=== PATIENT | male | born 1950 | race Caucasian/White ===

== ENCOUNTER 2019-04-04 06:26 | Inpatient (IN) | payer OTHER, MEDICARE | END 2019-04-10 11:45 | disposition home or self-care (01) | LOC: J5S 04-06 14:43 → JER 06:26 → J4W 04-07 11:36 → JERBED 08:53 → J8W 13:51 ==

== ENCOUNTER 2019-07-03 10:55 | Inpatient (IN) | payer OTHER, MEDICARE ==
--- NOTE | 2019-07-03 12:15 | PDOC ---
*Physical Exam - Vital Signs Last Vital Signs Temp Pulse Resp BP Pulse Ox 98.1 F 60 19 135/81 97 07/03/19 11:04 07/03/19 11:04 07/03/19 11:04 07/03/19 11:04 07/03/19 11:04 ED Treatment Course - LABORATORY CBC & Chemistry Diagram: 07/04/19 07:00 07/04/19 07:00 Medical Decision Making - Medical Decision Making 07/03/19 12:13 Mr Hdz is a 69 yo M presenting with a lower extremity cellulitis Pt was seen by PMD, started on Keflex but pt feels the erythema has worsened HE also noted local pruritic rash (which worsened while on Keflex) EKG - SR rate of 53 bpm, axis nml, intervals nml, no st elevation or depression Agree with history, physical exam and plan per [facility] APPRENTICE Daya Agree with plan for antibiotics as pt has failed outpatient abx Will admit *DC/Admit/Observation/Transfer Diagnosis at time of Disposition: Cellulitis - Discharge Dispostion Condition at time of disposition: Stable - Referrals - Patient Instructions - Post Discharge Activity
[2019-07-03] MEDS ORDERED: CLINDAMYCIN 600MG PREMIX IVPB 600 MG/50 ML BAG IVPB ONE ×2 (12:22→12:34)
--- NOTE | 2019-07-03 12:22 | PDOC ---
History of Present Illness - General Chief Complaint: Wound Stated Complaint: leg wounds infection Time Seen by Provider: 07/03/19 12:00 History Source: Patient Exam Limitations: No Limitations Past History - Travel Traveled outside of the country in the last 30 days: No Close contact w/someone who was outside of country & ill: No - Past Medical History Allergies/Adverse Reactions: Allergies Allergy/AdvReac Type Severity Reaction Status Date / Time No Known Allergies Allergy Verified 07/03/19 11:08 Home Medications: Ambulatory Orders Furosemide [Lasix] 20 mg PO DAILY 04/04/19 Gabapentin 100 mg PO DAILY 04/04/19 Glipizide [Glipizide ER] 2.5 mg PO DAILY 04/04/19 Hydrochlorothiazide [Hctz -] 25 mg PO DAILY 04/04/19 Losartan Potassium 100 mg PO DAILY 04/04/19 Metformin HCl [Metformin HCl ER] 1,000 mg PO BID 04/04/19 Metoprolol Tartrate 25 mg PO DAILY 04/04/19 Montelukast Sodium [Singulair] 10 mg PO DAILY 04/04/19 Tamsulosin HCl [Flomax] 0.8 mg PO DAILY 04/04/19 Amoxicillin - [Amoxicillin 500mg Capsule -] 500 mg PO TID #9 capsule 04/09/19 Cyanocobalamin/Cobamamide [Vitamin B-12 5,000 Mcg Tab Sl] 1 each SL DAILY #30 tab.subl 04/09/19 metroNIDAZOLE [Flagyl -] 500 mg PO TID #9 tablet 04/09/19 Warfarin Na [Coumadin -] 5 mg PO DAILY@1800 #30 tablet 04/10/19 Cancer: Yes (prostate) COPD: No Diabetes: Yes HTN: Yes Other medical history: leg wounds - Surgical History Abdominal Surgery: Yes (stent in gallbladder March 2019) Orthopedic Surgery: Yes (bilateral knee replacement) - Immunization History Immunization Up to Date: Yes - Suicide/Smoking/Psychosocial Hx Smoking History: Never smoked Have you smoked in the past 12 months: No Information on smoking cessation initiated: No Hx Alcohol Use: No Drug/Substance Use Hx: No Review of Systems - Review of Systems Able to Perform ROS?: Yes Comments:: 07/03/19 14:31 CONSTITUTIONAL: Absent: fever, chills, diaphoresis, generalized weakness, malaise, loss of appetite HEENT: Absent: rhinorrhea, nasal congestion, throat pain, throat swelling, difficulty swallowing, mouth swelling, ear pain, eye pain, visual Changes CARDIOVASCULAR: Absent: chest pain, loss of consciousness, palpitations, irregular heart rate, peripheral edema RESPIRATORY: Absent: cough, shortness of breath, dyspnea with exertion, orthopnea, wheezing, stridor, hemoptysis GASTROINTESTINAL: Absent: abdominal pain, abdominal distension, nausea, vomiting, diarrhea, constipation, melena, hematochezia GENITOURINARY: Absent: dysuria, frequency, urgency, hesitancy, hematuria, flank pain, genital pain MUSCULOSKELETAL: Absent: myalgia, arthralgia, joint swelling SKIN: Present: itching, rash Absent: pallor HEMATOLOGIC/IMMUNOLOGIC: Absent: easy bleeding, easy bruising, lymphadenopathy, frequent infections ENDOCRINE: Absent: unexplained weight gain, unexplained weight loss, heat intolerance, cold intolerance NEUROLOGIC: Absent: headache, focal weakness or paresthesias, dizziness, unsteady gait, seizure, mental status changes, bladder or bowel incontinence PSYCHIATRIC: Absent: anxiety, depression, suicidal or homicidal ideation, hallucinations. Is the patient limited Arabic proficient: No *Physical Exam - Vital Signs Last Vital Signs Temp Pulse Resp BP Pulse Ox 98.1 F 60 19 135/81 97 07/03/19 11:04 07/03/19 11:04 07/03/19 11:04 07/03/19 11:04 07/03/19 11:04 - Physical Exam Comments: 07/03/19 14:42 GENERAL: Well developed, well nourished. Awake and alert. No acute distress. HEENT: Normocephalic, atraumatic. PERRLA, EOMI. No conjunctival pallor. Sclera are non- icteric. Moist mucous membranes. Oropharynx is clear. NECK: Supple. Full ROM. No JVD. Carotid pulses 2+ and symmetric, without bruits. No thyromegaly. No lymphadenopathy. CARDIOVASCULAR: Regular rate and rhythm. No murmurs, rubs, or gallops. Distal pulses are 2+ and symmetric. PULMONARY: No evidence of respiratory distress. Lungs clear to auscultation bilaterally. No wheezing, rales or rhonchi. ABDOMINAL: Soft. Non-tender. Non-distended. No rebound or guarding. No organomegaly. Normoactive bowel sounds. MUSCULOSKELETAL Normal range of motion at all joints. No bony deformities or tenderness. No CVA tenderness. EXTREMITIES: No cyanosis. No clubbing. (+) 2+ pitting edema. No calf tenderness. SKIN: Erythematous, warm cellulitic area to the posterior L leg, approximately [id number] with a central area of excoriation. No obvious drainage Warm and dry. Normal capillary refill. Small excorated papules to the legs, back, ears ,face, and chest. No jaundice. NEUROLOGICAL: Alert, awake, appropriate. Cranial nerves 2-12 intact. No deficits to light touch and temperature in face, upper extremities and lower extremities. No motor deficits in the in face, upper extremities and lower extremities. Normoreflexic in the upper and lower extremities. Normal speech. Toes are down- going bilaterally. Gait is normal without ataxia. PSYCHIATRIC: Cooperative. Good eye contact. Appropriate mood and affect. ED Treatment Course - LABORATORY CBC & Chemistry Diagram: 07/03/19 12:44 07/03/19 12:44 Medical Decision Making - Medical Decision Making 07/03/19 14:49 The patient is a 69y/o M with PMH of NIDDM, HTN, gallbladder stents, presents to the ER today for lower leg infection. The patient states he saw his primary care doctor for the cellulitis on 06/28/19. He was placed on Keflex at that time and he had been taking it as directed. He notes that the area on his LLE did not get better and the redness appears to be getting worse. Denies drainage from the area. He also notes that after starting the antibiotics he developed an itchy rash all over his body. Denies fevers, chills, lightheadedness, weakness, gait changes, numbness/tingling and weakness to the lower extremities. PCP: Dr. Betts A/P: Cellulitis; failed outpatient therapy On exam pt with an erythematous patch to the LLE posteriorly consistent with cellulitis. No abscess or flutucance noted Also with pruritic papular rash to the body. Possible Keflex allergy? Will admit for failed out patient therapy Labs, blood cultures drawn IV Clinda given X-rays show no acute pathology Dr. Adorno's group paged. *DC/Admit/Observation/Transfer Diagnosis at time of Disposition: Cellulitis Qualifiers: Site of cellulitis: extremity Site of cellulitis of extremity: lower extremity Laterality: left Qualified Code(s): L03.116 - Cellulitis of left lower limb - Discharge Dispostion Condition at time of disposition: Stable Decision to Admit order: Yes - Referrals - Patient Instructions - Post Discharge Activity
[2019-07-03 12:57] LABS: EOS % 9.8 % (0-4.5); HEMATOCRIT 46.3 % (35.4-49); LYMPH % 16.5 % (8-40); MCHC 34.6 g/dl (32.0-35.9); MEAN CELL VOLUME 92.6 fl (80-96); MEAN PLT VOLUME 8.5 fl (7.5-11.1); MONO % 15.4 % (3.8-10.2); NEUT % 57.3 % (42.8-82.8); PLATELET COUNT 153 K/MM3 (134-434); RDW 15.1 % (11.9-15.9); WHITE BLOOD COUNT 3.3 K/mm3 (4.0-10.0)
[2019-07-03 12:58] LABS: URINE APPEARANCE CLEAR; URINE BILIRUBIN NEGATIVE (NEGATIVE); URINE COLOR YELLOW; URINE GLUCOSE (UA) NEGATIVE (NEGATIVE); URINE KETONE NEGATIVE (NEGATIVE); URINE LEUK ESTERASE NEGATIVE (NEGATIVE); URINE NITRITE NEGATIVE (NEGATIVE); URINE PROTEIN NEGATIVE (NEGATIVE); URINE UROBILINOGEN 0.2 mg/dL (0.2-1.0)
[2019-07-03] MEDS ORDERED: diphenhydrAMINE HCL 25 MG CAPSULE (FP) PO ONE ×2 (13:00→13:02)
[2019-07-03 13:16] LABS: INR 2.35 (0.83-1.09)
[2019-07-03 13:30] LABS: ALBUMIN 3.7 g/dl (3.4-5.0); BILIRUBIN,TOTAL 0.7 mg/dL (0.2-1); CALCIUM 8.7 mg/dL (8.5-10.1); CREATININE 0.9 mg/dL (0.55-1.3); POTASSIUM 3.7 mmol/L (3.5-5.1); TOT PROT 6.1 g/dl (6.4-8.2)
--- NOTE | 2019-07-03 15:01 | EKG ---
Test Reason : Blood Pressure : / mmHG Vent. Rate : 053 BPM Atrial Rate : 053 BPM P-R Int : 194 ms QRS Dur : 092 ms QT Int : 418 ms P-R-T Axes : 057 021 013 degrees QTc Int : 392 ms SINUS BRADYCARDIA OTHERWISE NORMAL ECG WHEN COMPARED WITH ECG OF 07-APR-2019 10:00, SINUS RHYTHM HAS REPLACED ATRIAL FIBRILLATION VENT. RATE HAS DECREASED BY [address] NO LONGER DEPRESSED IN LATERAL LEADS Confirmed by TRE DIAZ MD ([id number]) on 07/03/2019 3:00:51 PM Referred By: Confirmed By:TRE DIAZ MD
[2019-07-03] MEDS: INSULIN SLIDING SCALE (NOVOLOG) 1 VIAL SQ SCH (21:54)
[2019-07-03] MEDS: GABAPENTIN 100 MG CAPSULE (FP) PO SCH (22:04)
[2019-07-03] MEDS: HEPARIN NA (PORCINE) 5,000 UNITS/ML 1ML VIAL SQ SCH (22:04)
[2019-07-03 22:16] VITALS: BMI 38.5
[2019-07-04] MEDS: GABAPENTIN 100 MG CAPSULE (FP) PO SCH ×3 (06:34→21:46)
[2019-07-04] MEDS: diphenhydrAMINE HCL 25 MG CAPSULE (FP) PO PRN ×2 (06:34→21:46)
[2019-07-04] MEDS: INSULIN SLIDING SCALE (NOVOLOG) 1 VIAL SQ SCH ×4 (06:34→21:44)
[2019-07-04] MEDS ORDERED: ACARBOSE PO SCH (07:00)
[2019-07-04 07:34] LABS: BASO % 0.5 % (0-2.0); EOS % 9.6 % (0-4.5); HEMATOCRIT 45.4 % (35.4-49); HEMOGLOBIN 15.5 GM/dL (11.7-16.9); LYMPH % 12.3 % (8-40); MCH 32.3 pg (25.7-33.7); MCHC 34.2 g/dl (32.0-35.9); MEAN CELL VOLUME 94.3 fl (80-96); MEAN PLT VOLUME 8.8 fl (7.5-11.1); MONO % 13.8 % (3.8-10.2); NEUT % 63.8 % (42.8-82.8); PLATELET COUNT 143 K/MM3 (134-434); RBC 4.81 M/mm3 (4.00-5.60); RDW 14.9 % (11.9-15.9); WHITE BLOOD COUNT 4.4 K/mm3 (4.0-10.0)
[2019-07-04 08:07] LABS: ALBUMIN 3.5 g/dl (3.4-5.0); BILIRUBIN,TOTAL 0.8 mg/dL (0.2-1); BLOOD UREA NITROGEN 18.4 mg/dL (7-18); CALCIUM 8.6 mg/dL (8.5-10.1); CREATININE 1.1 mg/dL (0.55-1.3); MAGNESIUM 1.9 mg/dL (1.8-2.4); PHOSPHOROUS 3.1 mg/dL (2.5-4.9); POTASSIUM 3.5 mmol/L (3.5-5.1); TOT PROT 5.8 g/dl (6.4-8.2)
[2019-07-04] MEDS: LOSARTAN POTASSIUM 50 MG TABLET (FP) PO SCH (09:31)
[2019-07-04] MEDS: HYDROCHLOROTHIAZIDE 25 MG TABLET (FP) PO SCH (09:31)
[2019-07-04] MEDS: HEPARIN NA (PORCINE) 5,000 UNITS/ML 1ML VIAL SQ SCH (09:31)
[2019-07-04] MEDS ORDERED: PATIENT'S OWN MEDICATION (NON-FORMULARY) (Losartan Potassium [Losartan Potassium] 100 MG) PO SCH (10:00)
--- NOTE | 2019-07-04 10:55 | HP ---
Admitting History and Physical - Primary Care Physician PCP: Kan Adorno - Admission Chief Complaint: LLE INFECTION. CELLULITIS History of Present Illness: The patient is a 69y/o M with PMH of NIDDM, HTN, gallbladder stents, presents to the ER today for lower leg infection. The patient states he saw his primary care doctor for the cellulitis on 06/28/19. He was placed on Keflex at that time and he had been taking it as directed. He notes that the area on his LLE did not get better and the redness appears to be getting worse. Denies drainage from the area. He also notes that after starting the antibiotics he developed an itchy rash all over his body. Denies fevers, chills, lightheadedness, weakness, gait changes, numbness/tingling and weakness to the lower extremities. History Source: Patient, Medical Record, Transfer Record - Past Medical History Cardiovascular: Yes: HTN Pulmonary: Yes: COPD Renal/: Yes: BPH, Cancer (prostate cancer s/p radiation therapy 2016) - Past Surgical History Past Surgical History: Yes: Joint Replacement (B/L TKR) - Smoking History Smoking history: Never smoked Have you smoked in the past 12 months: No - Alcohol/Substance Use Hx Alcohol Use: No History of Substance Use: reports: None - Social History ADL: Independent History of Recent Travel: No Home Medications - Allergies Allergies/Adverse Reactions: Allergies Allergy/AdvReac Type Severity Reaction Status Date / Time cephalexin [From Keflet] Allergy Verified 07/04/19 07:16 - Home Medications Home Medications: Ambulatory Orders Gabapentin 100 mg PO TID 04/04/19 Hydrochlorothiazide [Hctz -] 25 mg PO DAILY 04/04/19 Losartan Potassium 100 mg PO DAILY 04/04/19 Metformin HCl [Metformin HCl ER] 1,000 mg PO BID 04/04/19 Metoprolol Tartrate 25 mg PO DAILY 04/04/19 Montelukast Sodium [Singulair] 10 mg PO DAILY 04/04/19 Tamsulosin HCl [Flomax] 0.8 mg PO DAILY 04/04/19 Warfarin Na [Coumadin -] 5 mg PO DAILY@1800 #30 tablet 04/10/19 Acarbose [Precose -] 1 tab PO TID 07/03/19 Silver Sulfadiazine 1% Top Cr [Silvadene -] 1 applic TP BID 07/03/19 Family Disease History - Family Disease History Family Disease History: Other: Father (: 74: OR), Mother (: 86: "Old Age "), Brother (4, healthy), Sister (1, healthy), Son (1, healthy), Daughter (3, healthy) Review of Systems - Review of Systems Constitutional: reports: Other Neck: reports: No Symptoms Cardiovascular: reports: No Symptoms Respiratory: reports: No Symptoms Gastrointestinal: reports: Other Genitourinary: reports: No Symptoms Integumentary: reports: Erythema, Wound Physical Examination Vital Signs: Vital Signs Temperature 97.6 F 07/04/19 10:00 Pulse Rate 81 07/04/19 10:00 Respiratory Rate 07/04/19 10:00 Blood Pressure 142/80 07/04/19 10:00 O2 Sat by Pulse Oximetry (%) 98 07/04/19 06:06 Constitutional: Yes: Mild Distress Eyes: Yes: WNL HENT: Yes: WNL Neck: Yes: WNL Cardiovascular: Yes: Regular Rate and Rhythm Respiratory: Yes: WNL Gastrointestinal: Yes: Soft Musculoskeletal: Yes: Other Extremities: Yes: Erythema Peripheral Pulses WNL: Yes Integumentary: Yes: Erythema, Pressure Ulcer, Rash, Venous Stasis Changes (LEFT LOWER EXTREMITY) Wound/Incision: Yes: Open to air Neurological: Yes: WNL ...Motor Strength: LLE Psychiatric: Yes: WNL Labs: CBC, BMP 07/04/19 07:00 07/04/19 07:00 Problem List - Problems (1) Cellulitis Code(s): L03.90 - CELLULITIS, UNSPECIFIED Qualifiers: Site of cellulitis: extremity Site of cellulitis of extremity: lower extremity Laterality: left Qualified Code(s): L03.116 - Cellulitis of left lower limb (2) Atrial fibrillation with RVR Code(s): I48.91 - UNSPECIFIED ATRIAL FIBRILLATION (3) Cholangitis due to bile duct calculus with obstruction Code(s): K80.31 - CALCULUS OF BILE DUCT W CHOLANGITIS, UNSP, WITH OBSTRUCTION (4) Diabetes mellitus Code(s): E11.9 - TYPE 2 DIABETES MELLITUS WITHOUT COMPLICATIONS Qualifiers: Diabetes mellitus type: type 2 (5) HTN (hypertension) Code(s): I10 - ESSENTIAL (PRIMARY) HYPERTENSION (6) Morbid obesity due to excess calories Code(s): E66.01 - MORBID (SEVERE) OBESITY DUE TO EXCESS CALORIES Assessment/Plan CHECK DOPPLER ARTERIAL FLOW LEGS IV ABX GI EVAL FOR GB STENT REMOVAL DVT PROPHYLAXIS OOB TO CHAIR BGM CHECK
--- NOTE | 2019-07-04 10:58 | PN ---
Progress Note (short form) - Note Progress Note: ID CONSULT DICTATED RECURRENT L LE CELLULITIS ? CEPHALOSPORIN ALLERGY DM S/P BILATERAL TKR AWAIT C/S EMPIRIC VANCOMYCIN
--- NOTE | 2019-07-04 11:33 | CONS ---
INFECTIOUS DISEASE CONSULTATION DATE OF CONSULTATION: DATE OF DICTATION: 07/04/2019 Patient is a 69-year-old male who was admitted with recurrent lower extremity cellulitis. He reports developing erythema, warmth, and swelling of the left lower extremity associated with pruritus several days prior to admission. His left lower extremity became increasingly red and pruritic. He reports scratching at the calf area of his left lower extremity, resulting in a superficial ulceration. He was seen by his primary care physician. He was prescribed Keflex. Patient subsequently reported feeling flushed and having erythema of the face and neck. He is now admitted for further evaluation and treatment. He denies any associated fever or chills. He did not notice any purulent drainage from the left calf wound. Of note, the patient was hospitalized in March of 2019, for treatment of left lower extremity cellulitis. At that time, he was treated with vancomycin and Zosyn. He denies any traumatic injury to his left lower extremity. No reports of insect or animal bites or scratches. He does report scratching his leg secondary to pruritus. PAST MEDICAL HISTORY: Positive for [id number] diabetes mellitus; hypertension; history of biliary tract disease, status post biliary tract stent. PAST SURGICAL HISTORY: Status post bilateral total knee replacements. ALLERGIES: No known allergies. MEDICATIONS: At the present time include Benadryl, Neurontin, hydrochlorothiazide, losartan, metformin. SOCIAL HISTORY: He lives in the community. He is a nonsmoker. SYSTEMS REVIEW: Neurologic: No loss of consciousness, seizure activity, focal weakness. Cardiac: Negative chest pain or palpitations. Respiratory: Negative cough or sputum production. Gastrointestinal: Negative vomiting or diarrhea. Genitourinary: Negative for urinary tract infection. LABORATORY DATA: White count 4.4, hematocrit 45.4, platelets 143; neutrophils 63, lymphocytes 12, monocytes 13, eosinophils 9. Creatinine 1.1. Urinalysis negative. Blood cultures are pending. PHYSICAL EXAMINATION: General: He is awake and alert. He is not acutely toxic appearing. Vital Signs: His temperature is 97.5; blood pressure 143/80; pulse 55, regular; respirations 20 per minute. HEENT: Sclera anicteric. Heart: Sounds S1, S2. Lungs: Clear. Abdomen: Soft, nontender. Lower Extremities: Bilateral lower extremity edema with chronic venous stasis dermatitis. There is a 1-cm superficial ulceration present on the left calf area. There is no purulent drainage. There is surrounding erythema and warmth present. IMPRESSION: 1. Recurrent left lower extremity cellulitis. 2. Possible CEPHALOSPORIN allergy. 3. History of endoscopic retrograde cholangiopancreatography and stone extraction in March 2019. Await cultures. Empiric antibiotic coverage in this patient with possible CEPHALOSPORIN allergy with vancomycin 1250 mg IV piggyback every 8 hours. Elevation. Analgesics. Will follow. Thank you for the kind referral. GINA DALTON M.D. [id number]
[2019-07-04] MEDS: VANCOMYCIN 1,250 MG in DEXTROSE 5%-WATER - 250 ML IVPB SCH ×2 (12:05→23:27)
[2019-07-04] MEDS ORDERED: ACETAMINOPHEN 325 MG TABLET (FP) PO PRN (20:03)
--- NOTE | 2019-07-04 20:47 | CON.GI ---
Consult Consult Specialty:: Gastroenterology Referred by:: Dr. Kan Adorno Reason for Consultation:: Residual CBD stone and stent - History of Present Illness Chief Complaint: lower extremity pain History of Present Illness: 69M diabetic is admitted with cellulitis after scratching and macerating his brawny edematous LLE. He is due for a repeat ERCP to remove a residual CBD stone and stent. He had an ECP with [facility] for ascending cholangitis on 04/05/19. Only one of his two CBD stones could be removed when he developed swelling and closure of his sphincterotomy so a stent was inserted. he has not yet undergone a cholecystectomy. He ju abdominal pain. He has never had a colonoscopy or EGD. He moves his bowels regularly. He has not been taking Actigal. He is still on warfarin for paroxysmal MALVIN that developed during ascending choplangitis in . - History Source History Provided By: Patient Limitations to Obtaining History: No Limitations - Past Medical History Cardio/Vascular: Yes: AFIB (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), HTN, Other (LE venous insufficiency) Pulmonary: Yes: Asthma Hepatobiliary: Yes: Cholelithiasis, Choledocholithiasis, Other (fatty liver) Renal/: Yes: BPH, Cancer (prostate cancer s/p radiation therapy 2016) Endocrine: Yes: Diabetes Mellitus - Past Surgical History Past Surgical History: Yes: Appendectomy, Joint Replacement (B/L TKR) - Alcohol/Substance Use Hx Alcohol Use: Yes (rare beer and wine) History of Substance Use: reports: None - Smoking History Smoking history: Former smoker Have you smoked in the past 12 months: No If you are a former smoker, when did you quit?: aage 33 - Social History Usual Living Arrangement: With Spouse ADL: Independent 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 (year): age 34 History of Recent Travel: No Home Medications - Allergies Allergies/Adverse Reactions: Allergies Allergy/AdvReac Type Severity Reaction Status Date / Time cephalexin [From Keflet] Allergy Verified 07/04/19 07:16 - Home Medications Home Medications: Ambulatory Orders Gabapentin 100 mg PO TID 04/04/19 Hydrochlorothiazide [Hctz -] 25 mg PO DAILY 04/04/19 Losartan Potassium 100 mg PO DAILY 04/04/19 Metformin HCl [Metformin HCl ER] 1,000 mg PO BID 04/04/19 Metoprolol Tartrate 25 mg PO DAILY 04/04/19 Montelukast Sodium [Singulair] 10 mg PO DAILY 04/04/19 Tamsulosin HCl [Flomax] 0.8 mg PO DAILY 04/04/19 Warfarin Na [Coumadin -] 5 mg PO DAILY@1800 #30 tablet 04/10/19 Acarbose [Precose -] 1 tab PO TID 07/03/19 Silver Sulfadiazine 1% Top Cr [Silvadene -] 1 applic TP BID 07/03/19 Family Medical History Family Hx Cancer: Brother (throat cancer, another had prostate cancer) Other Family History: F 74 of [place] and COPD. M 87 natural causes Review of Systems - Review of Systems Constitutional: reports: No Symptoms Eyes: reports: No Symptoms HENT: reports: No Symptoms Neck: reports: No Symptoms Cardiovascular: reports: No Symptoms Respiratory: reports: No Symptoms Gastrointestinal: reports: Abdominal Pain Genitourinary: reports: No Symptoms Musculoskeletal: reports: No Symptoms Integumentary: reports: Other (brwany edema lower extremities) Endocrine: reports: Other (weiht loss from 335 to 279 lbs. with diet and exercise) Physical Exam-GI Vital Signs: Vital Signs Temperature 97.5 F L 07/04/19 19:07 Pulse Rate 63 07/04/19 19:07 Respiratory Rate 18 07/04/19 19:07 Blood Pressure 135/72 07/04/19 19:07 O2 Sat by Pulse Oximetry (%) 97 07/04/19 09:00 CBC,CMP WBC 4.4 K/mm3 (4.0-10.0) 07/04/19 07:00 RBC 4.81 M/mm3 (4.00-5.60) 07/04/19 07:00 Hgb 15.5 GM/dL (11.7-16.9) 07/04/19 07:00 Hct 45.4 % (35.4-49) 07/04/19 07:00 MCV 94.3 fl (80-96) 07/04/19 07:00 MCH 32.3 pg (25.7-33.7) 07/04/19 07:00 MCHC 34.2 g/dl (32.0-35.9) 07/04/19 07:00 RDW 14.9 % (11.9-15.9) 07/04/19 07:00 Plt Count 143 K/MM3 (134-434) 07/04/19 07:00 MPV 8.8 fl (7.5-11.1) 07/04/19 07:00 Absolute Neuts (auto) 2.8 K/mm3 (1.5-8.0) 07/04/19 07:00 Neutrophils % 63.8 % (42.8-82.8) 07/04/19 07:00 Lymphocytes % 12.3 % (8-40) D 07/04/19 07:00 Monocytes % 13.8 % (3.8-10.2) H 07/04/19 07:00 Eosinophils % 9.6 % (0-4.5) H 07/04/19 07:00 Basophils % 0.5 % (0-2.0) 07/04/19 07:00 Nucleated RBC % 0 % (0-0) 07/04/19 07:00 Sodium 142 mmol/L (136-145) 07/04/19 07:00 Potassium 3.5 mmol/L (3.5-5.1) 07/04/19 07:00 Chloride 106 mmol/L (98-107) 07/04/19 07:00 Carbon Dioxide 29 mmol/L (21-32) 07/04/19 07:00 Anion Gap 7 MMOL/L (8-16) L 07/04/19 07:00 BUN 18.4 mg/dL (7-18) H 07/04/19 07:00 Creatinine 1.1 mg/dL (0.55-1.3) 07/04/19 07:00 Est GFR (CKD-EPI)AfAm 77.86 07/04/19 07:00 Est GFR (CKD-EPI)NonAf 67.18 07/04/19 07:00 POC Glucometer 102 UNITS (80-120) 07/04/19 16:38 Random Glucose 118 mg/dL (74-106) H 07/04/19 07:00 Calcium 8.6 mg/dL (8.5-10.1) 07/04/19 07:00 Phosphorus 3.1 mg/dL (2.5-4.9) 07/04/19 07:00 Magnesium 1.9 mg/dL (1.8-2.4) 07/04/19 07:00 Total Bilirubin 0.8 mg/dL (0.2-1) 07/04/19 07:00 AST 18 U/L (15-37) 07/04/19 07:00 ALT 17 U/L (13-61) 07/04/19 07:00 Alkaline Phosphatase 76 U/L (45-117) 07/04/19 07:00 Total Protein 5.8 g/dl (6.4-8.2) L 07/04/19 07:00 Albumin 3.5 g/dl (3.4-5.0) 07/04/19 07:00 TSH 1.76 uIU/ml (0.358-3.74) D 07/04/19 07:00 Current Medications Generic Name Dose Route Start Last Admin Trade Name Freq PRN Reason Stop Dose Admin Acetaminophen 650 mg 07/04/19 20:03 Tylenol - PO Q6H PRN PAIN LEVEL 6-10 Diphenhydramine HCl 25 mg 07/03/19 22:24 07/04/19 06:34 Benadryl - PO 25 mg Q6H PRN Administration FOR ITCHING Gabapentin 100 mg 07/03/19 22:00 07/04/19 13:26 Neurontin - PO 100 mg TID SAJAN Administration Heparin Sodium (Porcine) 5,000 unit 07/03/19 22:00 07/04/19 09:31 Heparin - SQ 5,000 unit BID SAJAN Administration Hydrochlorothiazide 25 mg 07/04/19 10:00 07/04/19 09:31 Hctz - PO 25 mg DAILY SAJAN Administration Vancomycin HCl 1,250 mg/ 250 mls @ 125 mls/hr 07/04/19 11:00 07/04/19 12:05 Dextrose IVPB 125 mls/hr Q12H SAJAN Administration Protocol Insulin Aspart 1 vial 07/03/19 22:00 07/04/19 16:50 Novolog Vial Sliding Scale - SQ Not Given ACHS [facility] Protocol Losartan Potassium 100 mg 07/04/19 10:00 07/04/19 09:31 Cozaar - PO 100 mg DAILY SAJAN Administration Metformin HCl 1,000 mg 07/03/19 22:00 07/04/19 06:34 Glucophage Xr - PO Not Given BID@0700,2200 [facility] Non-Formulary Medication 1 tab 07/04/19 07:00 Acarbose PO TIDAC [facility] Constitutional: Yes: Well Nourished Eyes: Yes: Conjunctiva Clear HENT: Yes: Atraumatic Neck: Yes: Trachea Midline Cardiovascular: Yes: Regular Rate and Rhythm Respiratory: Yes: CTA Bilaterally Gastrointestinal Inspection: Yes: Scars (healed RLQ inicison) ...Auscultate: Yes: Normoactive Bowel Sounds ...Palpate: Yes: Soft, Other (nontender) ...Rectal Exam: Yes: Guaiac Negative (brown g neg stool. 2+ prostate, normal testicles. no hernias) Extremities: Yes: Other (brwany edema and dolor bilaterally) Edema: LLE: 2+ (brawny), RLE: 2+ (brawny) Neurological: Yes: Alert, Oriented Labs: CBC, BMP 07/04/19 07:00 07/04/19 07:00 INR, PTT INR 2.35 (0.83-1.09) H 07/03/19 12:44 Problem List - Problems (1) Choledocholithiasis Assessment/Plan: Singh is due for removal of his residual stent and stone. I have advised that we do when his warfarin can be stopped. Would seek cardiology opinion about this Code(s): K80.50 - CALCULUS OF BILE DUCT W/O CHOLANGITIS OR CHOLECYST W/O OBST (2) Fatty liver Code(s): K76.0 - FATTY (CHANGE OF) LIVER, NOT ELSEWHERE CLASSIFIED (3) Prostate CA Code(s): C61 - MALIGNANT NEOPLASM OF PROSTATE (4) Asthma Code(s): J45.909 - UNSPECIFIED ASTHMA, UNCOMPLICATED (5) Venous insufficiency of both lower extremities Code(s): I87.2 - VENOUS INSUFFICIENCY (CHRONIC) (PERIPHERAL) (6) History of acute cholangitis Code(s): Z87.19 - PERSONAL HISTORY OF OTHER DISEASES OF THE DIGESTIVE SYSTEM (7) Cellulitis Code(s): L03.90 - CELLULITIS, UNSPECIFIED Qualifiers: Site of cellulitis: extremity Site of cellulitis of extremity: lower extremity Laterality: left Qualified Code(s): L03.116 - Cellulitis of left lower limb (8) Cholangitis due to bile duct calculus with obstruction Code(s): K80.31 - CALCULUS OF BILE DUCT W CHOLANGITIS, UNSP, WITH OBSTRUCTION (9) Diabetes mellitus Code(s): E11.9 - TYPE 2 DIABETES MELLITUS WITHOUT COMPLICATIONS Qualifiers: Diabetes mellitus type: type 2 (10) HTN (hypertension) Code(s): I10 - ESSENTIAL (PRIMARY) HYPERTENSION (11) S/P ERCP Code(s): Z98.890 - OTHER SPECIFIED POSTPROCEDURAL STATES (12) Paroxysmal atrial fibrillation with rapid ventricular response Code(s): I48.0 - PAROXYSMAL ATRIAL FIBRILLATION Assessment/Plan Assessment: - Singh is due for removal of his residual stent and stone but this will need to wait until his warfarin can be stopped. - Residual cholelithiasis and in need of cholecystectomy after the ERCP - Fatty liver - Overdue for colon cancer screening Plan: -- I have discussed ERCP in detail with Singh and informed him of the potential for such complications as perforation, hemorrhage and multiorgan failure due to ERCP induced pancreatitis. He is in a position to palma an informed consent is cholangitis ensues. He will arrange an office visit after discharge so that we can set it up. Please consult cardiology on the feasibility of stopping his warfarin. -- Will resume Actigal which should be continued until the ERCP -- I have advised a cholecystectomy following the ERCP -- I have advised followup in my office for a screening colonoscopy and gave Singh my business card. At that time a Fibroscan will be arranged as well.
[2019-07-04] MEDS ORDERED: HEPARIN NA (PORCINE) 5,000 UNITS/ML 1ML VIAL SQ SCH (22:00)
[2019-07-05] MEDS: URSODIOL 300 MG CAPSULE PO SCH ×3 (00:10→21:22)
[2019-07-05] MEDS ORDERED: HEPARIN NA (PORCINE) 5,000 UNITS/ML 1ML VIAL SQ SCH (02:00)
[2019-07-05] MEDS: GABAPENTIN 100 MG CAPSULE (FP) PO SCH ×3 (05:56→21:22)
[2019-07-05] MEDS: INSULIN SLIDING SCALE (NOVOLOG) 1 VIAL SQ SCH ×4 (06:21→21:23)
[2019-07-05] MEDS ORDERED: INDOMETHACIN 50 MG RECTAL SUPPOSITORY PR ONE (09:00)
[2019-07-05] MEDS: LOSARTAN POTASSIUM 50 MG TABLET (FP) PO SCH (10:04)
[2019-07-05] MEDS: HYDROCHLOROTHIAZIDE 25 MG TABLET (FP) PO SCH (10:05)
[2019-07-05] MEDS: VANCOMYCIN 1,250 MG in DEXTROSE 5%-WATER - 250 ML IVPB SCH (12:49)
--- NOTE | 2019-07-05 14:56 | PN.GI ---
GI Progress Note Subjective: GI NOte: No abdominal complaints. Legs are more comfortable - Objective Vital Signs: Vital Signs Temperature 97.4 F L 07/05/19 10:00 Pulse Rate 69 07/05/19 10:00 Respiratory Rate 18 07/05/19 10:00 Blood Pressure 152/88 07/05/19 10:00 O2 Sat by Pulse Oximetry (%) 95 07/05/19 09:00 Constitutional: Calm ...Auscultate: Yes: Normoactive Bowel Sounds ...Palpate: Yes: Other (nontender) Labs: CBC, BMP 07/04/19 07:00 07/04/19 07:00 INR, PTT INR 2.35 (0.83-1.09) H 07/03/19 12:44 Assessment/Plan Assessment: - Singh is due for removal of his residual stent and stone but this will need to wait until his warfarin can be stopped. - Residual cholelithiasis and in need of cholecystectomy after the ERCP - Fatty liver - Overdue for colon cancer screening Plan: -- He will arrange an office visit after discharge so that we can set it up. -- Await cardiology opinion on the feasibility of stopping his warfarin. -- Will resume Actigal which should be continued until the ERCP Problem List - Problems (1) Choledocholithiasis Code(s): K80.50 - CALCULUS OF BILE DUCT W/O CHOLANGITIS OR CHOLECYST W/O OBST (2) Fatty liver Code(s): K76.0 - FATTY (CHANGE OF) LIVER, NOT ELSEWHERE CLASSIFIED (3) Prostate CA Code(s): C61 - MALIGNANT NEOPLASM OF PROSTATE (4) Asthma Code(s): J45.909 - UNSPECIFIED ASTHMA, UNCOMPLICATED (5) Venous insufficiency of both lower extremities Code(s): I87.2 - VENOUS INSUFFICIENCY (CHRONIC) (PERIPHERAL) (6) History of acute cholangitis Code(s): Z87.19 - PERSONAL HISTORY OF OTHER DISEASES OF THE DIGESTIVE SYSTEM (7) Cellulitis Code(s): L03.90 - CELLULITIS, UNSPECIFIED Qualifiers: Site of cellulitis: extremity Site of cellulitis of extremity: lower extremity Laterality: left Qualified Code(s): L03.116 - Cellulitis of left lower limb (8) Cholangitis due to bile duct calculus with obstruction Code(s): K80.31 - CALCULUS OF BILE DUCT W CHOLANGITIS, UNSP, WITH OBSTRUCTION (9) Diabetes mellitus Code(s): E11.9 - TYPE 2 DIABETES MELLITUS WITHOUT COMPLICATIONS Qualifiers: Diabetes mellitus type: type 2 (10) HTN (hypertension) Code(s): I10 - ESSENTIAL (PRIMARY) HYPERTENSION (11) S/P ERCP Code(s): Z98.890 - OTHER SPECIFIED POSTPROCEDURAL STATES (12) Paroxysmal atrial fibrillation with rapid ventricular response Code(s): I48.0 - PAROXYSMAL ATRIAL FIBRILLATION
--- NOTE | 2019-07-05 15:41 | PN ---
Progress Note, Physician Chief Complaint: Cellulitis CBD stone History of Present Illness: Previous notes and events reviewed awake and alert OOB to chair NAD facial flushing noted states itching is improving - Current Medication List Current Medications: Active Medications Acetaminophen (Tylenol -) 650 mg PO Q6H PRN PRN Reason: PAIN LEVEL 6-10 Last Admin: 07/04/19 21:46 Dose: 650 mg Diphenhydramine HCl (Benadryl -) 25 mg PO Q6H PRN PRN Reason: FOR ITCHING Last Admin: 07/04/19 21:46 Dose: 25 mg Gabapentin (Neurontin -) 100 mg PO TID [facility] Last Admin: 07/05/19 05:56 Dose: 100 mg Hydrochlorothiazide (Hctz -) 25 mg PO DAILY [facility] Last Admin: 07/05/19 10:05 Dose: 25 mg Vancomycin HCl 1,250 mg/ (Dextrose) 250 mls @ 125 mls/hr IVPB Q12H [facility]; Protocol Last Admin: 07/05/19 12:49 Dose: 125 mls/hr Insulin Aspart (Novolog Vial Sliding Scale -) 1 vial SQ ACHS [facility]; Protocol Last Admin: 07/05/19 12:45 Dose: Not Given Losartan Potassium (Cozaar -) 100 mg PO DAILY [facility] Last Admin: 07/05/19 10:04 Dose: 100 mg Metformin HCl (Glucophage Xr -) 1,000 mg PO BID@0700,2200 [facility] Last Admin: 07/05/19 06:21 Dose: Not Given Non-Formulary Medication (Acarbose) 1 tab PO TIDAC [facility] Ursodiol (Actigal -) 300 mg PO BID [facility] Last Admin: 07/05/19 10:04 Dose: 300 mg Warfarin Sodium (Coumadin -) 5 mg PO DAILY@1800 [facility] - Objective Vital Signs: Vital Signs Temperature 97.7 F 07/05/19 15:13 Pulse Rate 79 07/05/19 15:13 Respiratory Rate 18 07/05/19 15:13 Blood Pressure 135/82 07/05/19 15:13 O2 Sat by Pulse Oximetry (%) 95 07/05/19 09:00 Constitutional: Yes: No Distress, Calm Eyes: Yes: Conjunctiva Clear HENT: Yes: Atraumatic Cardiovascular: Yes: Regular Rate and Rhythm Respiratory: Yes: Regular, CTA Bilaterally Gastrointestinal: Yes: Normal Bowel Sounds, Soft Musculoskeletal: Yes: WNL Extremities: Yes: WNL, Erythema (b/l lower extremity) Edema: Yes Edema: LLE: 2+, RLE: 2+ Integumentary: Yes: Erythema, Other (facial flushing) Neurological: Yes: Alert, Oriented Psychiatric: Yes: Alert, Oriented Labs: CBC, BMP 07/04/19 07:00 07/04/19 07:00 INR, PTT INR 2.35 (0.83-1.09) H 07/03/19 12:44 Microbiology 07/03/19 12:44 Blood - Peripheral Venous Blood Culture - Preliminary NO GROWTH OBTAINED AFTER 48 HOURS, INCUBATION TO CONTINUE FOR 3 DAYS. 07/03/19 12:44 Blood - Peripheral Venous Blood Culture - Preliminary NO GROWTH OBTAINED AFTER 48 HOURS, INCUBATION TO CONTINUE FOR 3 DAYS. Problem List - Problems (1) Cellulitis Assessment/Plan: -ID on board -no leukocytosis -afebrile -BC neg -Vancomycin, vanco trough in AM Code(s): L03.90 - CELLULITIS, UNSPECIFIED Qualifiers: Site of cellulitis: extremity Site of cellulitis of extremity: lower extremity Laterality: left Qualified Code(s): L03.116 - Cellulitis of left lower limb (2) Choledocholithiasis Assessment/Plan: -GI on board -monitor LFTs -Flagyl -Cardiology clearance for ERCP Code(s): K80.50 - CALCULUS OF BILE DUCT W/O CHOLANGITIS OR CHOLECYST W/O OBST (3) Fatty liver Assessment/Plan: -GI on board -monitor LFTs Code(s): K76.0 - FATTY (CHANGE OF) LIVER, NOT ELSEWHERE CLASSIFIED (4) Atrial fibrillation with RVR Assessment/Plan: -Coumadin Code(s): I48.91 - UNSPECIFIED ATRIAL FIBRILLATION (5) Diabetes mellitus Assessment/Plan: -BGM ACHS -ISS -Metformin -diabetic diet Code(s): E11.9 - TYPE 2 DIABETES MELLITUS WITHOUT COMPLICATIONS Qualifiers: Diabetes mellitus type: type 2 (6) HTN (hypertension) Assessment/Plan: -Cozaar -low Na diet Code(s): I10 - ESSENTIAL (PRIMARY) HYPERTENSION Assessment/Plan see problem list
--- NOTE | 2019-07-05 17:38 | PN ---
Progress Note (short form) - Note Progress Note: reports legs are improved still itchy but less Vital Signs Period Temp Pulse Resp BP Sys/Galan Pulse Ox Last 24 Hr 97.4 F-98.0 F 54-79 18-18 120-152/64-88 95-97 cor-rrr lungs clear abd soft,nt ext bilateral LE venous stasis with erythema and warmth, +dry skin , +denuded patch LLE, +papular rash CBC, BMP 07/04/19 07:00 07/04/19 07:00 Microbiology 07/03/19 12:44 Blood - Peripheral Venous Blood Culture - Preliminary NO GROWTH OBTAINED AFTER 48 HOURS, INCUBATION TO CONTINUE FOR 3 DAYS. 07/03/19 12:44 Blood - Peripheral Venous Blood Culture - Preliminary NO GROWTH OBTAINED AFTER 48 HOURS, INCUBATION TO CONTINUE FOR 3 DAYS. Current Medications Acetaminophen (Tylenol -) 650 mg PO Q6H PRN PRN Reason: PAIN LEVEL 6-10 Last Admin: 07/04/19 21:46 Dose: 650 mg Diphenhydramine HCl (Benadryl -) 25 mg PO Q6H PRN PRN Reason: FOR ITCHING Last Admin: 07/04/19 21:46 Dose: 25 mg Gabapentin (Neurontin -) 100 mg PO TID [facility] Last Admin: 07/05/19 15:58 Dose: 100 mg Hydrochlorothiazide (Hctz -) 25 mg PO DAILY [facility] Last Admin: 07/05/19 10:05 Dose: 25 mg Vancomycin HCl 1,250 mg/ (Dextrose) 250 mls @ 125 mls/hr IVPB Q12H [facility]; Protocol Last Admin: 07/05/19 12:49 Dose: 125 mls/hr Insulin Aspart (Novolog Vial Sliding Scale -) 1 vial SQ ACHS [facility]; Protocol Last Admin: 07/05/19 12:45 Dose: Not Given Losartan Potassium (Cozaar -) 100 mg PO DAILY [facility] Last Admin: 07/05/19 10:04 Dose: 100 mg Metformin HCl (Glucophage Xr -) 1,000 mg PO BID@0700,2200 [facility] Last Admin: 07/05/19 06:21 Dose: Not Given Non-Formulary Medication (Acarbose) 1 tab PO TIDAC [facility] Ursodiol (Actigal -) 300 mg PO BID [facility] Last Admin: 07/05/19 10:04 Dose: 300 mg Warfarin Sodium (Coumadin -) 5 mg PO DAILY@1800 SAJAN a/p bilateral LE cellulitis ?rash to keflex retained cbd stone/stent- plan for ERCP when cleared by cardiology-on coumadin bilateral TKR continue vancomycin, check trough in am
[2019-07-05] MEDS: WARFARIN NA 5 MG TABLET (UD) PO SCH (18:33)
[2019-07-05] MEDS ORDERED: INSULIN (NOVOLOG) ASPART 100 UNITS/ML 10ML VIAL ONE (20:42)
[2019-07-05] MEDS ORDERED: PT OWN MED DRAWER 7, Y5N ONE (20:42)
[2019-07-05] MEDS: HYDROCORTISONE 0.5% TOPICAL CREAM 30 GM TUBE TP SCH (21:22)
[2019-07-05] MEDS: diphenhydrAMINE HCL 25 MG CAPSULE (FP) PO PRN (21:22)
[2019-07-06] MEDS: VANCOMYCIN 1,250 MG in DEXTROSE 5%-WATER - 250 ML IVPB SCH ×3 (00:51→22:13)
[2019-07-06] MEDS: GABAPENTIN 100 MG CAPSULE (FP) PO SCH ×3 (06:07→22:09)
[2019-07-06] MEDS: INSULIN SLIDING SCALE (NOVOLOG) 1 VIAL SQ SCH ×4 (06:10→22:08)
[2019-07-06 07:52] LABS: HEMATOCRIT 43.5 % (35.4-49); HEMOGLOBIN 15.1 GM/dL (11.7-16.9); MCH 32.1 pg (25.7-33.7); MCHC 34.6 g/dl (32.0-35.9); MEAN CELL VOLUME 92.9 fl (80-96); MEAN PLT VOLUME 8.5 fl (7.5-11.1); PLATELET COUNT 146 K/MM3 (134-434); RBC 4.68 M/mm3 (4.00-5.60); WHITE BLOOD COUNT 3.7 K/mm3 (4.0-10.0)
[2019-07-06 08:10] LABS: INR 1.52 (0.83-1.09)
[2019-07-06 08:18] LABS: BLOOD UREA NITROGEN 14.9 mg/dL (7-18); CALCIUM 8.8 mg/dL (8.5-10.1); CREATININE 0.9 mg/dL (0.55-1.3); POTASSIUM 3.4 mmol/L (3.5-5.1)
[2019-07-06] MEDS: HYDROCORTISONE 0.5% TOPICAL CREAM 30 GM TUBE TP SCH ×2 (09:01→22:13)
[2019-07-06] MEDS: URSODIOL 300 MG CAPSULE PO SCH ×2 (09:01→22:09)
[2019-07-06] MEDS: LOSARTAN POTASSIUM 50 MG TABLET (FP) PO SCH (09:01)
[2019-07-06] MEDS: HYDROCHLOROTHIAZIDE 25 MG TABLET (FP) PO SCH (09:01)
[2019-07-06] MEDS ORDERED: POTASSIUM CHLORIDE TABS 20 MEQ TABLET.ER (FP) PO ONE (11:04)
--- NOTE | 2019-07-06 11:34 | PN ---
Progress Note, Physician Chief Complaint: AWAKE ALERT NO FEVER OR CHILLS DENIES CHEST PAIN OR SOB DESCRIBES RASH TO LEFT ARM AND BACK - Current Medication List Current Medications: Active Medications Acetaminophen (Tylenol -) 650 mg PO Q6H PRN PRN Reason: PAIN LEVEL 6-10 Last Admin: 07/04/19 21:46 Dose: 650 mg Diphenhydramine HCl (Benadryl -) 25 mg PO Q6H PRN PRN Reason: FOR ITCHING Last Admin: 07/05/19 21:22 Dose: 25 mg Enoxaparin Sodium (Lovenox -) 120 mg SQ BID [facility] Gabapentin (Neurontin -) 100 mg PO TID [facility] Last Admin: 07/06/19 06:07 Dose: 100 mg Hydrochlorothiazide (Hctz -) 25 mg PO DAILY [facility] Last Admin: 07/06/19 09:01 Dose: 25 mg Hydrocortisone (Hytone 0.5% Cream -) 1 applic TP BID [facility] Last Admin: 07/06/19 09:01 Dose: 1 applic Vancomycin HCl 1,250 mg/ (Dextrose) 250 mls @ 125 mls/hr IVPB Q12H [facility]; Protocol Last Admin: 07/06/19 00:51 Dose: 125 mls/hr Insulin Aspart (Novolog Vial Sliding Scale -) 1 vial SQ ACHS [facility]; Protocol Last Admin: 07/06/19 11:07 Dose: Not Given Losartan Potassium (Cozaar -) 100 mg PO DAILY [facility] Last Admin: 07/06/19 09:01 Dose: 100 mg Metformin HCl (Glucophage Xr -) 1,000 mg PO BID@0700,2200 [facility] Last Admin: 07/06/19 06:10 Dose: Not Given Ursodiol (Actigal -) 300 mg PO BID [facility] Last Admin: 07/06/19 09:01 Dose: 300 mg Warfarin Sodium (Coumadin -) 5 mg PO DAILY@1800 [facility] Last Admin: 07/05/19 18:33 Dose: 5 mg - Objective Vital Signs: Vital Signs Temperature 98.9 F 07/06/19 10:00 Pulse Rate 68 07/06/19 10:00 Respiratory Rate 18 07/06/19 10:00 Blood Pressure 144/75 07/06/19 10:00 O2 Sat by Pulse Oximetry (%) 96 07/06/19 09:00 Constitutional: Yes: No Distress Eyes: Yes: WNL HENT: Yes: WNL Neck: Yes: WNL Cardiovascular: Yes: Pulse Irregular Respiratory: Yes: WNL Gastrointestinal: Yes: WNL Genitourinary: Yes: WNL Musculoskeletal: Yes: WNL Extremities: Yes: Erythema Edema: Yes Edema: LLE: 2+ Peripheral Pulses WNL: Yes Integumentary: Yes: Erythema, Rash, Venous Stasis Changes (MACULAR RASH TO LEFT ARM AND BACK NO PUS OR DISCHARGE) Wound/Incision: Yes: Open to air, Excoriated Neurological: Yes: WNL ...Motor Strength: WNL Psychiatric: Yes: WNL Labs: CBC, BMP 07/06/19 06:50 07/06/19 06:50 INR, PTT INR 1.52 (0.83-1.09) H 07/06/19 06:50 Problem List - Problems (1) Cellulitis Code(s): L03.90 - CELLULITIS, UNSPECIFIED Qualifiers: Site of cellulitis: extremity Site of cellulitis of extremity: lower extremity Laterality: left Qualified Code(s): L03.116 - Cellulitis of left lower limb (2) Atrial fibrillation with RVR Code(s): I48.91 - UNSPECIFIED ATRIAL FIBRILLATION (3) Cholangitis due to bile duct calculus with obstruction Code(s): K80.31 - CALCULUS OF BILE DUCT W CHOLANGITIS, UNSP, WITH OBSTRUCTION (4) Diabetes mellitus Code(s): E11.9 - TYPE 2 DIABETES MELLITUS WITHOUT COMPLICATIONS Qualifiers: Diabetes mellitus type: type 2 (5) HTN (hypertension) Code(s): I10 - ESSENTIAL (PRIMARY) HYPERTENSION (6) Morbid obesity due to excess calories Code(s): E66.01 - MORBID (SEVERE) OBESITY DUE TO EXCESS CALORIES Assessment/Plan CONTINUE IV ABX PER ID ADD BENADRYL CREAM TO AFFECTED DRUG RASH LEFT ARM AND BACK INR 1.52 START LOVENOX SQ BID CHECK INR IN AM OUTPATIENT GALLBLADDER STENT REMOVAL ONCE CELLULITES TREATED. WILL NEED TO STOP COUMADIN ONCE PROCEDURE SCHEDULED 4 DAYS BEFORE STENT REMOVAL AND HAVE LOVENOX STARTED. WILL D/W DR BARCLAY
--- NOTE | 2019-07-06 12:02 | PN ---
Progress Note (short form) - Note Progress Note: reports legs are improved legs less itchy Vital Signs Period Temp Pulse Resp BP Sys/Galan Pulse Ox Last 24 Hr 97.7 F-98.9 F 58-79 18-18 135-161/75-84 95-96 cor-rrr lungs clear abd soft,nt ext less erythema, bumpy rash resolving CBC, BMP 07/06/19 06:50 07/06/19 06:50 Microbiology 07/03/19 12:44 Blood - Peripheral Venous Blood Culture - Preliminary NO GROWTH OBTAINED AFTER 48 HOURS, INCUBATION TO CONTINUE FOR 3 DAYS. 07/03/19 12:44 Blood - Peripheral Venous Blood Culture - Preliminary NO GROWTH OBTAINED AFTER 48 HOURS, INCUBATION TO CONTINUE FOR 3 DAYS. a/p bilateral LE cellulitis ?rash to keflex retained cbd stone/stent- plan for ERCP when cleared by cardiology-on coumadin bilateral TKR continue vancomycin, trough pending continue HC cream to legs bid
[2019-07-06] MEDS ORDERED: PT OWN MED DRAWER 7, Y5N ONE (12:16)
--- NOTE | 2019-07-06 14:04 | CON.CARD ---
Consult Consult Specialty:: Cardiology Reason for Consultation:: On Coumdadin. Needs ERCP - History of Present Illness Chief Complaint: Presently comfortable with no complaints History of Present Illness: This is a 69 year old male with a PMH of AFIB (on coumadin), DM, HTN, ascending cholangitis (s/p ECP on 04/05/19), and chronic venous statis and edema of his lower extremities. On 06/28/19 he was started on Keflex for left lower extremity cellulitis. He is in need of his residual CBD stent and stone to be removed and he will need to be off of Coumadin for this. He is also planned for have a cholecystectomy after the ERCP. EKG 07/03/19 Sinus bradycardia at 53 BPM with normal intervals, normal axis, and NSSTTW changes. INR 07/06/19 1.52. Last Echocardiogram 04/08/19: Mild LVH Normal LV function EF 55 - 60% Mild Cardiac meds include: Losartan 100 mg PO daily Coumadin 5 mg PO daily Metformin - Past Medical History Cardio/Vascular: Yes: AFIB (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), HTN, Other (LE venous insufficiency) Pulmonary: Yes: Asthma Hepatobiliary: Yes: Cholelithiasis, Choledocholithiasis, Other (fatty liver) Renal/: Yes: BPH, Cancer (prostate cancer s/p radiation therapy 2016) Endocrine: Yes: Diabetes Mellitus - Past Surgical History Past Surgical History: Yes: Appendectomy, Joint Replacement (B/L TKR) - Alcohol/Substance Use Hx Alcohol Use: Yes (rare beer and wine) History of Substance Use: reports: None - Smoking History Smoking history: Former smoker Have you smoked in the past 12 months: No If you are a former smoker, when did you quit?: aage 33 - Social History Usual Living Arrangement: With Spouse ADL: Independent 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 Home Medications - Allergies Allergies/Adverse Reactions: Allergies Allergy/AdvReac Type Severity Reaction Status Date / Time cephalexin [From Keflet] Allergy Verified 07/04/19 07:16 - Home Medications Home Medications: Ambulatory Orders Gabapentin 100 mg PO TID 04/04/19 Hydrochlorothiazide [Hctz -] 25 mg PO DAILY 04/04/19 Losartan Potassium 100 mg PO DAILY 04/04/19 Metformin HCl [Metformin HCl ER] 1,000 mg PO BID 04/04/19 Metoprolol Tartrate 25 mg PO DAILY 04/04/19 Montelukast Sodium [Singulair] 10 mg PO DAILY 04/04/19 Tamsulosin HCl [Flomax] 0.8 mg PO DAILY 04/04/19 Warfarin Na [Coumadin -] 5 mg PO DAILY@1800 #30 tablet 04/10/19 Acarbose [Precose -] 1 tab PO TID 07/03/19 Silver Sulfadiazine 1% Top Cr [Silvadene -] 1 applic TP BID 07/03/19 Vital Signs: Vital Signs Temperature 98.9 F 07/06/19 10:00 Pulse Rate 68 07/06/19 10:00 Respiratory Rate 18 07/06/19 10:00 Blood Pressure 144/75 07/06/19 10:00 O2 Sat by Pulse Oximetry (%) 96 07/06/19 09:00 Constitutional: Yes: Well Nourished HENT: Yes: WNL Neck: Yes: WNL Respiratory: Yes: CTA Bilaterally Gastrointestinal: Yes: Normal Bowel Sounds Cardiovascular: Yes: Regular Rate and Rhythm Heart Sounds: Yes: S1, S2 Murmur: Yes: Systolic Murmur, Grade 1 Extremities: Yes: Erythema (Bilateraly chronic venous stasis with bilateral brawny edema. LLE with resolving cellulitis) Edema: Yes Edema: LLE: 2+, RLE: 2+ Neurological: Yes: WNL Psychiatric: Yes: Alert, Oriented - Other Data Labs, Other Data: CBC, BMP 07/06/19 06:50 07/06/19 06:50 INR, PTT INR 1.52 (0.83-1.09) H 07/06/19 06:50 Assessment/Plan 69 year old male with a PMH of AFIB (on coumadin), DM, HTN, ascending cholangitis (s/p ECP on 04/05/19), and chronic venous statis and edema of his lower extremities. On 06/28/19 he was started on Keflex for left lower extremity cellulitis. He is in need of his residual CBD stent and stone to be removed and he will need to be off of Coumadin for this. He is also planned for have a cholecystectomy after the ERCP. EKG 07/03/19 Sinus bradycardia at 53 BPM with normal intervals, normal axis, and NSSTTW changes. INR 07/06/19 1.52. Last Echocardiogram 04/08/19: Mild LVH Normal LV function EF 55 - 60% Mild Coumadin can be discontinued 5 days prior to the procedure. He does not require bridging while off of Coumadin. Coumadin can be restarted 24 - 48 hours after surgery provided that there is no bleeding. An INR should be check 3 - 5 days after restarting Coumadin. There are no direct cardiac contraindications to surgery.
[2019-07-06] MEDS: diphenhydrAMINE HCL 25 MG CAPSULE (FP) PO PRN ×2 (16:59→22:13)
[2019-07-06] MEDS: WARFARIN NA 5 MG TABLET (UD) PO SCH (16:59)
[2019-07-06] MEDS: ENOXAPARIN NA (PORCINE) 120 MG/0.8 ML DISP.SYRIN SQ SCH (22:09)
[2019-07-07] MEDS: GABAPENTIN 100 MG CAPSULE (FP) PO SCH ×3 (05:57→21:11)
[2019-07-07] MEDS: diphenhydrAMINE HCL 25 MG CAPSULE (FP) PO PRN ×3 (05:58→23:20)
[2019-07-07] MEDS: INSULIN SLIDING SCALE (NOVOLOG) 1 VIAL SQ SCH ×4 (06:00→21:11)
[2019-07-07 07:48] LABS: INR 1.49 (0.83-1.09); PROTHROMBIN TIME (PATIENT) 17.7 SEC (9.7-13.0)
[2019-07-07 07:54] LABS: BLOOD UREA NITROGEN 17.8 mg/dL (7-18); CREATININE 0.9 mg/dL (0.55-1.3); POTASSIUM 3.6 mmol/L (3.5-5.1)
--- NOTE | 2019-07-07 08:30 | PN ---
Progress Note, Physician Chief Complaint: C/O ITCHING TO LOWER EXTREMITY NO FEVER OR CHILLS REPORTS LLQ SHARP PAIN, DOES NOT HAVE IT NOW - Current Medication List Current Medications: Active Medications Acetaminophen (Tylenol -) 650 mg PO Q6H PRN PRN Reason: PAIN LEVEL 6-10 Last Admin: 07/04/19 21:46 Dose: 650 mg Diphenhydramine HCl (Benadryl -) 25 mg PO Q6H PRN PRN Reason: FOR ITCHING Last Admin: 07/07/19 05:58 Dose: 25 mg Enoxaparin Sodium (Lovenox -) 120 mg SQ BID [facility] Last Admin: 07/06/19 22:09 Dose: 120 mg Gabapentin (Neurontin -) 100 mg PO TID [facility] Last Admin: 07/07/19 05:57 Dose: 100 mg Hydrochlorothiazide (Hctz -) 25 mg PO DAILY [facility] Last Admin: 07/06/19 09:01 Dose: 25 mg Hydrocortisone (Hytone 0.5% Cream -) 1 applic TP BID [facility] Last Admin: 07/06/19 22:13 Dose: 1 applic Vancomycin HCl 1,250 mg/ (Dextrose) 250 mls @ 125 mls/hr IVPB Q12H [facility]; Protocol Last Admin: 07/06/19 22:13 Dose: 125 mls/hr Insulin Aspart (Novolog Vial Sliding Scale -) 1 vial SQ ACHS [facility]; Protocol Last Admin: 07/07/19 06:00 Dose: Not Given Losartan Potassium (Cozaar -) 100 mg PO DAILY [facility] Last Admin: 07/06/19 09:01 Dose: 100 mg Metformin HCl (Glucophage Xr -) 1,000 mg PO BID@0700,2200 [facility] Last Admin: 07/07/19 06:00 Dose: Not Given Ursodiol (Actigal -) 300 mg PO BID [facility] Last Admin: 07/06/19 22:09 Dose: 300 mg Warfarin Sodium (Coumadin -) 5 mg PO DAILY@1800 [facility] Last Admin: 07/06/19 16:59 Dose: 5 mg Warfarin Sodium (Coumadin -) 7.5 mg PO ONCE@1800 ONE Stop: 07/07/19 18:01 Zinc Acetate/Diphenhydramine (Benadryl 2% Cream) 1 applic TP BID [facility] - Objective Vital Signs: Vital Signs Temperature 97.7 F 07/07/19 06:27 Pulse Rate 76 07/07/19 06:27 Respiratory Rate 18 07/07/19 06:27 Blood Pressure 132/70 07/07/19 06:27 O2 Sat by Pulse Oximetry (%) 96 07/06/19 21:00 Constitutional: Yes: Mild Distress Cardiovascular: Yes: Pulse Irregular Respiratory: Yes: Diminished Gastrointestinal: Yes: Soft, Abdomen, Obese Genitourinary: Yes: WNL Extremities: Yes: Erythema Edema: Yes Integumentary: Yes: Rash, Venous Stasis Changes Labs: CBC, BMP 07/06/19 06:50 07/07/19 06:00 INR, PTT INR 1.49 (0.83-1.09) H 07/07/19 06:00 Problem List - Problems (1) Cellulitis Code(s): L03.90 - CELLULITIS, UNSPECIFIED Qualifiers: Site of cellulitis: extremity Site of cellulitis of extremity: lower extremity Laterality: left Qualified Code(s): L03.116 - Cellulitis of left lower limb (2) Atrial fibrillation with RVR Code(s): I48.91 - UNSPECIFIED ATRIAL FIBRILLATION (3) Cholangitis due to bile duct calculus with obstruction Code(s): K80.31 - CALCULUS OF BILE DUCT W CHOLANGITIS, UNSP, WITH OBSTRUCTION (4) Diabetes mellitus Code(s): E11.9 - TYPE 2 DIABETES MELLITUS WITHOUT COMPLICATIONS Qualifiers: Diabetes mellitus type: type 2 (5) HTN (hypertension) Code(s): I10 - ESSENTIAL (PRIMARY) HYPERTENSION (6) Morbid obesity due to excess calories Code(s): E66.01 - MORBID (SEVERE) OBESITY DUE TO EXCESS CALORIES Assessment/Plan CARDIOLOGY CONSULT APPRECIATES MEDICALLY CLEARED FOR ERCP STOP COUMADIN 5 DAYS BEFORE PROCEDURE. BENADRYL CREAM AND HYTONE TO AFFECTED AREAS WITH RASH/ITCHING. 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 OOB TO CHAIR COUMADIN 7.5MG X 1 TODAY INR SUBTHERAPEUTIC LOVENOX BID UNTIL INR >2.0
[2019-07-07] MEDS ORDERED: PT OWN MED DRAWER 7, Y5N ONE ×2 (08:38→20:23)
[2019-07-07] MEDS: URSODIOL 300 MG CAPSULE PO SCH ×2 (09:26→21:11)
[2019-07-07] MEDS: ENOXAPARIN NA (PORCINE) 120 MG/0.8 ML DISP.SYRIN SQ SCH ×2 (09:26→21:11)
[2019-07-07] MEDS: HYDROCHLOROTHIAZIDE 25 MG TABLET (FP) PO SCH (09:26)
[2019-07-07] MEDS: LOSARTAN POTASSIUM 50 MG TABLET (FP) PO SCH (09:26)
[2019-07-07] MEDS: HYDROCORTISONE 0.5% TOPICAL CREAM 30 GM TUBE TP SCH ×2 (10:33→21:16)
[2019-07-07] MEDS: VANCOMYCIN 1,250 MG in DEXTROSE 5%-WATER - 250 ML IVPB SCH ×2 (11:35→23:08)
[2019-07-07] MEDS ORDERED: WARFARIN NA 7.5 MG TABLET (FP) PO ONE (18:00)
[2019-07-07] MEDS ORDERED: INSULIN (NOVOLOG) ASPART 100 UNITS/ML 10ML VIAL ONE (20:24)
[2019-07-08] MEDS: GABAPENTIN 100 MG CAPSULE (FP) PO SCH ×3 (06:34→21:48)
[2019-07-08] MEDS: INSULIN SLIDING SCALE (NOVOLOG) 1 VIAL SQ SCH ×4 (06:34→21:44)
[2019-07-08 07:58] LABS: INR 1.58 (0.83-1.09); PROTHROMBIN TIME (PATIENT) 18.7 SEC (9.7-13.0)
[2019-07-08] MEDS ORDERED: WARFARIN NA 2.5 MG TABLET (FP) PO ONE ×2 (08:46→18:00)
--- NOTE | 2019-07-08 08:47 | PN ---
Progress Note, Physician Chief Complaint: AWAKE ALERT FEELS BETTER INR SUBTHERAPEUTIC - Current Medication List Current Medications: Active Medications Acetaminophen (Tylenol -) 650 mg PO Q6H PRN PRN Reason: PAIN LEVEL 6-10 Last Admin: 07/04/19 21:46 Dose: 650 mg Diphenhydramine HCl (Benadryl -) 25 mg PO Q6H PRN PRN Reason: FOR ITCHING Last Admin: 07/07/19 23:20 Dose: 25 mg Enoxaparin Sodium (Lovenox -) 120 mg SQ BID [facility] Last Admin: 07/07/19 21:11 Dose: 120 mg Gabapentin (Neurontin -) 100 mg PO TID [facility] Last Admin: 07/08/19 06:34 Dose: 100 mg Hydrochlorothiazide (Hctz -) 25 mg PO DAILY [facility] Last Admin: 07/07/19 09:26 Dose: 25 mg Hydrocortisone (Hytone 0.5% Cream -) 1 applic TP BID [facility] Last Admin: 07/07/19 21:16 Dose: 1 applic Vancomycin HCl 1,250 mg/ (Dextrose) 250 mls @ 125 mls/hr IVPB Q12H [facility]; Protocol Last Admin: 07/07/19 23:08 Dose: 125 mls/hr Insulin Aspart (Novolog Vial Sliding Scale -) 1 vial SQ ACHS [facility]; Protocol Last Admin: 07/08/19 06:34 Dose: Not Given Losartan Potassium (Cozaar -) 100 mg PO DAILY [facility] Last Admin: 07/07/19 09:26 Dose: 100 mg Metformin HCl (Glucophage Xr -) 1,000 mg PO BID@0700,2200 [facility] Last Admin: 07/08/19 06:34 Dose: 1,000 mg Ursodiol (Actigal -) 300 mg PO BID [facility] Last Admin: 07/07/19 21:11 Dose: 300 mg Warfarin Sodium (Coumadin -) 5 mg PO DAILY@1800 [facility] Last Admin: 07/06/19 16:59 Dose: 5 mg Warfarin Sodium (Coumadin -) 7.5 mg PO NOW ONE Stop: 07/08/19 08:47 Zinc Acetate/Diphenhydramine (Benadryl 2% Cream) 1 applic TP BID [facility] Last Admin: 07/07/19 21:16 Dose: 1 applic - Objective Vital Signs: Vital Signs Temperature 97.8 F 07/08/19 06:02 Pulse Rate 71 07/08/19 06:02 Respiratory Rate 20 07/08/19 06:02 Blood Pressure 134/80 07/08/19 06:02 O2 Sat by Pulse Oximetry (%) 95 07/07/19 21:00 Constitutional: Yes: No Distress Cardiovascular: Yes: Pulse Irregular Respiratory: Yes: WNL Gastrointestinal: Yes: Soft, Abdomen, Obese Genitourinary: Yes: WNL Edema: Yes Integumentary: Yes: Rash, Skin Tear, Venous Stasis Changes Wound/Incision: Yes: Open to air Labs: CBC, BMP 07/06/19 06:50 07/07/19 06:00 INR, PTT INR 1.58 (0.83-1.09) H 07/08/19 06:49 Problem List - Problems (1) Cellulitis Code(s): L03.90 - CELLULITIS, UNSPECIFIED Qualifiers: Site of cellulitis: extremity Site of cellulitis of extremity: lower extremity Laterality: left Qualified Code(s): L03.116 - Cellulitis of left lower limb (2) Atrial fibrillation with RVR Code(s): I48.91 - UNSPECIFIED ATRIAL FIBRILLATION (3) Cholangitis due to bile duct calculus with obstruction Code(s): K80.31 - CALCULUS OF BILE DUCT W CHOLANGITIS, UNSP, WITH OBSTRUCTION (4) Diabetes mellitus Code(s): E11.9 - TYPE 2 DIABETES MELLITUS WITHOUT COMPLICATIONS Qualifiers: Diabetes mellitus type: type 2 (5) HTN (hypertension) Code(s): I10 - ESSENTIAL (PRIMARY) HYPERTENSION (6) Morbid obesity due to excess calories Code(s): E66.01 - MORBID (SEVERE) OBESITY DUE TO EXCESS CALORIES Assessment/Plan KEEP TIL TOMORROW ON LOVENOX GIVE COUMADIN 7.5MG NOW REPEAT INR IN AM DC PLANNING OFF ABX F/U GI OUTPATIENT
[2019-07-08] MEDS ORDERED: PT OWN MED DRAWER 7, Y5N ONE (09:32)
[2019-07-08] MEDS: LOSARTAN POTASSIUM 50 MG TABLET (FP) PO SCH (10:14)
[2019-07-08] MEDS: HYDROCORTISONE 0.5% TOPICAL CREAM 30 GM TUBE TP SCH (10:14)
[2019-07-08] MEDS: ENOXAPARIN NA (PORCINE) 120 MG/0.8 ML DISP.SYRIN SQ SCH ×2 (10:14→21:48)
[2019-07-08] MEDS: URSODIOL 300 MG CAPSULE PO SCH ×2 (10:14→21:48)
[2019-07-08] MEDS: HYDROCHLOROTHIAZIDE 25 MG TABLET (FP) PO SCH (10:14)
--- NOTE | 2019-07-08 12:01 | PN ---
Progress Note, Physician History of Present Illness: AWAKE, ALERT AMBULATORY NO COMPLAINTS OF LEG PAIN AFEBRILE HAD PROBABLE RED MAN SYNDROME TO VANCOMYCIN - Current Medication List Current Medications: Active Medications Acetaminophen (Tylenol -) 650 mg PO Q6H PRN PRN Reason: PAIN LEVEL 6-10 Last Admin: 07/04/19 21:46 Dose: 650 mg Diphenhydramine HCl (Benadryl -) 25 mg PO Q6H PRN PRN Reason: FOR ITCHING Last Admin: 07/07/19 23:20 Dose: 25 mg Enoxaparin Sodium (Lovenox -) 120 mg SQ BID [facility] Last Admin: 07/08/19 10:14 Dose: 120 mg Gabapentin (Neurontin -) 100 mg PO TID [facility] Last Admin: 07/08/19 06:34 Dose: 100 mg Hydrochlorothiazide (Hctz -) 25 mg PO DAILY [facility] Last Admin: 07/08/19 10:14 Dose: 25 mg Hydrocortisone (Hytone 0.5% Cream -) 1 applic TP BID [facility] Last Admin: 07/08/19 10:14 Dose: 1 applic Vancomycin HCl 1,250 mg/ (Dextrose) 250 mls @ 125 mls/hr IVPB Q12H [facility]; Protocol Last Admin: 07/07/19 23:08 Dose: 125 mls/hr Insulin Aspart (Novolog Vial Sliding Scale -) 1 vial SQ ACHS [facility]; Protocol Last Admin: 07/08/19 11:08 Dose: Not Given Losartan Potassium (Cozaar -) 100 mg PO DAILY [facility] Last Admin: 07/08/19 10:14 Dose: 100 mg Metformin HCl (Glucophage Xr -) 1,000 mg PO BID@0700,2200 [facility] Last Admin: 07/08/19 06:34 Dose: 1,000 mg Ursodiol (Actigal -) 300 mg PO BID [facility] Last Admin: 07/08/19 10:14 Dose: 300 mg Warfarin Sodium (Coumadin -) 5 mg PO DAILY@1800 [facility] Last Admin: 07/06/19 16:59 Dose: 5 mg Zinc Acetate/Diphenhydramine (Benadryl 2% Cream) 1 applic TP BID [facility] Last Admin: 07/08/19 10:14 Dose: 1 applic - Objective Vital Signs: Vital Signs Temperature 97.8 F 07/08/19 06:02 Pulse Rate 71 07/08/19 06:02 Respiratory Rate 20 07/08/19 06:02 Blood Pressure 134/80 07/08/19 06:02 O2 Sat by Pulse Oximetry (%) 95 07/07/19 21:00 Constitutional: Yes: No Distress Eyes: Yes: Conjunctiva Clear Cardiovascular: Yes: Regular Rate and Rhythm, S1, S2 Respiratory: Yes: CTA Bilaterally Gastrointestinal: Yes: Normal Bowel Sounds, Soft. No: Tenderness Extremities: Yes: Other (+ B/L LE CHRONIC VENOUS STASIS DERMATITIS; ERYTHEMA/ WARMTH L LE RESOLVED) Labs: CBC, BMP 07/06/19 06:50 07/07/19 06:00 INR, PTT INR 1.58 (0.83-1.09) H 07/08/19 06:49 Assessment/Plan CELLULITIS LE RESOLVED CHRONIC VENOUS STASIS DERMATITIS ? KEFLEX ALLERGY S/P BILATERAL TKR D/C VANCOMYCIN, OBSERVE OFF ANTIBIOTICS
[2019-07-08] MEDS: VANCOMYCIN 1,250 MG in DEXTROSE 5%-WATER - 250 ML IVPB SCH (12:05)
--- NOTE | 2019-07-08 15:03 | PN ---
Progress Note, Physician Chief Complaint: pre-op History of Present Illness: 69 year old male with a PMH of AFIB (on coumadin), DM, HTN, ascending cholangitis (s/p ECP on 04/05/19), and chronic venous statis and edema of his lower extremities. On 06/28/19 he was started on Keflex for left lower extremity cellulitis. He is in need of his residual CBD stent and stone to be removed and he will need to be off of Coumadin for this. He is also planned for have a cholecystectomy after the ERCP. EKG 07/03/19 Sinus bradycardia at 53 BPM with normal intervals, normal axis, and NSSTTW changes. INR 07/06/19 1.52. Last Echocardiogram 04/08/19: Mild LVH Normal LV function EF 55 - 60% Mild - Current Medication List Current Medications: Active Medications Acetaminophen (Tylenol -) 650 mg PO Q6H PRN PRN Reason: PAIN LEVEL 6-10 Last Admin: 07/04/19 21:46 Dose: 650 mg Diphenhydramine HCl (Benadryl -) 25 mg PO Q6H PRN PRN Reason: FOR ITCHING Last Admin: 07/07/19 23:20 Dose: 25 mg Enoxaparin Sodium (Lovenox -) 120 mg SQ BID [facility] Last Admin: 07/08/19 10:14 Dose: 120 mg Gabapentin (Neurontin -) 100 mg PO TID [facility] Last Admin: 07/08/19 14:49 Dose: 100 mg Hydrochlorothiazide (Hctz -) 25 mg PO DAILY [facility] Last Admin: 07/08/19 10:14 Dose: 25 mg Hydrocortisone (Hytone 0.5% Cream -) 1 applic TP BID [facility] Last Admin: 07/08/19 10:14 Dose: 1 applic Insulin Aspart (Novolog Vial Sliding Scale -) 1 vial SQ ACHS [facility]; Protocol Last Admin: 07/08/19 11:08 Dose: Not Given Losartan Potassium (Cozaar -) 100 mg PO DAILY [facility] Last Admin: 07/08/19 10:14 Dose: 100 mg Metformin HCl (Glucophage Xr -) 1,000 mg PO BID@0700,2200 [facility] Last Admin: 07/08/19 06:34 Dose: 1,000 mg Ursodiol (Actigal -) 300 mg PO BID [facility] Last Admin: 07/08/19 10:14 Dose: 300 mg Warfarin Sodium (Coumadin -) 5 mg PO DAILY@1800 [facility] Last Admin: 07/06/19 16:59 Dose: 5 mg Warfarin Sodium (Coumadin -) 7.5 mg PO ONCE@1800 ONE Stop: 07/08/19 18:01 Zinc Acetate/Diphenhydramine (Benadryl 2% Cream) 1 applic TP BID [facility] Last Admin: 07/08/19 10:14 Dose: 1 applic - Objective Vital Signs: Vital Signs Temperature 98.0 F 07/08/19 14:48 Pulse Rate 74 07/08/19 14:48 Respiratory Rate 18 07/08/19 14:48 Blood Pressure 136/84 07/08/19 14:48 O2 Sat by Pulse Oximetry (%) 97 07/08/19 09:10 Constitutional: Yes: No Distress, Calm, Obese Eyes: Yes: WNL, Conjunctiva Clear, EOM Intact HENT: Yes: WNL, Atraumatic, Normocephalic Neck: Yes: WNL, Supple, Trachea Midline Cardiovascular: Yes: WNL, Regular Rate and Rhythm, S1, S2 Respiratory: Yes: WNL, Regular, CTA Bilaterally Gastrointestinal: Yes: WNL, Normal Bowel Sounds, Soft ...Rectal Exam: Yes: Deferred Genitourinary: Yes: WNL Edema: LLE: Trace, RLE: Trace Peripheral Pulses WNL: Yes Neurological: Yes: WNL, Alert, Oriented ...Motor Strength: WNL Psychiatric: Yes: WNL, Alert, Oriented Labs: CBC, BMP 07/06/19 06:50 07/07/19 06:00 INR, PTT INR 1.58 (0.83-1.09) H 07/08/19 06:49 Assessment/Plan 69 year old male with a PMH of AFIB (on coumadin), DM, HTN, ascending cholangitis (s/p ECP on 04/05/19), and chronic venous statis and edema of his lower extremities. On 06/28/19 he was started on Keflex for left lower extremity cellulitis. He is in need of his residual CBD stent and stone to be removed and he will need to be off of Coumadin for this. He is also planned for have a cholecystectomy after the ERCP. EKG 07/03/19 Sinus bradycardia at 53 BPM with normal intervals, normal axis, and NSSTTW changes. INR 07/06/19 1.52. Last Echocardiogram 04/08/19: Mild LVH Normal LV function EF 55 - 60% Mild Coumadin can be discontinued 5 days prior to the procedure. He does not require bridging while off of Coumadin. Coumadin can be restarted 24 - 48 hours after surgery provided that there is no bleeding. An INR should be check 3 - 5 days after restarting Coumadin. There are no direct cardiac contraindications to surgery. please proceed with surgery as planned. lPease resume Coumadin postoperatively when deemed safe from the surgical standpoint. please do not hesitate to call us PRN
[2019-07-08] MEDS ORDERED: INSULIN (NOVOLOG) ASPART 100 UNITS/ML 10ML VIAL ONE (20:18)
[2019-07-08] MEDS: HYDROCORTISONE 1% TOPICAL CREAM 30 GM TUBE TP SCH (21:48)
[2019-07-08] MEDS: diphenhydrAMINE HCL 25 MG CAPSULE (FP) PO PRN (21:48)
[2019-07-08] MEDS ORDERED: HYDROCORTISONE 0.5% TOPICAL CREAM 30 GM TUBE TP SCH (22:00)
[2019-07-09] MEDS: diphenhydrAMINE HCL 25 MG CAPSULE (FP) PO PRN (05:51)
[2019-07-09] MEDS: GABAPENTIN 100 MG CAPSULE (FP) PO SCH ×2 (05:51→12:59)
[2019-07-09] MEDS: INSULIN SLIDING SCALE (NOVOLOG) 1 VIAL SQ SCH ×2 (06:01→11:12)
[2019-07-09 08:09] LABS: INR 1.66 (0.83-1.09); PROTHROMBIN TIME (PATIENT) 19.7 SEC (9.7-13.0)
--- NOTE | 2019-07-09 08:23 | DS ---
Physical Examination Vital Signs: Vital Signs Temperature 97.5 F L 07/09/19 06:15 Pulse Rate 63 07/09/19 06:15 Respiratory Rate 18 07/09/19 06:15 Blood Pressure 129/66 07/09/19 06:15 O2 Sat by Pulse Oximetry (%) 96 07/08/19 21:00 Constitutional: Yes: No Distress Cardiovascular: Yes: Pulse Irregular Respiratory: Yes: WNL Gastrointestinal: Yes: Abdomen, Obese Musculoskeletal: Yes: Muscle Weakness Extremities: Yes: Erythema Edema: Yes Integumentary: Yes: Erythema, Pressure Ulcer, Rash Wound/Incision: Yes: Open to air ...Motor Strength: LLE, RLE Psychiatric: Yes: WNL Labs: CBC, BMP 07/06/19 06:50 07/07/19 06:00 Discharge Summary Reason For Visit: CELLULITIS Current Active Problems Asthma (Acute) Cellulitis (Acute) Choledocholithiasis (Acute) Fatty liver (Acute) History of acute cholangitis (Acute) Paroxysmal atrial fibrillation with rapid ventricular response (Acute) Prostate CA (Acute) Venous insufficiency of both lower extremities (Acute) Procedures: Principal: dopplers Hospital Course: admitted lower extremity leg ulcer with cellulitis, treated with iv abx, f/u oupatient with PMD and GI Condition: Stable - Instructions Diet, Activity, Other Instructions: SEE DR BARCLAY TOMORROW FOR INR CHECK F/U WITH DR AGUILAR FOR GB STENT REMOVAL Referrals: Maynor Aguilar MD [Staff Physician] - Disposition: HOME - Home Medications Comprehensive Discharge Medication List: Ambulatory Orders Gabapentin 100 mg PO TID 04/04/19 Hydrochlorothiazide [Hctz -] 25 mg PO DAILY 04/04/19 Losartan Potassium 100 mg PO DAILY 04/04/19 Metformin HCl [Metformin HCl ER] 1,000 mg PO BID 04/04/19 Metoprolol Tartrate 25 mg PO DAILY 04/04/19 Montelukast Sodium [Singulair] 10 mg PO DAILY 04/04/19 Tamsulosin HCl [Flomax] 0.8 mg PO DAILY 04/04/19 Warfarin Na [Coumadin -] 5 mg PO DAILY@1800 #30 tablet 04/10/19 Acarbose [Precose -] 1 tab PO TID 07/03/19 Silver Sulfadiazine 1% Top Cr [Silvadene -] 1 applic TP BID 07/03/19 Acetaminophen [Tylenol .Regular Strength -] 650 mg PO Q6H PRN tablet 07/09/19 Diphenhydramine HCl/Zinc Acet [Benadryl 2% Cream] 1 applic TP BID tube Hydrocortisone 1% Cream [Hytone 1% Cream -] 1 applic TP BID #90 tube 07/09/19 Ursodiol [Actigal -] 300 mg PO BID #60 capsule 07/09/19 Warfarin Na [Coumadin -] 5 mg PO DAILY@1800 tablet 07/09/19
[2019-07-09] MEDS ORDERED: PT OWN MED DRAWER 7, Y5N ONE (08:39)
[2019-07-09] MEDS: LOSARTAN POTASSIUM 50 MG TABLET (FP) PO SCH (09:29)
[2019-07-09] MEDS: URSODIOL 300 MG CAPSULE PO SCH (09:29)
[2019-07-09] MEDS: ENOXAPARIN NA (PORCINE) 120 MG/0.8 ML DISP.SYRIN SQ SCH (09:29)
[2019-07-09] MEDS: HYDROCORTISONE 1% TOPICAL CREAM 30 GM TUBE TP SCH (09:29)
[2019-07-09] MEDS: HYDROCHLOROTHIAZIDE 25 MG TABLET (FP) PO SCH (09:30)
[2019-07-09 10:02] VITALS: BP 137/85; PULSE 67; TEMP 97.8
== END 2019-07-09 13:07 | disposition home or self-care (01) | DRG 603 ==
LOC: JER 10:55 → JERBED 15:41 → J7W 20:47
PROVIDERS: ADMIT Family Medicine; ATTEND Family Medicine
DX: L03.116 Cellulitis of left lower limb (principal); L97.809 Non-pressure chronic ulcer of other part of unspecified lower leg with unspecified severity; K80.50 Calculus of bile duct without cholangitis or cholecystitis without obstruction; E11.9 Type 2 diabetes mellitus without complications; I10 Essential (primary) hypertension; E66.01 Morbid (severe) obesity due to excess calories; Z68.38 Body mass index [BMI] 38.0-38.9, adult; L03.115 Cellulitis of right lower limb; K76.0 Fatty (change of) liver, not elsewhere classified; I48.0 Paroxysmal atrial fibrillation; I87.2 Venous insufficiency (chronic) (peripheral); C61 Malignant neoplasm of prostate
CPT/HCPCS: 36415; 71046-TC-FY; 73590-TC-LT-FY; 80048; 80053; 81003; 82962; 83735; 84100; 84436; 84443; 85025; 85027; 85610; 87040; 93005; 93010; 99284-25; G0480; J1644

== ENCOUNTER 2019-10-04 07:15 | Day surgery (SDC) | payer OTHER, MEDICARE ==
[2019-10-04 08:38] VITALS: BMI 37.8
[2019-10-04] MEDS ORDERED: IOHEXOL 300 MG/ML INFUS..BTL IV ONE (10:30)
[2019-10-04 10:58] VITALS: TEMP 97.9
[2019-10-04 12:57] VITALS: BP 148/79; PULSE 57
== END 2019-10-04 12:35 | disposition home or self-care (01) ==
LOC: JASU-ENDO 07:15
PROVIDERS: ATTEND Internal Medicine Gastroenterology
PROC: 0F798ZZ Dilation of Common Bile Duct, Via Natural or Artificial Opening Endoscopic (ICD-10-PCS; 2019-10-04)
PROC: 0FC98ZZ Extirpation of Matter from Common Bile Duct, Via Natural or Artificial Opening Endoscopic (ICD-10-PCS; principal; 2019-10-04 08:45)
DX: K80.50 Calculus of bile duct without cholangitis or cholecystitis without obstruction (principal); I10 Essential (primary) hypertension; E11.9 Type 2 diabetes mellitus without complications; Z79.84 Long term (current) use of oral hypoglycemic drugs; E66.01 Morbid (severe) obesity due to excess calories
CPT/HCPCS: 76000-TC-FY

== ENCOUNTER 2019-11-25 15:00 | Inpatient (IN) | payer OTHER, MEDICARE ==
[2019-11-25] MEDS ORDERED: SODIUM CHLORIDE 3,674 ML IV ONE (15:54)
[2019-11-25 16:37] LABS: BASO % 0.3 % (0-2.0); EOS % 0.8 % (0-4.5); HEMATOCRIT 47.7 % (35.4-49); HEMOGLOBIN 16.5 GM/dL (11.7-16.9); LYMPH % 3.1 % (8-40); MCH 32.2 pg (25.7-33.7); MCHC 34.6 g/dl (32.0-35.9); MEAN CELL VOLUME 93.2 fl (80-96); MEAN PLT VOLUME 8.4 fl (7.5-11.1); MONO % 9.4 % (3.8-10.2); NEUT % 86.4 % (42.8-82.8); PLATELET COUNT 151 K/MM3 (134-434); RBC 5.12 M/mm3 (4.00-5.60); RDW 13.7 % (11.9-15.9); WHITE BLOOD COUNT 8.9 K/mm3 (4.0-10.0)
--- NOTE | 2019-11-25 16:57 | PDOC ---
History of Present Illness - General Chief Complaint: SIRS, Suspected/Possible Stated Complaint: R/O FLU Time Seen by Provider: 11/25/19 15:55 History Source: Patient, Family (daughter) Exam Limitations: No Limitations - History of Present Illness Initial Comments: 11/25/19 19:30 69 yo male pmh NIDDM, hypertension and gallbladder stones with stent presents to the ED for 1 day of fevers, vomiting and AMS. Pt had ERCP done by Dr. Aguilar in GI, reported to take out 1 of 2 stones. Pt is scheduled for cholecystectomy on 12/11. Pt currently AOX2, daughter at the bedside states he became confused around 2 pm today and vomited NB/NB, on arrival pt noted to have an elevated temp. Denies recent illness, abdominal pain, changes in bowel or bladder habits, rashes. Past History - Past Medical History Allergies/Adverse Reactions: Allergies Allergy/AdvReac Type Severity Reaction Status Date / Time cephalexin [From Keflet] Allergy Verified 11/25/19 15:13 Home Medications: Ambulatory Orders Acarbose [Precose -] 1 tab PO TID 09/16/19 Gabapentin 1 tab PO TID 09/16/19 Hydrochlorothiazide [Hctz -] 1 tab PO DAILY 09/16/19 Losartan Potassium 1 tab PO DAILY 09/16/19 Metoprolol Tartrate 1 tab PO BID 09/16/19 Montelukast Sodium [Singulair] 1 tab PO DAILY 09/16/19 Tamsulosin HCl [Flomax -] 2 tab PO DAILY 09/16/19 metFORMIN HCL [Metformin HCl ER] 2 tab PO BID 09/16/19 Cyanocobalamin (Vitamin B-12) [Vitamin B-12] 1,000 mcg PO DAILY 10/04/19 Warfarin Sodium [Coumadin] 5 mg PO DAILY 10/04/19 Asthma: Yes Cancer: Yes (PROSTATE RT) Cardiac Disorders: Yes (Atrial Fib on Coumadin) COPD: No Diabetes: Yes (NIDD) HTN: Yes - Surgical History Abdominal Surgery: Yes (stent in gallbladder March 2019) Appendectomy: No Cholecystectomy: No Orthopedic Surgery: Yes (bilateral knee replacement) - Immunization History Immunization Up to Date: Yes - Psycho Social/Smoking Cessation Hx Smoking History: Former smoker Have you smoked in the past 12 months: No If you are a former smoker, when did you quit?: AGE 33 Information on smoking cessation initiated: No Hx Alcohol Use: No Drug/Substance Use Hx: No Substance Use Type: None Hx Substance Use Treatment: No Review of Systems - Review of Systems Constitutional: Yes: See HPI HEENTM: Yes: See HPI Respiratory: Yes: See HPI Cardiac (ROS): Yes: See HPI ABD/GI: Yes: See HPI : Yes: See HPI Musculoskeletal: Yes: See HPI Integumentary: Yes: See HPI Neurological: Yes: See HPI *Physical Exam - Vital Signs Last Vital Signs Temp Pulse Resp BP Pulse Ox 101.4 F H 65 18 147/68 99 11/25/19 15:14 11/25/19 15:14 11/25/19 15:14 11/25/19 15:14 11/25/19 16:00 - Physical Exam General Appearance: Yes: Nourished, Appropriately Dressed HEENT: positive: EOMI, JEFE, Scleral Icterus (R), Scleral Icterus (L). negative : Excessive drooling Neck: positive: Supple. negative: Carotid bruit, Tender midline Respiratory/Chest: positive: Lungs Clear, Normal Breath Sounds. negative: Respiratory Distress, Accessory Muscle Use, Rapid RR, Crackles, Rales, Rhonchi, Stridor, Wheezing Cardiovascular: positive: Regular Rhythm, Regular Rate, S1, S2. negative: Edema , JVD, Murmur Vascular Pulses: Dorsalis-Pedis (R): 3+, Doralis-Pedis (L): 3+ Gastrointestinal/Abdominal: positive: Flat, Soft. negative: Pulsatile Mass, Distended, Guarding, Rebound, Tenderness Musculoskeletal: negative: CVA Tenderness Extremity: positive: Normal Capillary Refill, Normal Inspection, Normal Range of Motion Integumentary: positive: Normal Color, Dry, Warm Neurologic: positive: Alert. negative: Fully Oriented ED Treatment Course - LABORATORY CBC & Chemistry Diagram: 11/28/19 06:40 11/28/19 06:40 - ADDITIONAL ORDERS Additional order review: 11/25/19 16:08 RBC 5.12 MCV 93.2 MCHC 34.6 RDW 13.7 MPV 8.4 Neutrophils % 86.4 H D Lymphocytes % 3.1 L D Monocytes % 9.4 Eosinophils % 0.8 D Basophils % 0.3 - RADIOLOGY Radiology Studies Ordered: Category Date Time Status CHEST X-RAY PORTABLE* [RAD] Stat Radiology 11/25/19 15:54 Ordered ABDOMEN US -LIMITED [US] Stat Ultrasound 11/25/19 16:32 Ordered Medical Decision Making - Medical Decision Making 69 yo male pmh NIDDM, hypertension and gallbladder stones with stent presents to the ED for 1 day of fevers, vomiting and AMS. Pt had ERCP done by Dr. Aguilar in GI, reported to take out 1 of 2 stones. Pt is scheduled for cholecystectomy on 12/11. Pt currently AOX2, daughter at the bedside states he became confused around 2 pm today and vomited NB/NB, on arrival pt noted to have an elevated temp. Denies recent illness, abdominal pain, changes in bowel or bladder habits, rashes. Concerning for ascending cholangitis/cholecystitis sepsis Septic workup initiated, started on fluids and antibiotics. Pending US call placed to GI and Surgery discussed case with Surgery, Dr. Winn, states pt will likely need transfer to tertiary care center due to failed ERCP Labs WNL including LFT, t bili 11/25/19 16:[address] Aguilar states due to normal LFTs, alk phos and t bili, more likely stone retained in the cystic duct which will require cholecystectomy Will admit pt to medicine Discharge - Discharge Information Problems reviewed: Yes Clinical Impression/Diagnosis: Cholecystitis, Sepsis Condition: Stable Disposition: HOME - Admission Yes - Follow up/Referral - Patient Discharge Instructions - Post Discharge Activity
[2019-11-25 16:59] LABS: INR 1.14 (0.83-1.09); PROTHROMBIN TIME (PATIENT) 13.5 SEC (9.7-13.0)
[2019-11-25 17:02] LABS: ACTIVATED PTT 30.1 SECONDS (25.2-36.5)
[2019-11-25 17:05] LABS: ALBUMIN 3.8 g/dl (3.4-5.0); BILIRUBIN,TOTAL 0.9 mg/dL (0.2-1); BLOOD UREA NITROGEN 15.7 mg/dL (7-18); CALCIUM 8.9 mg/dL (8.5-10.1); CREATININE 1.1 mg/dL (0.55-1.3); POTASSIUM 3.8 mmol/L (3.5-5.1); TOT PROT 6.8 g/dl (6.4-8.2)
--- NOTE | 2019-11-25 17:09 | PDOC ---
Attending Attestation - Resident Resident Name: [email or web address] - ED Attending Attestation I have performed the following: I have examined & evaluated the patient, The case was reviewed & discussed with the resident, I agree w/resident's findings & plan, Exceptions are as noted - HPI HPI: 11/25/19 17:09 69y M hx of NIDDM, hypertension, gallbladder stents, presenting to the ER with a complaint of altered mental status. Per family the patient was a little more confused than usual so came to the ED for evaluation. The patient denies any acute complaints although he did vomit once earlier today that was nonbilious nonbloody. Patient also has had a chronic cough but is not different from usual. He denies any headache, neck pain, chest pain, abdominal pain, diarrhea , dysuria, urinary frequency any rashes. Patient does have a history of gallbladder disease status post MRCP fairly recently. Family also notes that the patient was in his usual status until today. PCP: Dr. Betts - Physicial Exam PE: 11/25/19 17:14 GENERAL: The patient is awake, alert, and oriented x2, Nontoxic - in no acute distress. HEAD: Normocephalic, atraumatic. EYES: extraocular movements intact, sclera anicteric, conjunctiva clear. ENT: Normal voice, Moist mucous membranes. NECK: Normal range of motion, supple LUNGS: Breath sounds equal, clear to auscultation bilaterally. No wheezes, no rhonchi, no rales. HEART: Regular rate and rhythm, normal S1 and S2 without murmur, rub or gallop. ABDOMEN: Soft, no focal abdominal tenderness EXTREMITIES: Normal range of motion, no edema. NEUROLOGICAL: No facial assymetry, Normal speech, moving all 4 extremities spontaneously symmetrically, negative Kernig's negative Brudzinski's PSYCH: Normal mood, normal affect. SKIN: Warm, Dry, normal turgor, - Medical Decision Making 11/25/19 17:15 Differential for the patient's symptoms includes possible influenza, as patient had a complicated mrcp recently consider cholangitis =- however no complaints of abd pain and non tender to my evaluation. We will obtain blood work, influenza, right upper quadrant ultrasound Will reassess Give the patient fluids, Tylenol for supportive management 11/25/19 19:15 labs reviewed will admit pt for further management US noted for thickented gb wall - cholecystitis vs underdistension - pt written for abx will admit for further management and surgical consultation pt hemodynamcially stable. abd remains nontender Heart Score/ECG Review - ECG Impressions Comment:: 11/25/19 17:18 Twelve-lead EKG was performed and reviewed by me. There is normal sinus rhythm with a normal rate. Rate of 84 Normal R wave progression No ST changes suggestive of acute ischemia
[2019-11-25] MEDS ORDERED: ACETAMINOPHEN 1000 MG/100 ML VIAL (NON FORMULARY) IVPB ONE (18:24)
[2019-11-25] MEDS ORDERED: ACETAMINOPHEN INJECTION 100 ML IVPB ONE (18:54)
--- NOTE | 2019-11-25 20:24 | HP ---
Admitting History and Physical - Primary Care Physician PCP: Sara Lin - Admission History of Present Illness: 69 yo male pmh NIDDM, hypertension and gallbladder stones with stent presents to the ED for 1 day of fevers, vomiting and AMS. Pt had ERCP done by Dr. Aguilar in GI, reported to take out 1 of 2 stones. Pt is scheduled for cholecystectomy on 12/11. Pt currently AOX2, daughter at the bedside states he became confused around 2 pm today and vomited NB/NB, on arrival pt noted to have an elevated temp. Denies recent illness, abdominal pain, changes in bowel or bladder habits, rashes. - Past Medical History Cardiovascular: Yes: AFIB (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), HTN, Other ( LE venous insufficiency) Pulmonary: Yes: Asthma Hepatobiliary: Yes: Cholelithiasis, Choledocholithiasis, Other (fatty liver) Renal/: Yes: BPH, Cancer (prostate cancer s/p radiation therapy 2016) Endocrine: Yes: Diabetes Mellitus - Past Surgical History Past Surgical History: Yes: Appendectomy, Joint Replacement (B/L TKR) - Smoking History Smoking history: Former smoker Have you smoked in the past 12 months: No If you are a former smoker, when did you quit?: AGE 33 - Alcohol/Substance Use Hx Alcohol Use: No History of Substance Use: reports: None - Social History ADL: Independent 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 Home Medications - Allergies Allergies/Adverse Reactions: Allergies Allergy/AdvReac Type Severity Reaction Status Date / Time cephalexin [From Keriet] Allergy Verified 11/25/19 15:13 - Home Medications Home Medications: Ambulatory Orders Acarbose [Precose -] 1 tab PO TID 09/16/19 Gabapentin 1 tab PO TID 09/16/19 Hydrochlorothiazide [Hctz -] 1 tab PO DAILY 09/16/19 Losartan Potassium 1 tab PO DAILY 09/16/19 Metoprolol Tartrate 1 tab PO BID 09/16/19 Montelukast Sodium [Singulair] 1 tab PO DAILY 09/16/19 Tamsulosin HCl [Flomax -] 2 tab PO DAILY 09/16/19 metFORMIN HCL [Metformin HCl ER] 2 tab PO BID 09/16/19 Cyanocobalamin (Vitamin B-12) [Vitamin B-12] 1,000 mcg PO DAILY 10/04/19 Warfarin Sodium [Coumadin] 5 mg PO DAILY 10/04/19 Physical Examination Vital Signs: Vital Signs Temperature 99.1 F 11/25/19 18:24 Pulse Rate 63 11/25/19 18:24 Respiratory Rate 18 11/25/19 15:14 Blood Pressure 120/70 11/25/19 18:24 O2 Sat by Pulse Oximetry (%) 98 11/25/19 18:24 Constitutional: Yes: No Distress HENT: Yes: Atraumatic Neck: Yes: Supple Cardiovascular: Yes: Regular Rate and Rhythm Respiratory: Yes: CTA Bilaterally Gastrointestinal: Yes: Normal Bowel Sounds Extremities: Yes: WNL Neurological: Yes: Alert Labs: CBC, BMP 11/25/19 16:08 11/25/19 16:08 Imaging - Results Ultrasound: Report Reviewed Problem List - Problems (1) Cholangitis due to bile duct calculus with obstruction Assessment/Plan: gi and surgery consult hida scan... Code(s): K80.31 - CALCULUS OF BILE DUCT W CHOLANGITIS, UNSP, WITH OBSTRUCTION (2) Diabetes mellitus Assessment/Plan: monitor Code(s): E11.9 - TYPE 2 DIABETES MELLITUS WITHOUT COMPLICATIONS (3) HTN (hypertension) Assessment/Plan: monitor on meds Code(s): I10 - ESSENTIAL (PRIMARY) HYPERTENSION Assessment/Plan Laboratory Tests 11/25/19 11/25/19 11/25/19 16:08 16:08 16:08 WBC 8.9 RBC 5.12 Hgb 16.5 Hct 47.7 MCV 93.2 MCH 32.2 MCHC 34.6 RDW 13.7 Plt Count 151 MPV 8.4 Absolute Neuts (auto) 7.7 Neutrophils % 86.4 H D Lymphocytes % 3.1 L D Monocytes % 9.4 Eosinophils % 0.8 D Basophils % 0.3 Nucleated RBC % 0 PT with INR 13.50 H INR 1.14 H PTT (Actin FS) 30.1 VBG pH POC VBG pCO2 POC VBG pO2 VBG HCO3 VBG O2 Sat (Marty) VBG Base Excess Sodium Potassium Chloride Carbon Dioxide Anion Gap BUN Creatinine Est GFR (CKD-EPI)AfAm Est GFR (CKD-EPI)NonAf Random Glucose Lactic Acid Calcium Total Bilirubin AST ALT Alkaline Phosphatase Troponin I < 0.02 Total Protein Albumin 0211/25/19 11/25/19 16:08 16:08 16:08 WBC RBC Hgb Hct MCV MCH MCHC RDW Plt Count MPV Absolute Neuts (auto) Neutrophils % Lymphocytes % Monocytes % Eosinophils % Basophils % Nucleated RBC % PT with INR INR PTT (Actin FS) VBG pH Cancelled POC VBG pCO2 Cancelled POC VBG pO2 Cancelled VBG HCO3 Cancelled VBG O2 Sat (Marty) Cancelled VBG Base Excess Cancelled Sodium 137 Potassium 3.8 Chloride 101 Carbon Dioxide 28 Anion Gap 7 L BUN 15.7 Creatinine 1.1 Est GFR (CKD-EPI)AfAm 77.86 Est GFR (CKD-EPI)NonAf 67.18 Random Glucose 109 H Lactic Acid 1.9 Calcium 8.9 Total Bilirubin 0.9 AST 22 ALT 22 Alkaline Phosphatase 89 Troponin I Total Protein 6.8 Albumin 3.8 Active Medications Generic Name Dose Route Start Last Admin Trade Name Freq PRN Reason Stop Dose Admin Enoxaparin Sodium 40 mg 11/28/19 10:00 Lovenox - SQ DAILY [facility] Aztreonam 1 gm/ Dextrose 50 mls @ 100 mls/hr 11/27/19 18:00 11/27/19 18:03 IVPB 100 mls/hr Q8H-IV SAJAN Administration Protocol Metoprolol Tartrate 25 mg 11/27/19 22:00 Lopressor - PO BID [facility] Montelukast Sodium 10 mg 11/27/19 22:00 Singulair - PO HS [facility] Morphine Sulfate 8 mg 11/27/19 09:14 Morphine Sulfate IVPB Q3H PRN PAIN LEVEL 7 - 10 Ondansetron HCl 4 mg 11/27/19 11:20 Zofran Injection IVPB Q4H PRN NAUSEA AND/OR VOMITING Oxycodone HCl 7.5 mg 11/27/19 11:45 11/27/19 12:38 Roxicodone - PO 7.5 mg Q4H PRN Administration PAIN LEVEL 4 - 6 Pantoprazole Sodium 40 mg 11/27/19 10:00 11/27/19 12:39 Protonix Iv IVPUSH 40 mg DAILY SAJAN Administration Tamsulosin HCl 0.8 mg 11/28/19 08:30 Flomax - PO DAILY@0830 [facility]
[2019-11-25] MEDS ORDERED: WARFARIN NA 5 MG TABLET (UD) PO SCH (20:28)
[2019-11-25] MEDS ORDERED: ACETAMINOPHEN 1000 MG/100 ML VIAL (NON FORMULARY) IVPB PRN (20:30)
[2019-11-25] MEDS ORDERED: MORPHINE SULFATE 2 MG/ML VIAL IVPUSH PRN (20:31)
[2019-11-25] MEDS ORDERED: ONDANSETRON 4 MG/2 ML VIAL IVPB PRN (20:31)
[2019-11-25] MEDS: SODIUM CHLORIDE 1,000 ML IV SCH (20:45)
[2019-11-25] MEDS ORDERED: WARFARIN NA 5 MG TABLET (UD) ONE (20:45)
[2019-11-25 20:50] LABS: URINE APPEARANCE CLEAR; URINE BILIRUBIN NEGATIVE (NEGATIVE); URINE COLOR YELLOW; URINE GLUCOSE (UA) NEGATIVE (NEGATIVE); URINE KETONE NEGATIVE (NEGATIVE); URINE LEUK ESTERASE NEGATIVE (NEGATIVE); URINE NITRITE NEGATIVE (NEGATIVE); URINE PROTEIN NEGATIVE (NEGATIVE); URINE UROBILINOGEN 0.2 mg/dL (0.2-1.0)
[2019-11-25] MEDS: METOPROLOL TARTRATE 25 MG TABLET (FP) PO SCH (22:12)
[2019-11-26] MEDS: SODIUM CHLORIDE 1,000 ML IV SCH ×3 (04:03→18:12)
--- NOTE | 2019-11-26 06:14 | PDOC ---
*Physical Exam - Vital Signs Last Vital Signs Temp Pulse Resp BP Pulse Ox 98.5 F 50 L 18 118/68 95 11/25/19 20:26 11/25/19 22:12 11/25/19 22:12 11/25/19 22:12 11/25/19 22:12 ED Treatment Course - LABORATORY CBC & Chemistry Diagram: 11/26/19 07:00 11/26/19 07:00 - ADDITIONAL ORDERS Additional order review: Laboratory Results 11/25/19 11/25/19 11/25/19 20:25 18:50 16:08 WBC RBC Hgb Hct MCV MCH MCHC RDW Plt Count MPV Absolute Neuts (auto) Neutrophils % Lymphocytes % Monocytes % Eosinophils % Basophils % Nucleated RBC % VBG pH Cancelled POC VBG pCO2 Cancelled POC VBG pO2 Cancelled VBG HCO3 Cancelled VBG O2 Sat (Marty) Cancelled VBG Base Excess Cancelled Urine Color Yellow Urine Appearance Clear Urine pH 6.0 Ur Specific [place] 1.015 Urine Protein Negative Urine Glucose (UA) Negative Urine Ketones Negative Urine Blood Negative Urine Nitrite Negative Urine Bilirubin Negative Urine Urobilinogen 0.2 Ur Leukocyte Esterase Negative Influenza A (Rapid) Negative Influenza B (Rapid) Negative 11/25/19 16:08 WBC 8.9 RBC 5.12 Hgb 16.5 Hct 47.7 MCV 93.2 MCH 32.2 MCHC 34.6 RDW 13.7 Plt Count 151 MPV 8.4 Absolute Neuts (auto) 7.7 Neutrophils % 86.4 H D Lymphocytes % 3.1 L D Monocytes % 9.4 Eosinophils % 0.8 D Basophils % 0.3 Nucleated RBC % 0 VBG pH POC VBG pCO2 POC VBG pO2 VBG HCO3 VBG O2 Sat (Marty) VBG Base Excess Urine Color Urine Appearance Urine pH Ur Specific [place] Urine Protein Urine Glucose (UA) Urine Ketones Urine Blood Urine Nitrite Urine Bilirubin Urine Urobilinogen Ur Leukocyte Esterase Influenza A (Rapid) Influenza B (Rapid) 11/25/19 16:08 RBC 5.12 MCV 93.2 MCHC 34.6 RDW 13.7 MPV 8.4 Neutrophils % 86.4 H D Lymphocytes % 3.1 L D Monocytes % 9.4 Eosinophils % 0.8 D Basophils % 0.3 - Medications Given in the ED: ED Medications Discontinued Medications Generic Name Dose Route Start Last Admin Trade Name Freq PRN Reason Stop Dose Admin Acetaminophen 1,000 mg 11/25/19 18:24 11/25/19 18:44 Ofirmev Injection - IVPB 11/25/19 18:25 1,000 mg ONCE ONE Administration Sodium Chloride 3,674 mls @ 1,837 mls/hr 11/25/19 15:54 11/25/19 16:00 Normal Saline - 30 ml/kg infuse over 2 hr (3674 ml) 11/25/19 17:53 1,837 mls/hr IV Administration ONCE ONE Metronidazole 500 mg in 100 mls @ 100 mls/hr 11/25/19 16:47 11/25/19 16:55 Flagyl 500mg Premixed Ivpb - IVPB 11/25/19 17:46 100 mls/hr ONCE ONE Administration Levofloxacin 750 mg in 150 mls @ 100 mls/hr 11/25/19 16:47 11/25/19 16:55 Levaquin 750 Mg Premixed Ivpb - IVPB 11/25/19 18:16 100 mls/hr ONCE ONE Administration Protocol ED Progress Note - Progress Note Progress Note: 11/26/19 06:[address] abdomen/pelvis results demonstrated 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 We discussed the case with Dr. Rosas Patel with surgery who was made aware of the case. Discharge - Discharge Information Problems reviewed: Yes Clinical Impression/Diagnosis: Cholecystitis, Sepsis Condition: Stable - Follow up/Referral - Patient Discharge Instructions - Post Discharge Activity
[2019-11-26 08:04] LABS: BASO % 0.5 % (0-2.0); EOS % 2.2 % (0-4.5); HEMOGLOBIN 13.5 GM/dL (11.7-16.9); LYMPH % 10.3 % (8-40); MCH 32.2 pg (25.7-33.7); MCHC 34.6 g/dl (32.0-35.9); MEAN PLT VOLUME 8.2 fl (7.5-11.1); MONO % 13.8 % (3.8-10.2); NEUT % 73.2 % (42.8-82.8); PLATELET COUNT 126 K/MM3 (134-434); RBC 4.19 M/mm3 (4.00-5.60); RDW 13.8 % (11.9-15.9); WHITE BLOOD COUNT 5.9 K/mm3 (4.0-10.0)
[2019-11-26 08:27] LABS: ALBUMIN 2.8 g/dl (3.4-5.0); BILIRUBIN,TOTAL 0.7 mg/dL (0.2-1); BLOOD UREA NITROGEN 14.2 mg/dL (7-18); CALCIUM 7.7 mg/dL (8.5-10.1); CREATININE 0.9 mg/dL (0.55-1.3); POTASSIUM 3.1 mmol/L (3.5-5.1); TOT PROT 5.1 g/dl (6.4-8.2)
--- NOTE | 2019-11-26 12:50 | PN ---
Progress Note (short form) - Note Progress Note: surgery pt currently in nuclear medicine and unable to be examined. 69m morbidly obese , cholodocholithiasis in march with stent placement and 1/2 stones removed. Seen by Dr. Pearson in interval and recommendations for cholecystectomy at tertiary care because of remaining stone. had completion ercp in September and remaining stone and stent removed. Pt has elective plans for cholecystectomy in 2 weeks. Pt admitted for fever and mental status change. labs normal. expected pneumbilia seen. no cholecystitits on ct. Plan- If HIDA positive and source of fever will consider cholecystectomy now if medically optimized for surgery. If HIDA negative will need to look for other source of fever.
--- NOTE | 2019-11-26 13:03 | EKG ---
Test Reason : Blood Pressure : / mmHG Vent. Rate : 084 BPM Atrial Rate : 084 BPM P-R Int : 182 ms QRS Dur : 092 ms QT Int : 348 ms P-R-T Axes : 024 -13 033 degrees QTc Int : 411 ms POOR DATA QUALITY, INTERPRETATION MAY BE ADVERSELY AFFECTED NORMAL SINUS RHYTHM NORMAL ECG WHEN COMPARED WITH ECG OF 03-JUL-2019 13:01, VENT. RATE HAS INCREASED BY 31 BPM Confirmed by Baldemar Landin MD ([id number]) on 11/26/2019 1:03:45 PM Referred By: Confirmed By:Baldemar Landin MD
--- NOTE | 2019-11-26 13:52 | PN ---
Progress Note (short form) - Note Progress Note: surgery pt seen and examined. sub optimal 2 hour HIDA done. appears positive but waiting official read. pt now feels well. no pain. slight cough. abd- soft, mild ruq tenderness. Plan- umremarkable sono and ct with suboptimal HIDA suggesting at least chronic cholecystitis. will make plans to proceed with surgery tomorrow once medically optimized. This can be done with Dr. Patel who had originally scheduled his surgery. flu and ua negative. Blood cultures negative to date. cxr unremarkable. working diagnosis is resolved sepsis from acute cholecystitits. cont npo. cont iv abx. for surgery tomorrow if medically optimized.
[2019-11-26] MEDS: TAMSULOSIN HCL 0.4 MG CAP PO SCH (14:15)
[2019-11-26] MEDS: METOPROLOL TARTRATE 25 MG TABLET (FP) PO SCH ×3 (14:16→21:18)
[2019-11-26] MEDS: MONTELUKAST NA 10 MG TABLET PO SCH (14:16)
--- NOTE | 2019-11-26 15:48 | CON.ID ---
Consult - Past Medical History Cardio/Vascular: Yes: AFIB (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), HTN, Other (LE venous insufficiency) Pulmonary: Yes: Asthma Hepatobiliary: Yes: Cholelithiasis, Choledocholithiasis, Other (fatty liver) Renal/: Yes: BPH, Cancer (prostate cancer s/p radiation therapy 2016) Endocrine: Yes: Diabetes Mellitus - Past Surgical History Past Surgical History: Yes: Appendectomy, Joint Replacement (B/L TKR) - Alcohol/Substance Use Hx Alcohol Use: No History of Substance Use: reports: None - Smoking History Smoking history: Former smoker Have you smoked in the past 12 months: No If you are a former smoker, when did you quit?: AGE 33 - Social History Usual Living Arrangement: With Spouse ADL: Independent 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 Home Medications - Allergies Allergies/Adverse Reactions: Allergies Allergy/AdvReac Type Severity Reaction Status Date / Time cephalexin [From Keflet] Allergy Verified 11/25/19 15:13 - Home Medications Home Medications: Ambulatory Orders Acarbose [Precose -] 1 tab PO TID 09/16/19 Gabapentin 1 tab PO TID 09/16/19 Hydrochlorothiazide [Hctz -] 1 tab PO DAILY 09/16/19 Losartan Potassium 1 tab PO DAILY 09/16/19 Metoprolol Tartrate 1 tab PO BID 09/16/19 Montelukast Sodium [Singulair] 1 tab PO DAILY 09/16/19 Tamsulosin HCl [Flomax -] 2 tab PO DAILY 09/16/19 metFORMIN HCL [Metformin HCl ER] 2 tab PO BID 09/16/19 Cyanocobalamin (Vitamin B-12) [Vitamin B-12] 1,000 mcg PO DAILY 10/04/19 Warfarin Sodium [Coumadin] 5 mg PO DAILY 10/04/19 Physical Exam Vital Signs: Vital Signs Temperature 97.6 F 11/26/19 14:00 Pulse Rate 58 L 11/26/19 14:00 Respiratory Rate 11/26/19 14:00 Blood Pressure 132/67 11/26/19 14:00 O2 Sat by Pulse Oximetry (%) 95 11/25/19 22:12 Labs: CBC, BMP 11/26/19 07:00 11/26/19 07:00
--- NOTE | 2019-11-26 16:37 | PN ---
Progress Note, Physician - Current Medication List Current Medications: Active Medications Acetaminophen (Ofirmev Injection -) 1,000 mg IVPB Q6H PRN PRN Reason: FEVER Stop: 11/26/19 20:31 Sodium Chloride (Normal Saline -) 1,000 mls @ 100 mls/hr [facility] Last Admin: 11/26/19 14:17 Dose: 100 mls/hr Aztreonam 1 gm/ Dextrose 50 mls @ 100 mls/hr IVPB Q8H-IV SAJAN; Protocol Metoprolol Tartrate (Lopressor -) 25 mg PO BID [facility] Last Admin: 11/26/19 14:16 Dose: 25 mg Montelukast Sodium (Singulair -) 10 mg PO DAILY [facility] Last Admin: 11/26/19 14:16 Dose: 10 mg Morphine Sulfate (Morphine Sulfate) 2 mg IVPUSH Q4H PRN PRN Reason: PAIN LEVEL 4 - 6 Ondansetron HCl (Zofran Injection) 4 mg IVPB Q4H PRN PRN Reason: NAUSEA AND/OR VOMITING Tamsulosin HCl (Flomax -) 0.8 mg PO DAILY [facility] Last Admin: 11/26/19 14:15 Dose: 0.8 mg Warfarin Sodium (Coumadin -) 5 mg PO DAILY@1800 [facility] Last Admin: 11/25/19 20:47 Dose: Not Given - Objective Vital Signs: Vital Signs Temperature 97.6 F 11/26/19 14:00 Pulse Rate 58 L 11/26/19 14:00 Respiratory Rate 20 11/26/19 14:00 Blood Pressure 132/67 11/26/19 14:00 O2 Sat by Pulse Oximetry (%) 95 11/25/19 22:12 Constitutional: Yes: No Distress HENT: Yes: Atraumatic Neck: Yes: Supple Cardiovascular: Yes: Regular Rate and Rhythm Respiratory: Yes: CTA Bilaterally Gastrointestinal: Yes: Normal Bowel Sounds Extremities: Yes: WNL Edema: No Peripheral Pulses WNL: Yes Neurological: Yes: Alert, Oriented Labs: CBC, BMP 11/26/19 07:00 11/26/19 07:00 INR, PTT INR 1.14 (0.83-1.09) H 11/25/19 16:08 Problem List - Problems (1) Cholangitis due to bile duct calculus with obstruction Assessment/Plan: gi and surgery consult hida scan... done for surgery in am cardiology clearance Code(s): K80.31 - CALCULUS OF BILE DUCT W CHOLANGITIS, UNSP, WITH OBSTRUCTION (2) Diabetes mellitus Assessment/Plan: monitor Code(s): E11.9 - TYPE 2 DIABETES MELLITUS WITHOUT COMPLICATIONS (3) HTN (hypertension) Assessment/Plan: monitor on meds Code(s): I10 - ESSENTIAL (PRIMARY) HYPERTENSION
--- NOTE | 2019-11-26 16:41 | CON.GI ---
Consult Consult Specialty:: Gastroenterology Referred by:: Dr Lin Reason for Consultation:: Cholangitis - History of Present Illness Chief Complaint: Nausea and chills History of Present Illness: 69M is brought to the ER by family after he developed altered mental status that followed nausea and chills. He presented similarly withy cholangitis when I did his initial ERCP on 04/05/19. He had ascending cholangitis that caused MALVIN. I removed some of his stones and placed a stent. I did a repeat ERCP on when I removed the stent and all residual stones. His LFTs are currently normal. His pneumobilia reflects his previous sphincterotomy. He was awaiting an outpatient cholecystectomy. He has never had a colonoscopy. - History Source History Provided By: Patient, Medical Record Limitations to Obtaining History: No Limitations - Past Medical History Cardio/Vascular: Yes: AFIB (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), HTN, Other (LE venous insufficiency) Pulmonary: Yes: Asthma Hepatobiliary: Yes: Cholelithiasis, Choledocholithiasis (s/p ERCP with sphincteiorotmy and stenting 04/03 then ERCP on 10/03 for stone and stent removal ), Other (fatty liver) Renal/: Yes: BPH, Cancer (prostate cancer s/p radiation therapy 2016) Heme/Onc: Yes: Cancer (prostate cancer) Infectious Disease: Yes: Other (recurrent lower extremity cellulitis) Endocrine: Yes: Diabetes Mellitus, Other (obesity) - Past Surgical History Past Surgical History: Yes: Appendectomy, Joint Replacement (B/L TKR) - Alcohol/Substance Use Hx Alcohol Use: No History of Substance Use: reports: None - Smoking History Smoking history: Former smoker Have you smoked in the past 12 months: No If you are a former smoker, when did you quit?: AGE 33 - Social History Usual Living Arrangement: With Spouse ADL: Independent 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year[place] age 34 History of Recent Travel: No Home Medications - Allergies Allergies/Adverse Reactions: Allergies Allergy/AdvReac Type Severity Reaction Status Date / Time cephalexin [From [place]] Allergy Verified 11/25/19 15:13 - Home Medications Home Medications: Ambulatory Orders Acarbose [Precose -] 1 tab PO TID 09/16/19 Gabapentin 1 tab PO TID 09/16/19 Hydrochlorothiazide [Hctz -] 1 tab PO DAILY 09/16/19 Losartan Potassium 1 tab PO DAILY 09/16/19 Metoprolol Tartrate 1 tab PO BID 09/16/19 Montelukast Sodium [Singulair] 1 tab PO DAILY 09/16/19 Tamsulosin HCl [Flomax -] 2 tab PO DAILY 09/16/19 metFORMIN HCL [Metformin HCl ER] 2 tab PO BID 09/16/19 Cyanocobalamin (Vitamin B-12) [Vitamin B-12] 1,000 mcg PO DAILY 10/04/19 Warfarin Sodium [Coumadin] 5 mg PO DAILY 10/04/19 Family Medical History Family Hx Cancer: Brother (cancer of larynx) Family Hx Cardiac Disorders: Father ( 74 of [place]) Family Hx Respiratory Disorders: Father (COPD) Review of Systems - Review of Systems Constitutional: reports: Chills, Fever Eyes: reports: No Symptoms HENT: reports: No Symptoms Neck: reports: No Symptoms Cardiovascular: reports: No Symptoms Gastrointestinal: reports: Nausea Genitourinary: reports: No Symptoms Musculoskeletal: reports: Joint Pain Physical Exam-GI Vital Signs: Vital Signs Temperature 97.6 F 11/26/19 14:00 Pulse Rate 58 L 11/26/19 14:00 Respiratory Rate 20 11/26/19 14:00 Blood Pressure 132/67 11/26/19 14:00 O2 Sat by Pulse Oximetry (%) 95 11/25/19 22:12 CBC,CMP WBC 5.9 K/mm3 (4.0-10.0) 11/26/19 07:00 RBC 4.19 M/mm3 (4.00-5.60) 11/26/19 07:00 Hgb 13.5 GM/dL (11.7-16.9) 11/26/19 07:00 Hct 39.0 % (35.4-49) D 11/26/19 07:00 MCV 93.0 fl (80-96) 11/26/19 07:00 MCH 32.2 pg (25.7-33.7) 11/26/19 07:00 MCHC 34.6 g/dl (32.0-35.9) 11/26/19 07:00 RDW 13.8 % (11.9-15.9) 11/26/19 07:00 Plt Count 126 K/MM3 (134-434) L 11/26/19 07:00 MPV 8.2 fl (7.5-11.1) 11/26/19 07:00 Absolute Neuts (auto) 4.3 K/mm3 (1.5-8.0) 11/26/19 07:00 Neutrophils % 73.2 % (42.8-82.8) 11/26/19 07:00 Lymphocytes % 10.3 % (8-40) D 11/26/19 07:00 Monocytes % 13.8 % (3.8-10.2) H 11/26/19 07:00 Eosinophils % 2.2 % (0-4.5) D 11/26/19 07:00 Basophils % 0.5 % (0-2.0) 11/26/19 07:00 Nucleated RBC % 0 % (0-0) 11/26/19 07:00 Sodium 139 mmol/L (136-145) 11/26/19 07:00 Potassium 3.1 mmol/L (3.5-5.1) L 11/26/19 07:00 Chloride 107 mmol/L (98-107) 11/26/19 07:00 Carbon Dioxide 25 mmol/L (21-32) 11/26/19 07:00 Anion Gap 7 MMOL/L (8-16) L 11/26/19 07:00 BUN 14.2 mg/dL (7-18) 11/26/19 07:00 Creatinine 0.9 mg/dL (0.55-1.3) 11/26/19 07:00 Est GFR (CKD-EPI)AfAm 99.24 11/26/19 07:00 Est GFR (CKD-EPI)NonAf 85.63 11/26/19 07:00 POC Glucometer 97 UNITS (80-120) 11/26/19 07:57 Random Glucose 94 mg/dL (74-106) 11/26/19 07:00 Lactic Acid 1.9 mmol/L (0.4-2.0) 11/25/19 16:08 Calcium 7.7 mg/dL (8.5-10.1) L 11/26/19 07:00 Total Bilirubin 0.7 mg/dL (0.2-1) 11/26/19 07:00 AST 13 U/L (15-37) L 11/26/19 07:00 ALT 16 U/L (13-61) 11/26/19 07:00 Alkaline Phosphatase 63 U/L (45-117) 11/26/19 07:00 Troponin I < 0.02 ng/ml (0.00-0.05) 11/25/19 16:08 Total Protein 5.1 g/dl (6.4-8.2) L 11/26/19 07:00 Albumin 2.8 g/dl (3.4-5.0) L 11/26/19 07:00 Current Medications Generic Name Dose Route Start Last Admin Trade Name Freq PRN Reason Stop Dose Admin Acetaminophen 1,000 mg 11/25/19 20:30 Ofirmev Injection - IVPB 11/26/19 20:31 Q6H PRN FEVER Sodium Chloride 1,000 mls @ 100 mls/hr 11/26/19 14:02 11/26/19 14:17 Normal Saline - IV 100 mls/hr ASDIR SAJAN Administration Aztreonam 1 gm/ Dextrose 50 mls @ 100 mls/hr 11/26/19 18:00 IVPB Q8H-IV SAJAN Protocol Metoprolol Tartrate 25 mg 11/25/19 22:00 11/26/19 14:16 Lopressor - PO 25 mg BID SAJAN Administration Montelukast Sodium 10 mg 11/26/19 10:00 11/26/19 14:16 Singulair - PO 10 mg DAILY SAJAN Administration Morphine Sulfate 2 mg 11/25/19 20:31 Morphine Sulfate IVPUSH Q4H PRN PAIN LEVEL 4 - 6 Ondansetron HCl 4 mg 11/25/19 20:31 Zofran Injection IVPB Q4H PRN NAUSEA AND/OR VOMITING Tamsulosin HCl 0.8 mg 11/26/19 10:00 11/26/19 14:15 Flomax - PO 0.8 mg DAILY SAJAN Administration Warfarin Sodium 5 mg 11/25/19 20:28 11/25/19 20:47 Coumadin - PO Not Given DAILY@1800 SAJAN Constitutional: Yes: Calm Eyes: Yes: Conjunctiva Clear HENT: Yes: Atraumatic Neck: Yes: Trachea Midline Cardiovascular: Yes: Regular Rate and Rhythm Respiratory: Yes: CTA Bilaterally Gastrointestinal Inspection: Yes: Scars (healed RLQ inicsion) ...Palpate: Yes: Soft, Other (nontender) ...Percussion: Yes: Tympanitic ...Rectal Exam: Yes: Deferred (done on 08/28/19 in the office when was g negn no prostate palpable) Edema: LLE: 2+, RLE: 2+ Neurological: Yes: Alert, Oriented Labs: CBC, BMP 11/26/19 07:00 11/26/19 07:00 INR, PTT INR 1.14 (0.83-1.09) H 11/25/19 16:08 Imaging - Results Cat Scan: Report Reviewed ( Final Report CT ABDOMEN & PELVIS CT WITH CONTR Show Printer-Friendly Version with Image (1 of 1) Show Printer- Friendly Version without images Patient Name: Singh Hdz : 1949 ID: [id number] Study Date: 26-Nov-2019 04:35 Osmaranali Padilla Name : [facility] Phys: JessicaEdil aguilera : 1950 Age: 69 Sex: M [facility] Acct: [id number] Loc: [address] Exam Date: 11/26/19 Status: [place] [address] Unit Number: [id number] EXAM#: TYPE/EXAM: RESULT: [id number] CT/ABDOMEN PELVIS CT WITH CONTR INDICATION: Fever TECHNIQUE: Helical images of the abdomen and pelvis obtained 100 cc Omnipaque 350 IV . COMPARISON IMAGIN04/04/2019 FINDINGS: LUNG BASES:Negative. LIVER: Hepatic steatosis. GALLBLADDER: Air within the gallbladder is seen. The patient has a history of biliary instrumentation. No gallstones seen. No pericholecystic stranding is identified. BILIARY DUCTS: Pneumobilia is present. Bile ducts are not dilated. This patient has a history of biliary instrumentation. PANCREAS: Negative. SPLEEN: Negative. ADRENALS: Negative. KIDNEYS: Large cyst within the lower pole of the right kidney is again noted unchanged. There is perinephric stranding, nonspecific in seen previously. No hydronephrosis or nephrolithiasis was appreciated. AORTA: Negative. LYMPH NODES: Periaortic lymph nodes seen previously is again noted measuring 1.8 cm. BOWEL: No evidence of bowel obstruction. No evidence to suggest appendicitis. No free air/fluid is identified. Fat- containing paraumbilical hernia with no stranding. PELVIS: Bladder wall thickening is identified, the bladder is not fully distended. Underlying infection to be excluded. Metallic densities near the prostatic bed noted which could represent pituitary markers versus clips. Correlate with surgical history. Findings present previously. Fat- containing inguinal hernias noted with no stranding. OTHER: Pars defect bilaterally at the level of L5 noted. Discogenic disease at the level of L5/S1 noted. No aggressive bone lesions seen. Preliminary dictation was generated by the on-call radiologist at the time of this procedure. IMPRESSION: Pneumobilia likely from prior biliary instrumentation. Hepatic steatosis. Unchanged renal cysts. Unchanged periaortic adenopathy. Bladder wall thickening which could be secondary to underdistention , UTI not excluded. Correlate with urinalysis. Additional comments noted above. Disclaimer: This report was transcribed by a computer , textile designs sales representative errors and nonsensical statements may occur. Reported By: Mckinley Gonzalez MD 11/26/1940 Technologist: Dorita Roman Transcribed Date/Time: 11/26/19837 Acquisition Consultant: Mckinley Gonzalez Printed Date/Time: By: Signed by: Mckinley Gonzalez Signed on: 2019 08:39) Problem List - Problems (1) Cholecystitis Code(s): K81.9 - CHOLECYSTITIS, UNSPECIFIED (2) Altered mental status Code(s): R41.82 - ALTERED MENTAL STATUS, UNSPECIFIED (3) Asthma Code(s): J45.909 - UNSPECIFIED ASTHMA, UNCOMPLICATED (4) Cellulitis Code(s): L03.90 - CELLULITIS, UNSPECIFIED Qualifiers: Site of cellulitis: extremity Site of cellulitis of extremity: lower extremity Laterality: left Qualified Code(s): L03.116 - Cellulitis of left lower limb (5) Cholangitis due to bile duct calculus with obstruction Code(s): K80.31 - CALCULUS OF BILE DUCT W CHOLANGITIS, UNSP, WITH OBSTRUCTION (6) Choledocholithiasis Code(s): K80.50 - CALCULUS OF BILE DUCT W/O CHOLANGITIS OR CHOLECYST W/O OBST (7) Diabetes mellitus Code(s): E11.9 - TYPE 2 DIABETES MELLITUS WITHOUT COMPLICATIONS (8) Fatty liver Code(s): K76.0 - FATTY (CHANGE OF) LIVER, NOT ELSEWHERE CLASSIFIED (9) HTN (hypertension) Code(s): I10 - ESSENTIAL (PRIMARY) HYPERTENSION (10) History of acute cholangitis Code(s): Z87.19 - PERSONAL HISTORY OF OTHER DISEASES OF THE DIGESTIVE SYSTEM (11) Morbid obesity due to excess calories Code(s): E66.01 - MORBID (SEVERE) OBESITY DUE TO EXCESS CALORIES (12) Paroxysmal atrial fibrillation with rapid ventricular response Code(s): I48.0 - PAROXYSMAL ATRIAL FIBRILLATION (13) Prostate CA Code(s): C61 - MALIGNANT NEOPLASM OF PROSTATE (14) S/P ERCP Code(s): Z98.890 - OTHER SPECIFIED POSTPROCEDURAL STATES Assessment/Plan Assessment: - Agree that acute cholecystitis account for fever, chills, nausea and altered mental status due to suspected bacteremia. This is supported by the positive Hida scan - Previous h/o ascending cholangitis with ERCP x 2 to remove all of the stones. The sphincterotomy accounts for his pneumobilia. He does not have cholangitis and can proceed to cholecystectomy Plan: -- Antibiotics until cholecystectomy is done -- Singh has agreed to followup in our office to arrange a colonoscopy for colon cancer screening after he recovers fully from his GB surgery
[2019-11-26] MEDS ORDERED: AZTREONAM 1 GM VIAL (RESTRICTED TO ID) ONE (18:04)
[2019-11-26] MEDS ORDERED: DEXTROSE 5%-WATER - 50 ML IVPB ONE (18:05)
[2019-11-26] MEDS: AZTREONAM 1 GM in DEXTROSE 5%-WATER - 50 ML IVPB SCH (18:12)
[2019-11-26] MEDS: POTASSIUM CHLORIDE TABS 20 MEQ TABLET.ER (FP) PO SCH (21:17)
[2019-11-27] MEDS ORDERED: DEXTROSE 5%-WATER - 50 ML IVPB ONE ×2 (01:01→17:52)
[2019-11-27] MEDS ORDERED: AZTREONAM 1 GM VIAL (RESTRICTED TO ID) ONE ×2 (01:01→17:51)
[2019-11-27] MEDS: AZTREONAM 1 GM in DEXTROSE 5%-WATER - 50 ML IVPB SCH ×3 (01:15→18:03)
[2019-11-27] MEDS ORDERED: PROPOFOL 20 ML ONE (08:49)
[2019-11-27] MEDS ORDERED: SUCCINYLCHOLINE CHLORIDE 200 MG/10 ML SYRINGE ONE (08:49)
[2019-11-27] MEDS ORDERED: DESFLURANE GAS 240 ML BOTTLE IH ONE (08:51)
[2019-11-27] MEDS ORDERED: morphine SULFATE 4 MG/ML VIAL IVPB PRN (09:14)
[2019-11-27] MEDS ORDERED: ROCURONIUM BROMIDE 50 MG/5 ML SYRINGE ONE (09:26)
[2019-11-27] MEDS ORDERED: DEXAMETHASONE SOD PHOSPHATE 4 MG/1 ML VIAL ONE (09:32)
[2019-11-27] MEDS ORDERED: ENOXAPARIN NA (PORCINE) 40 MG/0.4 ML DISP.SYRIN SQ SCH (10:00)
[2019-11-27] MEDS ORDERED: GLYCOPYRROLATE 0.2 MG/1 ML VIAL ONE (10:09)
[2019-11-27] MEDS ORDERED: NEOSTIGMINE METHYLSULFATE 0.5 MG/ML - 10 ML MDV ONE (10:09)
[2019-11-27] MEDS ORDERED: ONDANSETRON 4 MG/2 ML VIAL IVPB PRN (11:20)
[2019-11-27] MEDS ORDERED: SODIUM CHLORIDE 1,000 ML IV SCH (11:20)
--- NOTE | 2019-11-27 11:34 | ECHO ---
Version: 1 Name: VERONICA TRINIDAD Exam: Adult Echocardiogram Study Date: 11/27/2019, 7:38 AM Age: 69 Years MMode/2D Measurements & Calculations IVSd: 1.41 cm LVIDs: 3.0 cm LVIDd: 4.6 cm LVPWd: 1.38 cm ACS: 2.04 cm Ao root diam: 3.1 cm LVOT diam: 1.99 cm LA dimension: 4.8 cm Doppler Measurements & Calculations MV E max david: 78.2 cm/sec Med E/e': 8.5 MV A max david: 65.1 cm/sec Med Peak E' David: 9.2 cm/sec MV E/A: 1.20 Lat E/e': 11.4 Lat Peak E' David: 6.9 cm/sec MR max P.3 mmHg Ao max P.6 mmHg AMRIT(I,D): 2.5 cm Ao mean P.4 mmHg LV V1 mean: 76.0 cm/sec Ao V2 max: 137.7 cm/sec LV V1 mean P.6 mmHg TR max david: 141.1 cm/sec TR max P.0 mmHg Procedure A complete two-dimensional transthoracic echocardiogram was performed (2D, M-mode, Doppler and color flow Doppler). Left Ventricle The left ventricle is normal in size. There is moderate concentric left ventricular hypertrophy. The left ventricular ejection fraction is normal. Ejection Fraction = 65%. E/A reversal consistent with but n ot diagnostic of poor LV compliance. The left ventricular wall motion is normal. Right Ventricle The right ventricle is normal in size and function. Atria Normal left and right atrial size and function. Mitral Valve The mitral valve is normal in structure and function. There is trace mitral regurgitation. Tricuspid Valve The tricuspid valve is not well visualized. There is trace tricuspid regurgitation. There was insuff icient TR detected to calculate RV systolic pressure. Aortic Valve There is mild to moderate aortic valve thickening. Pulmonic Valve The pulmonic valve is not well visualized. Great Vessels The aortic root is normal size. Pericardium/Pleura There is no pericardial effusion. There is no pleural effusion. Summary Statements There is moderate concentric left ventricular hypertrophy. The left ventricular ejection fraction is normal. Ejection Fraction = 65%. There is trace mitral regurgitation. There is trace tricuspid regurgitation. There is mild to moderate aortic valve thickening. MD Baldemar Landin 11/27/2019, 11:34 AM Ordering Physician: Sara Lin Performed By: Nita Matson
[2019-11-27] MEDS: POTASSIUM CHLORIDE TABS 20 MEQ TABLET.ER (FP) PO SCH (12:00)
[2019-11-27] MEDS: TAMSULOSIN HCL 0.4 MG CAP PO SCH (12:00)
[2019-11-27] MEDS: METOPROLOL TARTRATE 25 MG TABLET (FP) PO SCH ×2 (12:00→21:20)
[2019-11-27] MEDS: MONTELUKAST NA 10 MG TABLET PO SCH (12:01)
[2019-11-27] MEDS: oxyCODONE HCL 5 MG TABLET PO PRN ×2 (12:38→20:47)
[2019-11-27] MEDS: PANTOPRAZOLE SODIUM 40 MG VIAL IVPUSH SCH (12:39)
--- NOTE | 2019-11-27 12:49 | PN ---
Progress Note, Physician History of Present Illness: stable no new issues for surgery - Current Medication List Current Medications: Active Medications Enoxaparin Sodium (Lovenox -) 40 mg SQ DAILY [facility] Aztreonam 1 gm/ Dextrose 50 mls @ 100 mls/hr IVPB Q8H-IV SAJAN; Protocol Sodium Chloride (Normal Saline -) 1,000 mls @ 100 mls/hr IV ASDIR [facility] Last Admin: 11/27/19 11:30 Dose: 100 mls Metoprolol Tartrate (Lopressor -) 25 mg PO BID [facility] Montelukast Sodium (Singulair -) 10 mg PO HS [facility] Morphine Sulfate (Morphine Sulfate) 8 mg IVPB Q3H PRN PRN Reason: PAIN LEVEL 7 - 10 Ondansetron HCl (Zofran Injection) 4 mg IVPB Q4H PRN PRN Reason: NAUSEA AND/OR VOMITING Oxycodone HCl (Roxicodone -) 7.5 mg PO Q4H PRN PRN Reason: PAIN LEVEL 4 - 6 Last Admin: 11/27/19 12:38 Dose: 7.5 mg Pantoprazole Sodium (Protonix Iv) 40 mg IVPUSH DAILY [facility] Last Admin: 11/27/19 12:39 Dose: 40 mg Tamsulosin HCl (Flomax -) 0.8 mg PO DAILY@0830 [facility] - Objective Vital Signs: Vital Signs Temperature 98.0 F 11/27/19 12:29 Pulse Rate 69 11/27/19 12:29 Respiratory Rate 18 11/27/19 12:29 Blood Pressure 152/87 11/27/19 12:29 O2 Sat by Pulse Oximetry (%) 93 L 11/27/19 12:29 Constitutional: Yes: No Distress, Calm, Obese Cardiovascular: Yes: S1, S2 Respiratory: Yes: Regular, CTA Bilaterally Musculoskeletal: Yes: WNL Extremities: Yes: WNL Neurological: Yes: Alert, Oriented Psychiatric: Yes: Alert, Oriented Labs: CBC, BMP 11/26/19 07:00 11/26/19 07:00 INR, PTT INR 1.14 (0.83-1.09) H 11/25/19 16:08 Assessment/Plan Problem List - Problems (1) Cholangitis due to bile duct calculus with obstruction Code(s): K80.31 - CALCULUS OF BILE DUCT W CHOLANGITIS, UNSP, WITH OBSTRUCTION (2) Diabetes mellitus Code(s): E11.9 - TYPE 2 DIABETES MELLITUS WITHOUT COMPLICATIONS (3) HTN (hypertension) Code(s): I10 - ESSENTIAL (PRIMARY) HYPERTENSION obesity plan continue abx await for surgical findings rest as per the team
[2019-11-27 14:56] VITALS: BMI 32.5
--- NOTE | 2019-11-27 17:22 | CON.CARD ---
Consult Consult Specialty:: Cardiology - History of Present Illness Chief Complaint: Post Op History of Present Illness: This is a 69 year old male with a PMH of HTN, DM, AFIB on Coumadin (NOACs not covered by his insurance), and obesity. S/P lower extremity vein removal and is now S/P cholecystectomy. Doing well, no chest pain or SOB. Echocardiogram 04/08/2019 Normal LVEF and mild valvular abnormalities. Remains off coumadin. - Past Medical History Cardio/Vascular: Yes: AFIB (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), HTN, Other (LE venous insufficiency) Pulmonary: Yes: Asthma Hepatobiliary: Yes: Cholelithiasis, Choledocholithiasis (s/p ERCP with sphincteiorotmy and stenting 04/03 then ERCP on 10/03 for stone and stent removal ), Other (fatty liver) Renal/: Yes: BPH, Cancer (prostate cancer s/p radiation therapy 2016) Infectious Disease: Yes: Other (recurrent lower extremity cellulitis) Endocrine: Yes: Diabetes Mellitus, Other (obesity) - Past Surgical History Past Surgical History: Yes: Appendectomy, Joint Replacement (B/L TKR) - Alcohol/Substance Use Hx Alcohol Use: No History of Substance Use: reports: None - Smoking History Smoking history: Former smoker Have you smoked in the past 12 months: No If you are a former smoker, when did you quit?: AGE 33 - Social History Usual Living Arrangement: With Spouse ADL: Independent 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 Travel: No Home Medications - Allergies Allergies/Adverse Reactions: Allergies Allergy/AdvReac Type Severity Reaction Status Date / Time cephalexin [From [facility]] Allergy Verified 11/25/19 15:13 - Home Medications Home Medications: Ambulatory Orders Acarbose [Precose -] 1 tab PO TID 09/16/19 Gabapentin 1 tab PO TID 09/16/19 Hydrochlorothiazide [Hctz -] 1 tab PO DAILY 09/16/19 Losartan Potassium 1 tab PO DAILY 09/16/19 Metoprolol Tartrate 1 tab PO BID 09/16/19 Montelukast Sodium [Singulair] 1 tab PO DAILY 09/16/19 Tamsulosin HCl [Flomax -] 2 tab PO DAILY 09/16/19 metFORMIN HCL [Metformin HCl ER] 2 tab PO BID 09/16/19 Cyanocobalamin (Vitamin B-12) [Vitamin B-12] 1,000 mcg PO DAILY 10/04/19 Warfarin Sodium [Coumadin] 5 mg PO DAILY 10/04/19 Vital Signs: Vital Signs Temperature 98.3 F 11/27/19 13:14 Pulse Rate 84 11/27/19 13:14 Respiratory Rate 18 11/27/19 13:14 Blood Pressure 150/90 11/27/19 13:14 O2 Sat by Pulse Oximetry (%) 93 L 11/27/19 12:29 Constitutional: Yes: No Distress Eyes: Yes: WNL HENT: Yes: WNL Neck: Yes: WNL Respiratory: Yes: WNL Gastrointestinal: Yes: Soft Cardiovascular: Yes: Regular Rate and Rhythm Heart Sounds: Yes: S1, S2 Murmur: Yes: Systolic Murmur Extremities: Yes: WNL Edema: No Neurological: Yes: Alert, Oriented - Other Data Labs, Other Data: CBC, BMP 11/26/19 07:00 11/26/19 07:00 INR, PTT INR 1.14 (0.83-1.09) H 11/25/19 16:08 Assessment/Plan 69 year old male with a PMH of HTN, DM, AFIB on Coumadin (NOACs not covered by his insurance), and obesity. S/P lower extremity vein removal and is now S/P cholecystectomy. Doing well, no chest pain or SOB. Echocardiogram 04/08/2019 Normal LVEF and mild valvular abnormalities. Remains off coumadin. PAFIB Continue metoprolol tartrate 25 mg PO bid Consider restarting Coumdin (INR 2 - 3)when safe from a post op standpoint and if not other surgical procedures are being planned. HTN BP 152/90 mmHg Restart Losartan Replete K+
--- NOTE | 2019-11-27 19:26 | PN ---
Progress Note, Physician - Current Medication List Current Medications: Active Medications Enoxaparin Sodium (Lovenox -) 40 mg SQ DAILY [facility] Aztreonam 1 gm/ Dextrose 50 mls @ 100 mls/hr IVPB Q8H-IV SAJAN; Protocol Last Admin: 11/27/19 18:03 Dose: 100 mls/hr Metoprolol Tartrate (Lopressor -) 25 mg PO BID [facility] Montelukast Sodium (Singulair -) 10 mg PO HS [facility] Morphine Sulfate (Morphine Sulfate) 8 mg IVPB Q3H PRN PRN Reason: PAIN LEVEL 7 - 10 Ondansetron HCl (Zofran Injection) 4 mg IVPB Q4H PRN PRN Reason: NAUSEA AND/OR VOMITING Oxycodone HCl (Roxicodone -) 7.5 mg PO Q4H PRN PRN Reason: PAIN LEVEL 4 - 6 Last Admin: 11/27/19 12:38 Dose: 7.5 mg Pantoprazole Sodium (Protonix Iv) 40 mg IVPUSH DAILY [facility] Last Admin: 11/27/19 12:39 Dose: 40 mg Tamsulosin HCl (Flomax -) 0.8 mg PO DAILY@0830 [facility] - Objective Vital Signs: Vital Signs Temperature 98.3 F 11/27/19 13:14 Pulse Rate 84 11/27/19 13:14 Respiratory Rate 18 11/27/19 13:14 Blood Pressure 150/90 11/27/19 13:14 O2 Sat by Pulse Oximetry (%) 93 L 11/27/19 12:29 Constitutional: Yes: No Distress HENT: Yes: Atraumatic Neck: Yes: Supple Cardiovascular: Yes: Regular Rate and Rhythm Respiratory: Yes: CTA Bilaterally Gastrointestinal: Yes: Hypoactive Bowel Sounds, Tenderness Extremities: Yes: WNL Edema: No Neurological: Yes: Alert, Oriented Labs: CBC, BMP 11/26/19 07:00 11/26/19 07:00 INR, PTT INR 1.14 (0.83-1.09) H 11/25/19 16:08 Problem List - Problems (1) Cholangitis due to bile duct calculus with obstruction Assessment/Plan: gi and surgery consult hida scan... s/p surgery Code(s): K80.31 - CALCULUS OF BILE DUCT W CHOLANGITIS, UNSP, WITH OBSTRUCTION (2) Diabetes mellitus Assessment/Plan: monitor Code(s): E11.9 - TYPE 2 DIABETES MELLITUS WITHOUT COMPLICATIONS (3) HTN (hypertension) Assessment/Plan: monitor on meds Code(s): I10 - ESSENTIAL (PRIMARY) HYPERTENSION
[2019-11-27] MEDS ORDERED: MONTELUKAST NA 10 MG TABLET PO SCH (22:00)
[2019-11-28] MEDS ORDERED: DEXTROSE 5%-WATER - 50 ML IVPB ONE ×3 (01:19→17:32)
[2019-11-28] MEDS ORDERED: AZTREONAM 1 GM VIAL (RESTRICTED TO ID) ONE ×3 (01:19→17:32)
[2019-11-28] MEDS: AZTREONAM 1 GM in DEXTROSE 5%-WATER - 50 ML IVPB SCH ×3 (01:25→17:42)
--- NOTE | 2019-11-28 07:55 | PN ---
Progress Note (short form) - Note Progress Note: Post op day#1.S/P Laproscopic cholecystectomy under [place] uneventful.Patient stable.No any anesthesia related problem.Patient DC from the anesthesia care.
[2019-11-28 08:09] LABS: BASO % 0.1 % (0-2.0); EOS % 0.1 % (0-4.5); HEMATOCRIT 40.4 % (35.4-49); HEMOGLOBIN 14.1 GM/dL (11.7-16.9); LYMPH % 6.4 % (8-40); MCH 32.2 pg (25.7-33.7); MCHC 34.9 g/dl (32.0-35.9); MEAN CELL VOLUME 92.2 fl (80-96); MEAN PLT VOLUME 8.6 fl (7.5-11.1); MONO % 10.7 % (3.8-10.2); NEUT % 82.7 % (42.8-82.8); PLATELET COUNT 152 K/MM3 (134-434); RBC 4.38 M/mm3 (4.00-5.60); RDW 13.6 % (11.9-15.9); WHITE BLOOD COUNT 7.4 K/mm3 (4.0-10.0)
--- NOTE | 2019-11-28 08:10 | PN ---
Progress Note (short form) - Note Progress Note: surgery s/p cholecystectomy. afebrile. u/o greater than 2 liters. intra-op findings support acute cholecystitis. can be on regular diet. can resume coumadin tomorrow. prophylactic lovenox today. surgically stable for d/c if am labs reasonable. no isolated surgical need for continued abx based on intra-op findings. ok to shower. ok to drive. no lifting. follow in about 2 weeks. [phone] labs pending...
[2019-11-28] MEDS ORDERED: TAMSULOSIN HCL 0.4 MG CAP PO SCH (08:30)
[2019-11-28 09:23] LABS: ALBUMIN 2.9 g/dl (3.4-5.0); BILIRUBIN,TOTAL 0.4 mg/dL (0.2-1); BLOOD UREA NITROGEN 11.8 mg/dL (7-18); CALCIUM 8.4 mg/dL (8.5-10.1); POTASSIUM 4.1 mmol/L (3.5-5.1); TOT PROT 5.5 g/dl (6.4-8.2)
[2019-11-28] MEDS ORDERED: ENOXAPARIN NA (PORCINE) 40 MG/0.4 ML DISP.SYRIN SQ SCH (10:00)
[2019-11-28] MEDS: PANTOPRAZOLE SODIUM 40 MG VIAL IVPUSH SCH (10:21)
[2019-11-28] MEDS: METOPROLOL TARTRATE 25 MG TABLET (FP) PO SCH (10:21)
[2019-11-28] MEDS: oxyCODONE HCL 5 MG TABLET PO PRN (10:23)
--- NOTE | 2019-11-28 10:28 | PN ---
Progress Note, Physician History of Present Illness: patient stable post op abd pain while moving - Current Medication List Current Medications: Active Medications Enoxaparin Sodium (Lovenox -) 40 mg SQ DAILY [facility] Last Admin: 11/28/19 10:21 Dose: 40 mg Aztreonam 1 gm/ Dextrose 50 mls @ 100 mls/hr IVPB Q8H-IV SAJAN; Protocol Last Admin: 11/28/19 10:21 Dose: 100 mls/hr Metoprolol Tartrate (Lopressor -) 25 mg PO BID [facility] Last Admin: 11/28/19 10:21 Dose: 25 mg Montelukast Sodium (Singulair -) 10 mg PO HS [facility] Last Admin: 11/27/19 21:20 Dose: 10 mg Morphine Sulfate (Morphine Sulfate) 8 mg IVPB Q3H PRN PRN Reason: PAIN LEVEL 7 - 10 Ondansetron HCl (Zofran Injection) 4 mg IVPB Q4H PRN PRN Reason: NAUSEA AND/OR VOMITING Oxycodone HCl (Roxicodone -) 7.5 mg PO Q4H PRN PRN Reason: PAIN LEVEL 4 - 6 Last Admin: 11/28/19 10:23 Dose: 7.5 mg Pantoprazole Sodium (Protonix Iv) 40 mg IVPUSH DAILY [facility] Last Admin: 11/28/19 10:21 Dose: 40 mg Tamsulosin HCl (Flomax -) 0.8 mg PO DAILY@0830 [facility] Last Admin: 11/28/19 08:08 Dose: 0.8 mg - Objective Vital Signs: Vital Signs Temperature 97.7 F 11/28/19 10:20 Pulse Rate 63 11/28/19 10:20 Respiratory Rate 18 11/28/19 10:20 Blood Pressure 142/69 11/28/19 10:20 O2 Sat by Pulse Oximetry (%) 94 L 11/27/19 22:00 Constitutional: Yes: Calm, Mild Distress, Obese Cardiovascular: Yes: S1, S2 Respiratory: Yes: Regular, CTA Bilaterally Gastrointestinal: Yes: Soft, Hypoactive Bowel Sounds Musculoskeletal: Yes: WNL Extremities: Yes: WNL Wound/Incision: Yes: Clean/Dry Neurological: Yes: Alert, Oriented Psychiatric: Yes: Alert, Oriented Labs: CBC, BMP 11/28/19 06:40 11/28/19 06:40 INR, PTT INR 1.14 (0.83-1.09) H 11/25/19 16:08 Assessment/Plan Problem List - Problems (1) Cholangitis due to bile duct calculus with obstruction Code(s): K80.31 - CALCULUS OF BILE DUCT W CHOLANGITIS, UNSP, WITH OBSTRUCTION (2) Diabetes mellitus Code(s): E11.9 - TYPE 2 DIABETES MELLITUS WITHOUT COMPLICATIONS (3) HTN (hypertension) Code(s): I10 - ESSENTIAL (PRIMARY) HYPERTENSION obesity plan if surgery clears and patient tolerates diet abx can be stopped
--- NOTE | 2019-11-28 10:52 | OP ---
DATE OF OPERATION: 11/27/2019 PREOPERATIVE DIAGNOSIS: Acute and chronic cholecystitis, right upper quadrant abdominal sepsis, chronically incarcerated umbilical hernia. POSTOPERATIVE DIAGNOSIS: Acute and chronic cholecystitis, right upper quadrant abdominal sepsis, chronically incarcerated umbilical hernia. PROCEDURE: Laparoscopic cholecystectomy, drainage right upper quadrant abscess, extensive peritoneal lavage. SURGEON: Rosas Patel MD FILM AND VIDEO GRAPHICS DESIGNER: Eb Terrell DO ANESTHESIA: Baldemar Méndez MD (general). ESTIMATED BLOOD LOSS: Minimal. SPECIMEN: Gallbladder. PROCEDURE: This is a 69-year-old gentleman admitted with a change in mental status. During workup, it was deemed that it is related to his gallbladder and biliary disease. Patient was previously here last year in the summer with choledocholithiasis, cholangitis, and sepsis. She was managed medically and was ultimately scheduled for an elective laparoscopic cholecystectomy next week or so but presented early with this change in mental status and fever. Patient identified and appropriately positioned on the operating room table. After placement of general anesthesia, the abdomen was prepped and draped in usual sterile fashion with ChloraPrep. Given the obesity of this gentleman, a supraumbilical incision was made deepened through the subcutaneous tissue. The fascia was incised sharply, and peritoneum incised. Under direct vision, a Veress needle followed by a structural needle placed. Upon placement of the laparoscope, it was obvious this gentleman had acute cholecystitis. The gallbladder itself was distended. There were inflammatory changes. The gallbladder could not grasped in a standard fashion. Therefore, it had to be percutaneously decompressed and the abscess drained. The right upper quadrant was copiously irrigated with approximately 500 mL of normal saline. The irrigant retrieved. Next, the gallbladder reflected over the dome of the liver in standard fashion going from lateral to medial. The neck and infundibulum of the gallbladder identified, followed by the cystic duct. This gentleman had a generous cystic duct. Given this finding, to ensure that this was not the common duct, the gallbladder was then off the posterior hepatic space bluntly from what appeared to be the cystic duct, the neck, and then infundibulum directly into the gallbladder. This was taking about 1/[address] up and it was obvious that what was thought to be the cystic duct was truly a dilated cystic duct. The cystic duct was taken with an Endo JOCELYN 2.5 mm stapler. The cystic artery identified more posteriorly and medially. The artery itself was circumferentially isolated , clipped, and then divided. Then, the gallbladder, due to its inflammatory changes, had to be sharply taken off the liver bed. The gallbladder itself was brought through the umbilical port site after being placed in an EndoCatch bag. The right upper quadrant was irrigated. The irrigant retrieved and noted to be clear. The liver bed was hemostatic, and complete hemostasis was achieved with the cautery. The liver bed irrigated once again and the subhepatic space reexamined and noted to be hemostatic. The irrigant retrieved. The operative field was hemostatic. Ports were removed. Port sites were hemostatic. The fascia at the supraumbilical port site was reapproximated with interrupted 0 Vicryl suture. The umbilical hernia that was chronically incarcerated was not addressed at this setting nor entered. All skin was closed with 4-0 Biosyn, followed by Dermabond. At the conclusion of this portion of the case, sponge and instrument counts were correct. ATTESTATION: A brief operative note was handwritten on the preprinted form. [facility] queried prior to giving any narcotics. Jose Alfredo DALY [id number] MTDD
[2019-11-28 15:07] VITALS: BP 141/79; PULSE 50; TEMP 97.9
--- NOTE | 2019-11-28 15:20 | PN ---
Progress Note, Physician Chief Complaint: Presently comfortable History of Present Illness: This is a 69 year old male with a PMH of HTN, DM, AFIB on Coumadin (NOACs not covered by his insurance), and obesity. S/P lower extremity vein removal and is now S/P cholecystectomy. Doing well, no chest pain or SOB. Echocardiogram 04/08/2019 Normal LVEF and mild valvular abnormalities. Remained off Coumadin. - Current Medication List Current Medications: Active Medications Enoxaparin Sodium (Lovenox -) 40 mg SQ DAILY [facility] Last Admin: 11/28/19 10:21 Dose: 40 mg Aztreonam 1 gm/ Dextrose 50 mls @ 100 mls/hr IVPB Q8H-IV [facility]; Protocol Last Admin: 11/28/19 10:21 Dose: 100 mls/hr Metoprolol Tartrate (Lopressor -) 25 mg PO BID [facility] Last Admin: 11/28/19 10:21 Dose: 25 mg Montelukast Sodium (Singulair -) 10 mg PO HS [facility] Last Admin: 11/27/19 21:20 Dose: 10 mg Morphine Sulfate (Morphine Sulfate) 8 mg IVPB Q3H PRN PRN Reason: PAIN LEVEL 7 - 10 Ondansetron HCl (Zofran Injection) 4 mg IVPB Q4H PRN PRN Reason: NAUSEA AND/OR VOMITING Oxycodone HCl (Roxicodone -) 7.5 mg PO Q4H PRN PRN Reason: PAIN LEVEL 4 - 6 Last Admin: 11/28/19 10:23 Dose: 7.5 mg Pantoprazole Sodium (Protonix Iv) 40 mg IVPUSH DAILY [facility] Last Admin: 11/28/19 10:21 Dose: 40 mg Tamsulosin HCl (Flomax -) 0.8 mg PO DAILY@0830 [facility] Last Admin: 11/28/19 08:08 Dose: 0.8 mg - Objective Vital Signs: Vital Signs Temperature 97.9 F 11/28/19 15:00 Pulse Rate 50 L 11/28/19 15:00 Respiratory Rate 18 11/28/19 15:00 Blood Pressure 141/79 11/28/19 15:00 O2 Sat by Pulse Oximetry (%) 96 11/28/19 10:00 Constitutional: Yes: Well Nourished, No Distress Eyes: Yes: WNL HENT: Yes: WNL Neck: Yes: WNL Cardiovascular: Yes: Regular Rate and Rhythm Respiratory: Yes: CTA Bilaterally Gastrointestinal: Yes: Soft Extremities: Yes: WNL Edema: No Neurological: Yes: Alert, Oriented Labs: CBC, BMP 11/28/19 06:40 11/28/19 06:40 INR, PTT INR 1.14 (0.83-1.09) H 11/25/19 16:08 Assessment/Plan 69 year old male with a PMH of HTN, DM, AFIB on Coumadin (NOACs not covered by his insurance), and obesity. S/P lower extremity vein removal and is now S/P cholecystectomy. Doing well, no chest pain or SOB. Echocardiogram 04/08/2019 Normal LVEF and mild valvular abnormalities. Remains off coumadin. PAFIB Continue metoprolol tartrate 25 mg PO bid Coumadin to be restarted, INR goal 2 - 3 Episodes of bradycardia noted, especially at night Would lower metoprolol tartrate to 12.5 mg PO BID Would evaluate for sleep apnea as an outpatient HTN Restart Losartan Follow up with Dr. Gutierrez
--- NOTE | 2019-11-28 17:31 | DS ---
Physical Examination Vital Signs: Vital Signs Temperature 97.9 F 11/28/19 15:00 Pulse Rate 50 L 11/28/19 15:00 Respiratory Rate 18 11/28/19 15:00 Blood Pressure 141/79 11/28/19 15:00 O2 Sat by Pulse Oximetry (%) 96 11/28/19 10:00 Constitutional: Yes: No Distress HENT: Yes: Atraumatic Neck: Yes: Supple Cardiovascular: Yes: Regular Rate and Rhythm Respiratory: Yes: CTA Bilaterally Gastrointestinal: Yes: Normal Bowel Sounds Extremities: Yes: WNL Edema: No Neurological: Yes: Alert, Oriented Labs: CBC, BMP 11/28/19 06:40 11/28/19 06:40 Discharge Summary Problems reviewed: Yes Reason For Visit: CHOLECYSTITIS SEPSIS Current Active Problems Cholecystitis (Acute) Sepsis (Acute) Condition: Stable - Instructions Diet, Activity, Other Instructions: see your pmd 2-3 days check cbc and cmp see surgeon in 2 weeks SURGERY INSTRUCTIONS s/p cholecystectomy. afebrile. u/o greater than 2 liters. intra-op findings support acute cholecystitis. can be on regular diet. can resume coumadin tomorrow. no isolated surgical need for continued abx based on intra-op findings. ok to shower. ok to drive. no lifting. follow in about 2 weeks. [phone] Referrals: Gallo Betts MD, MD [Primary Care Provider] - - Home Medications Comprehensive Discharge Medication List: Ambulatory Orders Acarbose [Precose -] 1 tab PO TID 09/16/19 Gabapentin 1 tab PO TID 09/16/19 Hydrochlorothiazide [Hctz -] 1 tab PO DAILY 09/16/19 Losartan Potassium 1 tab PO DAILY 09/16/19 Metoprolol Tartrate 1 tab PO BID 09/16/19 Montelukast Sodium [Singulair] 1 tab PO DAILY 09/16/19 Tamsulosin HCl [Flomax -] 2 tab PO DAILY 09/16/19 metFORMIN HCL [Metformin HCl ER] 2 tab PO BID 09/16/19 Cyanocobalamin (Vitamin B-12) [Vitamin B-12] 1,000 mcg PO DAILY 10/04/19 Warfarin Sodium [Coumadin] 5 mg PO DAILY 10/04/19
--- NOTE | 2019-11-29 19:09 | PATH ---
Surgical Pathology Report Patient Name: VERONICA TRINIDAD Med. Rec. #: [id number] /Age/Gender: 1950 (Age: 69) / M Account: [id number] Location: [facility] MED/SURG Taken: 11/27/2019 Received: 11/27/2019 Reported: 11/29/2019 Physicians: Sara Lin M.D. Specimen(s) Received GALLBLADDER Clinical History Cholecystitis, sepsis Final Diagnosis GALLBLADDER, CHOLECYSTECTOMY: FOCAL MILD ACUTE SUPERIMPOSED ON CHRONIC CHOLECYSTITIS. CHOLESTEROLOSIS. ONE BENIGN REACTIVE LYMPH NODE. Electronically Signed Keven Carter M.D. Gross Description Received in formalin, labeled "gallbladder," is a 9.3 x 4.5 x 4.0 cm. gallbladder with a 0.2 cm. in length portion of cystic duct attached. There is a 0.7 cm greatest dimension periductal lymph node present. The outer surface is leonard green and varies from smooth to shaggy. The lumen contains green, tenacious bile. There are no choleliths identified within the lumen or within the container. The mucosa is green and velvety. The wall of the gallbladder averages 0.1 cm. in thickness. Card Checker sections are submitted in one cassette. 11/28/2019 [facility]/28/2019
== END 2019-11-28 19:00 | disposition home or self-care (01) | DRG 854 ==
LOC: JER 15:00 → JERBED 20:26 → J8W 11-26 01:05
PROVIDERS: ADMIT Internal Medicine; ATTEND Internal Medicine
PROC: 3E1M38Z Irrigation of Peritoneal Cavity using Irrigating Substance, Percutaneous Approach (ICD-10-PCS; 2019-11-27)
PROC: 0F944ZZ Drainage of Gallbladder, Percutaneous Endoscopic Approach (ICD-10-PCS; 2019-11-27)
PROC: 0FT44ZZ Resection of Gallbladder, Percutaneous Endoscopic Approach (ICD-10-PCS; principal; 2019-11-27 09:30)
DX: A41.89 Other specified sepsis (principal); K80.46 Calculus of bile duct with acute and chronic cholecystitis without obstruction; K42.0 Umbilical hernia with obstruction, without gangrene; E11.9 Type 2 diabetes mellitus without complications; I10 Essential (primary) hypertension; K76.0 Fatty (change of) liver, not elsewhere classified; R10.11 Right upper quadrant pain; Z68.32 Body mass index [BMI] 32.0-32.9, adult; N40.0 Benign prostatic hyperplasia without lower urinary tract symptoms; E66.01 Morbid (severe) obesity due to excess calories
CPT/HCPCS: 36415; 71045-TC-FY; 74177-TC; 76705-TC; 78226-TC; 80053; 81003; 82962; 83605; 84484; 85025; 85610; 85730; 87040; 87804; 88304-TC; 93005; 93010; 93306-TC; 94010; 94760; 99285-25; A9537; J0131; J7030

== ENCOUNTER 2020-05-26 14:09 | Inpatient (IN) | payer OTHER, MEDICARE ==
--- NOTE | 2020-05-26 14:19 | PDOC ---
History of Present Illness - General Stated Complaint: Weakness Time Seen by Provider: 05/26/20 14:18 History Source: Patient Exam Limitations: Clinical Condition - History of Present Illness Initial Comments: 05/26/20 14:19 HPI: This is a 69 y/o male with a PMH of HTN, NIDDM, Prostate ca (~4years ago), Afib on Warfarin, and recent TIA (February 2020) BIBA after he was unable to lift himself out of his chair today after eating breakfast. Per the patient there were no falls and no LOC although he had some trouble recalling the exact events. Two days ago he was walking and he started feeling weak. The weakness gradually progressed, and he also reports decreased appetite, a "chest cold" with non-productive cough, chills, and SOB, as well as increased urination (He usually uses the bathroom 3x at night, but he has been going 4x). He denies headache, chest pain, abdominal pain, N/V, diarrhea, dysuria, or blood in his stool. He denies recent sick contacts. ROS: GENERAL/CONSTITUTIONAL: Yes fever/chills. Yes weakness. HEAD, EYES, EARS, NOSE AND THROAT: No change in vision/blurry vision. No sore throat. CARDIOVASCULAR: No chest pain, Yes shortness of breath. RESPIRATORY: Yes cough. No wheezing, or hemoptysis. GASTROINTESTINAL: No nausea, vomiting, diarrhea GENITOURINARY: No dysuria, yes frequency MUSCULOSKELETAL: No neck or back pain. SKIN: No rash NEUROLOGIC: No headache, vertigo, loss of consciousness PMH: HTN, NIDDM, Prostate ca (~4years ago), Afib on Warfarin, and recent TIA (February 2020) Meds: See nurses note Allergies: cephalexin PE: GENERAL: Awake, alert, and oriented to person, place and time. In no acute distr ess. Sitting up in bed, conversational but confused about events leading up to him being brought in. HEAD: No signs of trauma EYES: PERRLA, EOMI, ENT: Auricles normal inspection, Moist mucosa NECK: Normal ROM, supple, no lymphadenopathy, JVD, or masses. No meningeal signs. LUNGS: Breath sounds equal, clear to auscultation bilaterally. No wheezes, and no crackles HEART: Regular rate and rhythm, normal S1 and S2, no murmurs, rubs or gallops ABDOMEN: Soft, nontender. No guarding, no rebound. No masses EXTREMITIES: Normal range of motion, no edema. No tenderness. NEUROLOGICAL: Cranial nerves II through XII grossly intact. Normal speech. No focal neurologic deficits. SKIN: Warm, Dry, normal turgor, no rashes or lesions noted. MDM: 05/26/20 16:02 This is a 69 y/o male with a PMH of HTN, NIDDM, Prostate ca (~4years ago), Afib on Warfarin, and recent TIA ([place], February 2020) BIBA after he was unable to lift himself out of his chair today after eating breakfast. - Weakness for past 2 days. Not sudden onset - Pt febrile at 101.3 - Complaining of non-productive cough and increased urination Sepsis vs pneumonia vs UTI vs encephalitis - UA - CBC - CMP - CXR - EKG - CT Head - Lactic - Coags - CRP, ferritin - Covid Swab Pt becoming more confused CXR: A single view of the chest has been submitted. Since the prior study of 03/24/2020 there is a slightly weaker inspiration with more prominent mediastinum but no sign of an acute process. The bones and soft tissues are intact. There are some arthritic changes. If symptoms persist, further imaging and follow-up is suggested Head CT: Impression: - No significant interval change or CT evidence of acute intracranial pathology is identified. Correlate clinically to determine further evaluation and follow-up. - UA negative - CXR unchanged from previous - CBC without leukocytosis but increased monocytes (17.1) - CRP 3.1 05/26/20 17:28 - No source of infection - Consulted Dr. Jung who wanted Vanco and Zosyn - Also wants Carotid U/S - He will follow patient - Pt admitted Past History - Medical History Allergies/Adverse Reactions: Allergies Allergy/AdvReac Type Severity Reaction Status Date / Time cephalexin [From Keflet] Allergy Verified 05/26/20 19:02 vancomycin AdvReac Verified 05/27/20 15:26 Home Medications: Ambulatory Orders Acarbose [Precose -] 50 mg PO TID 09/16/19 Hydrochlorothiazide [Hctz -] 25 mg PO DAILY 09/16/19 Metoprolol Tartrate 25 mg PO BID 09/16/19 metFORMIN HCL [Metformin HCl ER] 500 mg PO BID 09/16/19 Warfarin Sodium [Coumadin] 5 mg PO DAILY 10/04/19 Gabapentin 100 mg PO TID 03/24/20 Aspirin Coated [Ecotrin -] 81 mg PO DAILY #90 tablet.ec 03/26/20 Atorvastatin Ca [Lipitor] 80 mg PO HS #90 tablet 03/26/20 Mecobalamin [B-12] 1 tab PO DAILY 05/27/20 Asthma: Yes Cancer: Yes (PROSTATE RT) Cardiac Disorders: Yes (Atrial Fib on Coumadin) CVA: (TIA) COPD: No CHF: No Diabetes: Yes (NIDD) GI Disorders: Yes (gallstones) Disorders: No HTN: Yes Liver Disease: No - Surgical History Abdominal Surgery: Yes (stent in gallbladder March 2019) Appendectomy: No Cholecystectomy: No Orthopedic Surgery: Yes (bilateral knee replacement) - Immunization History Immunization Up to Date: Yes - Psycho-Social/Smoking History Smoking History: Former smoker Have you smoked in the past 12 months: No If you are a former smoker, when did you quit?: AGE 33 ED Treatment Course - LABORATORY CBC & Chemistry Diagram: 05/27/20 05:52 05/27/20 05:52 Discharge - Discharge Information Problems reviewed: Yes Clinical Impression/Diagnosis: Altered mental status Qualifiers: Altered mental status type: unspecified Qualified Code(s): R41.82 - Altered mental status, unspecified - Admission Yes - Follow up/Referral - Patient Discharge Instructions - Post Discharge Activity
[2020-05-26] MEDS ORDERED: SODIUM CHLORIDE 0.9% 500 ML INFUS.BAG IV ONE (14:45)
[2020-05-26] MEDS ORDERED: ACETAMINOPHEN 1000 MG/100 ML VIAL (NON FORMULARY) IVPB ONE (14:45)
[2020-05-26] MEDS ORDERED: LACTATED RINGERS SOLUTION 1000 ML INFUS.BAG IV ONE (14:57)
[2020-05-26] MEDS ORDERED: ACETAMINOPHEN INJECTION 100 ML IVPB ONE (15:49)
--- NOTE | 2020-05-26 16:20 | PDOC ---
Documentation entered by Sharad Park SCRIBE, acting as scribe for Keshawn Agee MD. Keshawn Agee MD: This documentation has been prepared by the Vivian gunn Xhesika, SCRIBE, under my direction and personally reviewed by me in its entirety. I confirm that the documentation accurately reflects all work, treatment, procedures, and medical decision making performed by me. Attending Attestation - Resident Resident Name: Renae Riley - ED Attending Attestation I have performed the following: I have examined & evaluated the patient, The case was reviewed & discussed with the resident, I agree w/resident's findings & plan, Exceptions are as noted - HPI HPI: 05/26/20 15:02 The patient is a 69 year old male, with a significant PMH of TIA, HTN, NIDDM, Prostate Ca, Afib on Warfrin who presents to the emergency department BIBA for evaluation of weakness x3days. Pt states he has been endorsing weakness since he went for a walk 3 days ago. Pt reports cough with productive sputum, "chest cold", urinary frequency and urgency. Per family patient was not able to get up from his chair today, prompting his arrival to the ED. The patient denies chest pain, shortness of breath, headache and dizziness. Denies fever, chills, nausea, vomiting, diarrhea and constipation. Allergies: Cephalexin Past surgical history: Appendectomy, ERCP, stent placement, sphincterotomy PCP: Gallo Laura - Physicial Exam PE: 05/26/20 15:47 GENERAL: The patient is awake, alert, and oriented x 2 (self/place), Nontoxic - in no acute distress. HEAD: Normocephalic, atraumatic. EYES: extraocular movements intact, sclera anicteric, conjunctiva clear. ENT: Normal voice, Moist mucous membranes. NECK: Normal range of motion, supple LUNGS: Breath sounds equal, clear to auscultation bilaterally. No wheezes, no rhonchi, no rales. HEART: Regular rate and rhythm, normal S1 and S2 without murmur, rub or gallop. ABDOMEN: Soft, nontender, No guarding, no rebound. No CVA tenderness EXTREMITIES: Normal range of motion, no edema. NEUROLOGICAL: No facial assymetry, Normal speech, moving all 4 extremities spontaneously and symmetically PSYCH: Normal mood, normal affect. SKIN: hot to touch, Dry, normal turgor, - Medical Decision Making 05/26/20 15:47 ddx for amx includes possible metabolic derangement, occult infection, sepsis ordeset btained no signs of menigismus 05/26/20 17:47 labs reviewed no signs of occult infection will admit for further management of AMS Heart Score/ECG Review - History History: Highly suspicious - ECG Impressions Comment:: 05/26/20 15:53 Twelve-lead EKG was performed and reviewed by me. There is normal sinus rhythm with a normal rate. rate of 76 The axis is normal. The intervals are normal. There is normal R wave progression There are no ST or T wave abnormalities. Impression: Normal twelve-lead EKG Discharge - Discharge Information Problems reviewed: Yes Clinical Impression/Diagnosis: Altered mental status Qualifiers: Altered mental status type: unspecified Qualified Code(s): R41.82 - Altered mental status, unspecified Condition: Improved Disposition: VNS/HOME HEALTH CARE - Follow up/Referral - Patient Discharge Instructions - Post Discharge Activity
[2020-05-26 16:35] LABS: BASO % 0.3 % (0-2.0); EOS % 0.7 % (0-4.5); HEMATOCRIT 44.7 % (35.4-49); HEMOGLOBIN 15.2 GM/dL (11.7-16.9); LYMPH % 8.9 % (8-40); MCH 31.8 pg (25.7-33.7); MEAN CELL VOLUME 93.3 fl (80-96); MEAN PLT VOLUME 8.8 fl (7.5-11.1); MONO % 17.2 % (3.8-10.2); NEUT % 72.9 % (42.8-82.8); PLATELET COUNT 118 K/MM3 (134-434); RBC 4.79 M/mm3 (4.00-5.60); RDW 14.3 % (11.9-15.9)
[2020-05-26 16:39] LABS: URINE APPEARANCE CLEAR; URINE BILIRUBIN NEGATIVE (NEGATIVE); URINE COLOR YELLOW; URINE GLUCOSE (UA) NEGATIVE (NEGATIVE); URINE KETONE NEGATIVE (NEGATIVE); URINE LEUK ESTERASE NEGATIVE (NEGATIVE); URINE NITRITE NEGATIVE (NEGATIVE); URINE PROTEIN NEGATIVE (NEGATIVE); VENOUS BASE EXCESS -1.5 mmol/L (-2-2); VENOUS PCO2 43.8 mmHg (38-52); VENOUS PH 7.36 (7.310-7.410)
[2020-05-26 16:46] LABS: INR 2.23 (0.83-1.09); PROTHROMBIN TIME (PATIENT) 26.5 SEC (9.7-13.0)
[2020-05-26 16:48] LABS: ACTIVATED PTT 38.4 SECONDS (25.2-36.5)
[2020-05-26 17:01] LABS: ALBUMIN 3.5 g/dl (3.4-5.0); BILIRUBIN,TOTAL 0.7 mg/dL (0.2-1); BLOOD UREA NITROGEN 11.9 mg/dL (7-18); CALCIUM 8.4 mg/dL (8.5-10.1); CREATININE 0.9 mg/dL (0.55-1.3); POTASSIUM 3.5 mmol/L (3.5-5.1); TOT PROT 5.9 g/dl (6.4-8.2)
[2020-05-26 17:02] LABS: BILIRUBIN,DIRECT 0.2 mg/dL (0.0-0.2)
[2020-05-26] MEDS ORDERED: VANCOMYCIN HCL 1,250 MG in DEXTROSE 5%-WATER - 250 ML IVPB ONE (17:43)
[2020-05-26] MEDS ORDERED: PIPERACILLIN/TAZOB 4.5 GM 4.5 GM in DEXTROSE 5%-WATER 100 ML IVPB ONE (17:44)
--- NOTE | 2020-05-26 20:53 | PN ---
Teaching Attending Note Name of Resident: Bhavesh Mcwilliams ATTENDING PHYSICIAN STATEMENT I saw and evaluated the patient. I reviewed the resident's note and discussed the case with the resident. I agree with the resident's findings and plan as documented. SUBJECTIVE:69 years old male with a PMH of HTN, NIDDM, Prostate ca (~4years ago), Afib on Warfarin, and recent TIA ( February 2020) was BIBA with generalized weakness. He couldnt get up from the chair after eating breakfast. He also c/o increase frequency, chills, dry cough, subjective fever and decreased appetite for last few days. he appeared to be confused and didnt remember why he was brought to the ED. in ED and had a t of 101.1 OBJECTIVE: Last Vital Signs Temp Pulse Resp BP Pulse Ox 98.0 F 60 18 114/72 97 05/26/20 19:15 05/26/20 19:15 05/26/20 19:15 05/26/20 19:15 05/26/20 19:15 GENERAL: obese, not in acute distress HEAD: =NC, AT EYES: PERRL EOMI, conjuctiva, scleral normal ENT: Auricles normal inspection, Moist mucosa NECK: Normal ROM, supple, no lymphadenopathy, JVD, or masses. No meningeal signs. LUNGS: Breath sounds equal, clear to auscultation bilaterally. No wheezes, and no crackles HEART: Regular rate and rhythm, normal S1 and S2, no murmurs, rubs or gallops ABDOMEN: Soft, nontender. No guarding, no rebound. No masses EXTREMITIES: Normal range of motion, no edema. No tenderness. NEUROLOGICAL: alert and oriented x 3 Cranial nerves II through XII grossly intact. Normal speech. No focal neurologic deficits. No neck rigidity SKIN: Warm, Dry, normal turgor, no rashes or lesions noted. CXR: A single view of the chest has been submitted. Since the prior study of 03/24/2020 there is a slightly weaker inspiration with more prominent mediastinum but no sign of an acute process. The bones and soft tissues are intact. There are some arthritic changes. If symptoms persist, further imaging and follow-up is suggested Laboratory Results - last 24 hr 05/26/20 05/26/20 05/26/20 15:30 15:30 15:30 WBC 5.0 RBC 4.79 Hgb 15.2 Hct 44.7 MCV 93.3 MCH 31.8 MCHC 34.0 RDW 14.3 Plt Count 118 L MPV 8.8 Absolute Neuts (auto) 3.6 Neutrophils % 72.9 Lymphocytes % 8.9 D Monocytes % 17.2 H Eosinophils % 0.7 Basophils % 0.3 Nucleated RBC % 0 PT with INR 26.50 H INR 2.23 H PTT (Actin FS) 38.4 H VBG pH POC VBG pCO2 POC VBG pO2 VBG HCO3 VBG O2 Sat (Marty) VBG Base Excess Sodium Potassium Chloride Carbon Dioxide Anion Gap BUN Creatinine Est GFR (CKD-EPI)AfAm Est GFR (CKD-EPI)NonAf Random Glucose Lactic Acid Calcium Ferritin Total Bilirubin Direct Bilirubin AST ALT Alkaline Phosphatase LD Total C-Reactive Protein Total Protein Albumin Urine Color Yellow Urine Appearance Clear Urine pH 7.0 D Ur Specific [place] 1.011 Urine Protein Negative Urine Glucose (UA) Negative Urine Ketones Negative Urine Blood Negative Urine Nitrite Negative Urine Bilirubin Negative Urine Urobilinogen 1.0 Ur Leukocyte Esterase Negative 05/26/20 05/26/20 05/26/20 15:30 15:30 15:30 WBC RBC Hgb Hct MCV MCH MCHC RDW Plt Count MPV Absolute Neuts (auto) Neutrophils % Lymphocytes % Monocytes % Eosinophils % Basophils % Nucleated RBC % PT with INR INR PTT (Actin FS) VBG pH POC VBG pCO2 POC VBG pO2 VBG HCO3 VBG O2 Sat (Marty) VBG Base Excess Sodium 136 Potassium 3.5 Chloride 100 Carbon Dioxide 27 Anion Gap 9 BUN 11.9 Creatinine 0.9 Est GFR (CKD-EPI)AfAm 99.24 Est GFR (CKD-EPI)NonAf 85.63 Random Glucose 69 L Lactic Acid 1.3 Calcium 8.4 L Ferritin 314.0 Total Bilirubin 0.7 Direct Bilirubin 0.2 AST 41 H ALT 51 Alkaline Phosphatase 128 H LD Total 241 C-Reactive Protein 3.1 H Total Protein 5.9 L Albumin 3.5 Urine Color Urine Appearance Urine pH Ur Specific [place] Urine Protein Urine Glucose (UA) Urine Ketones Urine Blood Urine Nitrite Urine Bilirubin Urine Urobilinogen Ur Leukocyte Esterase 05/26/20 15:30 WBC RBC Hgb Hct MCV MCH MCHC RDW Plt Count MPV Absolute Neuts (auto) Neutrophils % Lymphocytes % Monocytes % Eosinophils % Basophils % Nucleated RBC % PT with INR INR PTT (Actin FS) VBG pH 7.360 POC VBG pCO2 43.8 POC VBG pO2 42.3 VBG HCO3 24.2 VBG O2 Sat (Marty) 76.0 VBG Base Excess -1.5 Sodium Potassium Chloride Carbon Dioxide Anion Gap BUN Creatinine Est GFR (CKD-EPI)AfAm Est GFR (CKD-EPI)NonAf Random Glucose Lactic Acid Calcium Ferritin Total Bilirubin Direct Bilirubin AST ALT Alkaline Phosphatase LD Total C-Reactive Protein Total Protein Albumin Urine Color Urine Appearance Urine pH Ur Specific [place] Urine Protein Urine Glucose (UA) Urine Ketones Urine Blood Urine Nitrite Urine Bilirubin Urine Urobilinogen Ur Leukocyte Esterase Head CT negative UA negative eleavATED crp- 3.1 ASSESSMENT AND PLAN: Acute encehalopathy of unknown etiology- Metabolic due to infection ? vs due to hypoglycemia as his sugar was low in ED Fever, cough, chills ? viral syndrome with URI r/o COVID infection, r/o other infectious process HX of TIA, HTN, NIDDM, Prostate Ca, Afib on Warfrin R/O covid INFECTION Admit to floor IV hydration D5NS 100 ml/hour as glucose is lower side. ID consulted by ED jesus Cutler empirically for now follow blood culture tylenol for fever patient's mental status is at baseline A&o x3 right now. He accepts the fact that for time being he was ? confused and didnt know what's going on Blood culture UA negative follow covid test Doubt meningitis - no neck stiffness, no meningeal signs send covid markers follow mannual diff, pro calcitonin, lactic acid, TSH, b12, folic acid, mg,phos, cpk POCT with RISS DVT vppx resume rest of home meds discussed with staff
[2020-05-26] MEDS ORDERED: PATIENT'S OWN MEDICATION (NON-FORMULARY) (Acarbose 50 MG) PO SCH (22:00)
[2020-05-26] MEDS ORDERED: ACETAMINOPHEN 325 MG TABLET (FP) PO PRN (22:28)
[2020-05-26] MEDS ORDERED: METOPROLOL TARTRATE 25 MG TABLET (FP) ONE (22:33)
[2020-05-26] MEDS ORDERED: GABAPENTIN 100 MG CAPSULE ONE (22:34)
[2020-05-26] MEDS ORDERED: ATORVASTATIN CA 80 MG TABLET (FP) ONE (22:34)
[2020-05-26] MEDS ORDERED: VANCOMYCIN 1,000 MG in DEXTROSE 5%-WATER - 250 ML IVPB SCH (22:45)
[2020-05-26] MEDS: INSULIN SLIDING SCALE (NOVOLOG) 1 VIAL SQ SCH (22:47)
--- NOTE | 2020-05-26 22:53 | HP ---
CHIEF COMPLAINT: Inability to stand up from chair after breakfast < 24hrs PCP: Roxane HISTORY OF PRESENT ILLNESS: Patient is 69yo male with a PMHx of HTN, NIDDM, Prostate ca, afib on warfarin, recent TIA, gallstones BIBA due to inability to get up from his chair after breastfast this morning. This is the 3rd episode of b/l leg weakness in 3 months, usually gradual in onset, non progressive with no hx of fall, stroke, myocardial infarction, palpitations,LOC, amnesia, upper limb weakness, aphasia, rash, STds, recurrent headaches, fainting,dizziness or neck stiffness. Patient has a baseline reduced hearing right ear. Patient also has associated urinary frequency:4-5x/night, urgency, incontinence, chills and shivering but no fever, dysuria, hematuria or hx of passage of stone in urine. Patient does have intentional tremors,urinary incontinence(not using diapers/pull-ups) but no bradykinesia, no hx of parkinson's diagnosis in patient or family member. No nausea, vomiting, abdominal pain, jaundice diarrhea, melena, hematemesis. He is said to have good appetite and eats a range of food: vegetables, corn, carrot, rice, tuna and omelette. Patient also has coughx 2 days, not productive, no fever, nasal discharge but chills+. No hx of COPD, pneumonia, hemoptysis but there is associated weight loss of about 80Ibs in the past 1year ER course was notable for: (1)LR 1000ml (2)N/S 1000ml (3)Tyleno (4)Vancomysin HCl 1250mg, Zosyn 4.5g Recent Travel: None PAST SURGICAL HISTORY: B/L knee replacement, Gall bladder stent Social History: Smoking: Stopped smoking over 45yrs ago, used to smoke 3ppd Alcohol: Occasional Drugs:None Allergies: Cephalexin [From [employer]] with hives, last reaction was in March 2019 FHx: Ca prostate and Diabetes mellitus HOME MEDICATIONS: Atorvastatin 80mg PO daily: last refilled 03/26/2020 Acarbose 25mg tabs tid: last refilled 10/28/2019 Hydrochlorothiazide 25mg daily: last refilled 02/26/2020 Metoprolol Tartrate 25mg tabs 1bid: last refilled 02/26/2020 metFORMIN HCL ER 500mg 2 tabs bid: last refilled 02/26/2020 Warfarin Sodium 5mg daily: last refilled 02/26/2020 Gabapentin 100mg caps tid: last refilled 05/06/2020 Aspirin Coated 81mg daily: last refilled 03/26/2020 Montelukast 10mg daily: last refilled 02/26/2020 Tamsulosin 0.4mg cap 2caps daily: last refilled 01/21/2020 Losartan 100mg daily: last refilled 01/21/2020 Home Medications Medication Instructions Recorded Acarbose [Precose -] 50 mg PO TID 09/16/19 Hydrochlorothiazide [Hctz -] 25 mg PO DAILY 09/16/19 Metoprolol Tartrate 25 mg PO BID 09/16/19 metFORMIN HCL [Metformin HCl ER] 500 mg PO BID 09/16/19 Warfarin Sodium [Coumadin] 5 mg PO DAILY 10/04/19 Gabapentin 100 mg PO TID 03/24/20 Aspirin Coated [Ecotrin -] 81 mg PO DAILY #90 tablet.ec 03/26/20 Atorvastatin Ca [Lipitor] 80 mg PO HS #90 tablet 03/26/20 REVIEW OF SYSTEMS Negative except as above PHYSICAL EXAMINATION Vital Signs - 24 hr 05/26/20 05/26/20 05/26/20 14:10 14:45 18:07 Temperature 101.1 F H 98.7 F Pulse Rate 87 Pulse Rate [ 51 L Right Radial] Respiratory 16 16 Rate Blood Pressure 136/76 Blood Pressure 127/64 [Left Arm] O2 Sat by Pulse 95 95 97 Oximetry (%) 05/26/20 19:15 Temperature 98.0 F Pulse Rate Pulse Rate [ 60 Right Radial] Respiratory 18 Rate Blood Pressure Blood Pressure 114/72 [Left Arm] O2 Sat by Pulse 97 Oximetry (%) GENERAL: Awake, alert, and fully oriented HEAD: Normal with no signs of trauma. EYES: Extraocular movements intact, sclera anicteric, conjunctiva clear NECK: Normal range of motion, supple without lymphadenopathy, JVD, or masses. LUNGS: Breath sounds equal, clear to auscultation bilaterally. No wheezes, and no crackles. No obvious sign of respiratory distress HEART: Regular rate and rhythm, normal S1 and S2 without murmur, rub or gallop. ABDOMEN: Soft,full, normoactive bowel sounds, suprapubic and rt. hypogastric tenderness, no masses or organomegaly MUSCULOSKELETAL: Normal range of motion at all joints. No CVA tenderness. No sacral edema, no bedsores UPPER EXTREMITIES: 2+ pulses, warm, well-perfused. No cyanosis. No clubbing. LOWER EXTREMITIES: 2+ pulses, warm, well-perfused. Pedal edema 2+. NEUROLOGICAL: Cranial nerves II-XII intact. Normal speech. Gait: normal/no abnormality on ambulation, -ve kernig and brudzinski sign no photophobia PSYCHIATRIC: Cooperative. Good eye contact. Appropriate mood and affect. SKIN: Warm, dry, normal turgor, no rashes or lesions noted, normal capillary refill. 2-3 naevus on post chest. Mild wheal limited to volar surface of the forearm on administration of vancomycin. Relieved on administration of benadryl and reduced rate of flow of vanco. Laboratory Results - last 24 hr 05/26/20 05/26/20 05/26/20 15:30 15:30 15:30 WBC 5.0 RBC 4.79 Hgb 15.2 Hct 44.7 MCV 93.3 MCH 31.8 MCHC 34.0 RDW 14.3 Plt Count 118 L MPV 8.8 Absolute Neuts (auto) 3.6 Neutrophils % 72.9 Neutrophils % (Manual) 72.6 Band Neutrophils % 1.6 Lymphocytes % 8.9 D Lymphocytes % (Manual) 19.5 Monocytes % 17.2 H Monocytes % (Manual) 4 Eosinophils % 0.7 Eosinophils % (Manual) 0.8 Basophils % 0.3 Basophils % (Manual) 0.0 Myelocytes % (Man) 1 Promyelocytes % (Man) 0 Blast Cells % (Manual) 0 Nucleated RBC % 1 H Metamyelocytes 1 PT with INR 26.50 H INR 2.23 H PTT (Actin FS) 38.4 H VBG pH POC VBG pCO2 POC VBG pO2 VBG HCO3 VBG O2 Sat (Marty) VBG Base Excess Sodium Potassium Chloride Carbon Dioxide Anion Gap BUN Creatinine Est GFR (CKD-EPI)AfAm Est GFR (CKD-EPI)NonAf POC Glucometer Random Glucose Lactic Acid Calcium Ferritin Total Bilirubin Direct Bilirubin AST ALT Alkaline Phosphatase LD Total C-Reactive Protein Total Protein Albumin Urine Color Yellow Urine Appearance Clear Urine pH 7.0 D Ur Specific [place] 1.011 Urine Protein Negative Urine Glucose (UA) Negative Urine Ketones Negative Urine Blood Negative Urine Nitrite Negative Urine Bilirubin Negative Urine Urobilinogen 1.0 Ur Leukocyte Esterase Negative 05/26/20 05/26/20 05/26/20 15:30 15:30 15:30 WBC RBC Hgb Hct MCV MCH MCHC RDW Plt Count MPV Absolute Neuts (auto) Neutrophils % Neutrophils % (Manual) Band Neutrophils % Lymphocytes % Lymphocytes % (Manual) Monocytes % Monocytes % (Manual) Eosinophils % Eosinophils % (Manual) Basophils % Basophils % (Manual) Myelocytes % (Man) Promyelocytes % (Man) Blast Cells % (Manual) Nucleated RBC % Metamyelocytes PT with INR INR PTT (Actin FS) VBG pH POC VBG pCO2 POC VBG pO2 VBG HCO3 VBG O2 Sat (Marty) VBG Base Excess Sodium 136 Potassium 3.5 Chloride 100 Carbon Dioxide 27 Anion Gap 9 BUN 11.9 Creatinine 0.9 Est GFR (CKD-EPI)AfAm 99.24 Est GFR (CKD-EPI)NonAf 85.63 POC Glucometer Random Glucose 69 L Lactic Acid 1.3 Calcium 8.4 L Ferritin 314.0 Total Bilirubin 0.7 Direct Bilirubin 0.2 AST 41 H ALT 51 Alkaline Phosphatase 128 H LD Total 241 C-Reactive Protein 3.1 H Total Protein 5.9 L Albumin 3.5 Urine Color Urine Appearance Urine pH Ur Specific [place] Urine Protein Urine Glucose (UA) Urine Ketones Urine Blood Urine Nitrite Urine Bilirubin Urine Urobilinogen Ur Leukocyte Esterase 05/26/20 05/26/20 15:30 22:40 WBC RBC Hgb Hct MCV MCH MCHC RDW Plt Count MPV Absolute Neuts (auto) Neutrophils % Neutrophils % (Manual) Band Neutrophils % Lymphocytes % Lymphocytes % (Manual) Monocytes % Monocytes % (Manual) Eosinophils % Eosinophils % (Manual) Basophils % Basophils % (Manual) Myelocytes % (Man) Promyelocytes % (Man) Blast Cells % (Manual) Nucleated RBC % Metamyelocytes PT with INR INR PTT (Actin FS) VBG pH 7.360 POC VBG pCO2 43.8 POC VBG pO2 42.3 VBG HCO3 24.2 VBG O2 Sat (Marty) 76.0 VBG Base Excess -1.5 Sodium Potassium Chloride Carbon Dioxide Anion Gap BUN Creatinine Est GFR (CKD-EPI)AfAm Est GFR (CKD-EPI)NonAf POC Glucometer 138 Random Glucose Lactic Acid Calcium Ferritin Total Bilirubin Direct Bilirubin AST ALT Alkaline Phosphatase LD Total C-Reactive Protein Total Protein Albumin Urine Color Urine Appearance Urine pH Ur Specific [place] Urine Protein Urine Glucose (UA) Urine Ketones Urine Blood Urine Nitrite Urine Bilirubin Urine Urobilinogen Ur Leukocyte Esterase ASSESSMENT/PLAN: Patient is 69yo male with a PMHx of HTN, NIDDM, Prostate ca, afib on warfarin, recent TIA, gallstones BIBA due to inability to get up from his chair after breastfast this morning. #ACUTE ENCEPHALOPATHY TO R/O INFECTIVE OR METABOLIC ETIOLOGY: Fever with suspected infection ? source. Neutropenia with ANC 37.5 Elevated CRP-3.1 Multiple comobidity Known Diabetic: High risk group for infection Delirium on initial presentation COVID-19 PCR 4th gen HIV SCREENING Urine culture Blood culture Urine antigen for Strep Pneumo and legionella CT abdomen and pelvis-non contrast YUNG and Rheumatoid factor Serum lipase Neuro assessment QH4 Aspiration, fall and seizure precaution TSH to r/o Hypothyroidism Zosyn 4.5g Vancomysin 1250 mg Procalcitonin and Lactic acid assay #HTN: Metoprolol tartrate 25mg bid HCTZ 25mg PO daily Atorvastatin D5-NS 1000ml Aspirin 81mg PO daily Carotid doppler US Serum lipase Educate patient on importance of medication adherence and continous blood pressure control #DIABETES: BGM ACHS now ISS Continue home med on D/C Educate patient on importance of medication adherence and continous blood glucose control [employer] and opthalmology check up on D/c #FEN: D5NS 100 ml/hour considering blood glucose of 69mg/dl Continue to monitor electrolytes and replete prn Low carbs,low salt, low fat diet # DISPOSITION: Admit med surg Physical therapy Encourage early ambulation Warfarin 5mg daily Stat troponin assay at 3am, f/u and trend as necessary F/U Lipase,culture, CT A/P, YUNG, RF, procalcitonin, lactic acid results Continue to monitor blood glucose Visit type - Medication Review Med list reviewed for High Risk Meds patients 65 and older: Yes - Emergency Visit Emergency Visit: Yes ED Registration Date: 05/26/20 Care time: The patient presented to the Emergency Department on the above date and was hospitalized for further evaluation of their emergent condition. - New Patient This patient is new to me today: Yes Date on this admission: 05/27/20 - Critical Care Critical Care patient: No ATTENDING PHYSICIAN STATEMENT I saw and evaluated the patient. I reviewed the resident's note and discussed the case with the resident. I agree with the resident's findings and plan as documented. SUBJECTIVE: OBJECTIVE: ASSESSMENT AND PLAN:
[2020-05-26] MEDS: ATORVASTATIN CA 80 MG TABLET (FP) PO SCH (23:04)
[2020-05-26] MEDS: METOPROLOL TARTRATE 25 MG TABLET (FP) PO SCH (23:04)
[2020-05-26] MEDS: GABAPENTIN 100 MG CAPSULE PO SCH (23:04)
[2020-05-26] MEDS: DEXTROSE 5%-NORMAL SALINE 1,000 ML IV SCH (23:47)
[2020-05-27] MEDS ORDERED: DEXTROSE 5%-WATER 100 ML IVPB ONE ×3 (03:17→17:17)
[2020-05-27] MEDS ORDERED: PIPERACILLIN/TAZOBACTAM 4.5 GM VIAL IVPB ONE ×3 (03:17→17:17)
[2020-05-27] MEDS: PIPERACILLIN/TAZOB 4.5 GM 4.5 GM in DEXTROSE 5%-WATER 100 ML IVPB SCH ×4 (03:32→18:00)
[2020-05-27 03:51] VITALS: BMI 36.9
[2020-05-27] MEDS: GABAPENTIN 100 MG CAPSULE PO SCH ×3 (05:56→21:42)
[2020-05-27] MEDS: INSULIN SLIDING SCALE (NOVOLOG) 1 VIAL SQ SCH ×4 (06:00→21:45)
[2020-05-27 06:37] LABS: BASO % 0.3 % (0-2.0); EOS % 1.9 % (0-4.5); HEMATOCRIT 40.3 % (35.4-49); HEMOGLOBIN 13.8 GM/dL (11.7-16.9); LYMPH % 15.9 % (8-40); MCH 31.8 pg (25.7-33.7); MCHC 34.3 g/dl (32.0-35.9); MEAN CELL VOLUME 92.5 fl (80-96); MONO % 21.9 % (3.8-10.2); PLATELET COUNT 105 K/MM3 (134-434); RBC 4.35 M/mm3 (4.00-5.60); RDW 14.3 % (11.9-15.9); WHITE BLOOD COUNT 3.9 K/mm3 (4.0-10.0)
[2020-05-27 07:04] LABS: LIPASE 107 U/L (73-393); MAGNESIUM 1.9 mg/dL (1.8-2.4)
--- NOTE | 2020-05-27 08:55 | PN ---
Progress Note, Physician - Current Medication List Current Medications: Active Medications Acetaminophen (Tylenol -) 650 mg PO Q6H PRN PRN Reason: FEVER Aspirin (Ecotrin -) 81 mg PO DAILY [facility] Atorvastatin Calcium (Lipitor -) 80 mg PO HS [facility] Last Admin: 05/26/20 23:04 Dose: 80 mg Documented by: Gabapentin (Neurontin -) 100 mg PO TID [facility] Last Admin: 05/27/20 05:56 Dose: 100 mg Documented by: Hydrochlorothiazide (Hctz -) 25 mg PO DAILY [facility] Piperacillin Sod/Tazobactam (Sod 4.5 gm/ Dextrose) 100 mls @ 200 mls/hr IVPB Q8H-IV [facility]; Protocol Vancomycin HCl 1,000 mg/ (Dextrose) 250 mls @ 200 mls/hr IVPB Q24H [facility]; Protocol Piperacillin Sod/Tazobactam (Sod 4.5 gm/ Dextrose) 100 mls @ 200 mls/hr IVPB Q8H-IV [facility]; Protocol Stop: 05/27/20 18:29 Last Admin: 05/27/20 03:32 Dose: 200 mls/hr Documented by: Vancomycin HCl (Vancomycin (Pre-Docked)) 1,000 mg in 250 mls @ 166.667 mls/hr IVPB Q24H [facility]; Protocol Stop: 05/27/20 21:29 Dextrose/Sodium Chloride (D5-Ns -) 1,000 mls @ 100 mls/hr IV ASDIR [facility] Last Admin: 05/26/20 23:47 Dose: 100 mls/hr Documented by: Insulin Aspart (Novolog Vial Sliding Scale -) 1 vial SQ ACHS [facility]; Protocol Last Admin: 05/27/20 06:00 Dose: Not Given Documented by: Metoprolol Tartrate (Lopressor -) 25 mg PO BID [facility] Last Admin: 05/26/20 23:04 Dose: 25 mg Documented by: Warfarin Sodium (Coumadin -) 5 mg PO DAILY@1830 [facility] - Objective Vital Signs: Vital Signs Temperature 97.7 F 05/27/20 06:00 Pulse Rate 49 L 05/27/20 06:00 Respiratory Rate 18 05/27/20 06:00 Blood Pressure 125/70 05/27/20 06:00 O2 Sat by Pulse Oximetry (%) 95 05/27/20 06:00 Cardiovascular: Yes: S1, S2 Respiratory: Yes: Regular, CTA Bilaterally Gastrointestinal: Yes: Normal Bowel Sounds, Soft. No: Tenderness Neurological: Yes: Alert, Oriented, Unsteady Gait, Weakness. No: Facial Droop Labs: CBC, BMP 05/27/20 05:52 05/26/20 15:30 INR, PTT INR 2.23 (0.83-1.09) H 05/26/20 15:30 - ....Imaging Cat Scan: Report Reviewed Problem List - Problems (1) Afib Assessment/Plan: inr therapeutic continue with coumadin Code(s): I48.91 - UNSPECIFIED ATRIAL FIBRILLATION (2) Diabetes mellitus Code(s): E11.9 - TYPE 2 DIABETES MELLITUS WITHOUT COMPLICATIONS (3) HTN (hypertension) Code(s): I10 - ESSENTIAL (PRIMARY) HYPERTENSION (4) Weakness Assessment/Plan: sudden weakness of LE recurrent --now resolved mri of ls spine neuro consult emg pt Code(s): R53.1 - WEAKNESS (5) Fever Assessment/Plan: Selected Entries 05/26/20 05/26/20 05/26/20 14:10 18:07 19:15 Temperature 101.1 F H 98.7 F 98.0 F 05/27/20 05/27/20 05/27/20 02:02 03:00 03:15 Temperature 97.7 F 98.2 F 98.2 F 05/27/20 06:00 Temperature 97.7 F r/o infectious etiology cultures done follow labs id consult Code(s): R50.9 - FEVER, UNSPECIFIED
[2020-05-27] MEDS: METOPROLOL TARTRATE 25 MG TABLET (FP) PO SCH ×2 (09:02→21:45)
[2020-05-27] MEDS: ASPIRIN COATED 81 MG TABLET.EC PO SCH (09:02)
[2020-05-27] MEDS: HYDROCHLOROTHIAZIDE 25 MG TABLET (FP) PO SCH (09:02)
[2020-05-27 09:55] LABS: ALK PHOS 107 U/L (45-117); ANION GAP 7 MMOL/L (8-16); BILIRUBIN,TOTAL 0.9 mg/dL (0.2-1); BLOOD UREA NITROGEN 14.1 mg/dL (7-18); CALCIUM 8.1 mg/dL (8.5-10.1); CHLORIDE 107 mmol/L (98-107); CO2 28 mmol/L (21-32); CREATININE 0.9 mg/dL (0.55-1.3); GLUCOSE,RANDOM 118 mg/dL (74-106); POTASSIUM 3.9 mmol/L (3.5-5.1); SGOT/AST 35 U/L (15-37); SGPT/ALT 43 U/L (13-61); SODIUM 142 mmol/L (136-145); TOT PROT 5.2 g/dl (6.4-8.2)
--- NOTE | 2020-05-27 10:31 | CON.ID ---
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), HTN, Other (LE venous insufficiency) Pulmonary: Yes: Asthma Hepatobiliary: Yes: Cholelithiasis, Choledocholithiasis, Other (fatty liver) Renal/: Yes: BPH, Cancer (prostate cancer s/p radiation therapy 2016) Infectious Disease: Yes: Other Endocrine: Yes: Diabetes Mellitus - Past Surgical History Past Surgical History: Yes: Appendectomy, Joint Replacement (B/L TKR) - Alcohol/Substance Use Hx Alcohol Use: No History of Substance Use: reports: None - Smoking History Smoking history: Former smoker Have you smoked in the past 12 months: No If you are a former smoker, when did you quit?: 35 years ago - Social History Usual Living Arrangement: With Spouse ADL: Independent 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 Home Medications - Allergies Allergies/Adverse Reactions: Allergies Allergy/AdvReac Type Severity Reaction Status Date / Time cephalexin [From Keflet] Allergy Verified 05/26/20 19:02 - Home Medications Home Medications: Ambulatory Orders Acarbose [Precose -] 50 mg PO TID 09/16/19 Hydrochlorothiazide [Hctz -] 25 mg PO DAILY 09/16/19 Metoprolol Tartrate 25 mg PO BID 09/16/19 metFORMIN HCL [Metformin HCl ER] 500 mg PO BID 09/16/19 Warfarin Sodium [Coumadin] 5 mg PO DAILY 10/04/19 Gabapentin 100 mg PO TID 03/24/20 Aspirin Coated [Ecotrin -] 81 mg PO DAILY #90 tablet.ec 03/26/20 Atorvastatin Ca [Lipitor] 80 mg PO HS #90 tablet 03/26/20 Mecobalamin [B-12] 1 tab PO DAILY 05/27/20 Physical Exam Vital Signs: Vital Signs Temperature 97.7 F 05/27/20 06:00 Pulse Rate 49 L 05/27/20 06:00 Respiratory Rate 18 05/27/20 06:00 Blood Pressure 125/70 05/27/20 06:00 O2 Sat by Pulse Oximetry (%) 95 05/27/20 06:00 Labs: CBC, BMP 05/27/20 05:52 05/27/20 05:52
[2020-05-27 11:06] LABS: ANISOCYTOSIS 0; MACROCYTOSIS 0; PLATELET ESTIMATE DECREASED
[2020-05-27 12:03] LABS: INR 1.84 (0.83-1.09); PROTHROMBIN TIME (PATIENT) 21.9 SEC (9.7-13.0)
--- NOTE | 2020-05-27 12:57 | CON.ID ---
Consult Referred by:: dr patterson Reason for Consultation:: fever - History of Present Illness Chief Complaint: weakness History of Present Illness: 69 yo man lives at home with his noted wekness and decreased appetite for last several days started on Monday at [facility] no cough no chills chronic sob recently came for sleep study lives with and kids no sick contacts no travel in ED cxray negative, head ct negative ct abd/pelvis negative he ws given zosyn and then vancomycin- developed some itching at iv site during vanco administration and was given benadryl reports prior history of cellulitis in 2019 given po keflex which he said made his legs worse- no rash elsewhere or difficulty breathing - History Source History Provided By: Patient, Medical Record Limitations to Obtaining History: No Limitations - 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) Cardio/Vascular: Yes: AFIB (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), HTN, Other (LE venous insufficiency) Pulmonary: Yes: Asthma Hepatobiliary: Yes: Cholelithiasis, Choledocholithiasis, Other (fatty liver) Renal/: Yes: BPH, Cancer (prostate cancer s/p radiation therapy 2016) Infectious Disease: Yes: Other Endocrine: Yes: Diabetes Mellitus - Past Surgical History Past Surgical History: Yes: Appendectomy, Cholecystectomy (11/2019), Joint Replacement (B/L TKR) - Alcohol/Substance Use Hx Alcohol Use: No History of Substance Use: reports: None - Smoking History Smoking history: Former smoker Have you smoked in the past 12 months: No If you are a former smoker, when did you quit?: 35 years ago - Social History Usual Living Arrangement: With Spouse ADL: Independent Occupation: retired [employer] History of Recent Travel: No Home Medications - Allergies Allergies/Adverse Reactions: Allergies Allergy/AdvReac Type Severity Reaction Status Date / Time cephalexin [From Keflet] Allergy Verified 05/26/20 19:02 vancomycin AdvReac Verified 05/27/20 15:26 - Home Medications Home Medications: Ambulatory Orders Acarbose [Precose -] 50 mg PO TID 09/16/19 Hydrochlorothiazide [Hctz -] 25 mg PO DAILY 09/16/19 Metoprolol Tartrate 25 mg PO BID 09/16/19 metFORMIN HCL [Metformin HCl ER] 500 mg PO BID 09/16/19 Warfarin Sodium [Coumadin] 5 mg PO DAILY 10/04/19 Gabapentin 100 mg PO TID 03/24/20 Aspirin Coated [Ecotrin -] 81 mg PO DAILY #90 tablet.ec 03/26/20 Atorvastatin Ca [Lipitor] 80 mg PO HS #90 tablet 03/26/20 Mecobalamin [B-12] 1 tab PO DAILY 05/27/20 Family Medical History Family History: Denies Review of Systems - Review of Systems Constitutional: reports: Weakness Eyes: reports: No Symptoms HENT: reports: No Symptoms Neck: reports: No Symptoms Cardiovascular: reports: No Symptoms Respiratory: reports: SOB (chronic) Gastrointestinal: reports: No Symptoms. denies: Abdominal Pain, Diarrhea, Vomiting Genitourinary: reports: No Symptoms. denies: Burning, Dysuria Integumentary: reports: No Symptoms Neurological: reports: No Symptoms Physical Exam Vital Signs: Vital Signs Temperature 97.7 F 05/27/20 06:00 Pulse Rate 49 L 05/27/20 06:00 Respiratory Rate 18 05/27/20 06:00 Blood Pressure 125/70 05/27/20 06:00 O2 Sat by Pulse Oximetry (%) 95 05/27/20 06:00 Constitutional: Yes: Well Nourished, No Distress, Calm Eyes: Yes: Conjunctiva Clear, EOM Intact HENT: Yes: Atraumatic, Normocephalic Neck: Yes: Supple, Trachea Midline Cardiovascular: Yes: Regular Rate and Rhythm Respiratory: Yes: CTA Bilaterally Gastrointestinal: Yes: Normal Bowel Sounds, Soft ...Rectal Exam: Yes: Deferred Extremities: Yes: WNL, Other (well healed bilateral TKR incisions) Edema: No Integumentary: Yes: WNL Neurological: Yes: Alert, Oriented Labs: CBC, BMP 05/27/20 05:52 05/27/20 05:52 UA negative covid 19 pcr negative Microbiology 05/26/20 15:30 Blood - Peripheral Venous Blood Culture - Preliminary NO GROWTH OBTAINED AFTER 24 HOURS, INCUBATION TO C ONTINUE FOR 4 DAYS. 05/26/20 15:30 Blood - Peripheral Venous Blood Culture - Preliminary NO GROWTH OBTAINED AFTER 24 HOURS, INCUBATION TO CO NTINUE FOR 4 DAYS. 05/27/20 08:00 Urine For Antigen Detection Legionella Antigen - Final 05/27/20 08:00 Urine For Antigen Detection Streptococcus pneumoniae Antigen (M - Final Imaging - Results Chest X-ray: Report Reviewed, Image Reviewed Cat Scan: Report Reviewed Problem List - Problems (1) Fever Code(s): R50.9 - FEVER, UNSPECIFIED (2) Leukopenia Code(s): D72.819 - DECREASED WHITE BLOOD CELL COUNT, UNSPECIFIED (3) Thrombocytopenia Code(s): D69.6 - THROMBOCYTOPENIA, UNSPECIFIED Assessment/Plan unclear source of fever at this time continue zosyn pending cultures leukopenia and thrombocytopoenia were present in March as well making tick related illness unlikely would agree with hematology evaluation f/u cultures for now check esr
--- NOTE | 2020-05-27 13:15 | EKG ---
Test Reason : Blood Pressure : / mmHG Vent. Rate : 076 BPM Atrial Rate : 076 BPM P-R Int : 190 ms QRS Dur : 094 ms QT Int : 350 ms P-R-T Axes : 034 -10 038 degrees QTc Int : 393 ms NORMAL SINUS RHYTHM NORMAL ECG WHEN COMPARED WITH ECG OF 24-MAR-2020 18:23, NO SIGNIFICANT CHANGE WAS FOUND Confirmed by MD ORTIZ PENG ([id number]) on 05/27/2020 1:15:39 PM Referred By: Confirmed By:MAMADOU ORTIZ MD
--- NOTE | 2020-05-27 15:39 | CONSULT ---
Consult Consult Specialty:: Physiatry Dr Glez for Dr Sears Reason for Consultation:: EMG - History of Present Illness History of Present Illness: This is a 69 year old man with a medical history of recent TIA, A fib, HTN, gallstones, prostate cancer, NIDDM, who presented to the ED 05/26/2020 with weakness that morning, causing inability to stand; this was his 3rd episode in t he past 3 months. He was admitted for fevers, for which ID was consulted. Neuro was consulted for weakness. MRI BLE was ordered, and EMG BLE was requested. He was seen by PT, and on 05/27/2020 he ambulated 180ft Supervision. Physiatry was requested to perform EMG. - Past Medical History Cardio/Vascular: Yes: AFIB (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), HTN, Other (LE venous insufficiency) Pulmonary: Yes: Asthma Hepatobiliary: Yes: Cholelithiasis, Choledocholithiasis, Other (fatty liver) Renal/: Yes: BPH, Cancer (prostate cancer s/p radiation therapy 2016) Infectious Disease: Yes: Other Endocrine: Yes: Diabetes Mellitus - Past Surgical History Past Surgical History: Yes: Appendectomy, Joint Replacement (B/L TKR) - Alcohol/Substance Use Hx Alcohol Use: No History of Substance Use: reports: None - Smoking History Smoking history: Former smoker Have you smoked in the past 12 months: No If you are a former smoker, when did you quit?: 35 years ago - Social History Usual Living Arrangement: With Spouse ADL: Independent 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 Home Medications - Allergies Allergies/Adverse Reactions: Allergies Allergy/AdvReac Type Severity Reaction Status Date / Time cephalexin [From Keflet] Allergy Verified 05/26/20 19:02 vancomycin AdvReac Verified 05/27/20 15:26 - Home Medications Home Medications: Ambulatory Orders Acarbose [Precose -] 50 mg PO TID 09/16/19 Hydrochlorothiazide [Hctz -] 25 mg PO DAILY 09/16/19 Metoprolol Tartrate 25 mg PO BID 09/16/19 metFORMIN HCL [Metformin HCl ER] 500 mg PO BID 09/16/19 Warfarin Sodium [Coumadin] 5 mg PO DAILY 10/04/19 Gabapentin 100 mg PO TID 03/24/20 Aspirin Coated [Ecotrin -] 81 mg PO DAILY #90 tablet.ec 03/26/20 Atorvastatin Ca [Lipitor] 80 mg PO HS #90 tablet 03/26/20 Mecobalamin [B-12] 1 tab PO DAILY 05/27/20 Review of Systems Findings/Remarks: Denies fevers, chills, changes in vision/ hearing/ mood, CP, SOB, abdominal pain, bowel/ bladder incontinence, muscle/ joint pain including LBP. He notes B finger/ toe numbness which is chronic and unchanged. Physical Exam Vital Signs: Vital Signs Temperature 97.7 F 05/27/20 14:07 Pulse Rate 56 L 05/27/20 14:07 Respiratory Rate 16 05/27/20 14:07 Blood Pressure 131/75 05/27/20 14:07 O2 Sat by Pulse Oximetry (%) 95 05/27/20 10:00 Musculoskeletal: Yes: Other (General: calm elderly M sitting in chair and lying in bed NAD; grossly 4+/5 BLE, 1+ BLE pitting edema, no B calf tenderness) Labs: CBC, BMP 05/27/20 05:52 05/27/20 05:52 Assessment/Plan Electrodiagnostics were performed, please see scanned images for details. There is electrophysiological evidence of a mild axonal sensory neuropathy without motor involvement or evidence of demyelination or lower lumbar radiculopathy. 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 7) hx TIA 8) A fib, HTN 9) hx gallstones 10) hx prostate cancer 11) Fevers 12) Obesity 13) Up to date flu shot/ pneumovax Recommendations: 1) PT for BLE stretching strengthening ROM bed mobility transfers balance ambulation 2) Falls, safety precautions 3) Cardiac, diabetic precautions 4) DVT ppx: on Warfarin 5) Skin protection: float heels, frequent turning 6) Denies constipation on current bowel regimen 7) Pending MRI LS spine 8) Pending Neuro consult 9) Continue plan per primary team 10) Strict DM control 11) Nutrition consult for obesity 12) Discharge planning: he will likely be able to return home with home services once medically stable Thank you for this referral.
--- NOTE | 2020-05-27 15:57 | CONSULT ---
Consultation: REQUESTING PROVIDER: Dr. Stacy CONSULT REQUEST: We have been asked to medically evaluate this patient for leukopenia. HISTORY OF PRESENT ILLNESS: Patient is 69 is a 69 year old male with a PMHx of HTN, NIDDM, Prostate ca, afib on warfarin, recent TIA, gallstones was admitted for further evaluation of bilateral leg weakness. On admission, patient was found to be febrile, with unclear etiology. CXR, CTAP and UA were unremarkable. Today, patient was found to have decreased WBC of 3.9 and thrombocytopenia of 105. Patient denies any fevers, chills, headache, dizziness chest pain, SOB, abdominal pain, diarrhea. Patient follows up with Dr. Betts to monitor his prostate Ca. He was diagnosed ab out 5 years ago, and had radiation therapy in 2017. REVIEW OF SYSTEMS: CONSTITUTIONAL: Absent: fever, chills, diaphoresis, generalized weakness, malaise, loss of appetite, weight change HEENT: Absent: rhinorrhea, nasal congestion, throat pain, throat swelling, difficulty swallowing, mouth swelling, ear pain, eye pain, visual changes CARDIOVASCULAR: Absent: chest pain, syncope, palpitations, irregular heart rate, lightheadedness, peripheral edema RESPIRATORY: Absent: cough, shortness of breath, dyspnea with exertion, orthopnea, wheezing, stridor, hemoptysis GASTROINTESTINAL: Absent: abdominal pain, abdominal distension, nausea, vomiting, diarrhea, constipation, melena, hematochezia GENITOURINARY: Absent: dysuria, frequency, urgency, hesitancy, hematuria, flank pain, genital pain MUSCULOSKELETAL: Absent: myalgia, arthralgia, joint swelling, back pain, neck pain SKIN: Absent: rash, itching, pallor HEMATOLOGIC/IMMUNOLOGIC: Absent: easy bleeding, easy bruising, lymphadenopathy, frequent infections ENDOCRINE: Absent: unexplained weight gain, unexplained weight loss, heat intolerance, cold intolerance NEUROLOGIC: Absent: headache, focal weakness or paresthesias, dizziness, unsteady gait, seizure, mental status changes, bladder or bowel incontinence PSYCHIATRIC: Absent: anxiety, depression, suicidal or homicidal ideation, hallucinations. PHYSICAL EXAMINATION Vital Signs - 24 hr 05/26/20 05/26/20 05/27/20 18:07 19:15 02:02 Temperature 98.7 F 98.0 F 97.7 F Pulse Rate Pulse Rate [ 51 L 60 50 L Right Radial] Respiratory 16 18 18 Rate Blood Pressure Blood Pressure 127/64 114/72 150/70 [Left Arm] O2 Sat by Pulse 97 97 98 Oximetry (%) 05/27/20 05/27/20 05/27/20 03:00 03:15 06:00 Temperature 98.2 F 98.2 F 97.7 F Pulse Rate 51 L 51 L 49 L Pulse Rate [ Right Radial] Respiratory 20 18 18 Rate Blood Pressure 137/99 137/99 125/70 Blood Pressure [Left Arm] O2 Sat by Pulse 97 99 95 Oximetry (%) 05/27/20 05/27/20 10:00 14:07 Temperature 97.7 F Pulse Rate 56 L Pulse Rate [ Right Radial] Respiratory 16 Rate Blood Pressure 131/75 Blood Pressure [Left Arm] O2 Sat by Pulse 95 Oximetry (%) GENERAL: Awake, alert, and fully oriented, in no acute distress. NECK: Normal range of motion, supple LUNGS: Breath sounds equal, clear to auscultation bilaterally. HEART: Regular rate and rhythm, normal S1 and S2 ABDOMEN: Soft, nontender, not distended, normoactive bowel sounds LOWER EXTREMITIES: 2+ pulses, warm, well-perfused. chronic venous stasis dermatitis b/l NEUROLOGICAL: Cranial nerves II-XII intact. Normal speech. PSYCHIATRIC: Cooperative. Good eye contact. Appropriate mood and affect. SKIN: Warm, dry, normal turgor Laboratory Results - last 24 hr 05/26/20 05/26/20 05/26/20 15:30 15:30 15:30 WBC 5.0 RBC 4.79 Hgb 15.2 Hct 44.7 MCV 93.3 MCH 31.8 MCHC 34.0 RDW 14.3 Plt Count 118 L MPV 8.8 Absolute Neuts (auto) 3.6 Neutrophils % 72.9 Neutrophils % (Manual) 72.6 Band Neutrophils % 1.6 Lymphocytes % 8.9 D Lymphocytes % (Manual) 19.5 Monocytes % 17.2 H Monocytes % (Manual) 4 Eosinophils % 0.7 Eosinophils % (Manual) 0.8 Basophils % 0.3 Basophils % (Manual) 0.0 Myelocytes % (Man) 1 Promyelocytes % (Man) 0 Blast Cells % (Manual) 0 Nucleated RBC % 1 H Metamyelocytes 1 Hypochromia Platelet Estimate Polychromasia Anisocytosis Microcytosis Macrocytosis PT with INR 26.50 H INR 2.23 H PTT (Actin FS) 38.4 H VBG pH POC VBG pCO2 POC VBG pO2 VBG HCO3 VBG O2 Sat (Marty) VBG Base Excess Sodium Potassium Chloride Carbon Dioxide Anion Gap BUN Creatinine Est GFR (CKD-EPI)AfAm Est GFR (CKD-EPI)NonAf POC Glucometer Random Glucose Lactic Acid Calcium Phosphorus Magnesium Ferritin Total Bilirubin Direct Bilirubin AST ALT Alkaline Phosphatase LD Total C-Reactive Protein Total Protein Albumin Lipase TSH Urine Color Yellow Urine Appearance Clear Urine pH 7.0 D Ur Specific [place] 1.011 Urine Protein Negative Urine Glucose (UA) Negative Urine Ketones Negative Urine Blood Negative Urine Nitrite Negative Urine Bilirubin Negative Urine Urobilinogen 1.0 Ur Leukocyte Esterase Negative Rheumatoid Factor COVID-19 ([facility]) 05/26/20 05/26/20 05/26/20 15:30 15:30 15:30 WBC RBC Hgb Hct MCV MCH MCHC RDW Plt Count MPV Absolute Neuts (auto) Neutrophils % Neutrophils % (Manual) Band Neutrophils % Lymphocytes % Lymphocytes % (Manual) Monocytes % Monocytes % (Manual) Eosinophils % Eosinophils % (Manual) Basophils % Basophils % (Manual) Myelocytes % (Man) Promyelocytes % (Man) Blast Cells % (Manual) Nucleated RBC % Metamyelocytes Hypochromia Platelet Estimate Polychromasia Anisocytosis Microcytosis Macrocytosis PT with INR INR PTT (Actin FS) VBG pH POC VBG pCO2 POC VBG pO2 VBG HCO3 VBG O2 Sat (Marty) VBG Base Excess Sodium 136 Potassium 3.5 Chloride 100 Carbon Dioxide 27 Anion Gap 9 BUN 11.9 Creatinine 0.9 Est GFR (CKD-EPI)AfAm 99.24 Est GFR (CKD-EPI)NonAf 85.63 POC Glucometer Random Glucose 69 L Lactic Acid 1.3 Calcium 8.4 L Phosphorus Magnesium Ferritin 314.0 Total Bilirubin 0.7 Direct Bilirubin 0.2 AST 41 H ALT 51 Alkaline Phosphatase 128 H LD Total 241 C-Reactive Protein 3.1 H Total Protein 5.9 L Albumin 3.5 Lipase TSH Urine Color Urine Appearance Urine pH Ur Specific [place] Urine Protein Urine Glucose (UA) Urine Ketones Urine Blood Urine Nitrite Urine Bilirubin Urine Urobilinogen Ur Leukocyte Esterase Rheumatoid Factor COVID-19 ([facility]) 05/26/20 05/26/20 05/26/20 15:30 16:20 22:40 WBC RBC Hgb Hct MCV MCH MCHC RDW Plt Count MPV Absolute Neuts (auto) Neutrophils % Neutrophils % (Manual) Band Neutrophils % Lymphocytes % Lymphocytes % (Manual) Monocytes % Monocytes % (Manual) Eosinophils % Eosinophils % (Manual) Basophils % Basophils % (Manual) Myelocytes % (Man) Promyelocytes % (Man) Blast Cells % (Manual) Nucleated RBC % Metamyelocytes Hypochromia Platelet Estimate Polychromasia Anisocytosis Microcytosis Macrocytosis PT with INR INR PTT (Actin FS) VBG pH 7.360 POC VBG pCO2 43.8 POC VBG pO2 42.3 VBG HCO3 24.2 VBG O2 Sat (Marty) 76.0 VBG Base Excess -1.5 Sodium Potassium Chloride Carbon Dioxide Anion Gap BUN Creatinine Est GFR (CKD-EPI)AfAm Est GFR (CKD-EPI)NonAf POC Glucometer 138 Random Glucose Lactic Acid Calcium Phosphorus Magnesium Ferritin Total Bilirubin Direct Bilirubin AST ALT Alkaline Phosphatase LD Total C-Reactive Protein Total Protein Albumin Lipase TSH Urine Color Urine Appearance Urine pH Ur Specific [place] Urine Protein Urine Glucose (UA) Urine Ketones Urine Blood Urine Nitrite Urine Bilirubin Urine Urobilinogen Ur Leukocyte Esterase Rheumatoid Factor COVID-19 ([facility]) Not detected 05/27/20 05/27/20 05/27/20 01:54 05:52 05:52 WBC 3.9 L RBC 4.35 Hgb 13.8 Hct 40.3 MCV 92.5 MCH 31.8 MCHC 34.3 RDW 14.3 Plt Count 105 L MPV 8.0 Absolute Neuts (auto) 2.3 Neutrophils % 60.0 Neutrophils % (Manual) 52.5 D Band Neutrophils % 4.0 Lymphocytes % 15.9 D Lymphocytes % (Manual) 12.1 D Monocytes % 21.9 H Monocytes % (Manual) 25 H D Eosinophils % 1.9 D Eosinophils % (Manual) 4.1 D Basophils % 0.3 Basophils % (Manual) 0.0 Myelocytes % (Man) 0 D Promyelocytes % (Man) 0 Blast Cells % (Manual) 0 Nucleated RBC % 0 Metamyelocytes 2 D Hypochromia 0 Platelet Estimate Decreased Polychromasia 0 Anisocytosis 0 Microcytosis 0 Macrocytosis 0 PT with INR INR PTT (Actin FS) VBG pH POC VBG pCO2 POC VBG pO2 VBG HCO3 VBG O2 Sat (Marty) VBG Base Excess Sodium 142 Potassium 3.9 Chloride 107 Carbon Dioxide 28 Anion Gap 7 L BUN 14.1 Creatinine 0.9 Est GFR (CKD-EPI)AfAm 99.24 Est GFR (CKD-EPI)NonAf 85.63 POC Glucometer 113 Random Glucose 118 H Lactic Acid Calcium 8.1 L Phosphorus 3.0 Magnesium 1.9 Ferritin Total Bilirubin 0.9 Direct Bilirubin AST 35 ALT 43 Alkaline Phosphatase 107 LD Total C-Reactive Protein Total Protein 5.2 L Albumin 3.0 L Lipase 107 TSH 1.49 D Urine Color Urine Appearance Urine pH Ur Specific [place] Urine Protein Urine Glucose (UA) Urine Ketones Urine Blood Urine Nitrite Urine Bilirubin Urine Urobilinogen Ur Leukocyte Esterase Rheumatoid Factor < 10.0 COVID-19 ([facility]) 05/27/20 11:06 WBC RBC Hgb Hct MCV MCH MCHC RDW Plt Count MPV Absolute Neuts (auto) Neutrophils % Neutrophils % (Manual) Band Neutrophils % Lymphocytes % Lymphocytes % (Manual) Monocytes % Monocytes % (Manual) Eosinophils % Eosinophils % (Manual) Basophils % Basophils % (Manual) Myelocytes % (Man) Promyelocytes % (Man) Blast Cells % (Manual) Nucleated RBC % Metamyelocytes Hypochromia Platelet Estimate Polychromasia Anisocytosis Microcytosis Macrocytosis PT with INR 21.90 H INR 1.84 H PTT (Actin FS) VBG pH POC VBG pCO2 POC VBG pO2 VBG HCO3 VBG O2 Sat (Marty) VBG Base Excess Sodium Potassium Chloride Carbon Dioxide Anion Gap BUN Creatinine Est GFR (CKD-EPI)AfAm Est GFR (CKD-EPI)NonAf POC Glucometer Random Glucose Lactic Acid Calcium Phosphorus Magnesium Ferritin Total Bilirubin Direct Bilirubin AST ALT Alkaline Phosphatase LD Total C-Reactive Protein Total Protein Albumin Lipase TSH Urine Color Urine Appearance Urine pH Ur Specific [place] Urine Protein Urine Glucose (UA) Urine Ketones Urine Blood Urine Nitrite Urine Bilirubin Urine Urobilinogen Ur Leukocyte Esterase Rheumatoid Factor COVID-19 ([facility]) Active Medications Generic Name Dose Route Start Last Admin Trade Name Freq PRN Reason Stop Dose Admin Acetaminophen 650 mg 05/26/20 22:28 Tylenol - PO Q6H PRN FEVER Aspirin 81 mg 05/27/20 10:00 05/27/20 09:02 Ecotrin - PO 81 mg DAILY SAJAN Administration Atorvastatin Calcium 80 mg 05/26/20 22:00 05/26/20 23:04 Lipitor - PO 80 mg HS SAJAN Administration Gabapentin 100 mg 05/26/20 22:00 05/27/20 13:02 Neurontin - PO 100 mg TID SAJAN Administration Hydrochlorothiazide 25 mg 05/27/20 10:00 05/27/20 09:02 Hctz - PO 25 mg DAILY SAJAN Administration Piperacillin Sod/Tazobactam 100 mls @ 200 mls/hr 05/28/20 02:00 Sod 4.5 gm/ Dextrose IVPB Q8H-IV SAJAN Protocol Piperacillin Sod/Tazobactam 100 mls @ 200 mls/hr 05/27/20 04:00 05/27/20 13:02 Sod 4.5 gm/ Dextrose IVPB 05/27/20 18:29 200 mls/hr Q8H-IV SAJAN Administration Protocol Dextrose/Sodium Chloride 1,000 mls @ 100 mls/hr 05/26/20 23:00 05/26/20 23:47 D5-Ns - IV 100 mls/hr ASDIR SAJAN Administration Insulin Aspart 1 vial 05/26/20 22:00 05/27/20 11:34 Novolog Vial Sliding Scale - SQ Not Given ACHS [facility] Protocol Metoprolol Tartrate 25 mg 05/26/20 22:00 05/27/20 09:02 Lopressor - PO 25 mg BID SAJAN Administration Warfarin Sodium 5 mg 05/27/20 18:30 Coumadin - PO DAILY@1830 [facility] ASSESSMENT/PLAN: Patient is 69 is a 69 year old male with a PMHx of HTN, NIDDM, Prostate ca, afib on warfarin, recent TIA, gallstones was admitted for further evaluation of bilateral leg weakness. We were called to evaluate for leukopenia. #Leukopenia -possibly in setting of sepsis, ?FUO -continue to monitor for further fevers -B12, Folate,TSH -no overt liver disease -relative monocytosis, flow cytometry -if fever recurs and ID w/u neg. consider CT c/a/p w/contrast Dispo: We will continue to follow the patient. Thank you for this consultative opportunity. Visit type - Medication Review Med list reviewed for High Risk Meds patients 65 and older: Yes - Emergency Visit Emergency Visit: No - New Patient This patient is new to me today: Yes Date on this admission: 05/27/20 - Critical Care Critical Care patient: No ATTENDING PHYSICIAN STATEMENT I saw and evaluated the patient. I reviewed the resident's note and discussed the case with the resident. I agree with the resident's findings and plan as documented. SUBJECTIVE: OBJECTIVE: ASSESSMENT AND PLAN:
[2020-05-27] MEDS ORDERED: WARFARIN NA 5 MG TABLET PO SCH (18:30)
[2020-05-27] MEDS ORDERED: VANCOMYCIN 1 GRAM (PRE-DOCKED) 1,000 MG/250 ML BAG IVPB SCH ×2 (20:00)
--- NOTE | 2020-05-27 20:10 | PN ---
Teaching Attending Note Name of Resident: Irene Hudson ATTENDING PHYSICIAN STATEMENT I saw and evaluated the patient. I reviewed the resident's note and discussed the case with the resident. I agree with the resident's findings and plan as documented. ASSESSMENT AND PLAN: 69 year old male with a PMHx of HTN, NIDDM, Prostate ca, afib on warfarin, recent TIA, gallstones was admitted for further evaluation of bilateral leg weakness. We were called to evaluate for leukopenia. ANC 2300. relative monocytosis T 101 --05/26/20 CT a/p non contrast 05/27/20 ---large rt. renal cyst, pneumobilia/s/p cholecystectomy f/u MRI L spine TSH nl check B12/ folate no overt liver disease check flowcytometry given relative monocytosis if fever recurs and ID w/u neg. consider CT c/a/p w/contrast
[2020-05-27] MEDS: ATORVASTATIN CA 80 MG TABLET (FP) PO SCH (21:42)
[2020-05-28] MEDS ORDERED: PIPERACILLIN/TAZOBACTAM 4.5 GM VIAL IVPB ONE ×3 (01:08→17:12)
[2020-05-28] MEDS ORDERED: DEXTROSE 5%-WATER 100 ML IVPB ONE ×3 (01:09→17:13)
[2020-05-28] MEDS: DEXTROSE 5%-NORMAL SALINE 1,000 ML IV SCH ×2 (01:12→23:18)
[2020-05-28] MEDS: PIPERACILLIN/TAZOB 4.5 GM 4.5 GM in DEXTROSE 5%-WATER 100 ML IVPB SCH ×3 (01:13→17:14)
[2020-05-28] MEDS: INSULIN SLIDING SCALE (NOVOLOG) 1 VIAL SQ SCH ×4 (06:02→21:45)
[2020-05-28] MEDS: GABAPENTIN 100 MG CAPSULE PO SCH ×3 (06:02→21:45)
[2020-05-28 07:48] LABS: BASO % 0.3 % (0-2.0); EOS % 6.5 % (0-4.5); HEMATOCRIT 44.1 % (35.4-49); HEMOGLOBIN 15.1 GM/dL (11.7-16.9); MCH 32.2 pg (25.7-33.7); MCHC 34.3 g/dl (32.0-35.9); MEAN CELL VOLUME 93.8 fl (80-96); MEAN PLT VOLUME 8.4 fl (7.5-11.1); MONO % 16.7 % (3.8-10.2); NEUT % 61.5 % (42.8-82.8); PLATELET COUNT 116 K/MM3 (134-434); RDW 14.2 % (11.9-15.9)
[2020-05-28 07:56] LABS: INR 1.71 (0.83-1.09); PROTHROMBIN TIME (PATIENT) 20.3 SEC (9.7-13.0)
[2020-05-28 08:16] LABS: ALBUMIN 3.1 g/dl (3.4-5.0); ANION GAP 4 MMOL/L (8-16); BLOOD UREA NITROGEN 11.1 mg/dL (7-18); CALCIUM 8.3 mg/dL (8.5-10.1); CHLORIDE 107 mmol/L (98-107); CO2 31 mmol/L (21-32); GLUCOSE,RANDOM 132 mg/dL (74-106); POTASSIUM 3.8 mmol/L (3.5-5.1); SGOT/AST 46 U/L (15-37); SGPT/ALT 59 U/L (13-61); SODIUM 142 mmol/L (136-145)
[2020-05-28 08:18] LABS: ALK PHOS 130 U/L (45-117); BILIRUBIN,TOTAL 1.1 mg/dL (0.2-1); TOT PROT 5.7 g/dl (6.4-8.2)
[2020-05-28] MEDS ORDERED: WARFARIN NA 7.5 MG TABLET (FP) PO SCH (08:34)
--- NOTE | 2020-05-28 08:37 | PN ---
Progress Note, Physician History of Present Illness: FEELING BETTER SITTING UP IN A CHAIR - Current Medication List Current Medications: Active Medications Acetaminophen (Tylenol -) 650 mg PO Q6H PRN PRN Reason: FEVER Aspirin (Ecotrin -) 81 mg PO DAILY [facility] Last Admin: 05/27/20 09:02 Dose: 81 mg Documented by: Atorvastatin Calcium (Lipitor -) 80 mg PO HS [facility] Last Admin: 05/27/20 21:42 Dose: 80 mg Documented by: Gabapentin (Neurontin -) 100 mg PO TID [facility] Last Admin: 05/28/20 06:02 Dose: 100 mg Documented by: Hydrochlorothiazide (Hctz -) 25 mg PO DAILY [facility] Last Admin: 05/27/20 09:02 Dose: 25 mg Documented by: Piperacillin Sod/Tazobactam (Sod 4.5 gm/ Dextrose) 100 mls @ 200 mls/hr IVPB Q8H-IV [facility]; Protocol Last Admin: 05/28/20 01:13 Dose: 200 mls/hr Documented by: Dextrose/Sodium Chloride (D5-Ns -) 1,000 mls @ 100 mls/hr IV ASDIR [facility] Last Admin: 05/28/20 01:12 Dose: Not Given Documented by: Insulin Aspart (Novolog Vial Sliding Scale -) 1 vial SQ ACHS [facility]; Protocol Last Admin: 05/28/20 06:02 Dose: Not Given Documented by: Metoprolol Tartrate (Lopressor -) 25 mg PO BID [facility] Last Admin: 05/27/20 21:45 Dose: Not Given Documented by: Warfarin Sodium (Coumadin -) 5 mg PO DAILY@1830 [facility] Last Admin: 05/27/20 17:54 Dose: 5 mg Documented by: - Objective Vital Signs: Vital Signs Temperature 97.9 F 05/28/20 06:00 Pulse Rate 50 L 05/28/20 06:00 Respiratory Rate 18 05/28/20 06:00 Blood Pressure 134/72 05/28/20 06:00 O2 Sat by Pulse Oximetry (%) 96 05/27/20 22:00 Cardiovascular: Yes: Regular Rate and Rhythm Respiratory: Yes: Regular, CTA Bilaterally Gastrointestinal: Yes: Normal Bowel Sounds, Soft. No: Tenderness Labs: CBC, BMP 05/28/20 06:27 05/28/20 06:27 INR, PTT INR 1.71 (0.83-1.09) H 05/28/20 06:27 Problem List - Problems (1) Afib Assessment/Plan: inr SUB therapeutic Coumadin 7.5 FOLLOW INR Code(s): I48.91 - UNSPECIFIED ATRIAL FIBRILLATION (2) Diabetes mellitus Assessment/Plan: BGM Code(s): E11.9 - TYPE 2 DIABETES MELLITUS WITHOUT COMPLICATIONS (3) HTN (hypertension) Assessment/Plan: CONTROLLED Vital Signs Period Temp Pulse Resp BP Sys/Galan Pulse Ox Last 24 Hr 97.5 F-98.0 F 50-56 16-18 124-137/69-77 95-97 Code(s): I10 - ESSENTIAL (PRIMARY) HYPERTENSION (4) Weakness Assessment/Plan: sudden weakness of LE recurrent --now resolved mri of ls spine done results pending neuro consult emg pt Code(s): R53.1 - WEAKNESS (5) Fever Assessment/Plan: Selected Entries 05/26/20 05/26/20 05/26/20 14:10 18:07 19:15 Temperature 101.1 F H 98.7 F 98.0 F 05/27/20 05/27/20 05/27/20 02:02 03:00 03:15 Temperature 97.7 F 98.2 F 98.2 F 05/27/20 06:00 Temperature 97.7 F r/o infectious etiology cultures done follow labs id consult appreciated Code(s): R50.9 - FEVER, UNSPECIFIED (6) Leukopenia Assessment/Plan: hem on board work up in progress Laboratory Tests 05/26/20 05/27/20 05/28/20 15:30 05:52 06:27 WBC 5.0 3.9 L 3.0 L Plt Count 118 L 105 L 116 L Monocytes % 17.2 H 21.9 H 16.7 H Code(s): D72.819 - DECREASED WHITE BLOOD CELL COUNT, UNSPECIFIED (7) Thrombocytopenia Assessment/Plan: as above Code(s): D69.6 - THROMBOCYTOPENIA, UNSPECIFIED
[2020-05-28] MEDS: HYDROCHLOROTHIAZIDE 25 MG TABLET (FP) PO SCH (09:06)
[2020-05-28] MEDS: ASPIRIN COATED 81 MG TABLET.EC PO SCH (09:06)
[2020-05-28] MEDS: METOPROLOL TARTRATE 25 MG TABLET (FP) PO SCH ×2 (09:07→21:45)
[2020-05-28 11:23] LABS: ERYTHROCYTE SEDIMENTATION RATE 10 mm/hr (0-20)
--- NOTE | 2020-05-28 16:29 | PN ---
Progress Note (short form) - Note Progress Note: feels well oob in chair weakness resolved denies mosquito or tick bites Vital Signs Period Temp Pulse Resp BP Sys/Galan Pulse Ox Last 24 Hr 97.5 F-98.3 F 49-53 16-18 124-137/68-77 95-97 cor-rrr llungs clear abd sofl, nt ext venous stasis changes CBC, BMP 05/28/20 06:27 05/28/20 06:27 Microbiology 05/26/20 15:30 Blood - Peripheral Venous Blood Culture - Preliminary NO GROWTH OBTAINED AFTER 48 HOURS, INCUBATION TO CONTINUE FOR 3 DAYS. 05/26/20 15:30 Blood - Peripheral Venous Blood Culture - Preliminary NO GROWTH OBTAINED AFTER 48 HOURS, INCUBATION TO CONTINUE FOR 3 DAYS. 05/26/20 15:30 Urine - Urine Clean Catch Urine Culture - Preliminary Lactose Fermenting Neg Bacilli Non Lactose Fermenting Gnb 05/27/20 08:00 Urine For Antigen Detection Legionella Antigen - Final 05/27/20 08:00 Urine For Antigen Detection Streptococcus pneumoniae Antigen (M - Final hiv negative, covid pcr negaitve a/p fevers resolved, cultures negative will d/c zosyn remains leukopenic and thrombocytopenic Problem List - Problems (1) Fever Code(s): R50.9 - FEVER, UNSPECIFIED (2) Leukopenia Code(s): D72.819 - DECREASED WHITE BLOOD CELL COUNT, UNSPECIFIED (3) Thrombocytopenia Code(s): D69.6 - THROMBOCYTOPENIA, UNSPECIFIED
--- NOTE | 2020-05-28 20:43 | CONSULT ---
Consult - text type - Consultation Consultation Note: NEUROLOGY CONSULTATION is greatly appreciated: This 69 yo RH m man with h/o DM. HTN, Chol, ASHD, AFib, BPH and prostatic CA On: Atorvastatin; Ascarbose; Hydrochlorothiazide; Metoprolol; MetFORMIN; Warfarin; Gabapentin 100tid; Aspirin 81; Montelukast; Tamsulosin; Losartan 100mg was seen by me here on 04/04/19 with confusion and unsteady gait associated with infection. He improved on antibiotics. Episodic LBP over many years. In recent years has unsteady gait ("wobbly") and gets "tired" in the legs if ambulating more than 500 yards. Now admitted with gradual loss of ambulation and "weakness" in the legs. Found to have temp >101. Now "back to normal" after a few days of antibiotics. CT of head (reviewed): Mild diffuse atrophy and commensurate ventricular enlargement with microvascular changes. Carotid duplex dopplers-normal MRI of LS spine (reviewed): Moderate diffuse DJD with facet hypertrophy, congenital canal stenosis and acquired LSSS, severe, L4L5 > L3L4. B12= 1117 pg%; TSH=1.49; INR= 2.23 NGA: Obese. No bruits. Cor reg. 2 + pretibial edema and atrophic changes both calves. NEURO: Well-oriented but poor reversals and short term recall. + Glabella. Fluent speech CN: Sl masked facies. No facial aymmetry. Gag OK. Full baer and EOM's without nystagmus Motor: No drift or tremor. Mild bradykinesia. + Cogwheel rigidity. Normal strength. Absent AJ's. Toes downgoing Coord: No FTN dystaxia Sensory: Decreased vibration both feet. Romberg +/- Gait: Flexed and shuffling IMP: 1. Mild B/L cerebral dysfunction 2. Multifactorial gait dysfunction with contributions from: a. Diabetic peripheral neuropathy b. Lumbosacral spinal stenosis c. Extrapyramidal features (Parkinsonism); 3. Worsening and reversibility due to Toxic-metabolic encephalopathy (Fevers, infection). SUGGEST: Continue antibiotics and hydration Check [facility] Neuro f/u as out patient. Thank you very much, Hal Bueno MD
[2020-05-28] MEDS: ATORVASTATIN CA 80 MG TABLET (FP) PO SCH (21:44)
[2020-05-29] MEDS: GABAPENTIN 100 MG CAPSULE PO SCH (06:25)
[2020-05-29] MEDS: INSULIN SLIDING SCALE (NOVOLOG) 1 VIAL SQ SCH (06:30)
[2020-05-29 07:03] LABS: BASO % 0.3 % (0-2.0); EOS % 6.2 % (0-4.5); HEMATOCRIT 41.3 % (35.4-49); HEMOGLOBIN 14.2 GM/dL (11.7-16.9); INR 1.9 (0.83-1.09); LYMPH % 14.5 % (8-40); MCH 32.1 pg (25.7-33.7); MCHC 34.3 g/dl (32.0-35.9); MEAN CELL VOLUME 93.5 fl (80-96); MEAN PLT VOLUME 8.2 fl (7.5-11.1); MONO % 12.4 % (3.8-10.2); NEUT % 66.6 % (42.8-82.8); PLATELET COUNT 108 K/MM3 (134-434); PROTHROMBIN TIME (PATIENT) 22.6 SEC (9.7-13.0); RBC 4.41 M/mm3 (4.00-5.60); RDW 14.1 % (11.9-15.9); WHITE BLOOD COUNT 3.4 K/mm3 (4.0-10.0)
[2020-05-29 07:30] LABS: ALBUMIN 2.8 g/dl (3.4-5.0); BILIRUBIN,TOTAL 1.2 mg/dL (0.2-1); CALCIUM 8.1 mg/dL (8.5-10.1); CREATININE 0.9 mg/dL (0.55-1.3); POTASSIUM 3.9 mmol/L (3.5-5.1); TOT PROT 5.3 g/dl (6.4-8.2)
[2020-05-29 08:21] VITALS: BP 139/82; PULSE 53; TEMP 97.9
--- NOTE | 2020-05-29 08:49 | DS ---
Physical Examination Vital Signs: Vital Signs Temperature 97.9 F 05/29/20 08:20 Pulse Rate 53 L 05/29/20 08:20 Respiratory Rate 20 05/29/20 08:20 Blood Pressure 139/82 05/29/20 08:20 O2 Sat by Pulse Oximetry (%) 97 05/29/20 08:20 Labs: CBC, BMP 05/29/20 05:53 05/29/20 05:53 Discharge Summary Problems reviewed: Yes Reason For Visit: ALTERED MENTAL STATUS Current Active Problems Altered mental status (Acute) Fever (Acute) Leukopenia (Acute) Thrombocytopenia (Acute) Hospital Course: - Problems (1) Afib Assessment/Plan: inr SUB therapeutic Coumadin 7.5 FOLLOW INR Code(s): I48.91 - UNSPECIFIED ATRIAL FIBRILLATION (2) Diabetes mellitus Assessment/Plan: BGM Code(s): E11.9 - TYPE 2 DIABETES MELLITUS WITHOUT COMPLICATIONS (3) HTN (hypertension) Assessment/Plan: CONTROLLED Vital Signs Period Temp Pulse Resp BP Sys/Galan Pulse Ox Last 24 Hr 97.5 F-98.0 F 50-56 16-18 124-137/69-77 95-97 Code(s): I10 - ESSENTIAL (PRIMARY) HYPERTENSION (4) Weakness Assessment/Plan: sudden weakness of LE recurrent --now resolved mri of ls spine done spinal stenosis--d/w pt neuro consult appreciated pt continue outpatient Code(s): R53.1 - WEAKNESS (5) Fever Assessment/Plan: Selected Entries 05/26/20 05/26/20 05/26/20 14:10 18:07 19:15 Temperature 101.1 F H 98.7 F 98.0 F 05/27/20 05/27/20 05/27/20 02:02 03:00 03:15 Temperature 97.7 F 98.2 F 98.2 F 05/27/20 06:00 Temperature 97.7 F cultures done and negative follow labs id consult appreciated--off abx Code(s): R50.9 - FEVER, UNSPECIFIED (6) Leukopenia Assessment/Plan: hem on board work up in progress--outpatient follow up Laboratory Tests 05/26/20 05/27/20 05/28/20 15:30 05:52 06:27 WBC 5.0 3.9 L 3.0 L Plt Count 118 L 105 L 116 L Monocytes % 17.2 H 21.9 H 16.7 H Code(s): D72.819 - DECREASED WHITE BLOOD CELL COUNT, UNSPECIFIED (7) Thrombocytopenia Assessment/Plan: as above Code(s): D69.6 - THROMBOCYTOPENIA, UNSPECIFIED Condition: Improved - Instructions Diet, Activity, Other Instructions: labs next week Referrals: Gallo Betts MD, MD [Primary Care Provider] - 1 Week Hal Bueno MD [Staff Physician] - Disposition: VNS/HOME HEALTH CARE - Home Medications Comprehensive Discharge Medication List: Ambulatory Orders Hydrochlorothiazide [Hctz -] 25 mg PO DAILY 09/16/19 Metoprolol Tartrate 25 mg PO BID 09/16/19 Warfarin Sodium [Coumadin] 5 mg PO DAILY 10/04/19 Gabapentin 100 mg PO TID 03/24/20 Aspirin Coated [Ecotrin -] 81 mg PO DAILY #90 tablet.ec 03/26/20 Atorvastatin Ca [Lipitor] 80 mg PO HS #90 tablet 03/26/20 Mecobalamin [B-12] 1 tab PO DAILY 05/27/20 Acetaminophen [Tylenol .Regular Strength -] 650 mg PO Q6H PRN tablet 05/29/20
[2020-05-29] MEDS: ASPIRIN COATED 81 MG TABLET.EC PO SCH (10:15)
[2020-05-29] MEDS: HYDROCHLOROTHIAZIDE 25 MG TABLET (FP) PO SCH (10:15)
[2020-05-29] MEDS: METOPROLOL TARTRATE 25 MG TABLET (FP) PO SCH (10:16)
--- NOTE | 2020-05-30 12:31 | PN ---
Teaching Attending Note Name of Resident: Hal Mccall Patient given f/u appt as outpatient to further w/u cytopenias. Discussed with his daughter discussed with PMD Dr. Betts
--- NOTE | 2020-05-31 18:48 | EKG ---
Test Reason : Blood Pressure : / mmHG Vent. Rate : 042 BPM Atrial Rate : 042 BPM P-R Int : 196 ms QRS Dur : 090 ms QT Int : 466 ms P-R-T Axes : 009 016 000 degrees QTc Int : 389 ms MARKED SINUS BRADYCARDIA WITH SINUS ARRHYTHMIA NONSPECIFIC ST ABNORMALITY ABNORMAL ECG Confirmed by MD TRESA, TRUONG ([id number]) on 05/31/2020 6:48:37 PM Referred By: Confirmed By:TRUONG GTZ MD
== END 2020-05-29 10:51 | disposition home health service (06) | DRG 551 ==
LOC: JER 14:09 → JERBED 19:55 → J4S 05-27 02:50
PROVIDERS: ADMIT Internal Medicine; ATTEND Family Medicine
DX: M48.07 Spinal stenosis, lumbosacral region (principal); G92 Toxic encephalopathy; I10 Essential (primary) hypertension; C61 Malignant neoplasm of prostate; I48.91 Unspecified atrial fibrillation; Z79.01 Long term (current) use of anticoagulants; Z86.73 Personal history of transient ischemic attack (TIA), and cerebral infarction without residual deficits; Z79.84 Long term (current) use of oral hypoglycemic drugs; Z87.891 Personal history of nicotine dependence; E66.9 Obesity, unspecified; Z68.37 Body mass index [BMI] 37.0-37.9, adult; D72.819 Decreased white blood cell count, unspecified; D69.6 Thrombocytopenia, unspecified; E11.40 Type 2 diabetes mellitus with diabetic neuropathy, unspecified; I25.10 Atherosclerotic heart disease of native coronary artery without angina pectoris; N40.0 Benign prostatic hyperplasia without lower urinary tract symptoms; I48.0 Paroxysmal atrial fibrillation
CPT/HCPCS: 36415; 70450-TC; 71045-TC-FY; 72148-TC; 74176-TC; 80053; 81003; 82248; 82550; 82607; 82728; 82746; 82747; 82803; 82962; 83605; 83615; 83690; 83735; 84100; 84443; 84484; 85014; 85025; 85610; 85651; 85730; 86038; 86140; 86431; 87040; 87086; 87186; 87389; 87899; 93005; 93010; 93880-TC; 95860-TC; 97116-GP; 97161-GP; 99285-25; J0131; U0003

== ENCOUNTER 2020-10-20 22:05 | Emergency (ER) | payer OTHER, MEDICARE ==
[2020-10-20 22:33] VITALS: BP 140/86; PULSE 67; TEMP 99.4; BMI 36.2
[2020-10-20 23:23] LABS: BASO % 0.8 % (0-2.0); EOS % 5.2 % (0-4.5); HEMATOCRIT 41.9 % (35.4-49); HEMOGLOBIN 14.6 GM/dL (11.7-16.9); MCH 32.7 pg (25.7-33.7); MCHC 34.8 g/dl (32.0-35.9); MEAN PLT VOLUME 7.9 fl (7.5-11.1); PLATELET COUNT 154 K/MM3 (134-434); RBC 4.46 M/mm3 (4.00-5.60); RDW 13.8 % (11.9-15.9); WHITE BLOOD COUNT 3.9 K/mm3 (4.0-10.0)
[2020-10-20 23:38] LABS: INR 2.19 (0.83-1.09); PROTHROMBIN TIME (PATIENT) 25.9 SEC (9.7-13.0)
== END 2020-10-21 00:59 | disposition home or self-care (01) ==
LOC: JER 22:05
DX: R04.0 Epistaxis (principal)
CPT/HCPCS: 36415; 85025; 85610; 85730; 99283-25

== ENCOUNTER 2020-12-16 06:22 | Inpatient (IN) | payer OTHER, MEDICARE ==
[2020-12-16] MEDS ORDERED: LACTATED RINGERS SOLUTION 1,000 ML IV STA ×2 (07:46)
[2020-12-16] MEDS ORDERED: ACETAMINOPHEN 1000 MG/100 ML VIAL (NON FORMULARY) IVPB ONE (07:46)
[2020-12-16] MEDS ORDERED: ACETAMINOPHEN INJECTION 100 ML IVPB ONE (08:14)
[2020-12-16 08:22] LABS: BASO % 0.2 % (0-2.0); EOS % 1.8 % (0-4.5); HEMATOCRIT 45.4 % (35.4-49); HEMOGLOBIN 15.5 GM/dL (11.7-16.9); LYMPH % 2.9 % (8-40); MCH 32.2 pg (25.7-33.7); MCHC 34.1 g/dl (32.0-35.9); MEAN CELL VOLUME 94.5 fl (80-96); MEAN PLT VOLUME 8.3 fl (7.5-11.1); MONO % 7.5 % (3.8-10.2); NEUT % 87.6 % (42.8-82.8); PLATELET COUNT 103 K/MM3 (134-434); RBC 4.81 M/mm3 (4.00-5.60); WHITE BLOOD COUNT 5.5 K/mm3 (4.0-10.0)
[2020-12-16 08:23] LABS: VENOUS BASE EXCESS 2.6 mmol/L (-2-2); VENOUS O2 SATURATION 59.9 % (70-80); VENOUS PCO2 41.2 mmHg (38-52); VENOUS PH 7.435 (7.310-7.410)
[2020-12-16 08:49] LABS: CHLORIDE 106 mmol/L (98-107); POTASSIUM 3.5 mmol/L (3.5-5.1); SODIUM 142 mmol/L (136-145)
[2020-12-16 08:51] LABS: ALBUMIN 3.6 g/dl (3.4-5.0); ANION GAP 7 MMOL/L (8-16); BLOOD UREA NITROGEN 16.2 mg/dL (7-18); CALCIUM 8.7 mg/dL (8.5-10.1); CO2 29 mmol/L (21-32); GLUCOSE,RANDOM 115 mg/dL (74-106)
[2020-12-16 08:54] LABS: SGOT/AST 53 U/L (15-37); SGPT/ALT 56 U/L (13-61)
[2020-12-16 08:55] LABS: CREATININE 1.2 mg/dL (0.55-1.3)
[2020-12-16 08:56] LABS: BILIRUBIN,TOTAL 1.2 mg/dL (0.2-1); TOT PROT 6.1 g/dl (6.4-8.2)
[2020-12-16 08:57] LABS: ALK PHOS 102 U/L (45-117)
[2020-12-16 10:18] LABS: INR 3.36 (0.83-1.09)
[2020-12-16] MEDS ORDERED: ACETAMINOPHEN 325 MG TABLET (FP) PO PRN (11:26)
[2020-12-16] MEDS ORDERED: GABAPENTIN 100 MG CAPSULE ONE (13:04)
[2020-12-16] MEDS: GABAPENTIN 100 MG CAPSULE PO SCH ×2 (13:40→22:26)
[2020-12-16] MEDS: DEXTROSE 5%-NORMAL SALINE 1,000 ML IV SCH (13:40)
[2020-12-16 14:25] LABS: PH,URINE 7.5 (5.0-8.0); URINE APPEARANCE CLEAR; URINE BILIRUBIN NEGATIVE (NEGATIVE); URINE COLOR YELLOW; URINE GLUCOSE (UA) NEGATIVE (NEGATIVE); URINE KETONE NEGATIVE (NEGATIVE); URINE LEUK ESTERASE NEGATIVE (NEGATIVE); URINE NITRITE NEGATIVE (NEGATIVE); URINE PROTEIN NEGATIVE (NEGATIVE)
[2020-12-16] MEDS ORDERED: WARFARIN NA 5 MG TABLET ONE (18:46)
[2020-12-16] MEDS: WARFARIN NA 5 MG TABLET PO SCH (18:54)
[2020-12-16 21:14] VITALS: BMI 35.2
[2020-12-16] MEDS: MONTELUKAST NA 10 MG TABLET PO SCH (22:26)
[2020-12-16] MEDS: ATORVASTATIN CA 20 MG TABLET (FP) PO SCH (22:26)
[2020-12-16] MEDS: METOPROLOL TARTRATE 25 MG TABLET (FP) PO SCH (22:26)
[2020-12-17] MEDS: GABAPENTIN 100 MG CAPSULE PO SCH ×3 (06:56→22:11)
[2020-12-17 09:29] LABS: HEMATOCRIT 40.6 % (35.4-49); HEMOGLOBIN 14.3 GM/dL (11.7-16.9); MCHC 35.3 g/dl (32.0-35.9); MEAN CELL VOLUME 93.6 fl (80-96); MEAN PLT VOLUME 8.5 fl (7.5-11.1); PLATELET COUNT 111 K/MM3 (134-434); RBC 4.34 M/mm3 (4.00-5.60); RDW 14.2 % (11.9-15.9); WHITE BLOOD COUNT 6.2 K/mm3 (4.0-10.0)
[2020-12-17 09:41] LABS: POTASSIUM 3.6 mmol/L (3.5-5.1)
[2020-12-17 09:45] LABS: CALCIUM 8.6 mg/dL (8.5-10.1)
[2020-12-17 09:46] LABS: ALBUMIN 3.2 g/dl (3.4-5.0); BLOOD UREA NITROGEN 21.3 mg/dL (7-18)
[2020-12-17 09:49] LABS: CREATININE 1.2 mg/dL (0.55-1.3)
[2020-12-17 09:50] LABS: BILIRUBIN,TOTAL 1.3 mg/dL (0.2-1)
[2020-12-17 09:51] LABS: TOT PROT 5.5 g/dl (6.4-8.2)
[2020-12-17] MEDS: TAMSULOSIN HCL 0.4 MG CAP PO SCH (09:54)
[2020-12-17] MEDS: HYDROCHLOROTHIAZIDE 25 MG TABLET (FP) PO SCH (09:54)
[2020-12-17] MEDS: METOPROLOL TARTRATE 25 MG TABLET (FP) PO SCH ×2 (09:54→22:09)
[2020-12-17] MEDS: DEXTROSE 5%-NORMAL SALINE 1,000 ML IV SCH ×2 (09:55→14:23)
[2020-12-17] MEDS: LOSARTAN POTASSIUM 50 MG TABLET PO SCH (09:55)
[2020-12-17 10:16] LABS: INR 2.89 (0.83-1.09); PROTHROMBIN TIME (PATIENT) 33.9 SEC (9.7-13.0)
[2020-12-17] MEDS ORDERED: PIPERACILLIN/TAZOBACTAM 3.375 GM VIAL IVPB ONE (17:44)
[2020-12-17] MEDS ORDERED: DEXTROSE 5%-WATER - 50 ML IVPB ONE (17:44)
[2020-12-17] MEDS: WARFARIN NA 5 MG TABLET PO SCH (18:00)
[2020-12-17] MEDS: PIPERACILLIN/TAZOB 3.375 GM 3.375 GM in DEXTROSE 5%-WATER - 50 ML IVPB SCH (18:01)
[2020-12-17] MEDS: MONTELUKAST NA 10 MG TABLET PO SCH (22:11)
[2020-12-17] MEDS: ATORVASTATIN CA 20 MG TABLET (FP) PO SCH (22:11)
[2020-12-18] MEDS ORDERED: PIPERACILLIN/TAZOBACTAM 3.375 GM VIAL IVPB ONE ×4 (01:59→21:39)
[2020-12-18] MEDS ORDERED: DEXTROSE 5%-WATER - 50 ML IVPB ONE ×4 (02:00→21:39)
[2020-12-18] MEDS: PIPERACILLIN/TAZOB 3.375 GM 3.375 GM in DEXTROSE 5%-WATER - 50 ML IVPB SCH ×4 (02:03→21:46)
[2020-12-18] MEDS: GABAPENTIN 100 MG CAPSULE PO SCH ×3 (06:00→21:47)
[2020-12-18] MEDS: LOSARTAN POTASSIUM 50 MG TABLET PO SCH (10:05)
[2020-12-18] MEDS: METOPROLOL TARTRATE 25 MG TABLET (FP) PO SCH ×2 (10:05→21:47)
[2020-12-18] MEDS: TAMSULOSIN HCL 0.4 MG CAP PO SCH (10:05)
[2020-12-18] MEDS: HYDROCHLOROTHIAZIDE 25 MG TABLET (FP) PO SCH (10:05)
[2020-12-18] MEDS: DEXTROSE 5%-NORMAL SALINE 1,000 ML IV SCH (13:48)
[2020-12-18] MEDS ORDERED: FUROSEMIDE 40 MG/4 ML INJECTABLE VIAL IVPUSH ONE (14:15)
[2020-12-18 17:41] LABS: INR 2.19 (0.83-1.09); PROTHROMBIN TIME (PATIENT) 26.3 SEC (9.7-13.0)
[2020-12-18] MEDS: WARFARIN NA 5 MG TABLET PO SCH (17:43)
[2020-12-18] MEDS: ATORVASTATIN CA 20 MG TABLET (FP) PO SCH (21:46)
[2020-12-18] MEDS: MONTELUKAST NA 10 MG TABLET PO SCH (21:47)
[2020-12-19] MEDS ORDERED: PIPERACILLIN/TAZOBACTAM 3.375 GM VIAL IVPB ONE ×4 (01:05→22:08)
[2020-12-19] MEDS ORDERED: DEXTROSE 5%-WATER - 50 ML IVPB ONE ×4 (01:05→22:08)
[2020-12-19] MEDS: PIPERACILLIN/TAZOB 3.375 GM 3.375 GM in DEXTROSE 5%-WATER - 50 ML IVPB SCH ×4 (02:00→22:22)
[2020-12-19] MEDS: GABAPENTIN 100 MG CAPSULE PO SCH ×3 (06:00→22:23)
[2020-12-19 08:41] LABS: BASO % 0.7 % (0-2.0); EOS % 7.1 % (0-4.5); HEMATOCRIT 39.3 % (35.4-49); HEMOGLOBIN 13.8 GM/dL (11.7-16.9); LYMPH % 15.2 % (8-40); MCH 32.7 pg (25.7-33.7); MEAN CELL VOLUME 93.3 fl (80-96); MEAN PLT VOLUME 8.8 fl (7.5-11.1); MONO % 15.2 % (3.8-10.2); NEUT % 61.8 % (42.8-82.8); PLATELET COUNT 106 K/MM3 (134-434); RBC 4.21 M/mm3 (4.00-5.60); RDW 14.1 % (11.9-15.9); WHITE BLOOD COUNT 3.3 K/mm3 (4.0-10.0)
[2020-12-19 08:42] LABS: INR 2.42 (0.83-1.09); PROTHROMBIN TIME (PATIENT) 28.5 SEC (9.7-13.0)
[2020-12-19 08:55] LABS: POTASSIUM 3.4 mmol/L (3.5-5.1)
[2020-12-19 09:07] LABS: CALCIUM 8.1 mg/dL (8.5-10.1)
[2020-12-19 09:08] LABS: ALBUMIN 2.9 g/dl (3.4-5.0); BLOOD UREA NITROGEN 14.7 mg/dL (7-18)
[2020-12-19 09:11] LABS: CREATININE 1.1 mg/dL (0.55-1.3)
[2020-12-19 09:13] LABS: BILIRUBIN,TOTAL 0.6 mg/dL (0.2-1)
[2020-12-19 09:14] LABS: TOT PROT 5.4 g/dl (6.4-8.2)
[2020-12-19] MEDS: METOPROLOL TARTRATE 25 MG TABLET (FP) PO SCH ×2 (09:50→22:23)
[2020-12-19] MEDS: HYDROCHLOROTHIAZIDE 25 MG TABLET (FP) PO SCH (09:50)
[2020-12-19] MEDS: TAMSULOSIN HCL 0.4 MG CAP PO SCH (09:50)
[2020-12-19] MEDS: LOSARTAN POTASSIUM 50 MG TABLET PO SCH (09:50)
[2020-12-19] MEDS: DEXTROSE 5%-NORMAL SALINE 1,000 ML IV SCH (15:03)
[2020-12-19] MEDS: WARFARIN NA 5 MG TABLET PO SCH (17:29)
[2020-12-19] MEDS: ATORVASTATIN CA 20 MG TABLET (FP) PO SCH (22:22)
[2020-12-19] MEDS: MONTELUKAST NA 10 MG TABLET PO SCH (22:23)
[2020-12-20] MEDS ORDERED: PIPERACILLIN/TAZOBACTAM 3.375 GM VIAL IVPB ONE ×4 (03:09→21:12)
[2020-12-20] MEDS ORDERED: DEXTROSE 5%-WATER - 50 ML IVPB ONE ×4 (03:09→21:12)
[2020-12-20] MEDS: PIPERACILLIN/TAZOB 3.375 GM 3.375 GM in DEXTROSE 5%-WATER - 50 ML IVPB SCH ×4 (03:19→21:20)
[2020-12-20] MEDS: GABAPENTIN 100 MG CAPSULE PO SCH ×3 (07:01→21:20)
[2020-12-20] MEDS: TAMSULOSIN HCL 0.4 MG CAP PO SCH (08:56)
[2020-12-20] MEDS: METOPROLOL TARTRATE 25 MG TABLET (FP) PO SCH ×2 (09:03→21:21)
[2020-12-20] MEDS: LOSARTAN POTASSIUM 50 MG TABLET PO SCH (09:04)
[2020-12-20] MEDS: HYDROCHLOROTHIAZIDE 25 MG TABLET (FP) PO SCH (09:04)
[2020-12-20 10:06] LABS: HEMATOCRIT 45.1 % (35.4-49); HEMOGLOBIN 15.5 GM/dL (11.7-16.9); MCH 32.5 pg (25.7-33.7); MCHC 34.5 g/dl (32.0-35.9); MEAN CELL VOLUME 94.4 fl (80-96); MEAN PLT VOLUME 8.4 fl (7.5-11.1); PLATELET COUNT 138 K/MM3 (134-434); RBC 4.77 M/mm3 (4.00-5.60); RDW 13.8 % (11.9-15.9); WHITE BLOOD COUNT 3.8 K/mm3 (4.0-10.0)
[2020-12-20 10:20] LABS: POTASSIUM 3.4 mmol/L (3.5-5.1)
[2020-12-20 10:22] LABS: INR 2.2 (0.83-1.09); PROTHROMBIN TIME (PATIENT) 26.4 SEC (9.7-13.0)
[2020-12-20 10:29] LABS: ALBUMIN 3.4 g/dl (3.4-5.0); CALCIUM 8.4 mg/dL (8.5-10.1)
[2020-12-20 10:30] LABS: BLOOD UREA NITROGEN 14.5 mg/dL (7-18)
[2020-12-20 10:33] LABS: CREATININE 1.1 mg/dL (0.55-1.3)
[2020-12-20 10:34] LABS: BILIRUBIN,TOTAL 1.2 mg/dL (0.2-1); TOT PROT 6.2 g/dl (6.4-8.2)
[2020-12-20] MEDS ORDERED: POTASSIUM CHLORIDE ORAL LIQUID 20 MEQ/15 ML PO ONE (12:41)
[2020-12-20] MEDS: DEXTROSE 5%-NORMAL SALINE 1,000 ML IV SCH (15:00)
[2020-12-20] MEDS: WARFARIN NA 5 MG TABLET PO SCH (17:04)
[2020-12-20] MEDS: ATORVASTATIN CA 20 MG TABLET (FP) PO SCH (21:20)
[2020-12-20] MEDS: MONTELUKAST NA 10 MG TABLET PO SCH (21:20)
[2020-12-21] MEDS ORDERED: DEXTROSE 5%-WATER - 50 ML IVPB ONE ×4 (01:15→21:00)
[2020-12-21] MEDS ORDERED: PIPERACILLIN/TAZOBACTAM 3.375 GM VIAL IVPB ONE ×4 (01:15→20:59)
[2020-12-21] MEDS: PIPERACILLIN/TAZOB 3.375 GM 3.375 GM in DEXTROSE 5%-WATER - 50 ML IVPB SCH ×4 (02:07→21:12)
[2020-12-21] MEDS: GABAPENTIN 100 MG CAPSULE PO SCH ×3 (06:06→21:13)
[2020-12-21] MEDS: TAMSULOSIN HCL 0.4 MG CAP PO SCH (09:37)
[2020-12-21] MEDS: HYDROCHLOROTHIAZIDE 25 MG TABLET (FP) PO SCH (09:38)
[2020-12-21] MEDS: LOSARTAN POTASSIUM 50 MG TABLET PO SCH (09:38)
[2020-12-21] MEDS: METOPROLOL TARTRATE 25 MG TABLET (FP) PO SCH ×2 (09:38→21:13)
[2020-12-21 10:12] LABS: HEMATOCRIT 40.2 % (35.4-49); HEMOGLOBIN 14.2 GM/dL (11.7-16.9); MCH 32.7 pg (25.7-33.7); MCHC 35.3 g/dl (32.0-35.9); MEAN CELL VOLUME 92.9 fl (80-96); MEAN PLT VOLUME 8.4 fl (7.5-11.1); PLATELET COUNT 132 K/MM3 (134-434); RBC 4.33 M/mm3 (4.00-5.60); RDW 13.5 % (11.9-15.9)
[2020-12-21 10:36] LABS: POTASSIUM 3.4 mmol/L (3.5-5.1)
[2020-12-21 10:43] LABS: ALBUMIN 2.9 g/dl (3.4-5.0)
[2020-12-21 10:44] LABS: BLOOD UREA NITROGEN 13.2 mg/dL (7-18)
[2020-12-21 10:45] LABS: BILIRUBIN,TOTAL 0.6 mg/dL (0.2-1); TOT PROT 5.2 g/dl (6.4-8.2)
[2020-12-21 10:49] LABS: CALCIUM 7.8 mg/dL (8.5-10.1)
[2020-12-21] MEDS: DEXTROSE 5%-NORMAL SALINE 1,000 ML IV SCH (12:15)
[2020-12-21] MEDS ORDERED: FUROSEMIDE 40 MG/4 ML INJECTABLE VIAL IVPUSH SCH (13:45)
[2020-12-21] MEDS: POTASSIUM CHLORIDE TABS 20 MEQ TABLET.ER (FP) PO SCH (14:07)
[2020-12-21] MEDS: WARFARIN NA 5 MG TABLET PO SCH (18:26)
[2020-12-21] MEDS: MONTELUKAST NA 10 MG TABLET PO SCH (21:13)
[2020-12-21] MEDS: ATORVASTATIN CA 20 MG TABLET (FP) PO SCH (21:13)
[2020-12-22] MEDS ORDERED: DEXTROSE 5%-WATER - 50 ML IVPB ONE ×2 (03:21→10:00)
[2020-12-22] MEDS ORDERED: PIPERACILLIN/TAZOBACTAM 3.375 GM VIAL IVPB ONE ×2 (03:21→10:00)
[2020-12-22] MEDS: PIPERACILLIN/TAZOB 3.375 GM 3.375 GM in DEXTROSE 5%-WATER - 50 ML IVPB SCH ×2 (03:33→10:07)
[2020-12-22] MEDS: DEXTROSE 5%-NORMAL SALINE 1,000 ML IV SCH (05:42)
[2020-12-22] MEDS: GABAPENTIN 100 MG CAPSULE PO SCH ×2 (05:43→14:06)
[2020-12-22 09:43] LABS: INR 2.36 (0.83-1.09); PROTHROMBIN TIME (PATIENT) 28.3 SEC (9.7-13.0)
[2020-12-22 09:45] LABS: HEMOGLOBIN 15.1 GM/dL (11.7-16.9); MCH 32.6 pg (25.7-33.7); MEAN CELL VOLUME 93.1 fl (80-96); MEAN PLT VOLUME 8.1 fl (7.5-11.1); PLATELET COUNT 152 K/MM3 (134-434); RBC 4.61 M/mm3 (4.00-5.60); RDW 13.8 % (11.9-15.9); WHITE BLOOD COUNT 4.2 K/mm3 (4.0-10.0)
[2020-12-22 10:00] LABS: POTASSIUM 3.2 mmol/L (3.5-5.1)
[2020-12-22 10:04] LABS: BLOOD UREA NITROGEN 13.8 mg/dL (7-18); CALCIUM 8.2 mg/dL (8.5-10.1)
[2020-12-22 10:06] LABS: CREATININE 1.1 mg/dL (0.55-1.3)
[2020-12-22] MEDS: TAMSULOSIN HCL 0.4 MG CAP PO SCH (10:06)
[2020-12-22] MEDS: HYDROCHLOROTHIAZIDE 25 MG TABLET (FP) PO SCH (10:07)
[2020-12-22] MEDS: POTASSIUM CHLORIDE TABS 20 MEQ TABLET.ER (FP) PO SCH (10:07)
[2020-12-22] MEDS: METOPROLOL TARTRATE 25 MG TABLET (FP) PO SCH (10:07)
[2020-12-22] MEDS: LOSARTAN POTASSIUM 50 MG TABLET PO SCH (10:07)
[2020-12-22 10:15] VITALS: BP 128/65; PULSE 53; TEMP 98
[2020-12-22] MEDS ORDERED: POTASSIUM CHLORIDE TABS 20 MEQ TABLET.ER (FP) PO ONE (12:06)
== END 2020-12-22 14:56 | disposition home or self-care (01) | DRG 690 ==
LOC: JER 06:22 → JERBED 11:23 → J6S 20:29
PROVIDERS: ADMIT Family Medicine; ATTEND Family Medicine
DX: N39.0 Urinary tract infection, site not specified (principal); I48.0 Paroxysmal atrial fibrillation; J45.909 Unspecified asthma, uncomplicated; N40.0 Benign prostatic hyperplasia without lower urinary tract symptoms; K76.0 Fatty (change of) liver, not elsewhere classified; E11.9 Type 2 diabetes mellitus without complications; D69.6 Thrombocytopenia, unspecified; I10 Essential (primary) hypertension; K42.9 Umbilical hernia without obstruction or gangrene; N41.9 Inflammatory disease of prostate, unspecified; E66.9 Obesity, unspecified; Z68.35 Body mass index [BMI] 35.0-35.9, adult; B96.89 Other specified bacterial agents as the cause of diseases classified elsewhere; B96.1 Klebsiella pneumoniae [K. pneumoniae] as the cause of diseases classified elsewhere; R00.1 Bradycardia, unspecified; R41.82 Altered mental status, unspecified; N28.1 Cyst of kidney, acquired; Z86.73 Personal history of transient ischemic attack (TIA), and cerebral infarction without residual deficits; Z88.1 Allergy status to other antibiotic agents
CPT/HCPCS: 36415; 71045-TC-FY; 74176-TC; 76705-TC; 76775-TC; 76856-TC; 80048; 80053; 80074; 81003; 82550; 82728; 82803; 82962; 83605; 84443; 84484; 85025; 85027; 85379; 85610; 85730; 86140; 87040; 87086; 87186; 87804; 93005; 93010; 93970-TC; 99285-25; C9803; J0131; U0003

== ENCOUNTER 2021-02-12 04:46 | Day surgery (SDC) | payer OTHER, MEDICARE ==
[2021-02-10 15:03] VITALS: BMI 41.0
[2021-02-12 09:00] VITALS: TEMP 98
[2021-02-12 09:54] VITALS: BP 123/68; PULSE 56
== END 2021-02-12 10:02 | disposition home or self-care (01) ==
LOC: JASU-ENDO 04:46
PROVIDERS: ATTEND Internal Medicine Gastroenterology
PROC: 0DJ08ZZ Inspection of Upper Intestinal Tract, Via Natural or Artificial Opening Endoscopic (ICD-10-PCS; 2021-02-12)
PROC: 0DJD8ZZ Inspection of Lower Intestinal Tract, Via Natural or Artificial Opening Endoscopic (ICD-10-PCS; principal; 2021-02-12 08:00)
DX: Z12.11 Encounter for screening for malignant neoplasm of colon (principal); D50.0 Iron deficiency anemia secondary to blood loss (chronic); K57.30 Diverticulosis of large intestine without perforation or abscess without bleeding; K29.40 Chronic atrophic gastritis without bleeding; K63.5 Polyp of colon; K92.1 Melena
CPT/HCPCS: 43235; G0121

== ENCOUNTER 2021-10-06 21:53 | Inpatient (IN) | payer OTHER, MEDICARE ==
[2021-10-06 23:21] LABS: BASO % 0.2 % (0-2.0); EOS % 3.5 % (0-4.5); HEMATOCRIT 43.6 % (35.4-49); HEMOGLOBIN 15.3 GM/dL (11.7-16.9); MCH 32.6 pg (25.7-33.7); MEAN CELL VOLUME 93.2 fl (80-96); MEAN PLT VOLUME 8.3 fl (7.5-11.1); MONO % 13.3 % (3.8-10.2); PLATELET COUNT 134 10^3/uL (134-434); RBC 4.68 M/mm3 (4.00-5.60); RDW 14.2 % (11.9-15.9); WHITE BLOOD COUNT 5.8 K/mm3 (4.0-10.0)
[2021-10-06 23:26] LABS: INR 3.44 (0.83-1.09); PROTHROMBIN TIME (PATIENT) 40.8 SEC (9.7-13.0)
[2021-10-06 23:28] LABS: ACTIVATED PTT 41.3 SECONDS (25.2-36.5)
[2021-10-06] MEDS ORDERED: DOXYCYCLINE HYCLATE 100 MG CAPSULE PO ONE (23:41)
[2021-10-07] MEDS ORDERED: DOXYCYCLINE HYCLATE 100 MG CAPSULE PO ONE (00:07)
[2021-10-07 00:20] LABS: PH,URINE 7.5 (5.0-8.0); URINE APPEARANCE CLEAR; URINE BILIRUBIN NEGATIVE (NEGATIVE); URINE COLOR YELLOW; URINE GLUCOSE (UA) NEGATIVE (NEGATIVE); URINE KETONE NEGATIVE (NEGATIVE); URINE LEUK ESTERASE NEGATIVE (NEGATIVE); URINE NITRITE NEGATIVE (NEGATIVE); URINE PROTEIN NEGATIVE (NEGATIVE); URINE UROBILINOGEN 0.2 mg/dL (0.2-1.0)
[2021-10-07 00:20] LABS: CHLORIDE 101 mmol/L (98-107); SODIUM 136 mmol/L (136-145)
[2021-10-07 00:24] LABS: CALCIUM 8.3 mg/dL (8.5-10.1)
[2021-10-07 00:25] LABS: ALBUMIN 3.2 g/dl (3.4-5.0); ANION GAP 7 MMOL/L (8-16); BLOOD UREA NITROGEN 14.3 mg/dL (7-18); CO2 27 mmol/L (21-32)
[2021-10-07 00:28] LABS: CREATININE 1.4 mg/dL (0.55-1.3); SGOT/AST 63 U/L (15-37); SGPT/ALT 35 U/L (13-61)
[2021-10-07 00:30] LABS: BILIRUBIN,TOTAL 1.1 mg/dL (0.2-1); TOT PROT 6.2 g/dl (6.4-8.2)
[2021-10-07 00:31] LABS: ALK PHOS 93 U/L (45-117)
[2021-10-07 00:32] LABS: GLUCOSE,RANDOM 112 mg/dL (74-106)
[2021-10-07] MEDS ORDERED: FUROSEMIDE 40 MG/4 ML INJECTABLE VIAL IVPUSH ONE (02:17)
[2021-10-07] MEDS ORDERED: FUROSEMIDE 40 MG/4 ML INJECTABLE VIAL ONE (04:04)
[2021-10-07 07:49] LABS: INR 3.54 (0.83-1.09); PROTHROMBIN TIME (PATIENT) 41.9 SEC (9.7-13.0)
[2021-10-07 07:57] LABS: ALBUMIN 3.3 g/dl (3.4-5.0); CALCIUM 8.3 mg/dL (8.5-10.1)
[2021-10-07 07:58] LABS: BLOOD UREA NITROGEN 13.4 mg/dL (7-18); MAGNESIUM 1.8 mg/dL (1.8-2.4)
[2021-10-07 08:02] LABS: BILIRUBIN,TOTAL 1.4 mg/dL (0.2-1); TOT PROT 5.8 g/dl (6.4-8.2)
[2021-10-07 08:22] LABS: BASO % 0.4 % (0-2.0); EOS % 4.2 % (0-4.5); HEMATOCRIT 42.5 % (35.4-49); HEMOGLOBIN 14.8 GM/dL (11.7-16.9); LYMPH % 10.6 % (8-40); MCH 32.5 pg (25.7-33.7); MCHC 34.8 g/dl (32.0-35.9); MEAN CELL VOLUME 93.3 fl (80-96); MEAN PLT VOLUME 8.2 fl (7.5-11.1); NEUT % 68.8 % (42.8-82.8); PLATELET COUNT 113 10^3/uL (134-434); RBC 4.56 M/mm3 (4.00-5.60); RDW 14.2 % (11.9-15.9); WHITE BLOOD COUNT 4.5 K/mm3 (4.0-10.0)
[2021-10-07] MEDS ORDERED: GABAPENTIN 100 MG CAPSULE ONE (11:24)
[2021-10-07] MEDS ORDERED: METOPROLOL TARTRATE 25 MG TABLET (FP) ONE (11:24)
[2021-10-07] MEDS ORDERED: LOSARTAN POTASSIUM 50 MG TABLET ONE (11:24)
[2021-10-07] MEDS: LOSARTAN POTASSIUM 50 MG TABLET PO SCH (11:29)
[2021-10-07] MEDS: METOPROLOL TARTRATE 25 MG TABLET (FP) PO SCH (11:29)
[2021-10-07] MEDS: GABAPENTIN 100 MG CAPSULE PO SCH (11:29)
[2021-10-07 15:11] VITALS: BMI 41.3
[2021-10-07] MEDS ORDERED: MONTELUKAST NA 10 MG TABLET PO SCH (22:00)
[2021-10-07] MEDS ORDERED: DOXYCYCLINE INJECTION 100 MG in DEXTROSE 5%-WATER 100 ML IVPB SCH (22:00)
[2021-10-07] MEDS ORDERED: ATORVASTATIN CA 80 MG TABLET (FP) PO SCH (22:00)
[2021-10-08] MEDS: METOPROLOL TARTRATE 25 MG TABLET (FP) PO SCH (09:00)
[2021-10-08] MEDS: LOSARTAN POTASSIUM 50 MG TABLET PO SCH (09:00)
[2021-10-08] MEDS: GABAPENTIN 100 MG CAPSULE PO SCH (09:00)
[2021-10-08 09:02] VITALS: BP 139/88; PULSE 86; TEMP 97.5
[2021-10-08 10:37] LABS: INR 2.07 (0.83-1.09); PROTHROMBIN TIME (PATIENT) 24.4 SEC (9.7-13.0)
== END 2021-10-08 15:29 | disposition home or self-care (01) | DRG 603 ==
LOC: JER 21:53 → JERBED 10-07 02:00 → J6S 10-07 14:54
PROVIDERS: ADMIT Internal Medicine; ATTEND Family Medicine
DX: L03.116 Cellulitis of left lower limb (principal); G45.9 Transient cerebral ischemic attack, unspecified; N17.9 Acute kidney failure, unspecified; Z68.41 Body mass index [BMI] 40.0-44.9, adult; L03.115 Cellulitis of right lower limb; E11.9 Type 2 diabetes mellitus without complications; I10 Essential (primary) hypertension; C61 Malignant neoplasm of prostate; J45.909 Unspecified asthma, uncomplicated; I25.10 Atherosclerotic heart disease of native coronary artery without angina pectoris; E78.5 Hyperlipidemia, unspecified; I48.91 Unspecified atrial fibrillation; E87.6 Hypokalemia; M48.00 Spinal stenosis, site unspecified; E66.01 Morbid (severe) obesity due to excess calories; N40.0 Benign prostatic hyperplasia without lower urinary tract symptoms
CPT/HCPCS: 36415; 70450-TC; 71046-TC-FY; 80053; 81003; 82550; 82553; 82962; 83735; 83880; 84443; 84484; 85025; 85610; 85730; 87040; 87086; 87186; 93005; 93010; 93970-TC; 99285-25; C9803; U0003; U0005

== ENCOUNTER 2021-10-26 10:10 | Inpatient (IN) | payer OTHER, MEDICARE ==
[2021-10-26] MEDS ORDERED: ACETAMINOPHEN 1000 MG/100 ML BAG IVPB ONE (11:30)
[2021-10-26] MEDS ORDERED: ACETAMINOPHEN INJECTION 100 ML IVPB ONE (11:30)
[2021-10-26] MEDS ORDERED: SODIUM CHLORIDE 1,000 ML IV STA (11:30)
[2021-10-26 12:15] LABS: PH,URINE >= 9.0 (5.0-8.0); URINE APPEARANCE CLEAR; URINE BILIRUBIN NEGATIVE (NEGATIVE); URINE COLOR YELLOW; URINE GLUCOSE (UA) NEGATIVE (NEGATIVE); URINE KETONE NEGATIVE (NEGATIVE); URINE LEUK ESTERASE NEGATIVE (NEGATIVE); URINE NITRITE NEGATIVE (NEGATIVE); URINE PROTEIN NEGATIVE (NEGATIVE); URINE UROBILINOGEN 0.2 mg/dL (0.2-1.0)
[2021-10-26 12:27] LABS: VENOUS PCO2 42.2 mmHg (38-52)
[2021-10-26 12:32] LABS: BASO % 0.3 % (0-2.0); EOS % 1.2 % (0-4.5); HEMATOCRIT 43.8 % (35.4-49); HEMOGLOBIN 15.1 GM/dL (11.7-16.9); LYMPH % 2.2 % (8-40); MCH 32.3 pg (25.7-33.7); MCHC 34.6 g/dl (32.0-35.9); MEAN CELL VOLUME 93.5 fl (80-96); MEAN PLT VOLUME 7.7 fl (7.5-11.1); MONO % 8.8 % (3.8-10.2); NEUT % 87.5 % (42.8-82.8); PLATELET COUNT 106 10^3/uL (134-434); RBC 4.69 M/mm3 (4.00-5.60); RDW 14.2 % (11.9-15.9); WHITE BLOOD COUNT 4.9 K/mm3 (4.0-10.0)
[2021-10-26 12:40] LABS: INR 2.83 (0.83-1.09); PROTHROMBIN TIME (PATIENT) 32.9 SEC (9.7-13.0)
[2021-10-26 12:50] LABS: CHLORIDE 106 mmol/L (98-107); SODIUM 143 mmol/L (136-145)
[2021-10-26 12:53] LABS: ALBUMIN 3.5 g/dl (3.4-5.0); ANION GAP 8 MMOL/L (8-16); CALCIUM 8.6 mg/dL (8.5-10.1); CO2 29 mmol/L (21-32); GLUCOSE,RANDOM 134 mg/dL (74-106)
[2021-10-26 12:54] LABS: BLOOD UREA NITROGEN 14.3 mg/dL (7-18)
[2021-10-26 12:56] LABS: CREATININE 1.1 mg/dL (0.55-1.3); SGOT/AST 36 U/L (15-37); SGPT/ALT 40 U/L (13-61)
[2021-10-26 12:57] LABS: CHOLESTEROL 76 mg/dL (50-200); LDL CHOLESTEROL (ONLY SJRH) 37 mg/dL (5-100); TRIGLYCERIDES 61 mg/dL (0-150)
[2021-10-26 12:58] LABS: BILIRUBIN,TOTAL 1.1 mg/dL (0.2-1); TOT PROT 5.8 g/dl (6.4-8.2)
[2021-10-26 12:59] LABS: ALK PHOS 118 U/L (45-117); BILIRUBIN,DIRECT 0.4 mg/dL (0.0-0.2); HDL CHOLESTEROL 34 mg/dL (40-60)
[2021-10-26 13:03] LABS: N-TERMINAL BNP 267.6 pg/ml (5-125)
[2021-10-26] MEDS ORDERED: ACETAMINOPHEN 325 MG TABLET (FP) PO PRN (16:22)
[2021-10-26 18:03] VITALS: BMI 42.2
[2021-10-26] MEDS: WARFARIN NA 5 MG TABLET PO SCH (18:18)
[2021-10-26] MEDS: GABAPENTIN 100 MG CAPSULE PO SCH (21:51)
[2021-10-26] MEDS: MONTELUKAST NA 10 MG TABLET PO SCH (21:51)
[2021-10-26] MEDS: metoPROLOL SUCCINATE 25 MG TAB.SR.24H (FP) PO SCH (21:51)
[2021-10-26] MEDS: ATORVASTATIN CA 80 MG TABLET (FP) PO SCH (21:51)
[2021-10-26] MEDS ORDERED: PIPERACILLIN/TAZOBACTAM 3.375 GM VIAL IVPB ONE (22:54)
[2021-10-26] MEDS: PIPERACILLIN/TAZOB 3.375 GM 3.375 GM in DEXTROSE 5%-WATER - 50 ML IVPB SCH (23:25)
[2021-10-27] MEDS ORDERED: PIPERACILLIN/TAZOBACTAM 3.375 GM VIAL IVPB ONE ×3 (05:49→17:30)
[2021-10-27] MEDS ORDERED: DEXTROSE 5%-WATER - 50 ML IVPB ONE ×3 (05:49→17:30)
[2021-10-27] MEDS: GABAPENTIN 100 MG CAPSULE PO SCH ×3 (05:58→21:43)
[2021-10-27] MEDS: PIPERACILLIN/TAZOB 3.375 GM 3.375 GM in DEXTROSE 5%-WATER - 50 ML IVPB SCH ×3 (05:58→17:47)
[2021-10-27] MEDS: HYDROCHLOROTHIAZIDE 25 MG TABLET (FP) PO SCH (09:13)
[2021-10-27] MEDS: LOSARTAN POTASSIUM 50 MG TABLET PO SCH (09:13)
[2021-10-27] MEDS: metoPROLOL SUCCINATE 25 MG TAB.SR.24H (FP) PO SCH ×2 (09:13→21:44)
[2021-10-27] MEDS: TAMSULOSIN HCL 0.4 MG CAP PO SCH (09:13)
[2021-10-27 11:03] LABS: HEMATOCRIT 42.6 % (35.4-49); HEMOGLOBIN 14.1 GM/dL (11.7-16.9); MCH 31.3 pg (25.7-33.7); MCHC 33.1 g/dl (32.0-35.9); MEAN CELL VOLUME 94.7 fl (80-96); MEAN PLT VOLUME 8.1 fl (7.5-11.1); PLATELET COUNT 126 10^3/uL (134-434); RDW 14.3 % (11.9-15.9); WHITE BLOOD COUNT 6.8 K/mm3 (4.0-10.0)
[2021-10-27 11:06] LABS: INR 3.62 (0.83-1.09); PROTHROMBIN TIME (PATIENT) 42.2 SEC (9.7-13.0)
[2021-10-27] MEDS ORDERED: diazePAM CARPU-JECT 10 MG/2 ML DISP.SYRIN IVPUSH ONE (11:58)
[2021-10-27 13:27] LABS: CALCIUM 8.5 mg/dL (8.5-10.1)
[2021-10-27 13:28] LABS: ALBUMIN 3.2 g/dl (3.4-5.0); BLOOD UREA NITROGEN 17.3 mg/dL (7-18)
[2021-10-27 13:31] LABS: CREATININE 1.3 mg/dL (0.55-1.3)
[2021-10-27 13:32] LABS: BILIRUBIN,TOTAL 1.3 mg/dL (0.2-1); TOT PROT 5.8 g/dl (6.4-8.2)
[2021-10-27] MEDS: ALBUTEROL SO4 2.5/IPRATROPIUM 0.5 INH SOL 3 ML VIAL.NEB. NEB SCH ×2 (16:56→21:21)
[2021-10-27] MEDS: WARFARIN NA 5 MG TABLET PO SCH (17:33)
[2021-10-27] MEDS ORDERED: diazePAM 5 MG TABLET PO ONE (18:30)
[2021-10-27] MEDS: MONTELUKAST NA 10 MG TABLET PO SCH (21:43)
[2021-10-27] MEDS: ATORVASTATIN CA 80 MG TABLET (FP) PO SCH (21:44)
[2021-10-28] MEDS ORDERED: PIPERACILLIN/TAZOBACTAM 3.375 GM VIAL IVPB ONE ×3 (01:46→17:26)
[2021-10-28] MEDS ORDERED: DEXTROSE 5%-WATER - 50 ML IVPB ONE ×3 (01:46→17:26)
[2021-10-28] MEDS: PIPERACILLIN/TAZOB 3.375 GM 3.375 GM in DEXTROSE 5%-WATER - 50 ML IVPB SCH ×3 (02:13→18:06)
[2021-10-28] MEDS: GABAPENTIN 100 MG CAPSULE PO SCH ×3 (06:25→21:20)
[2021-10-28] MEDS: ALBUTEROL SO4 2.5/IPRATROPIUM 0.5 INH SOL 3 ML VIAL.NEB. NEB SCH ×4 (08:02→19:53)
[2021-10-28 08:39] LABS: BASO % 0.4 % (0-2.0); EOS % 4.6 % (0-4.5); HEMATOCRIT 42.6 % (35.4-49); HEMOGLOBIN 14.2 GM/dL (11.7-16.9); LYMPH % 9.2 % (8-40); MCH 31.3 pg (25.7-33.7); MCHC 33.4 g/dl (32.0-35.9); MEAN CELL VOLUME 93.7 fl (80-96); MEAN PLT VOLUME 8.4 fl (7.5-11.1); MONO % 10.8 % (3.8-10.2); PLATELET COUNT 130 10^3/uL (134-434); RBC 4.54 M/mm3 (4.00-5.60); RDW 14.1 % (11.9-15.9); WHITE BLOOD COUNT 4.3 K/mm3 (4.0-10.0)
[2021-10-28 08:44] LABS: INR 2.72 (0.83-1.09); PROTHROMBIN TIME (PATIENT) 31.6 SEC (9.7-13.0)
[2021-10-28 09:02] LABS: ALBUMIN 3.2 g/dl (3.4-5.0); CALCIUM 8.3 mg/dL (8.5-10.1)
[2021-10-28 09:03] LABS: BLOOD UREA NITROGEN 13.5 mg/dL (7-18)
[2021-10-28 09:05] LABS: CREATININE 1.1 mg/dL (0.55-1.3)
[2021-10-28 09:07] LABS: BILIRUBIN,TOTAL 1.3 mg/dL (0.2-1); TOT PROT 5.7 g/dl (6.4-8.2)
[2021-10-28] MEDS: LOSARTAN POTASSIUM 50 MG TABLET PO SCH (10:55)
[2021-10-28] MEDS: TAMSULOSIN HCL 0.4 MG CAP PO SCH (10:55)
[2021-10-28] MEDS: metoPROLOL SUCCINATE 25 MG TAB.SR.24H (FP) PO SCH ×2 (10:56→21:20)
[2021-10-28] MEDS: HYDROCHLOROTHIAZIDE 25 MG TABLET (FP) PO SCH (10:56)
[2021-10-28] MEDS ORDERED: POTASSIUM CHLORIDE TABS 20 MEQ TABLET.ER (FP) PO ONE (11:47)
[2021-10-28] MEDS: MONTELUKAST NA 10 MG TABLET PO SCH (21:20)
[2021-10-28] MEDS: ATORVASTATIN CA 80 MG TABLET (FP) PO SCH (21:21)
[2021-10-29] MEDS ORDERED: DEXTROSE 5%-WATER - 50 ML IVPB ONE ×3 (01:16→17:05)
[2021-10-29] MEDS ORDERED: PIPERACILLIN/TAZOBACTAM 3.375 GM VIAL IVPB ONE ×3 (01:16→17:05)
[2021-10-29] MEDS: PIPERACILLIN/TAZOB 3.375 GM 3.375 GM in DEXTROSE 5%-WATER - 50 ML IVPB SCH ×3 (01:23→17:35)
[2021-10-29] MEDS: GABAPENTIN 100 MG CAPSULE PO SCH ×2 (06:11→15:22)
[2021-10-29] MEDS: ALBUTEROL SO4 2.5/IPRATROPIUM 0.5 INH SOL 3 ML VIAL.NEB. NEB SCH ×3 (07:40→15:31)
[2021-10-29] MEDS: TAMSULOSIN HCL 0.4 MG CAP PO SCH (08:55)
[2021-10-29] MEDS: HYDROCHLOROTHIAZIDE 25 MG TABLET (FP) PO SCH (10:57)
[2021-10-29] MEDS: metoPROLOL SUCCINATE 25 MG TAB.SR.24H (FP) PO SCH (10:57)
[2021-10-29] MEDS: LOSARTAN POTASSIUM 50 MG TABLET PO SCH (10:57)
[2021-10-29 13:34] VITALS: BP 152/86; PULSE 110; TEMP 97.9
[2021-10-29 14:38] LABS: INR 1.96 (0.83-1.09); PROTHROMBIN TIME (PATIENT) 22.7 SEC (9.7-13.0)
[2021-10-29] MEDS ORDERED: ENOXAPARIN NA (PORCINE) 120 MG/0.8 ML DISP.SYRIN SQ ONE (15:45)
== END 2021-10-29 19:40 | disposition home or self-care (01) | DRG 866 ==
LOC: JER 10:10 → JERBED 14:12 → J6S 17:09
PROVIDERS: ADMIT Family Medicine; ATTEND Family Medicine
DX: B34.9 Viral infection, unspecified (principal); G45.8 Other transient cerebral ischemic attacks and related syndromes; Z68.41 Body mass index [BMI] 40.0-44.9, adult; N13.8 Other obstructive and reflux uropathy; I50.32 Chronic diastolic (congestive) heart failure; E78.5 Hyperlipidemia, unspecified; I25.10 Atherosclerotic heart disease of native coronary artery without angina pectoris; R29.810 Facial weakness; E66.01 Morbid (severe) obesity due to excess calories; D64.9 Anemia, unspecified; K76.0 Fatty (change of) liver, not elsewhere classified; R50.9 Fever, unspecified; E11.9 Type 2 diabetes mellitus without complications; R79.1 Abnormal coagulation profile; C61 Malignant neoplasm of prostate; D89.2 Hypergammaglobulinemia, unspecified; I48.0 Paroxysmal atrial fibrillation; M48.00 Spinal stenosis, site unspecified; N40.1 Benign prostatic hyperplasia with lower urinary tract symptoms; E87.6 Hypokalemia; I11.0 Hypertensive heart disease with heart failure; I87.2 Venous insufficiency (chronic) (peripheral); R29.898 Other symptoms and signs involving the musculoskeletal system; R94.5 Abnormal results of liver function studies; Z79.01 Long term (current) use of anticoagulants; Z85.46 Personal history of malignant neoplasm of prostate; Z96.653 Presence of artificial knee joint, bilateral
CPT/HCPCS: 36415; 70450-TC; 70551-TC; 71045-TC-FY; 71250-TC; 72141-TC; 72146-TC; 72148-TC; 80053; 80061; 81003; 82248; 82550; 82728; 82803; 82962; 83036; 83605; 83615; 83880; 84484; 85025; 85027; 85610; 85651; 85730; 86140; 86850; 86900; 86901; 87040; 87086; 87804; 87899; 93005; 93010; 93880-TC; 94640; 97116-GP; 97161-GP; 99285-25; C9803; J0131; U0003; U0005

== ENCOUNTER 2021-11-03 04:53 | Day surgery (SDC) | payer OTHER, MEDICARE ==
[2021-11-02 11:42] VITALS: BMI 43.2
[2021-11-03 10:14] LABS: BASO % 0.5 % (0-2.0); HEMATOCRIT 45.2 % (35.4-49); HEMOGLOBIN 15.1 GM/dL (11.7-16.9); MCH 31.3 pg (25.7-33.7); MCHC 33.3 g/dl (32.0-35.9); MEAN PLT VOLUME 7.9 fl (7.5-11.1); MONO % 15.7 % (3.8-10.2); NEUT % 62.8 % (42.8-82.8); PLATELET COUNT 173 10^3/uL (134-434); RBC 4.81 M/mm3 (4.00-5.60); WHITE BLOOD COUNT 3.6 K/mm3 (4.0-10.0)
[2021-11-03] MEDS ORDERED: SODIUM CHLORIDE 500 ML IV SCH (10:35)
[2021-11-03 10:43] LABS: INR 1.24 (0.83-1.09); PROTHROMBIN TIME (PATIENT) 14.3 SEC (9.7-13.0)
[2021-11-03 11:12] LABS: ANISOCYTOSIS 0; HELMET CELLS 0; HOWELL-JOLLY BODIES 0; MACROCYTOSIS 0; OVALOCYTE 0; PLATELET ESTIMATE NORMAL; ROULEAU 0; SICKELED CELLS 0; TARGET CELLS 0; TEAR DROP CELLS 0; TOXIC GRANULATION 0
[2021-11-03 12:41] VITALS: TEMP 98.2
[2021-11-03 13:35] VITALS: BP 132/70; PULSE 66
== END 2021-11-03 13:45 | disposition home or self-care (01) ==
LOC: JRADIR 04:53
PROVIDERS: ATTEND Internal Medicine Hematology & Oncology
PROC: 07DR3ZX Extraction of Iliac Bone Marrow, Percutaneous Approach, Diagnostic (ICD-10-PCS; principal; 2021-11-03)
DX: C90.00 Multiple myeloma not having achieved remission (principal); D89.2 Hypergammaglobulinemia, unspecified; D69.6 Thrombocytopenia, unspecified
CPT/HCPCS: 20225; 36415; 38221; 85025; 85610

== ENCOUNTER 2021-11-18 08:12 | Day surgery (SDC) | payer OTHER, MEDICARE ==
[2021-11-18 09:50] LABS: BASO % 0.4 % (0-2.0); EOS % 4.9 % (0-4.5); HEMATOCRIT 44.2 % (35.4-49); LYMPH % 15.1 % (8-40); MCHC 33.9 g/dl (32.0-35.9); MEAN CELL VOLUME 94.2 fl (80-96); MEAN PLT VOLUME 8.4 fl (7.5-11.1); MONO % 14.7 % (3.8-10.2); NEUT % 64.9 % (42.8-82.8); PLATELET COUNT 139 10^3/uL (134-434); RBC 4.69 M/mm3 (4.00-5.60); WHITE BLOOD COUNT 3.8 K/mm3 (4.0-10.0)
[2021-11-18 10:13] LABS: ALBUMIN 3.6 g/dl (3.4-5.0); BLOOD UREA NITROGEN 18.4 mg/dL (7-18); CALCIUM 9.2 mg/dL (8.5-10.1)
[2021-11-18 10:16] LABS: CREATININE 1.1 mg/dL (0.55-1.3)
[2021-11-18 10:18] LABS: BILIRUBIN,TOTAL 0.9 mg/dL (0.2-1); TOT PROT 6.1 g/dl (6.4-8.2)
[2021-11-18] MEDS ORDERED: BORTEZOMIB (VELCADE) 2.5 MG/ML SUB-Q INJECTION SQ ONE (11:00)
[2021-11-18] MEDS ORDERED: GRANISETRON HCL 1 MG TABLET PO ONE (11:00)
[2021-11-18] MEDS ORDERED: DEXAMETHASONE 4 MG TABLET (FP) PO ONE ×2 (11:00)
[2021-11-18 11:35] LABS: URIC ACID 6.3 mg/dL (2.6-7.2)
[2021-11-18 16:19] VITALS: BP 167/77; PULSE 55; TEMP 97.9
== END 2021-11-18 12:50 | disposition home or self-care (01) ==
LOC: JONCCHEMO 08:12
PROVIDERS: ATTEND Internal Medicine Hematology & Oncology
DX: Z51.11 Encounter for antineoplastic chemotherapy (principal); C90.00 Multiple myeloma not having achieved remission
CPT/HCPCS: 36415; 80053; 83615; 84550; 85025; 96401; J9041

== ENCOUNTER 2021-11-25 08:56 | Day surgery (SDC) | payer OTHER, MEDICARE ==
[2021-11-25] MEDS ORDERED: GRANISETRON HCL 1 MG TABLET PO ONE (11:00)
[2021-11-25] MEDS ORDERED: BORTEZOMIB (VELCADE) 2.5 MG/ML SUB-Q INJECTION SQ ONE (11:00)
[2021-11-25] MEDS ORDERED: DEXAMETHASONE 4 MG TABLET (FP) PO ONE ×2 (11:00→13:30)
[2021-11-25 11:02] LABS: BASO % 0.3 % (0-2.0); EOS % 4.5 % (0-4.5); HEMATOCRIT 43.5 % (35.4-49); HEMOGLOBIN 15.1 GM/dL (11.7-16.9); LYMPH % 14.1 % (8-40); MCH 32.4 pg (25.7-33.7); MCHC 34.7 g/dl (32.0-35.9); MEAN CELL VOLUME 93.3 fl (80-96); MEAN PLT VOLUME 8.8 fl (7.5-11.1); MONO % 14.7 % (3.8-10.2); NEUT % 66.4 % (42.8-82.8); PLATELET COUNT 105 10^3/uL (134-434); RBC 4.66 M/mm3 (4.00-5.60); RDW 14.2 % (11.9-15.9); WHITE BLOOD COUNT 3.9 K/mm3 (4.0-10.0)
[2021-11-25 11:11] LABS: CALCIUM 8.7 mg/dL (8.5-10.1)
[2021-11-25 11:12] LABS: ALBUMIN 3.4 g/dl (3.4-5.0); BLOOD UREA NITROGEN 19.2 mg/dL (7-18)
[2021-11-25 11:15] LABS: CREATININE 1.1 mg/dL (0.55-1.3)
[2021-11-25 11:16] LABS: TOT PROT 5.8 g/dl (6.4-8.2)
[2021-11-25 11:17] LABS: BILIRUBIN,TOTAL 0.8 mg/dL (0.2-1)
[2021-11-25] MEDS ORDERED: ONDANSETRON 8 MG TABLET (FP) PO ONE (12:06)
[2021-11-25 17:55] VITALS: BP 112/70; PULSE 62; TEMP 98
== END 2021-11-25 13:30 | disposition home or self-care (01) ==
LOC: JONCCHEMO 08:56
PROVIDERS: ATTEND Internal Medicine Hematology & Oncology
DX: Z51.11 Encounter for antineoplastic chemotherapy (principal); C90.00 Multiple myeloma not having achieved remission
CPT/HCPCS: 36415; 80053; 85025; 96401; J9041

== ENCOUNTER 2021-12-02 08:55 | Day surgery (SDC) | payer OTHER, MEDICARE ==
[2021-12-02] MEDS ORDERED: GRANISETRON HCL 1 MG TABLET PO ONE (10:00)
[2021-12-02] MEDS ORDERED: DEXAMETHASONE 4 MG TABLET (FP) PO ONE (10:00)
[2021-12-02] MEDS ORDERED: BORTEZOMIB (VELCADE) 2.5 MG/ML SUB-Q INJECTION SQ ONE (10:00)
[2021-12-02 11:46] LABS: BASO % 0.6 % (0-2.0); EOS % 3.8 % (0-4.5); HEMATOCRIT 44.3 % (35.4-49); HEMOGLOBIN 14.8 GM/dL (11.7-16.9); LYMPH % 10.8 % (8-40); MCH 31.6 pg (25.7-33.7); MCHC 33.5 g/dl (32.0-35.9); MEAN CELL VOLUME 94.3 fl (80-96); MEAN PLT VOLUME 9.3 fl (7.5-11.1); MONO % 13.2 % (3.8-10.2); NEUT % 71.6 % (42.8-82.8); PLATELET COUNT 98 10^3/uL (134-434); RBC 4.69 M/mm3 (4.00-5.60); RDW 14.8 % (11.9-15.9); WHITE BLOOD COUNT 3.9 K/mm3 (4.0-10.0)
[2021-12-02 11:59] LABS: ALBUMIN 3.3 g/dl (3.4-5.0); BLOOD UREA NITROGEN 19.4 mg/dL (7-18); CALCIUM 8.4 mg/dL (8.5-10.1)
[2021-12-02 12:02] LABS: CREATININE 1.1 mg/dL (0.55-1.3)
[2021-12-02 12:04] LABS: BILIRUBIN,TOTAL 0.8 mg/dL (0.2-1); TOT PROT 5.7 g/dl (6.4-8.2)
[2021-12-02 16:22] VITALS: BP 133/78; PULSE 63; TEMP 97.7
[2021-12-03 18:07] LABS: FREE KAPPA,SERUM 461.9 mg/L (3.3-19.4)
== END 2021-12-02 12:50 | disposition home or self-care (01) ==
LOC: JONCCHEMO 08:55
PROVIDERS: ATTEND Internal Medicine Hematology & Oncology
DX: Z51.11 Encounter for antineoplastic chemotherapy (principal); C90.00 Multiple myeloma not having achieved remission
CPT/HCPCS: 36415; 80053; 83883; 85025; 96401; J9041

== ENCOUNTER 2021-12-16 07:23 | Day surgery (SDC) | payer OTHER, MEDICARE ==
[2021-12-16] MEDS ORDERED: GRANISETRON HCL 1 MG TABLET PO ONE (10:00)
[2021-12-16] MEDS ORDERED: BORTEZOMIB (VELCADE) 2.5 MG/ML SUB-Q INJECTION SQ ONE (10:00)
[2021-12-16] MEDS ORDERED: DEXAMETHASONE 4 MG TABLET (FP) PO ONE (10:00)
[2021-12-16 12:39] LABS: BASO % 0.8 % (0-2.0); EOS % 3.6 % (0-4.5); HEMATOCRIT 41.9 % (35.4-49); HEMOGLOBIN 14.2 GM/dL (11.7-16.9); LYMPH % 13.2 % (8-40); MCH 32.2 pg (25.7-33.7); MCHC 33.9 g/dl (32.0-35.9); MEAN CELL VOLUME 95.1 fl (80-96); MEAN PLT VOLUME 8.2 fl (7.5-11.1); NEUT % 70.4 % (42.8-82.8); PLATELET COUNT 132 10^3/uL (134-434); RDW 14.4 % (11.9-15.9); WHITE BLOOD COUNT 3.6 K/mm3 (4.0-10.0)
[2021-12-16 13:03] LABS: CALCIUM 8.7 mg/dL (8.5-10.1)
[2021-12-16 13:04] LABS: ALBUMIN 3.3 g/dl (3.4-5.0); BLOOD UREA NITROGEN 14.4 mg/dL (7-18)
[2021-12-16 13:07] LABS: CREATININE 0.9 mg/dL (0.55-1.3)
[2021-12-16 13:09] LABS: BILIRUBIN,TOTAL 0.8 mg/dL (0.2-1); TOT PROT 5.6 g/dl (6.4-8.2)
[2021-12-16 13:28] VITALS: BP 150/85; PULSE 62
[2021-12-16 17:04] VITALS: TEMP 98.1
== END 2021-12-16 14:00 | disposition home or self-care (01) ==
LOC: JONCCHEMO 07:23
PROVIDERS: ATTEND Internal Medicine Hematology & Oncology
DX: Z51.11 Encounter for antineoplastic chemotherapy (principal); C90.00 Multiple myeloma not having achieved remission
CPT/HCPCS: 36415; 80053; 85025; 96401; J9041

== ENCOUNTER 2021-12-23 08:48 | Day surgery (SDC) | payer OTHER, MEDICARE ==
[2021-12-23] MEDS ORDERED: GRANISETRON HCL 1 MG TABLET PO ONE (10:00)
[2021-12-23] MEDS ORDERED: BORTEZOMIB (VELCADE) 2.5 MG/ML SUB-Q INJECTION SQ ONE (10:00)
[2021-12-23] MEDS ORDERED: DEXAMETHASONE 4 MG TABLET (FP) PO ONE (10:00)
[2021-12-23 13:27] LABS: ALBUMIN 3.4 g/dl (3.4-5.0); BLOOD UREA NITROGEN 14.4 mg/dL (7-18); CALCIUM 8.8 mg/dL (8.5-10.1)
[2021-12-23 13:30] LABS: CREATININE 0.9 mg/dL (0.55-1.3)
[2021-12-23 13:32] LABS: BILIRUBIN,TOTAL 0.8 mg/dL (0.2-1); TOT PROT 5.6 g/dl (6.4-8.2)
[2021-12-23 13:41] LABS: HEMATOCRIT 42.7 % (35.4-49); HEMOGLOBIN 15.1 GM/dL (11.7-16.9); MCH 33.3 pg (25.7-33.7); MCHC 35.4 g/dl (32.0-35.9); MEAN CELL VOLUME 94.1 fl (80-96); MEAN PLT VOLUME 9.2 fl (7.5-11.1); PLATELET COUNT 97 10^3/uL (134-434); RBC 4.53 M/mm3 (4.00-5.60); RDW 14.6 % (11.9-15.9)
[2021-12-23 14:22] LABS: PLATELET ESTIMATE DECREASED
[2021-12-23 16:19] VITALS: BP 146/82; PULSE 64; TEMP 97.4
== END 2021-12-23 14:40 | disposition home or self-care (01) ==
LOC: JONCNONCHE 08:48
PROVIDERS: ATTEND Internal Medicine Hematology & Oncology
DX: Z51.11 Encounter for antineoplastic chemotherapy (principal); C90.00 Multiple myeloma not having achieved remission
CPT/HCPCS: 36415; 80053; 85025; 96401; J9041

== ENCOUNTER 2021-12-28 19:09 | Inpatient (IN) | payer OTHER, MEDICARE ==
[2021-12-28] MEDS ORDERED: CLINDAMYCIN 600MG PREMIX IVPB 600 MG/50 ML BAG IVPB ONE ×2 (19:38→19:59)
[2021-12-28 21:43] LABS: HEMATOCRIT 44.4 % (35.4-49); HEMOGLOBIN 15.1 GM/dL (11.7-16.9); MCH 32.3 pg (25.7-33.7); MEAN CELL VOLUME 95.1 fl (80-96); MEAN PLT VOLUME 10.3 fl (7.5-11.1); PLATELET COUNT 81 10^3/uL (134-434); RBC 4.67 M/mm3 (4.00-5.60); RDW 14.3 % (11.9-15.9); WHITE BLOOD COUNT 12.3 K/mm3 (4.0-10.0)
[2021-12-28 21:51] LABS: INR 1.7 (0.83-1.09); PROTHROMBIN TIME (PATIENT) 19.6 SEC (9.7-13.0)
[2021-12-28 21:53] LABS: ACTIVATED PTT 33.1 SECONDS (25.2-36.5)
[2021-12-28 22:10] LABS: CALCIUM 8.6 mg/dL (8.5-10.1)
[2021-12-28 22:11] LABS: ALBUMIN 3.2 g/dl (3.4-5.0); BLOOD UREA NITROGEN 17.2 mg/dL (7-18)
[2021-12-28 22:15] LABS: TOT PROT 5.4 g/dl (6.4-8.2)
[2021-12-28 22:16] LABS: BILIRUBIN,TOTAL 1.3 mg/dL (0.2-1)
[2021-12-28 22:32] LABS: ERYTHROCYTE SEDIMENTATION RATE 7 mm/hr (0-20)
[2021-12-28] MEDS ORDERED: POTASSIUM CHLORIDE TABS 20 MEQ TABLET.ER (FP) PO ONE ×2 (22:36→23:09)
[2021-12-28 22:37] LABS: ANISOCYTOSIS 0; MACROCYTOSIS 1+; PLATELET ESTIMATE DECREASED
[2021-12-29 00:21] LABS: PH,URINE 6.5 (5.0-8.0); URINE APPEARANCE CLEAR; URINE BILIRUBIN NEGATIVE (NEGATIVE); URINE COLOR YELLOW; URINE GLUCOSE (UA) NEGATIVE (NEGATIVE); URINE KETONE NEGATIVE (NEGATIVE); URINE LEUK ESTERASE NEGATIVE (NEGATIVE); URINE NITRITE NEGATIVE (NEGATIVE); URINE PROTEIN NEGATIVE (NEGATIVE)
[2021-12-29 08:41] LABS: BASO % 0.1 % (0-2.0); EOS % 0.2 % (0-4.5); HEMATOCRIT 39.1 % (35.4-49); HEMOGLOBIN 13.7 GM/dL (11.7-16.9); LYMPH % 3.7 % (8-40); MCH 33.1 pg (25.7-33.7); MEAN CELL VOLUME 94.6 fl (80-96); MEAN PLT VOLUME 9.3 fl (7.5-11.1); MONO % 7.6 % (3.8-10.2); NEUT % 88.4 % (42.8-82.8); PLATELET COUNT 76 10^3/uL (134-434); RBC 4.13 M/mm3 (4.00-5.60); RDW 14.6 % (11.9-15.9)
[2021-12-29 09:05] LABS: BLOOD UREA NITROGEN 15.4 mg/dL (7-18)
[2021-12-29 09:08] LABS: CALCIUM 7.9 mg/dL (8.5-10.1)
[2021-12-29 09:10] LABS: CREATININE 0.9 mg/dL (0.55-1.3)
[2021-12-29 09:11] LABS: BILIRUBIN,TOTAL 1.6 mg/dL (0.2-1)
[2021-12-29 09:12] LABS: TOT PROT 4.6 g/dl (6.4-8.2)
[2021-12-29 09:14] LABS: ALBUMIN 2.6 g/dl (3.4-5.0)
[2021-12-29] MEDS: TAMSULOSIN HCL 0.4 MG CAP PO SCH (09:20)
[2021-12-29] MEDS: APIXABAN 5 MG TABLET PO SCH ×2 (09:20→21:20)
[2021-12-29] MEDS: metoPROLOL SUCCINATE 25 MG TAB.SR.24H (FP) PO SCH ×2 (09:20→21:21)
[2021-12-29] MEDS: CLINDAMYCIN 600MG PREMIX IVPB 600 MG/50 ML BAG IVPB SCH ×2 (09:21→18:18)
[2021-12-29] MEDS: LOSARTAN 50MG/HCTZ 12.5MG 1 TAB PO SCH (09:21)
[2021-12-29] MEDS ORDERED: POTASSIUM CHLORIDE TABS 20 MEQ TABLET.ER (FP) PO ONE (12:17)
[2021-12-29] MEDS: GABAPENTIN 100 MG CAPSULE PO SCH ×2 (14:03→21:21)
[2021-12-29] MEDS: ACETAMINOPHEN 325 MG TABLET (FP) PO PRN (18:20)
[2021-12-29] MEDS: MONTELUKAST NA 10 MG TABLET PO SCH (21:22)
[2021-12-29] MEDS: ATORVASTATIN CA 80 MG TABLET (FP) PO SCH (21:23)
[2021-12-30] MEDS: CLINDAMYCIN 600MG PREMIX IVPB 600 MG/50 ML BAG IVPB SCH ×2 (02:47→10:39)
[2021-12-30] MEDS: GABAPENTIN 100 MG CAPSULE PO SCH ×3 (05:32→21:58)
[2021-12-30] MEDS: metoPROLOL SUCCINATE 25 MG TAB.SR.24H (FP) PO SCH ×2 (10:39→21:58)
[2021-12-30] MEDS: TAMSULOSIN HCL 0.4 MG CAP PO SCH (10:39)
[2021-12-30] MEDS: APIXABAN 5 MG TABLET PO SCH ×2 (10:39→21:58)
[2021-12-30] MEDS: LOSARTAN 50MG/HCTZ 12.5MG 1 TAB PO SCH (10:39)
[2021-12-30 12:31] LABS: N-TERMINAL BNP 109.7 pg/ml (5-125)
[2021-12-30] MEDS: FUROSEMIDE 40 MG/4 ML INJECTABLE VIAL IVPUSH SCH (13:55)
[2021-12-30] MEDS ORDERED: TIGECYCLINE 100 MG in DEXTROSE 5%-WATER - 100 ML IVPB ONE (15:15)
[2021-12-30] MEDS: ACETAMINOPHEN 325 MG TABLET (FP) PO PRN (21:58)
[2021-12-30] MEDS: ATORVASTATIN CA 80 MG TABLET (FP) PO SCH (21:58)
[2021-12-30] MEDS: MONTELUKAST NA 10 MG TABLET PO SCH (21:58)
[2021-12-31] MEDS: FUROSEMIDE 40 MG/4 ML INJECTABLE VIAL IVPUSH SCH ×2 (06:17→15:31)
[2021-12-31] MEDS: GABAPENTIN 100 MG CAPSULE PO SCH ×3 (06:17→21:47)
[2021-12-31 09:40] LABS: HEMATOCRIT 42.8 % (35.4-49); HEMOGLOBIN 14.8 GM/dL (11.7-16.9); MCH 32.7 pg (25.7-33.7); MCHC 34.6 g/dl (32.0-35.9); MEAN CELL VOLUME 94.5 fl (80-96); MEAN PLT VOLUME 9.6 fl (7.5-11.1); PLATELET COUNT 129 10^3/uL (134-434); RBC 4.53 M/mm3 (4.00-5.60); RDW 14.5 % (11.9-15.9); WHITE BLOOD COUNT 6.2 K/mm3 (4.0-10.0)
[2021-12-31 10:14] LABS: BLOOD UREA NITROGEN 21.4 mg/dL (7-18); MAGNESIUM 1.9 mg/dL (1.8-2.4)
[2021-12-31 10:15] LABS: CALCIUM 8.6 mg/dL (8.5-10.1); CREATININE 1.1 mg/dL (0.55-1.3)
[2021-12-31] MEDS: ACETAMINOPHEN 325 MG TABLET (FP) PO PRN ×2 (10:33→21:47)
[2021-12-31] MEDS: metoPROLOL SUCCINATE 25 MG TAB.SR.24H (FP) PO SCH ×2 (10:34→21:46)
[2021-12-31] MEDS: TIGECYCLINE 50 MG in DEXTROSE 5%-WATER - 100 ML IVPB SCH ×2 (10:34→21:48)
[2021-12-31] MEDS: TAMSULOSIN HCL 0.4 MG CAP PO SCH (10:34)
[2021-12-31] MEDS: APIXABAN 5 MG TABLET PO SCH ×2 (10:34→21:46)
[2021-12-31] MEDS: LOSARTAN 50MG/HCTZ 12.5MG 1 TAB PO SCH (10:39)
[2021-12-31] MEDS: SERTRALINE HCL 25 MG TABLET (FP) PO SCH (15:31)
[2021-12-31] MEDS: INSULIN SLIDING SCALE (NOVOLOG) 1 VIAL SQ SCH ×2 (17:08→21:48)
[2021-12-31] MEDS: ATORVASTATIN CA 80 MG TABLET (FP) PO SCH (21:46)
[2021-12-31] MEDS: MONTELUKAST NA 10 MG TABLET PO SCH (21:46)
[2022-01-01] MEDS: GABAPENTIN 100 MG CAPSULE PO SCH ×3 (06:20→21:51)
[2022-01-01] MEDS: INSULIN SLIDING SCALE (NOVOLOG) 1 VIAL SQ SCH ×4 (06:20→21:52)
[2022-01-01] MEDS: FUROSEMIDE 40 MG/4 ML INJECTABLE VIAL IVPUSH SCH ×2 (06:20→14:33)
[2022-01-01] MEDS: TIGECYCLINE 50 MG in DEXTROSE 5%-WATER - 100 ML IVPB SCH ×2 (10:38→21:53)
[2022-01-01] MEDS: TAMSULOSIN HCL 0.4 MG CAP PO SCH (10:38)
[2022-01-01] MEDS: LOSARTAN 50MG/HCTZ 12.5MG 1 TAB PO SCH (10:38)
[2022-01-01] MEDS: SERTRALINE HCL 25 MG TABLET (FP) PO SCH (10:38)
[2022-01-01] MEDS: metoPROLOL SUCCINATE 25 MG TAB.SR.24H (FP) PO SCH ×2 (10:38→22:06)
[2022-01-01] MEDS: APIXABAN 5 MG TABLET PO SCH ×2 (10:38→21:51)
[2022-01-01] MEDS: MONTELUKAST NA 10 MG TABLET PO SCH (21:51)
[2022-01-01] MEDS: ATORVASTATIN CA 80 MG TABLET (FP) PO SCH (21:51)
[2022-01-02] MEDS: GABAPENTIN 100 MG CAPSULE PO SCH ×3 (06:31→22:02)
[2022-01-02] MEDS: FUROSEMIDE 40 MG/4 ML INJECTABLE VIAL IVPUSH SCH ×2 (06:31→14:10)
[2022-01-02] MEDS: INSULIN SLIDING SCALE (NOVOLOG) 1 VIAL SQ SCH ×4 (06:54→22:07)
[2022-01-02] MEDS: APIXABAN 5 MG TABLET PO SCH ×2 (09:32→22:02)
[2022-01-02] MEDS: LOSARTAN 50MG/HCTZ 12.5MG 1 TAB PO SCH (09:32)
[2022-01-02] MEDS: TAMSULOSIN HCL 0.4 MG CAP PO SCH (09:32)
[2022-01-02] MEDS: SERTRALINE HCL 25 MG TABLET (FP) PO SCH (09:32)
[2022-01-02] MEDS: metoPROLOL SUCCINATE 25 MG TAB.SR.24H (FP) PO SCH ×2 (09:32→22:02)
[2022-01-02] MEDS: TIGECYCLINE 50 MG in DEXTROSE 5%-WATER - 100 ML IVPB SCH ×2 (09:32→22:02)
[2022-01-02] MEDS ORDERED: ONDANSETRON *ODT* 4 MG TABLET SL PRN (09:59)
[2022-01-02] MEDS ORDERED: ONDANSETRON *ODT* 4 MG TABLET SL ONE (10:00)
[2022-01-02] MEDS: ATORVASTATIN CA 80 MG TABLET (FP) PO SCH (22:02)
[2022-01-02] MEDS: MONTELUKAST NA 10 MG TABLET PO SCH (22:02)
[2022-01-03] MEDS: INSULIN SLIDING SCALE (NOVOLOG) 1 VIAL SQ SCH ×4 (05:59→21:31)
[2022-01-03] MEDS: GABAPENTIN 100 MG CAPSULE PO SCH ×3 (05:59→21:31)
[2022-01-03] MEDS: FUROSEMIDE 40 MG/4 ML INJECTABLE VIAL IVPUSH SCH ×2 (05:59→15:18)
[2022-01-03] MEDS: APIXABAN 5 MG TABLET PO SCH ×2 (09:35→21:31)
[2022-01-03] MEDS: SERTRALINE HCL 25 MG TABLET (FP) PO SCH (09:35)
[2022-01-03] MEDS: TAMSULOSIN HCL 0.4 MG CAP PO SCH (09:35)
[2022-01-03] MEDS: LOSARTAN POTASSIUM 50 MG TABLET PO SCH (09:35)
[2022-01-03] MEDS: metoPROLOL SUCCINATE 25 MG TAB.SR.24H (FP) PO SCH ×2 (09:35→21:31)
[2022-01-03] MEDS: TIGECYCLINE 50 MG in DEXTROSE 5%-WATER - 100 ML IVPB SCH ×2 (10:28→21:31)
[2022-01-03 10:46] LABS: HEMATOCRIT 42.3 % (35.4-49); HEMOGLOBIN 14.9 GM/dL (11.7-16.9); MCHC 35.2 g/dl (32.0-35.9); MEAN CELL VOLUME 93.9 fl (80-96); MEAN PLT VOLUME 8.2 fl (7.5-11.1); PLATELET COUNT 206 10^3/uL (134-434); RDW 14.2 % (11.9-15.9); WHITE BLOOD COUNT 5.3 K/mm3 (4.0-10.0)
[2022-01-03 11:09] LABS: ALBUMIN 2.8 g/dl (3.4-5.0); BLOOD UREA NITROGEN 31.7 mg/dL (7-18); CALCIUM 8.3 mg/dL (8.5-10.1)
[2022-01-03 11:12] LABS: CREATININE 1.2 mg/dL (0.55-1.3)
[2022-01-03 11:15] LABS: BILIRUBIN,TOTAL 1.1 mg/dL (0.2-1); TOT PROT 5.6 g/dl (6.4-8.2)
[2022-01-03] MEDS ORDERED: AZTREONAM 1 GM VIAL (RESTRICTED TO ID) ONE ×2 (11:58→16:50)
[2022-01-03] MEDS ORDERED: DEXTROSE 5%-WATER - 50 ML IVPB ONE ×2 (11:58→16:50)
[2022-01-03] MEDS: AZTREONAM 1 GM in DEXTROSE 5%-WATER - 50 ML IVPB SCH ×2 (12:30→17:05)
[2022-01-03] MEDS ORDERED: POTASSIUM CHLORIDE TABS 20 MEQ TABLET.ER (FP) PO ONE (13:36)
[2022-01-03] MEDS: ATORVASTATIN CA 80 MG TABLET (FP) PO SCH (21:31)
[2022-01-03] MEDS: MONTELUKAST NA 10 MG TABLET PO SCH (21:31)
[2022-01-04] MEDS ORDERED: DEXTROSE 5%-WATER - 50 ML IVPB ONE ×3 (00:38→17:26)
[2022-01-04] MEDS ORDERED: AZTREONAM 1 GM VIAL (RESTRICTED TO ID) ONE ×3 (00:38→17:26)
[2022-01-04] MEDS: AZTREONAM 1 GM in DEXTROSE 5%-WATER - 50 ML IVPB SCH ×3 (01:09→17:29)
[2022-01-04] MEDS: INSULIN SLIDING SCALE (NOVOLOG) 1 VIAL SQ SCH ×4 (06:07→21:24)
[2022-01-04] MEDS: sitaGLIPtin PHOSPHATE 50 MG TABLET PO SCH (06:07)
[2022-01-04] MEDS: GABAPENTIN 100 MG CAPSULE PO SCH ×3 (06:07→21:21)
[2022-01-04] MEDS: FUROSEMIDE 40 MG/4 ML INJECTABLE VIAL IVPUSH SCH ×2 (06:08→15:27)
[2022-01-04] MEDS: TAMSULOSIN HCL 0.4 MG CAP PO SCH (10:11)
[2022-01-04] MEDS: SERTRALINE HCL 25 MG TABLET (FP) PO SCH (10:11)
[2022-01-04] MEDS: APIXABAN 5 MG TABLET PO SCH ×2 (10:11→21:21)
[2022-01-04] MEDS: metoPROLOL SUCCINATE 25 MG TAB.SR.24H (FP) PO SCH ×2 (10:11→21:21)
[2022-01-04] MEDS: LOSARTAN POTASSIUM 50 MG TABLET PO SCH (10:11)
[2022-01-04] MEDS: TIGECYCLINE 50 MG in DEXTROSE 5%-WATER - 100 ML IVPB SCH ×2 (11:00→21:21)
[2022-01-04 14:22] VITALS: BMI 39.3
[2022-01-04] MEDS: ATORVASTATIN CA 80 MG TABLET (FP) PO SCH (21:21)
[2022-01-04] MEDS: MONTELUKAST NA 10 MG TABLET PO SCH (21:21)
[2022-01-04] MEDS ORDERED: INSULIN (NOVOLOG) ASPART 100 UNITS/ML 10ML VIAL ONE (21:24)
[2022-01-05] MEDS ORDERED: DEXTROSE 5%-WATER - 50 ML IVPB ONE ×3 (01:15→18:26)
[2022-01-05] MEDS ORDERED: AZTREONAM 1 GM VIAL (RESTRICTED TO ID) ONE ×3 (01:15→18:25)
[2022-01-05] MEDS: AZTREONAM 1 GM in DEXTROSE 5%-WATER - 50 ML IVPB SCH ×3 (01:33→18:37)
[2022-01-05] MEDS: INSULIN SLIDING SCALE (NOVOLOG) 1 VIAL SQ SCH ×4 (06:20→21:48)
[2022-01-05] MEDS: GABAPENTIN 100 MG CAPSULE PO SCH ×3 (06:20→21:30)
[2022-01-05] MEDS: FUROSEMIDE 40 MG/4 ML INJECTABLE VIAL IVPUSH SCH ×2 (06:20→14:14)
[2022-01-05] MEDS: sitaGLIPtin PHOSPHATE 50 MG TABLET PO SCH ×2 (06:20→18:37)
[2022-01-05 08:41] LABS: HEMATOCRIT 42.6 % (35.4-49); HEMOGLOBIN 14.5 GM/dL (11.7-16.9); MCH 32.2 pg (25.7-33.7); MCHC 34.1 g/dl (32.0-35.9); MEAN CELL VOLUME 94.3 fl (80-96); MEAN PLT VOLUME 8.1 fl (7.5-11.1); PLATELET COUNT 247 10^3/uL (134-434); RBC 4.51 M/mm3 (4.00-5.60); RDW 14.3 % (11.9-15.9); WHITE BLOOD COUNT 4.2 K/mm3 (4.0-10.0)
[2022-01-05 09:00] LABS: ALBUMIN 2.8 g/dl (3.4-5.0); CALCIUM 8.4 mg/dL (8.5-10.1)
[2022-01-05 09:04] LABS: CREATININE 0.9 mg/dL (0.55-1.3)
[2022-01-05 09:05] LABS: BILIRUBIN,TOTAL 0.9 mg/dL (0.2-1); TOT PROT 5.5 g/dl (6.4-8.2)
[2022-01-05] MEDS: metoPROLOL SUCCINATE 25 MG TAB.SR.24H (FP) PO SCH ×2 (10:50→21:30)
[2022-01-05] MEDS: TAMSULOSIN HCL 0.4 MG CAP PO SCH (10:50)
[2022-01-05] MEDS: MULTIVITAMINS (DAILY MVI) TABLET (FP) PO SCH (10:50)
[2022-01-05] MEDS: AMINO ACIDS/PROTEIN HYDROLYS 30 ML LIQUID.PKT PO SCH (10:50)
[2022-01-05] MEDS: APIXABAN 5 MG TABLET PO SCH ×2 (10:50→21:29)
[2022-01-05] MEDS: LOSARTAN POTASSIUM 50 MG TABLET PO SCH (10:50)
[2022-01-05] MEDS: SERTRALINE HCL 25 MG TABLET (FP) PO SCH (10:50)
[2022-01-05] MEDS ORDERED: INSULIN (NOVOLOG) ASPART 100 UNITS/ML 10ML VIAL ONE (11:25)
[2022-01-05] MEDS: TIGECYCLINE 50 MG in DEXTROSE 5%-WATER - 100 ML IVPB SCH ×2 (11:34→21:30)
[2022-01-05] MEDS: ATORVASTATIN CA 80 MG TABLET (FP) PO SCH (21:29)
[2022-01-05] MEDS: MONTELUKAST NA 10 MG TABLET PO SCH (21:29)
[2022-01-06] MEDS ORDERED: DEXTROSE 5%-WATER - 50 ML IVPB ONE ×2 (00:21→09:35)
[2022-01-06] MEDS ORDERED: AZTREONAM 1 GM VIAL (RESTRICTED TO ID) ONE ×2 (00:21→09:35)
[2022-01-06] MEDS: AZTREONAM 1 GM in DEXTROSE 5%-WATER - 50 ML IVPB SCH ×2 (00:58→09:41)
[2022-01-06] MEDS: sitaGLIPtin PHOSPHATE 50 MG TABLET PO SCH ×2 (06:23→16:26)
[2022-01-06] MEDS: GABAPENTIN 100 MG CAPSULE PO SCH ×2 (06:23→13:36)
[2022-01-06] MEDS: INSULIN SLIDING SCALE (NOVOLOG) 1 VIAL SQ SCH ×3 (06:25→16:25)
[2022-01-06] MEDS: FUROSEMIDE 40 MG/4 ML INJECTABLE VIAL IVPUSH SCH (06:51)
[2022-01-06 07:47] VITALS: TEMP 97.3
[2022-01-06] MEDS: TAMSULOSIN HCL 0.4 MG CAP PO SCH (08:03)
[2022-01-06] MEDS: AMINO ACIDS/PROTEIN HYDROLYS 30 ML LIQUID.PKT PO SCH (08:03)
[2022-01-06] MEDS: APIXABAN 5 MG TABLET PO SCH (09:40)
[2022-01-06] MEDS: metoPROLOL SUCCINATE 25 MG TAB.SR.24H (FP) PO SCH (09:40)
[2022-01-06] MEDS: MULTIVITAMINS (DAILY MVI) TABLET (FP) PO SCH (09:40)
[2022-01-06] MEDS: LOSARTAN POTASSIUM 50 MG TABLET PO SCH (09:40)
[2022-01-06] MEDS: SERTRALINE HCL 25 MG TABLET (FP) PO SCH (09:40)
[2022-01-06] MEDS: TIGECYCLINE 50 MG in DEXTROSE 5%-WATER - 100 ML IVPB SCH (10:19)
[2022-01-06 13:37] VITALS: BP 115/73; PULSE 67
[2022-01-06] MEDS ORDERED: FUROSEMIDE 40 MG TABLET (FP) PO SCH (14:00)
== END 2022-01-06 16:36 | disposition home or self-care (01) | DRG 603 ==
LOC: JER 19:09 → JERBED 12-29 00:02 → J8W 12-29 03:38
PROVIDERS: ADMIT Internal Medicine; ATTEND Family Medicine
DX: L03.115 Cellulitis of right lower limb (principal); C90.00 Multiple myeloma not having achieved remission; Z68.41 Body mass index [BMI] 40.0-44.9, adult; I25.10 Atherosclerotic heart disease of native coronary artery without angina pectoris; I48.91 Unspecified atrial fibrillation; N40.0 Benign prostatic hyperplasia without lower urinary tract symptoms; E11.9 Type 2 diabetes mellitus without complications; I10 Essential (primary) hypertension; D64.9 Anemia, unspecified; I48.0 Paroxysmal atrial fibrillation; I87.8 Other specified disorders of veins; R41.82 Altered mental status, unspecified; K76.0 Fatty (change of) liver, not elsewhere classified; E78.5 Hyperlipidemia, unspecified; M48.00 Spinal stenosis, site unspecified; D69.6 Thrombocytopenia, unspecified; R29.898 Other symptoms and signs involving the musculoskeletal system; D72.829 Elevated white blood cell count, unspecified; E66.01 Morbid (severe) obesity due to excess calories; E87.6 Hypokalemia; Z79.01 Long term (current) use of anticoagulants; Z85.46 Personal history of malignant neoplasm of prostate; Z86.73 Personal history of transient ischemic attack (TIA), and cerebral infarction without residual deficits; Z88.1 Allergy status to other antibiotic agents
CPT/HCPCS: 36415; 70450-TC; 74176-TC; 80048; 80053; 81003; 82140; 82607; 82746; 82962; 83036; 83605; 83735; 83880; 84443; 85025; 85027; 85610; 85651; 85730; 86140; 86850; 86900; 86901; 87040; 87086; 87186; 93005; 93010; 93971-TC; 97116-GP; 97161-GP; 99285-25; C9803-CS; J3243; Q0162; U0003; U0005

== ENCOUNTER 2022-01-13 07:53 | Day surgery (SDC) | payer OTHER, MEDICARE ==
[2022-01-13] MEDS ORDERED: DEXAMETHASONE 4 MG TABLET (FP) PO ONE (11:00)
[2022-01-13] MEDS ORDERED: GRANISETRON HCL 1 MG TABLET PO ONE (11:00)
[2022-01-13] MEDS ORDERED: BORTEZOMIB (VELCADE) 2.5 MG/ML SUB-Q INJECTION SQ ONE (11:00)
[2022-01-13 12:10] LABS: BASO % 0.7 % (0-2.0); EOS % 2.4 % (0-4.5); HEMATOCRIT 41.9 % (35.4-49); HEMOGLOBIN 14.5 GM/dL (11.7-16.9); LYMPH % 12.4 % (8-40); MCH 32.3 pg (25.7-33.7); MCHC 34.6 g/dl (32.0-35.9); MEAN CELL VOLUME 93.2 fl (80-96); MEAN PLT VOLUME 8.4 fl (7.5-11.1); MONO % 15.8 % (3.8-10.2); NEUT % 68.7 % (42.8-82.8); PLATELET COUNT 190 10^3/uL (134-434); WHITE BLOOD COUNT 4.4 K/mm3 (4.0-10.0)
[2022-01-13 12:32] LABS: CHLORIDE 100 mmol/L (98-107); SODIUM 138 mmol/L (136-145)
[2022-01-13 12:34] LABS: ALBUMIN 3.1 g/dl (3.4-5.0); CALCIUM 8.8 mg/dL (8.5-10.1); CO2 29 mmol/L (21-32); GLUCOSE,RANDOM 177 mg/dL (74-106)
[2022-01-13 12:37] LABS: CREATININE 1.2 mg/dL (0.55-1.3); SGOT/AST 32 U/L (15-37); SGPT/ALT 31 U/L (13-61)
[2022-01-13 12:39] LABS: BILIRUBIN,TOTAL 0.5 mg/dL (0.2-1); TOT PROT 5.9 g/dl (6.4-8.2)
[2022-01-13 12:40] LABS: ALK PHOS 122 U/L (45-117)
[2022-01-13 12:45] LABS: ANION GAP 8 MMOL/L (8-16)
[2022-01-13] MEDS ORDERED: POTASSIUM CHLORIDE ORAL LIQUID 20 MEQ/15 ML PO ONE (13:23)
[2022-01-13 15:56] VITALS: BP 96/57; PULSE 107; TEMP 98.4
[2022-01-13] MEDS ORDERED: POTASSIUM CHLORIDE TABS 20 MEQ TABLET.ER (FP) PO ONE (17:30)
== END 2022-01-13 13:40 | disposition home or self-care (01) ==
LOC: JONCCHEMO 07:53
PROVIDERS: ATTEND Internal Medicine Hematology & Oncology
DX: Z51.11 Encounter for antineoplastic chemotherapy (principal); C90.00 Multiple myeloma not having achieved remission
CPT/HCPCS: 36415; 80053; 85025; 96401; J9041

== ENCOUNTER 2022-01-20 08:46 | Day surgery (SDC) | payer OTHER, MEDICARE ==
[2022-01-20] MEDS ORDERED: GRANISETRON HCL 1 MG TABLET PO ONE (10:00)
[2022-01-20] MEDS ORDERED: BORTEZOMIB (VELCADE) 2.5 MG/ML SUB-Q INJECTION SQ ONE (10:00)
[2022-01-20] MEDS ORDERED: DEXAMETHASONE 4 MG TABLET (FP) PO ONE (10:00)
[2022-01-20 12:27] LABS: BASO % 0.3 % (0-2.0); EOS % 3.3 % (0-4.5); HEMATOCRIT 40.8 % (35.4-49); HEMOGLOBIN 13.9 GM/dL (11.7-16.9); LYMPH % 5.9 % (8-40); MCHC 34.1 g/dl (32.0-35.9); MEAN CELL VOLUME 93.6 fl (80-96); MEAN PLT VOLUME 9.9 fl (7.5-11.1); MONO % 15.3 % (3.8-10.2); NEUT % 75.2 % (42.8-82.8); PLATELET COUNT 137 10^3/uL (134-434); RBC 4.36 M/mm3 (4.00-5.60); RDW 14.2 % (11.9-15.9); WHITE BLOOD COUNT 6.5 K/mm3 (4.0-10.0)
[2022-01-20 12:43] LABS: ALBUMIN 2.5 g/dl (3.4-5.0); BLOOD UREA NITROGEN 16.4 mg/dL (7-18); CALCIUM 8.4 mg/dL (8.5-10.1)
[2022-01-20 12:46] VITALS: BP 120/76; PULSE 75; TEMP 98.5
[2022-01-20 12:47] LABS: BILIRUBIN,TOTAL 0.8 mg/dL (0.2-1); TOT PROT 5.6 g/dl (6.4-8.2)
== END 2022-01-20 13:40 | disposition home or self-care (01) ==
LOC: JONCCHEMO 08:46
PROVIDERS: ATTEND Internal Medicine Hematology & Oncology
DX: Z51.11 Encounter for antineoplastic chemotherapy (principal); C90.00 Multiple myeloma not having achieved remission
CPT/HCPCS: 36415; 80053; 85025; 96401; J9041

== ENCOUNTER 2022-01-27 07:42 | Day surgery (SDC) | payer OTHER, MEDICARE ==
[2022-01-27] MEDS ORDERED: BORTEZOMIB (VELCADE) 2.5 MG/ML SUB-Q INJECTION SQ ONE (10:00)
[2022-01-27] MEDS ORDERED: DEXAMETHASONE 4 MG TABLET (FP) PO ONE (10:00)
[2022-01-27] MEDS ORDERED: GRANISETRON HCL 1 MG TABLET PO ONE (10:00)
[2022-01-27 16:37] VITALS: BP 141/86; PULSE 65; TEMP 97.7
== END 2022-01-27 10:00 | disposition home or self-care (01) ==
LOC: JONCCHEMO 07:42
PROVIDERS: ATTEND Internal Medicine Hematology & Oncology
DX: Z51.11 Encounter for antineoplastic chemotherapy (principal); C90.00 Multiple myeloma not having achieved remission
CPT/HCPCS: 96401; J9041

== ENCOUNTER 2022-02-10 07:27 | Day surgery (SDC) | payer OTHER, MEDICARE ==
[~2022-02-10 07:27] MED LIST: BORTEZOMIB (VELCADE) 2.5 MG/ML SUB-Q INJECTION SQ ONE; DEXAMETHASONE 4 MG TABLET (FP) PO ONE; GRANISETRON HCL 1 MG TABLET PO ONE
[2022-02-10] MEDS ORDERED: DEXAMETHASONE 4 MG TABLET (FP) PO ONE (09:30)
[2022-02-10] MEDS ORDERED: BORTEZOMIB (VELCADE) 2.5 MG/ML SUB-Q INJECTION SQ ONE (10:00)
[2022-02-10] MEDS ORDERED: GRANISETRON HCL 1 MG TABLET PO ONE (10:00)
[2022-02-10 10:50] LABS: BASO % 0.6 % (0-2.0); EOS % 4.3 % (0-4.5); HEMATOCRIT 40.1 % (35.4-49); HEMOGLOBIN 13.5 GM/dL (11.7-16.9); LYMPH % 10.6 % (8-40); MCH 31.5 pg (25.7-33.7); MCHC 33.6 g/dl (32.0-35.9); MEAN CELL VOLUME 93.8 fl (80-96); MEAN PLT VOLUME 7.8 fl (7.5-11.1); NEUT % 70.5 % (42.8-82.8); PLATELET COUNT 157 10^3/uL (134-434); RBC 4.28 M/mm3 (4.00-5.60); RDW 14.5 % (11.9-15.9); WHITE BLOOD COUNT 4.3 K/mm3 (4.0-10.0)
[2022-02-10 11:38] LABS: BILIRUBIN,TOTAL 0.8 mg/dL (0.2-1); BLOOD UREA NITROGEN 17.7 mg/dL (7-18); CALCIUM 8.5 mg/dL (8.5-10.1); CREATININE 1.1 mg/dL (0.55-1.3); TOT PROT 5.6 g/dl (6.4-8.2)
[2022-02-10 17:28] VITALS: BP 119/68; PULSE 71; TEMP 97.6
== END 2022-02-10 13:00 | disposition home or self-care (01) ==
LOC: JONCCHEMO 07:27
PROVIDERS: ATTEND Internal Medicine Hematology & Oncology
DX: Z51.11 Encounter for antineoplastic chemotherapy (principal); C90.00 Multiple myeloma not having achieved remission
CPT/HCPCS: 36415; 80053; 85025; 96401; J9041

== ENCOUNTER 2022-02-17 07:14 | Day surgery (SDC) | payer OTHER, MEDICARE ==
[2022-02-17 08:45] LABS: HEMATOCRIT 40.9 % (35.4-49); HEMOGLOBIN 13.8 GM/dL (11.7-16.9); MCHC 33.8 g/dl (32.0-35.9); MEAN CELL VOLUME 94.7 fl (80-96); MEAN PLT VOLUME 8.6 fl (7.5-11.1); PLATELET COUNT 129 10^3/uL (134-434); RBC 4.31 M/mm3 (4.00-5.60); WHITE BLOOD COUNT 5.6 K/mm3 (4.0-10.0)
[2022-02-17 09:21] LABS: BLOOD UREA NITROGEN 18.1 mg/dL (7-18)
[2022-02-17 09:25] LABS: ALBUMIN 3.2 g/dl (3.4-5.0); BILIRUBIN,TOTAL 0.7 mg/dL (0.2-1); CALCIUM 8.6 mg/dL (8.5-10.1); TOT PROT 5.5 g/dl (6.4-8.2)
[2022-02-17 09:56] LABS: ANISOCYTOSIS 0; HELMET CELLS 0; HOWELL-JOLLY BODIES 0; MACROCYTOSIS 0; OVALOCYTE 0; ROULEAU 0; SICKELED CELLS 0; TARGET CELLS 0; TEAR DROP CELLS 0; TOXIC GRANULATION 0
[2022-02-17] MEDS ORDERED: DEXAMETHASONE 4 MG TABLET (FP) PO ONE (10:15)
[2022-02-17] MEDS ORDERED: GRANISETRON HCL 1 MG TABLET PO ONE (10:15)
[2022-02-17] MEDS ORDERED: BORTEZOMIB (VELCADE) 2.5 MG/ML SUB-Q INJECTION SQ ONE (10:30)
[2022-02-17 15:57] VITALS: BP 108/75; PULSE 66; TEMP 98.4
== END 2022-02-17 11:15 | disposition home or self-care (01) ==
LOC: JONCCHEMO 07:14
PROVIDERS: ATTEND Internal Medicine Hematology & Oncology
PROC: 3E033GC Introduction of Other Therapeutic Substance into Peripheral Vein, Percutaneous Approach (ICD-10-PCS; principal; 2022-02-17)
DX: Z51.11 Encounter for antineoplastic chemotherapy (principal); C90.00 Multiple myeloma not having achieved remission
CPT/HCPCS: 36415; 80053; 85025; 96401; J9041

== ENCOUNTER 2022-02-24 06:47 | Day surgery (SDC) | payer OTHER, MEDICARE ==
[2022-02-24] MEDS ORDERED: DEXAMETHASONE 4 MG TABLET (FP) PO ONE (10:00)
[2022-02-24] MEDS ORDERED: GRANISETRON HCL 1 MG TABLET PO ONE (10:00)
[2022-02-24] MEDS ORDERED: BORTEZOMIB (VELCADE) 2.5 MG/ML SUB-Q INJECTION SQ ONE (10:00)
[2022-02-24 10:23] LABS: BASO % 0.6 % (0-2.0); EOS % 0.9 % (0-4.5); HEMATOCRIT 42.1 % (35.4-49); HEMOGLOBIN 14.4 GM/dL (11.7-16.9); LYMPH % 5.8 % (8-40); MCHC 34.1 g/dl (32.0-35.9); MEAN CELL VOLUME 93.9 fl (80-96); MEAN PLT VOLUME 9.3 fl (7.5-11.1); MONO % 11.6 % (3.8-10.2); NEUT % 81.1 % (42.8-82.8); PLATELET COUNT 109 10^3/uL (134-434); RBC 4.48 M/mm3 (4.00-5.60); RDW 14.7 % (11.9-15.9); WHITE BLOOD COUNT 7.2 K/mm3 (4.0-10.0)
[2022-02-24 10:47] LABS: ALBUMIN 3.2 g/dl (3.4-5.0); CALCIUM 8.9 mg/dL (8.5-10.1)
[2022-02-24 10:48] LABS: BLOOD UREA NITROGEN 18.4 mg/dL (7-18)
[2022-02-24 10:52] LABS: TOT PROT 5.7 g/dl (6.4-8.2)
[2022-02-24 10:53] LABS: BILIRUBIN,TOTAL 0.9 mg/dL (0.2-1)
[2022-02-24 11:50] VITALS: BP 131/78; PULSE 65; TEMP 98.1
[2022-02-25 18:10] LABS: FREE KAPPA,SERUM 161.7 mg/L (3.3-19.4)
== END 2022-02-24 13:00 | disposition home or self-care (01) ==
LOC: JONCCHEMO 06:47
PROVIDERS: ATTEND Internal Medicine Hematology & Oncology
DX: Z51.11 Encounter for antineoplastic chemotherapy (principal); C90.00 Multiple myeloma not having achieved remission
CPT/HCPCS: 36415; 80053; 82784; 83883; 84155; 84165; 85025; 86704; 86708; 86803; 87517; 96401; J9041

== ENCOUNTER 2022-03-10 07:16 | Day surgery (SDC) | payer OTHER, MEDICARE ==
[2022-03-10] MEDS ORDERED: DEXAMETHASONE 4 MG TABLET (FP) PO ONE (10:00)
[2022-03-10] MEDS ORDERED: BORTEZOMIB (VELCADE) 2.5 MG/ML SUB-Q INJECTION SQ ONE (10:00)
[2022-03-10] MEDS ORDERED: GRANISETRON HCL 1 MG TABLET PO ONE (10:00)
[2022-03-10 10:51] LABS: BASO % 0.5 % (0-2.0); EOS % 3.5 % (0-4.5); HEMATOCRIT 40.1 % (35.4-49); HEMOGLOBIN 13.6 GM/dL (11.7-16.9); LYMPH % 14.6 % (8-40); MCH 31.5 pg (25.7-33.7); MCHC 33.8 g/dl (32.0-35.9); MEAN CELL VOLUME 93.4 fl (80-96); MEAN PLT VOLUME 7.9 fl (7.5-11.1); MONO % 11.5 % (3.8-10.2); NEUT % 69.9 % (42.8-82.8); PLATELET COUNT 126 10^3/uL (134-434); RDW 14.7 % (11.9-15.9); WHITE BLOOD COUNT 3.5 K/mm3 (4.0-10.0)
[2022-03-10 11:24] LABS: CALCIUM 8.7 mg/dL (8.5-10.1)
[2022-03-10 11:25] LABS: ALBUMIN 3.2 g/dl (3.4-5.0); BLOOD UREA NITROGEN 21.3 mg/dL (7-18)
[2022-03-10 11:29] LABS: BILIRUBIN,TOTAL 0.5 mg/dL (0.2-1)
[2022-03-10 11:30] LABS: TOT PROT 5.6 g/dl (6.4-8.2)
[2022-03-10 17:37] VITALS: BP 107/71; PULSE 60; TEMP 98.3
== END 2022-03-10 12:45 | disposition home or self-care (01) ==
LOC: JONCCHEMO 07:16
PROVIDERS: ATTEND Internal Medicine Hematology & Oncology
DX: Z51.11 Encounter for antineoplastic chemotherapy (principal); C90.00 Multiple myeloma not having achieved remission
CPT/HCPCS: 36415; 80053; 85025; 96401; J9041

== ENCOUNTER 2022-03-17 08:19 | Day surgery (SDC) | payer OTHER, MEDICARE ==
[2022-03-17] MEDS ORDERED: GRANISETRON HCL 1 MG TABLET PO ONE (10:00)
[2022-03-17] MEDS ORDERED: DEXAMETHASONE 4 MG TABLET (FP) PO ONE (10:00)
[2022-03-17] MEDS ORDERED: BORTEZOMIB (VELCADE) 2.5 MG/ML SUB-Q INJECTION SQ ONE (10:00)
[2022-03-17 11:42] LABS: HEMATOCRIT 41.1 % (35.4-49); HEMOGLOBIN 14.2 GM/dL (11.7-16.9); MCH 32.1 pg (25.7-33.7); MCHC 34.5 g/dl (32.0-35.9); MEAN CELL VOLUME 93.3 fl (80-96); MEAN PLT VOLUME 9.2 fl (7.5-11.1); PLATELET COUNT 121 10^3/uL (134-434); RDW 14.7 % (11.9-15.9); WHITE BLOOD COUNT 4.5 K/mm3 (4.0-10.0)
[2022-03-17 12:05] LABS: CALCIUM 8.7 mg/dL (8.5-10.1)
[2022-03-17 12:06] LABS: ALBUMIN 3.3 g/dl (3.4-5.0); BLOOD UREA NITROGEN 20.5 mg/dL (7-18)
[2022-03-17 12:10] LABS: BILIRUBIN,TOTAL 0.7 mg/dL (0.2-1)
[2022-03-17 12:11] LABS: TOT PROT 5.8 g/dl (6.4-8.2)
[2022-03-17 12:18] VITALS: BP 136/89; PULSE 68; TEMP 98.2
== END 2022-03-17 13:50 | disposition home or self-care (01) ==
LOC: JONCCHEMO 08:19
PROVIDERS: ATTEND Internal Medicine Hematology & Oncology
DX: Z51.11 Encounter for antineoplastic chemotherapy (principal); C90.00 Multiple myeloma not having achieved remission
CPT/HCPCS: 36415; 80053; 85025; 96401; J9041

== ENCOUNTER 2022-03-24 08:22 | Day surgery (SDC) | payer OTHER, MEDICARE ==
[2022-03-24] MEDS ORDERED: GRANISETRON HCL 1 MG TABLET PO ONE (10:00)
[2022-03-24] MEDS ORDERED: BORTEZOMIB (VELCADE) 2.5 MG/ML SUB-Q INJECTION SQ ONE (10:00)
[2022-03-24] MEDS ORDERED: DEXAMETHASONE 4 MG TABLET (FP) PO ONE (10:00)
[2022-03-24 12:19] LABS: BASO % 0.4 % (0-2.0); EOS % 2.3 % (0-4.5); HEMATOCRIT 42.3 % (35.4-49); HEMOGLOBIN 14.1 GM/dL (11.7-16.9); LYMPH % 12.9 % (8-40); MCH 31.2 pg (25.7-33.7); MCHC 33.3 g/dl (32.0-35.9); MEAN CELL VOLUME 93.6 fl (80-96); MEAN PLT VOLUME 9.4 fl (7.5-11.1); MONO % 17.3 % (3.8-10.2); NEUT % 67.1 % (42.8-82.8); PLATELET COUNT 114 10^3/uL (134-434); RBC 4.52 M/mm3 (4.00-5.60); RDW 14.5 % (11.9-15.9)
[2022-03-24 12:42] LABS: CALCIUM 8.9 mg/dL (8.5-10.1)
[2022-03-24 12:43] LABS: ALBUMIN 3.2 g/dl (3.4-5.0); BLOOD UREA NITROGEN 18.7 mg/dL (7-18)
[2022-03-24 12:48] LABS: BILIRUBIN,TOTAL 0.7 mg/dL (0.2-1); TOT PROT 5.7 g/dl (6.4-8.2)
[2022-03-24 18:15] VITALS: BP 139/70; PULSE 57; TEMP 98.1
== END 2022-03-24 13:30 | disposition home or self-care (01) ==
LOC: JONCCHEMO 08:22
PROVIDERS: ATTEND Internal Medicine Hematology & Oncology
DX: Z51.11 Encounter for antineoplastic chemotherapy (principal); C90.00 Multiple myeloma not having achieved remission
CPT/HCPCS: 36415; 80053; 85025; 96401; J9041

== ENCOUNTER 2022-04-07 07:40 | Day surgery (SDC) | payer OTHER, MEDICARE ==
[2022-04-07] MEDS ORDERED: BORTEZOMIB (VELCADE) 2.5 MG/ML SUB-Q INJECTION SQ ONE (10:00)
[2022-04-07] MEDS ORDERED: DEXAMETHASONE 4 MG TABLET (FP) PO ONE (10:00)
[2022-04-07] MEDS ORDERED: GRANISETRON HCL 1 MG TABLET PO ONE (10:00)
[2022-04-07 10:58] VITALS: BP 144/81; PULSE 67; TEMP 98.3
[2022-04-07 11:17] LABS: BASO % 0.5 % (0-2.0); EOS % 3.1 % (0-4.5); HEMATOCRIT 40.5 % (35.4-49); HEMOGLOBIN 13.9 GM/dL (11.7-16.9); LYMPH % 15.3 % (8-40); MCH 31.8 pg (25.7-33.7); MCHC 34.2 g/dl (32.0-35.9); MEAN CELL VOLUME 92.8 fl (80-96); MEAN PLT VOLUME 8.6 fl (7.5-11.1); NEUT % 64.1 % (42.8-82.8); PLATELET COUNT 131 10^3/uL (134-434); RBC 4.37 M/mm3 (4.00-5.60); RDW 14.3 % (11.9-15.9); WHITE BLOOD COUNT 4.3 K/mm3 (4.0-10.0)
[2022-04-07 11:25] LABS: CALCIUM 8.7 mg/dL (8.5-10.1)
[2022-04-07 11:26] LABS: ALBUMIN 3.3 g/dl (3.4-5.0); BLOOD UREA NITROGEN 13.2 mg/dL (7-18)
[2022-04-07 11:29] LABS: CREATININE 0.9 mg/dL (0.55-1.3)
[2022-04-07 11:30] LABS: TOT PROT 5.6 g/dl (6.4-8.2)
[2022-04-07 11:31] LABS: BILIRUBIN,TOTAL 0.7 mg/dL (0.2-1)
[2022-04-08 18:08] LABS: FREE KAPPA,SERUM 177.2 mg/L (3.3-19.4)
== END 2022-04-07 12:30 | disposition home or self-care (01) ==
LOC: JONCCHEMO 07:40
PROVIDERS: ATTEND Internal Medicine Hematology & Oncology
DX: Z51.11 Encounter for antineoplastic chemotherapy (principal); C90.00 Multiple myeloma not having achieved remission
CPT/HCPCS: 36415; 80053; 83883; 85025; 96401; J9041

== ENCOUNTER 2022-04-14 06:43 | Day surgery (SDC) | payer OTHER, MEDICARE ==
[2022-04-14 09:51] LABS: BASO % 0.3 % (0-2.0); EOS % 3.5 % (0-4.5); HEMATOCRIT 41.9 % (35.4-49); HEMOGLOBIN 14.2 GM/dL (11.7-16.9); LYMPH % 14.3 % (8-40); MCH 31.4 pg (25.7-33.7); MEAN CELL VOLUME 92.4 fl (80-96); MEAN PLT VOLUME 9.1 fl (7.5-11.1); MONO % 18.1 % (3.8-10.2); NEUT % 63.8 % (42.8-82.8); PLATELET COUNT 140 10^3/uL (134-434); RBC 4.53 M/mm3 (4.00-5.60); RDW 14.2 % (11.9-15.9); WHITE BLOOD COUNT 5.1 K/mm3 (4.0-10.0)
[2022-04-14] MEDS ORDERED: BORTEZOMIB (VELCADE) 2.5 MG/ML SUB-Q INJECTION SQ ONE (10:00)
[2022-04-14] MEDS ORDERED: DEXAMETHASONE 4 MG TABLET (FP) PO ONE (10:00)
[2022-04-14] MEDS ORDERED: GRANISETRON HCL 1 MG TABLET PO ONE (10:00)
[2022-04-14 10:04] LABS: ALBUMIN 3.4 g/dl (3.4-5.0); CALCIUM 8.6 mg/dL (8.5-10.1)
[2022-04-14 10:05] LABS: BLOOD UREA NITROGEN 16.8 mg/dL (7-18)
[2022-04-14 10:09] LABS: BILIRUBIN,TOTAL 0.8 mg/dL (0.2-1); TOT PROT 5.8 g/dl (6.4-8.2)
[2022-04-14 18:11] VITALS: BP 142/78; PULSE 60; TEMP 98.1
== END 2022-04-14 12:00 | disposition home or self-care (01) ==
LOC: JONCCHEMO 06:43
PROVIDERS: ATTEND Internal Medicine Hematology & Oncology
DX: Z51.11 Encounter for antineoplastic chemotherapy (principal); C90.00 Multiple myeloma not having achieved remission
CPT/HCPCS: 36415; 80053; 85025; 96401; J9041

== ENCOUNTER 2022-04-21 07:27 | Day surgery (SDC) | payer OTHER, MEDICARE ==
[2022-04-21] MEDS ORDERED: GRANISETRON HCL 1 MG TABLET PO ONE (09:30)
[2022-04-21] MEDS ORDERED: DEXAMETHASONE 4 MG TABLET (FP) PO ONE (09:30)
[2022-04-21] MEDS ORDERED: BORTEZOMIB (VELCADE) 2.5 MG/ML SUB-Q INJECTION SQ ONE (10:00)
[2022-04-21 10:01] LABS: BASO % 0.2 % (0-2.0); EOS % 2.3 % (0-4.5); HEMATOCRIT 42.6 % (35.4-49); HEMOGLOBIN 14.5 GM/dL (11.7-16.9); LYMPH % 10.9 % (8-40); MCH 31.5 pg (25.7-33.7); MEAN CELL VOLUME 92.6 fl (80-96); MEAN PLT VOLUME 9.4 fl (7.5-11.1); MONO % 14.3 % (3.8-10.2); NEUT % 72.3 % (42.8-82.8); PLATELET COUNT 124 10^3/uL (134-434); RBC 4.61 M/mm3 (4.00-5.60); RDW 13.9 % (11.9-15.9); WHITE BLOOD COUNT 6.4 K/mm3 (4.0-10.0)
[2022-04-21 10:35] LABS: ALBUMIN 3.3 g/dl (3.4-5.0); BLOOD UREA NITROGEN 17.8 mg/dL (7-18); CALCIUM 8.7 mg/dL (8.5-10.1)
[2022-04-21 10:40] LABS: BILIRUBIN,TOTAL 0.8 mg/dL (0.2-1); TOT PROT 5.7 g/dl (6.4-8.2)
[2022-04-21 15:25] VITALS: BP 140/75; PULSE 58; TEMP 98
== END 2022-04-21 11:40 | disposition home or self-care (01) ==
LOC: JONCCHEMO 07:27
PROVIDERS: ATTEND Internal Medicine Hematology & Oncology
DX: Z51.11 Encounter for antineoplastic chemotherapy (principal); C90.00 Multiple myeloma not having achieved remission
CPT/HCPCS: 36415; 80053; 85025; 96401; J9041

== ENCOUNTER 2022-05-05 07:23 | Day surgery (SDC) | payer OTHER, MEDICARE ==
[2022-05-05] MEDS ORDERED: GRANISETRON HCL 1 MG TABLET PO ONE (10:00)
[2022-05-05] MEDS ORDERED: BORTEZOMIB (VELCADE) 2.5 MG/ML SUB-Q INJECTION SQ ONE (10:00)
[2022-05-05] MEDS ORDERED: DEXAMETHASONE 4 MG TABLET (FP) PO ONE (10:00)
[2022-05-05 11:24] LABS: BASO % 0.4 % (0-2.0); EOS % 3.4 % (0-4.5); HEMATOCRIT 42.3 % (35.4-49); HEMOGLOBIN 14.3 GM/dL (11.7-16.9); LYMPH % 14.1 % (8-40); MCH 31.1 pg (25.7-33.7); MCHC 33.8 g/dl (32.0-35.9); MEAN CELL VOLUME 92.2 fl (80-96); MEAN PLT VOLUME 8.8 fl (7.5-11.1); MONO % 16.5 % (3.8-10.2); NEUT % 65.6 % (42.8-82.8); PLATELET COUNT 135 10^3/uL (134-434); RBC 4.58 M/mm3 (4.00-5.60); WHITE BLOOD COUNT 5.4 K/mm3 (4.0-10.0)
[2022-05-05 11:45] LABS: CALCIUM 8.8 mg/dL (8.5-10.1)
[2022-05-05 11:46] LABS: ALBUMIN 3.3 g/dl (3.4-5.0); BLOOD UREA NITROGEN 20.2 mg/dL (7-18)
[2022-05-05 11:49] LABS: CREATININE 0.9 mg/dL (0.55-1.3)
[2022-05-05 11:51] LABS: BILIRUBIN,TOTAL 0.6 mg/dL (0.2-1); TOT PROT 5.8 g/dl (6.4-8.2)
[2022-05-05 16:49] VITALS: BP 125/77; PULSE 58; TEMP 98.1
== END 2022-05-05 12:45 | disposition home or self-care (01) ==
LOC: JONCCHEMO 07:23
PROVIDERS: ATTEND Internal Medicine Hematology & Oncology
DX: Z51.11 Encounter for antineoplastic chemotherapy (principal); C90.00 Multiple myeloma not having achieved remission
CPT/HCPCS: 36415; 80053; 85025; 96401; J9041

== ENCOUNTER 2022-05-12 06:57 | Day surgery (SDC) | payer OTHER, MEDICARE ==
[2022-05-12 09:24] LABS: BASO % 0.2 % (0-2.0); EOS % 3.3 % (0-4.5); HEMOGLOBIN 14.5 GM/dL (11.7-16.9); LYMPH % 11.5 % (8-40); MCHC 33.7 g/dl (32.0-35.9); MEAN PLT VOLUME 9.3 fl (7.5-11.1); MONO % 19.5 % (3.8-10.2); NEUT % 65.5 % (42.8-82.8); PLATELET COUNT 123 10^3/uL (134-434); RBC 4.68 M/mm3 (4.00-5.60); RDW 14.3 % (11.9-15.9); WHITE BLOOD COUNT 4.9 K/mm3 (4.0-10.0)
[2022-05-12 09:53] LABS: ALBUMIN 3.3 g/dl (3.4-5.0); BLOOD UREA NITROGEN 16.2 mg/dL (7-18); CALCIUM 8.6 mg/dL (8.5-10.1)
[2022-05-12 09:58] LABS: TOT PROT 5.8 g/dl (6.4-8.2)
[2022-05-12] MEDS ORDERED: GRANISETRON HCL 1 MG TABLET PO ONE (10:00)
[2022-05-12] MEDS ORDERED: DEXAMETHASONE 4 MG TABLET (FP) PO ONE (10:00)
[2022-05-12] MEDS ORDERED: BORTEZOMIB (VELCADE) 2.5 MG/ML SUB-Q INJECTION SQ ONE (10:00)
[2022-05-12 10:02] LABS: BILIRUBIN,TOTAL 0.9 mg/dL (0.2-1)
[2022-05-12 17:51] VITALS: BP 129/73; PULSE 63; RESP 16; TEMP 98.3
== END 2022-05-12 11:00 | disposition home or self-care (01) ==
LOC: JONCCHEMO 06:57
PROVIDERS: ATTEND Internal Medicine Hematology & Oncology
DX: Z51.11 Encounter for antineoplastic chemotherapy (principal); C90.00 Multiple myeloma not having achieved remission
CPT/HCPCS: 36415; 80053; 80061; 82340; 82570; 83036; 83883; 84443; 85025; 96401; J9041

== ENCOUNTER 2022-05-19 06:44 | Day surgery (SDC) | payer OTHER, MEDICARE ==
[2022-05-19 09:23] LABS: BASO % 0.2 % (0-2.0); EOS % 2.2 % (0-4.5); HEMATOCRIT 42.2 % (35.4-49); HEMOGLOBIN 14.4 GM/dL (11.7-16.9); LYMPH % 11.1 % (8-40); MCHC 34.1 g/dl (32.0-35.9); MEAN CELL VOLUME 90.8 fl (80-96); MEAN PLT VOLUME 9.1 fl (7.5-11.1); MONO % 12.7 % (3.8-10.2); NEUT % 73.8 % (42.8-82.8); PLATELET COUNT 125 10^3/uL (134-434); RBC 4.65 M/mm3 (4.00-5.60); RDW 13.8 % (11.9-15.9); WHITE BLOOD COUNT 6.5 K/mm3 (4.0-10.0)
[2022-05-19] MEDS ORDERED: DEXAMETHASONE 4 MG TABLET (FP) PO ONE (10:00)
[2022-05-19] MEDS ORDERED: GRANISETRON HCL 1 MG TABLET PO ONE (10:00)
[2022-05-19 10:01] LABS: ANISOCYTOSIS 0; HELMET CELLS 0; HOWELL-JOLLY BODIES 0; MACROCYTOSIS 0; OVALOCYTE 0; ROULEAU 0; SICKELED CELLS 0; TARGET CELLS 0; TEAR DROP CELLS 0; TOXIC GRANULATION 0
[2022-05-19] MEDS ORDERED: BORTEZOMIB (VELCADE) 2.5 MG/ML SUB-Q INJECTION SQ ONE (10:30)
[2022-05-19 10:39] LABS: TOT PROT 5.8 g/dl (6.4-8.2)
[2022-05-19 10:41] LABS: ALBUMIN 3.3 g/dl (3.4-5.0); BILIRUBIN,TOTAL 0.6 mg/dL (0.2-1); BLOOD UREA NITROGEN 15.6 mg/dL (7-18); CALCIUM 8.7 mg/dL (8.5-10.1)
[2022-05-19 14:00] VITALS: BP 135/76; PULSE 56; RESP 18; TEMP 98.2
== END 2022-05-19 14:00 | disposition home or self-care (01) ==
LOC: JONCCHEMO 06:44
PROVIDERS: ATTEND Internal Medicine Hematology & Oncology
DX: Z51.11 Encounter for antineoplastic chemotherapy (principal); C90.00 Multiple myeloma not having achieved remission
CPT/HCPCS: 36415; 80053; 83883; 85025; 96401; J9041

== ENCOUNTER 2022-06-02 07:09 | Day surgery (SDC) | payer OTHER, MEDICARE ==
[2022-06-02 09:50] LABS: BASO % 0.4 % (0-2.0); EOS % 2.8 % (0-4.5); MCH 31.6 pg (25.7-33.7); MCHC 34.9 g/dl (32.0-35.9); MEAN CELL VOLUME 90.4 fl (80-96); MEAN PLT VOLUME 8.1 fl (7.5-11.1); MONO % 13.8 % (3.8-10.2); PLATELET COUNT 134 10^3/uL (134-434); RBC 4.42 M/mm3 (4.00-5.60); RDW 14.1 % (11.9-15.9)
[2022-06-02] MEDS ORDERED: DEXAMETHASONE 4 MG TABLET (FP) PO ONE (10:00)
[2022-06-02] MEDS ORDERED: BORTEZOMIB 2.5 MG/ML SUB-Q INJECTION SQ ONE (10:00)
[2022-06-02] MEDS ORDERED: GRANISETRON HCL 1 MG TABLET PO ONE (10:00)
[2022-06-02 10:17] LABS: CALCIUM 8.7 mg/dL (8.5-10.1)
[2022-06-02 10:18] LABS: ALBUMIN 3.2 g/dl (3.4-5.0); BLOOD UREA NITROGEN 17.3 mg/dL (7-18)
[2022-06-02 10:22] LABS: BILIRUBIN,TOTAL 0.8 mg/dL (0.2-1)
[2022-06-02 10:23] LABS: TOT PROT 5.7 g/dl (6.4-8.2)
[2022-06-02 12:22] VITALS: BP 128/79; PULSE 69; RESP 18; TEMP 98.1
== END 2022-06-02 11:30 | disposition home or self-care (01) ==
LOC: JONCCHEMO 07:09
PROVIDERS: ATTEND Internal Medicine Hematology & Oncology
DX: Z51.11 Encounter for antineoplastic chemotherapy (principal); C90.00 Multiple myeloma not having achieved remission
CPT/HCPCS: 36415; 80053; 85025; 96401; J9044

== ENCOUNTER 2022-06-09 06:59 | Day surgery (SDC) | payer OTHER, MEDICARE ==
[2022-06-09 09:47] LABS: BASO % 0.4 % (0-2.0); EOS % 3.6 % (0-4.5); HEMATOCRIT 41.3 % (35.4-49); HEMOGLOBIN 14.2 GM/dL (11.7-16.9); LYMPH % 13.2 % (8-40); MCH 31.4 pg (25.7-33.7); MCHC 34.3 g/dl (32.0-35.9); MEAN CELL VOLUME 91.7 fl (80-96); MEAN PLT VOLUME 9.4 fl (7.5-11.1); MONO % 16.3 % (3.8-10.2); NEUT % 66.5 % (42.8-82.8); PLATELET COUNT 113 10^3/uL (134-434); RBC 4.51 M/mm3 (4.00-5.60); RDW 13.9 % (11.9-15.9); WHITE BLOOD COUNT 5.4 K/mm3 (4.0-10.0)
[2022-06-09] MEDS ORDERED: GRANISETRON HCL 1 MG TABLET PO ONE (10:00)
[2022-06-09] MEDS ORDERED: DEXAMETHASONE 4 MG TABLET (FP) PO ONE (10:00)
[2022-06-09] MEDS ORDERED: BORTEZOMIB 2.5 MG/ML SUB-Q INJECTION SQ ONE (10:00)
[2022-06-09 10:12] LABS: CALCIUM 8.3 mg/dL (8.5-10.1)
[2022-06-09 10:13] LABS: BLOOD UREA NITROGEN 18.5 mg/dL (7-18)
[2022-06-09 10:15] LABS: BILIRUBIN,DIRECT 0.2 mg/dL (0.0-0.2)
[2022-06-09 10:16] LABS: CREATININE 0.9 mg/dL (0.55-1.3)
[2022-06-09 10:17] LABS: BILIRUBIN,TOTAL 0.8 mg/dL (0.2-1); TOT PROT 5.8 g/dl (6.4-8.2)
[2022-06-09] MEDS ORDERED: FUROSEMIDE 40 MG/4 ML INJECTABLE VIAL IVPUSH ONE (10:27)
[2022-06-09] MEDS ORDERED: POTASSIUM CHLORIDE TABS 20 MEQ TABLET.ER (FP) PO ONE (10:29)
[2022-06-09 11:19] VITALS: RESP 20; TEMP 98.3
[2022-06-09 12:09] VITALS: BP 133/76; PULSE 68
== END 2022-06-09 12:15 | disposition home or self-care (01) ==
LOC: JONCCHEMO 06:59
PROVIDERS: ATTEND Internal Medicine Hematology & Oncology
PROC: 3E01305 Introduction of Other Antineoplastic into Subcutaneous Tissue, Percutaneous Approach (ICD-10-PCS; principal; 2022-06-09)
PROC: 3E033GC Introduction of Other Therapeutic Substance into Peripheral Vein, Percutaneous Approach (ICD-10-PCS; 2022-06-09)
DX: Z51.11 Encounter for antineoplastic chemotherapy (principal); C90.00 Multiple myeloma not having achieved remission
CPT/HCPCS: 36415; 80048; 80076; 83615; 85025; 96374; 96401; J9044

== ENCOUNTER 2022-06-16 07:27 | Day surgery (SDC) | payer OTHER, MEDICARE ==
[2022-06-16 09:05] LABS: BASO % 0.3 % (0-2.0); EOS % 2.9 % (0-4.5); HEMATOCRIT 42.5 % (35.4-49); HEMOGLOBIN 14.3 GM/dL (11.7-16.9); LYMPH % 10.7 % (8-40); MCH 30.9 pg (25.7-33.7); MCHC 33.7 g/dl (32.0-35.9); MEAN CELL VOLUME 91.7 fl (80-96); MEAN PLT VOLUME 9.5 fl (7.5-11.1); MONO % 15.3 % (3.8-10.2); NEUT % 70.8 % (42.8-82.8); PLATELET COUNT 142 10^3/uL (134-434); RBC 4.64 M/mm3 (4.00-5.60); RDW 13.9 % (11.9-15.9)
[2022-06-16 09:32] LABS: CREATININE 1.1 mg/dL (0.55-1.3); MAGNESIUM 1.7 mg/dL (1.8-2.4); URIC ACID 5.1 mg/dL (2.6-7.2)
[2022-06-16 09:34] LABS: TOT PROT 5.7 g/dl (6.4-8.2)
[2022-06-16 09:38] LABS: CALCIUM 8.7 mg/dL (8.5-10.1)
[2022-06-16 09:39] LABS: ALBUMIN 3.1 g/dl (3.4-5.0); BLOOD UREA NITROGEN 16.5 mg/dL (7-18)
[2022-06-16 09:41] LABS: BILIRUBIN,DIRECT 0.3 mg/dL (0.0-0.2)
[2022-06-16] MEDS ORDERED: BORTEZOMIB 2.5 MG/ML SUB-Q INJECTION SQ ONE (10:00)
[2022-06-16] MEDS ORDERED: GRANISETRON HCL 1 MG TABLET PO ONE (10:00)
[2022-06-16] MEDS ORDERED: DEXAMETHASONE 4 MG TABLET (FP) PO ONE (10:00)
[2022-06-16] MEDS ORDERED: POTASSIUM CHLORIDE TABS 20 MEQ TABLET.ER (FP) PO ONE (11:00)
[2022-06-16] MEDS ORDERED: MAGNESIUM OXIDE 400 MG TABLET (FP) PO ONE (11:00)
[2022-06-16] MEDS ORDERED: FUROSEMIDE 40 MG/4 ML INJECTABLE VIAL IVPUSH ONE (11:00)
[2022-06-16 17:47] VITALS: BP 140/82; PULSE 63; RESP 18; TEMP 98.1
== END 2022-06-16 11:30 | disposition home or self-care (01) ==
LOC: JONCCHEMO 07:27
PROVIDERS: ATTEND Internal Medicine Hematology & Oncology
DX: Z51.11 Encounter for antineoplastic chemotherapy (principal)
CPT/HCPCS: 36415; 80048; 80076; 83615; 83735; 84550; 85025; 96401; J9044

== ENCOUNTER 2022-06-30 08:39 | Day surgery (SDC) | payer OTHER, MEDICARE ==
[2022-06-30 09:20] LABS: BASO % 0.5 % (0-2.0); EOS % 4.3 % (0-4.5); HEMATOCRIT 42.3 % (35.4-49); HEMOGLOBIN 14.3 GM/dL (11.7-16.9); LYMPH % 11.8 % (8-40); MCHC 33.7 g/dl (32.0-35.9); MEAN PLT VOLUME 8.7 fl (7.5-11.1); MONO % 14.4 % (3.8-10.2); PLATELET COUNT 166 10^3/uL (134-434); RDW 13.6 % (11.9-15.9); WHITE BLOOD COUNT 5.6 K/mm3 (4.0-10.0)
[2022-06-30 09:45] LABS: BLOOD UREA NITROGEN 17.5 mg/dL (7-18); CALCIUM 8.4 mg/dL (8.5-10.1)
[2022-06-30] MEDS ORDERED: BORTEZOMIB 2.5 MG/ML SUB-Q INJECTION SQ ONE (10:00)
[2022-06-30] MEDS ORDERED: GRANISETRON HCL 1 MG TABLET PO ONE (10:00)
[2022-06-30] MEDS ORDERED: DEXAMETHASONE 4 MG TABLET (FP) PO ONE (10:00)
[2022-06-30 10:19] LABS: ALBUMIN 3.3 g/dl (3.4-5.0); BILIRUBIN,DIRECT 0.3 mg/dL (0.0-0.2); MAGNESIUM 1.6 mg/dL (1.8-2.4); URIC ACID 6.3 mg/dL (2.6-7.2)
[2022-06-30 13:04] VITALS: BP 138/93; PULSE 67; RESP 20; TEMP 98
[2022-07-01 18:07] LABS: FREE KAPPA,SERUM 188.4 mg/L (3.3-19.4)
[2022-07-02 07:08] LABS: BETA-2-MICROGLOBULIN 2.1 mg/L (0.6-2.4)
[2022-07-04 17:07] LABS: FREE KAP CHN UR 5.01 mg/L (1.17-86.46); KAPPA LAMBDA RATIO URIN 5.06 (1.83-14.26)
== END 2022-06-30 10:50 | disposition home or self-care (01) ==
LOC: JONCCHEMO 08:39
PROVIDERS: ATTEND Internal Medicine Hematology & Oncology
DX: Z51.11 Encounter for antineoplastic chemotherapy (principal); C90.00 Multiple myeloma not having achieved remission
CPT/HCPCS: 36415; 80048; 80076; 82232; 82784; 83615; 83735; 83883; 84155; 84165; 84550; 85025; 86335; 93970-TC; 96401; J9044

== ENCOUNTER 2022-07-07 09:55 | Day surgery (SDC) | payer OTHER, MEDICARE ==
[2022-07-07 09:26] LABS: HEMATOCRIT 43.2 % (35.4-49); HEMOGLOBIN 14.3 GM/dL (11.7-16.9); MCH 30.5 pg (25.7-33.7); MEAN CELL VOLUME 92.4 fl (80-96); MEAN PLT VOLUME 9.6 fl (7.5-11.1); PLATELET COUNT 136 10^3/uL (134-434); RBC 4.68 M/mm3 (4.00-5.60); RDW 13.6 % (11.9-15.9); WHITE BLOOD COUNT 5.4 K/mm3 (4.0-10.0)
[2022-07-07 09:47] LABS: BLOOD UREA NITROGEN 19.5 mg/dL (7-18)
[2022-07-07 09:48] LABS: ALBUMIN 3.1 g/dl (3.4-5.0); MAGNESIUM 1.8 mg/dL (1.8-2.4)
[2022-07-07 09:50] LABS: BILIRUBIN,DIRECT 0.2 mg/dL (0.0-0.2); CREATININE 1.1 mg/dL (0.55-1.3); URIC ACID 5.4 mg/dL (2.6-7.2)
[2022-07-07 09:52] LABS: BILIRUBIN,TOTAL 0.7 mg/dL (0.2-1); TOT PROT 5.7 g/dl (6.4-8.2)
[2022-07-07] MEDS ORDERED: BORTEZOMIB 2.5 MG/ML SUB-Q INJECTION SQ ONE (10:00)
[2022-07-07] MEDS ORDERED: DEXAMETHASONE 4 MG TABLET (FP) PO ONE (10:00)
[2022-07-07] MEDS ORDERED: GRANISETRON HCL 1 MG TABLET PO ONE (10:00)
[2022-07-07] MEDS ORDERED: INSULIN (NOVOLOG) ASPART 100 UNITS/ML 10ML VIAL SQ ONE (10:07)
[2022-07-07 10:18] LABS: ANISOCYTOSIS 0; HELMET CELLS 0; HOWELL-JOLLY BODIES 0; MACROCYTOSIS 0; OVALOCYTE 0; ROULEAU 0; SICKELED CELLS 0; TARGET CELLS 0; TEAR DROP CELLS 0; TOXIC GRANULATION 0
[2022-07-07 15:22] VITALS: BP 134/74; PULSE 74; RESP 20; TEMP 97.6
== END 2022-07-07 11:15 | disposition home or self-care (01) ==
LOC: JONCCHEMO 09:55
PROVIDERS: ATTEND Internal Medicine Hematology & Oncology
PROC: 3E013GC Introduction of Other Therapeutic Substance into Subcutaneous Tissue, Percutaneous Approach (ICD-10-PCS; principal; 2022-07-07)
DX: Z51.11 Encounter for antineoplastic chemotherapy (principal); C90.00 Multiple myeloma not having achieved remission
CPT/HCPCS: 36415; 80048; 80076; 83615; 83735; 84550; 85025; 96401; J9044

== ENCOUNTER 2022-07-14 09:09 | Day surgery (SDC) | payer OTHER, MEDICARE ==
[2022-07-14 09:43] LABS: HEMATOCRIT 43.7 % (35.4-49); HEMOGLOBIN 14.7 GM/dL (11.7-16.9); MCH 31.2 pg (25.7-33.7); MCHC 33.7 g/dl (32.0-35.9); MEAN CELL VOLUME 92.7 fl (80-96); MEAN PLT VOLUME 9.5 fl (7.5-11.1); PLATELET COUNT 133 10^3/uL (134-434); RBC 4.71 M/mm3 (4.00-5.60); RDW 13.7 % (11.9-15.9); WHITE BLOOD COUNT 6.1 K/mm3 (4.0-10.0)
[2022-07-14 09:58] LABS: CHLORIDE 103 mmol/L (98-107); SODIUM 140 mmol/L (136-145)
[2022-07-14] MEDS ORDERED: GRANISETRON HCL 1 MG TABLET PO ONE (10:00)
[2022-07-14] MEDS ORDERED: DEXAMETHASONE 4 MG TABLET (FP) PO ONE (10:00)
[2022-07-14] MEDS ORDERED: BORTEZOMIB 2.5 MG/ML SUB-Q INJECTION SQ ONE (10:30)
[2022-07-14 10:31] LABS: ANISOCYTOSIS 0; HELMET CELLS 0; HOWELL-JOLLY BODIES 0; MACROCYTOSIS 0; OVALOCYTE 0; ROULEAU 0; SICKELED CELLS 0; TARGET CELLS 0; TEAR DROP CELLS 0; TOXIC GRANULATION 0
[2022-07-14 10:46] LABS: BLOOD UREA NITROGEN 18.7 mg/dL (7-18); CALCIUM 8.5 mg/dL (8.5-10.1)
[2022-07-14 10:47] LABS: ALBUMIN 3.3 g/dl (3.4-5.0); ANION GAP 6 MMOL/L (8-16); CO2 31 mmol/L (21-32); GLUCOSE,RANDOM 244 mg/dL (74-106); MAGNESIUM 0.7 mg/dL (1.8-2.4)
[2022-07-14 10:49] LABS: BILIRUBIN,DIRECT 0.2 mg/dL (0.0-0.2); SGOT/AST 16 U/L (15-37); SGPT/ALT 28 U/L (13-61); URIC ACID 7.1 mg/dL (2.6-7.2)
[2022-07-14 10:51] LABS: BILIRUBIN,TOTAL 0.7 mg/dL (0.2-1); TOT PROT 5.9 g/dl (6.4-8.2)
[2022-07-14 10:52] LABS: ALK PHOS 95 U/L (45-117)
[2022-07-14] MEDS ORDERED: MAGNESIUM SULF 50% (8.12 MEQ/2 ML-1 GM VIAL) IVPB ONE ×2 (10:55→10:56)
[2022-07-14 11:02] VITALS: RESP 18; TEMP 97.9
[2022-07-14] MEDS ORDERED: INSULIN (NOVOLOG) ASPART 100 UNITS/ML 10ML VIAL SQ ONE (11:20)
[2022-07-14 11:29] LABS: LDH 203 U/L (87-246)
[2022-07-14] MEDS ORDERED: MAGNESIUM SULFATE IN WATER 2 GM/50 ML IVPB IVPB ONE ×2 (11:30→12:30)
[2022-07-14 14:01] VITALS: BP 137/78; PULSE 61
== END 2022-07-14 13:15 | disposition home or self-care (01) ==
LOC: JONCCHEMO 09:09
PROVIDERS: ATTEND Internal Medicine Hematology & Oncology
PROC: 3E01305 Introduction of Other Antineoplastic into Subcutaneous Tissue, Percutaneous Approach (ICD-10-PCS; principal; 2022-07-14)
PROC: 3E033GC Introduction of Other Therapeutic Substance into Peripheral Vein, Percutaneous Approach (ICD-10-PCS; 2022-07-14)
DX: Z51.11 Encounter for antineoplastic chemotherapy (principal); C90.00 Multiple myeloma not having achieved remission
CPT/HCPCS: 36415; 80048; 80076; 83615; 83735; 84550; 85025; 96365; 96401; J9044

== ENCOUNTER 2022-07-20 08:41 | Day surgery (SDC) | payer OTHER, MEDICARE ==
[~2022-07-20 08:41] MED LIST changes: -BORTEZOMIB (VELCADE) 2.5 MG/ML SUB-Q INJECTION SQ ONE; -DEXAMETHASONE 4 MG TABLET (FP) PO ONE; -GRANISETRON HCL 1 MG TABLET PO ONE; +INSULIN SLIDING SCALE (NOVOLOG) 1 VIAL SQ SCH
[2022-07-20] MEDS ORDERED: GRANISETRON HCL 1 MG TABLET PO ONE (10:00)
[2022-07-20] MEDS ORDERED: DEXAMETHASONE 4 MG TABLET (FP) PO ONE (10:00)
[2022-07-20] MEDS ORDERED: BORTEZOMIB 2.5 MG/ML SUB-Q INJECTION SQ ONE (10:30)
[2022-07-20] MEDS ORDERED: INSULIN (NOVOLOG) ASPART 100 UNITS/ML 10ML VIAL ONE (10:36)
[2022-07-20 17:19] VITALS: BP 155/72; PULSE 61; RESP 20; TEMP 97.6
== END 2022-07-20 10:45 | disposition home or self-care (01) ==
LOC: JONCCHEMO 08:41
PROVIDERS: ATTEND Internal Medicine Hematology & Oncology
DX: Z51.11 Encounter for antineoplastic chemotherapy (principal); C90.00 Multiple myeloma not having achieved remission
CPT/HCPCS: 82962; 96401; J9044

== ENCOUNTER 2022-08-02 08:02 | Day surgery (SDC) | payer OTHER, MEDICARE ==
[2022-08-02 08:45] LABS: BASO % 0.7 % (0-2.0); EOS % 4.4 % (0-4.5); HEMATOCRIT 41.1 % (35.4-49); MCH 31.5 pg (25.7-33.7); MCHC 34.1 g/dl (32.0-35.9); MEAN CELL VOLUME 92.4 fl (80-96); MEAN PLT VOLUME 8.8 fl (7.5-11.1); MONO % 17.7 % (3.8-10.2); NEUT % 61.2 % (42.8-82.8); PLATELET COUNT 138 10^3/uL (134-434); RBC 4.45 M/mm3 (4.00-5.60); RDW 14.3 % (11.9-15.9); WHITE BLOOD COUNT 4.9 K/mm3 (4.0-10.0)
[2022-08-02 09:07] LABS: CALCIUM 8.8 mg/dL (8.5-10.1); MAGNESIUM 1.8 mg/dL (1.8-2.4)
[2022-08-02 09:08] LABS: ALBUMIN 3.2 g/dl (3.4-5.0); BLOOD UREA NITROGEN 12.4 mg/dL (7-18)
[2022-08-02 09:10] LABS: CREATININE 0.9 mg/dL (0.55-1.3)
[2022-08-02 09:12] LABS: TOT PROT 5.7 g/dl (6.4-8.2)
[2022-08-02 09:13] LABS: BILIRUBIN,TOTAL 0.7 mg/dL (0.2-1)
[2022-08-02 09:20] LABS: BILIRUBIN,DIRECT 0.3 mg/dL (0.0-0.2)
[2022-08-02] MEDS ORDERED: GRANISETRON HCL 1 MG TABLET PO ONE (10:00)
[2022-08-02] MEDS ORDERED: DEXAMETHASONE 4 MG TABLET (FP) PO ONE (10:00)
[2022-08-02] MEDS ORDERED: BORTEZOMIB (VELCADE) 2.5 MG/ML SUB-Q INJECTION SQ ONE (10:00)
[2022-08-02 17:49] VITALS: BP 133/73; PULSE 66; RESP 18; TEMP 97.9
[2022-08-03 18:07] LABS: FREE KAPPA,SERUM 186.5 mg/L (3.3-19.4)
[2022-08-04 16:11] LABS: BETA-2-MICROGLOBULIN 1.8 mg/L (0.6-2.4)
== END 2022-08-02 10:40 | disposition home or self-care (01) ==
LOC: JONCCHEMO 08:02
PROVIDERS: ATTEND Internal Medicine Hematology & Oncology
DX: Z51.11 Encounter for antineoplastic chemotherapy (principal); C90.00 Multiple myeloma not having achieved remission
CPT/HCPCS: 36415; 80048; 80076; 82232; 82784; 83615; 83735; 83883; 84155; 84165; 84550; 85025; 96401; J9041

== ENCOUNTER 2022-08-11 08:35 | Day surgery (SDC) | payer OTHER, MEDICARE ==
[2022-08-11 09:09] LABS: BASO % 0.6 % (0-2.0); EOS % 4.4 % (0-4.5); HEMATOCRIT 41.6 % (35.4-49); HEMOGLOBIN 14.1 GM/dL (11.7-16.9); LYMPH % 14.9 % (8-40); MCH 30.9 pg (25.7-33.7); MCHC 33.8 g/dl (32.0-35.9); MEAN CELL VOLUME 91.4 fl (80-96); MEAN PLT VOLUME 9.2 fl (7.5-11.1); MONO % 17.7 % (3.8-10.2); NEUT % 62.4 % (42.8-82.8); PLATELET COUNT 135 10^3/uL (134-434); RBC 4.56 M/mm3 (4.00-5.60); RDW 14.1 % (11.9-15.9); WHITE BLOOD COUNT 5.4 K/mm3 (4.0-10.0)
[2022-08-11 09:27] LABS: MAGNESIUM 1.7 mg/dL (1.8-2.4)
[2022-08-11 09:28] LABS: CALCIUM 8.5 mg/dL (8.5-10.1)
[2022-08-11 09:29] LABS: ALBUMIN 3.2 g/dl (3.4-5.0)
[2022-08-11 09:31] LABS: BILIRUBIN,DIRECT 0.3 mg/dL (0.0-0.2)
[2022-08-11 09:33] LABS: TOT PROT 5.7 g/dl (6.4-8.2)
[2022-08-11 09:34] LABS: BILIRUBIN,TOTAL 0.8 mg/dL (0.2-1)
[2022-08-11] MEDS ORDERED: DEXAMETHASONE 4 MG TABLET (FP) PO ONE (10:00)
[2022-08-11] MEDS ORDERED: GRANISETRON HCL 1 MG TABLET PO ONE (10:00)
[2022-08-11] MEDS ORDERED: BORTEZOMIB 2.5 MG/ML SUB-Q INJECTION SQ ONE (10:00)
[2022-08-11 10:35] VITALS: BP 132/79; PULSE 72; RESP 18; TEMP 97.9
== END 2022-08-11 10:40 | disposition home or self-care (01) ==
LOC: JONCCHEMO 08:35
PROVIDERS: ATTEND Internal Medicine Hematology & Oncology
DX: Z51.11 Encounter for antineoplastic chemotherapy (principal); C90.00 Multiple myeloma not having achieved remission
CPT/HCPCS: 36415; 80048; 80076; 83615; 83735; 84550; 85025; 96401; J9044

== ENCOUNTER 2022-08-18 07:51 | Day surgery (SDC) | payer OTHER, MEDICARE ==
[2022-08-18 09:50] LABS: BASO % 0.3 % (0-2.0); EOS % 2.1 % (0-4.5); HEMATOCRIT 43.3 % (35.4-49); HEMOGLOBIN 14.6 GM/dL (11.7-16.9); LYMPH % 9.4 % (8-40); MCH 30.9 pg (25.7-33.7); MCHC 33.8 g/dl (32.0-35.9); MEAN CELL VOLUME 91.4 fl (80-96); MEAN PLT VOLUME 10.2 fl (7.5-11.1); MONO % 18.6 % (3.8-10.2); NEUT % 69.6 % (42.8-82.8); PLATELET COUNT 137 10^3/uL (134-434); RBC 4.74 M/mm3 (4.00-5.60); WHITE BLOOD COUNT 6.7 K/mm3 (4.0-10.0)
[2022-08-18] MEDS ORDERED: BORTEZOMIB 2.5 MG/ML SUB-Q INJECTION SQ ONE (10:00)
[2022-08-18] MEDS ORDERED: GRANISETRON HCL 1 MG TABLET PO ONE (10:00)
[2022-08-18] MEDS ORDERED: DEXAMETHASONE 4 MG TABLET (FP) PO ONE (10:00)
[2022-08-18 10:07] LABS: CALCIUM 8.9 mg/dL (8.5-10.1)
[2022-08-18 10:08] LABS: ALBUMIN 3.4 g/dl (3.4-5.0); BLOOD UREA NITROGEN 16.4 mg/dL (7-18); MAGNESIUM 1.9 mg/dL (1.8-2.4)
[2022-08-18 10:09] LABS: BILIRUBIN,DIRECT 0.2 mg/dL (0.0-0.2); URIC ACID 4.9 mg/dL (2.6-7.2)
[2022-08-18 10:12] LABS: BILIRUBIN,TOTAL 0.8 mg/dL (0.2-1); TOT PROT 5.8 g/dl (6.4-8.2)
[2022-08-18 10:16] LABS: PH,URINE 5.5 (5.0-8.0); URINE APPEARANCE CLEAR; URINE BILIRUBIN NEGATIVE (NEGATIVE); URINE COLOR YELLOW; URINE GLUCOSE (UA) NEGATIVE (NEGATIVE); URINE KETONE NEGATIVE (NEGATIVE); URINE LEUK ESTERASE NEGATIVE (NEGATIVE); URINE NITRITE NEGATIVE (NEGATIVE); URINE PROTEIN NEGATIVE (NEGATIVE)
[2022-08-18] MEDS ORDERED: INSULIN (NOVOLOG) ASPART 100 UNITS/ML 10ML VIAL SQ ONE (10:22)
[2022-08-18 11:38] VITALS: BP 137/71; PULSE 61; RESP 20; TEMP 97.6
== END 2022-08-18 11:00 | disposition home or self-care (01) ==
LOC: JONCCHEMO 07:51
PROVIDERS: ATTEND Internal Medicine Hematology & Oncology
DX: Z51.11 Encounter for antineoplastic chemotherapy (principal); C90.00 Multiple myeloma not having achieved remission
CPT/HCPCS: 36415; 80048; 80076; 81003; 83615; 83735; 84550; 85025; 87077; 87086; 87186; 96401; J9044

== ENCOUNTER 2022-09-01 09:36 | Day surgery (SDC) | payer OTHER, MEDICARE ==
[2022-09-01] MEDS ORDERED: BORTEZOMIB 2.5 MG/ML SUB-Q INJECTION SQ ONE (10:00)
[2022-09-01] MEDS ORDERED: GRANISETRON HCL 1 MG TABLET PO ONE (10:00)
[2022-09-01] MEDS ORDERED: DEXAMETHASONE 4 MG TABLET (FP) PO ONE (10:00)
[2022-09-01 10:25] LABS: BASO % 0.2 % (0-2.0); EOS % 1.6 % (0-4.5); HEMATOCRIT 42.1 % (35.4-49); HEMOGLOBIN 14.4 GM/dL (11.7-16.9); MCH 31.2 pg (25.7-33.7); MCHC 34.1 g/dl (32.0-35.9); MEAN CELL VOLUME 91.4 fl (80-96); MEAN PLT VOLUME 8.5 fl (7.5-11.1); MONO % 13.3 % (3.8-10.2); NEUT % 79.9 % (42.8-82.8); PLATELET COUNT 125 10^3/uL (134-434); RBC 4.61 M/mm3 (4.00-5.60); RDW 13.6 % (11.9-15.9); WHITE BLOOD COUNT 8.4 K/mm3 (4.0-10.0)
[2022-09-01 10:47] LABS: CALCIUM 8.7 mg/dL (8.5-10.1); MAGNESIUM 1.7 mg/dL (1.8-2.4)
[2022-09-01 10:48] LABS: ALBUMIN 3.3 g/dl (3.4-5.0); BLOOD UREA NITROGEN 18.5 mg/dL (7-18)
[2022-09-01 10:49] LABS: CREATININE 1.1 mg/dL (0.55-1.3)
[2022-09-01 10:50] LABS: BILIRUBIN,DIRECT 0.4 mg/dL (0.0-0.2)
[2022-09-01 10:51] LABS: URIC ACID 4.7 mg/dL (2.6-7.2)
[2022-09-01 10:52] LABS: TOT PROT 5.9 g/dl (6.4-8.2)
[2022-09-01 10:53] LABS: BILIRUBIN,TOTAL 1.1 mg/dL (0.2-1)
[2022-09-01 17:45] VITALS: BP 148/72; PULSE 98; RESP 20; TEMP 100.1
[2022-09-02 17:06] LABS: FREE KAPPA,SERUM 205.5 mg/L (3.3-19.4)
[2022-09-03 04:07] LABS: FREE KAP CHN UR 15.87 mg/L (1.17-86.46); KAPPA LAMBDA RATIO URIN 5.81 (1.83-14.26)
[2022-09-03 07:30] LABS: BETA-2-MICROGLOBULIN 2.9 mg/L (0.6-2.4)
== END 2022-09-01 12:30 | disposition home or self-care (01) ==
LOC: JONCCHEMO 09:36
PROVIDERS: ATTEND Internal Medicine Hematology & Oncology
DX: Z51.11 Encounter for antineoplastic chemotherapy (principal); C90.00 Multiple myeloma not having achieved remission
CPT/HCPCS: 36415; 80048; 80076; 82232; 82784; 83540; 83550; 83615; 83735; 83883; 84155; 84165; 84550; 85025; 86335; 96401; J9044

== ENCOUNTER 2022-09-01 13:11 | Emergency (ER) | payer OTHER, MEDICARE ==
[2022-09-01 13:40] VITALS: BP 137/67; PULSE 85; RESP 20; TEMP 99.5; BMI 45.9
[2022-09-01] MEDS ORDERED: ACETAMINOPHEN 1000 MG/100 ML BAG IVPB ONE (14:30)
[2022-09-01] MEDS ORDERED: ACETAMINOPHEN INJECTION 100 ML IVPB ONE (14:52)
[2022-09-01 18:11] LABS: URINE APPEARANCE CLEAR; URINE BILIRUBIN NEGATIVE (NEGATIVE); URINE COLOR YELLOW; URINE GLUCOSE (UA) 3+ (NEGATIVE); URINE KETONE NEGATIVE (NEGATIVE); URINE LEUK ESTERASE NEGATIVE (NEGATIVE); URINE NITRITE NEGATIVE (NEGATIVE); URINE PROTEIN NEGATIVE (NEGATIVE)
== END 2022-09-01 20:37 | disposition home or self-care (01) ==
LOC: JER 13:11
PROC: 3E033GC Introduction of Other Therapeutic Substance into Peripheral Vein, Percutaneous Approach (ICD-10-PCS; principal; 2022-09-01)
DX: R50.9 Fever, unspecified (principal)
CPT/HCPCS: 0241U-QW; 71045-TC-FY; 81003; 83605; 87040; 87086; 87186; 93005; 93010; 99285-25

== ENCOUNTER 2022-09-07 09:01 | Day surgery (SDC) | payer OTHER, MEDICARE ==
[2022-09-07 09:34] LABS: HEMATOCRIT 43.6 % (35.4-49); HEMOGLOBIN 14.8 GM/dL (11.7-16.9); MCH 31.3 pg (25.7-33.7); MCHC 34.1 g/dl (32.0-35.9); MEAN CELL VOLUME 91.8 fl (80-96); MEAN PLT VOLUME 9.1 fl (7.5-11.1); PLATELET COUNT 168 10^3/uL (134-434); RBC 4.75 M/mm3 (4.00-5.60); RDW 13.8 % (11.9-15.9); WHITE BLOOD COUNT 5.4 K/mm3 (4.0-10.0)
[2022-09-07] MEDS ORDERED: GRANISETRON HCL 1 MG TABLET PO ONE (10:00)
[2022-09-07] MEDS ORDERED: DEXAMETHASONE 4 MG TABLET (FP) PO ONE (10:00)
[2022-09-07] MEDS ORDERED: BORTEZOMIB 2.5 MG/ML SUB-Q INJECTION SQ ONE (10:30)
[2022-09-07 10:34] LABS: ANISOCYTOSIS 0; HELMET CELLS 0; HOWELL-JOLLY BODIES 0; MACROCYTOSIS 0; OVALOCYTE 0; ROULEAU 0; SICKELED CELLS 0; TARGET CELLS 0; TEAR DROP CELLS 0; TOXIC GRANULATION 0
[2022-09-07 10:39] LABS: ALBUMIN 3.2 g/dl (3.4-5.0); BLOOD UREA NITROGEN 22.9 mg/dL (7-18); CALCIUM 8.6 mg/dL (8.5-10.1); MAGNESIUM 2.2 mg/dL (1.8-2.4)
[2022-09-07 10:42] LABS: BILIRUBIN,DIRECT 0.2 mg/dL (0.0-0.2); CREATININE 1.1 mg/dL (0.55-1.3); URIC ACID 5.6 mg/dL (2.6-7.2)
[2022-09-07 10:43] LABS: BILIRUBIN,TOTAL 0.4 mg/dL (0.2-1); TOT PROT 5.9 g/dl (6.4-8.2)
[2022-09-07 14:45] VITALS: BP 120/73; PULSE 67; RESP 20; TEMP 982
== END 2022-09-07 11:30 | disposition home or self-care (01) ==
LOC: JONCCHEMO 09:01
PROVIDERS: ATTEND Internal Medicine Hematology & Oncology
DX: Z51.11 Encounter for antineoplastic chemotherapy (principal); C90.00 Multiple myeloma not having achieved remission
CPT/HCPCS: 36415; 80048; 80076; 83615; 83735; 84550; 85025; 96401; J9044

== ENCOUNTER 2022-09-15 08:41 | Day surgery (SDC) | payer OTHER, MEDICARE ==
[2022-09-15 09:38] LABS: BASO % 0.4 % (0-2.0); EOS % 2.6 % (0-4.5); HEMATOCRIT 42.8 % (35.4-49); HEMOGLOBIN 14.6 GM/dL (11.7-16.9); LYMPH % 14.3 % (8-40); MCH 31.3 pg (25.7-33.7); MCHC 34.1 g/dl (32.0-35.9); MEAN CELL VOLUME 91.8 fl (80-96); MEAN PLT VOLUME 9.2 fl (7.5-11.1); MONO % 14.5 % (3.8-10.2); NEUT % 68.2 % (42.8-82.8); PLATELET COUNT 139 10^3/uL (134-434); RBC 4.67 M/mm3 (4.00-5.60); RDW 14.3 % (11.9-15.9); WHITE BLOOD COUNT 5.6 K/mm3 (4.0-10.0)
[2022-09-15] MEDS ORDERED: DEXAMETHASONE 4 MG TABLET (FP) PO ONE (10:00)
[2022-09-15] MEDS ORDERED: GRANISETRON HCL 1 MG TABLET PO ONE (10:00)
[2022-09-15 10:02] LABS: CALCIUM 8.6 mg/dL (8.5-10.1)
[2022-09-15 10:03] LABS: ALBUMIN 3.2 g/dl (3.4-5.0); BLOOD UREA NITROGEN 22.8 mg/dL (7-18); MAGNESIUM 2.1 mg/dL (1.8-2.4)
[2022-09-15 10:06] LABS: BILIRUBIN,DIRECT 0.2 mg/dL (0.0-0.2); CREATININE 1.2 mg/dL (0.55-1.3)
[2022-09-15 10:07] LABS: BILIRUBIN,TOTAL 0.8 mg/dL (0.2-1)
[2022-09-15 10:08] LABS: TOT PROT 5.7 g/dl (6.4-8.2)
[2022-09-15 10:12] LABS: URIC ACID 5.4 mg/dL (2.6-7.2)
[2022-09-15] MEDS ORDERED: POTASSIUM CHLORIDE TABS 20 MEQ TABLET.ER (FP) PO ONE (10:28)
[2022-09-15] MEDS ORDERED: INSULIN (NOVOLOG) ASPART 100 UNITS/ML 10ML VIAL SQ ONE (10:29)
[2022-09-15] MEDS ORDERED: BORTEZOMIB 2.5 MG/ML SUB-Q INJECTION SQ ONE (10:30)
[2022-09-15 11:56] LABS: PH,URINE 5.5 (5.0-8.0); URINE APPEARANCE CLEAR; URINE BILIRUBIN NEGATIVE (NEGATIVE); URINE COLOR YELLOW; URINE GLUCOSE (UA) 3+ (NEGATIVE); URINE KETONE NEGATIVE (NEGATIVE); URINE LEUK ESTERASE NEGATIVE (NEGATIVE); URINE NITRITE NEGATIVE (NEGATIVE); URINE PROTEIN NEGATIVE (NEGATIVE); URINE UROBILINOGEN 0.2 mg/dL (0.2-1.0)
[2022-09-15 13:12] VITALS: BP 128/78; PULSE 80; RESP 18; TEMP 98
== END 2022-09-15 11:20 | disposition home or self-care (01) ==
LOC: JONCCHEMO 08:41
PROVIDERS: ATTEND Internal Medicine Hematology & Oncology
PROC: 3E01305 Introduction of Other Antineoplastic into Subcutaneous Tissue, Percutaneous Approach (ICD-10-PCS; principal; 2022-09-15)
PROC: 3E033VG Introduction of Insulin into Peripheral Vein, Percutaneous Approach (ICD-10-PCS; 2022-09-15)
DX: Z51.11 Encounter for antineoplastic chemotherapy (principal); C90.00 Multiple myeloma not having achieved remission
CPT/HCPCS: 36415; 80048; 80076; 81003; 83615; 83735; 84550; 85025; 87086; 87186; 96372; 96401; J9044

== ENCOUNTER 2022-09-29 08:06 | Day surgery (SDC) | payer OTHER, MEDICARE ==
[2022-09-29] MEDS ORDERED: GRANISETRON HCL 1 MG TABLET PO ONE (09:30)
[2022-09-29] MEDS ORDERED: DEXAMETHASONE 4 MG TABLET (FP) PO ONE (09:30)
[2022-09-29 09:56] LABS: BASO % 0.5 % (0-2.0); EOS % 4.6 % (0-4.5); HEMATOCRIT 43.6 % (35.4-49); HEMOGLOBIN 14.3 GM/dL (11.7-16.9); LYMPH % 16.3 % (8-40); MCH 30.6 pg (25.7-33.7); MCHC 32.8 g/dl (32.0-35.9); MEAN CELL VOLUME 93.3 fl (80-96); MEAN PLT VOLUME 8.4 fl (7.5-11.1); MONO % 14.8 % (3.8-10.2); NEUT % 63.8 % (42.8-82.8); PLATELET COUNT 171 10^3/uL (134-434); RBC 4.68 M/mm3 (4.00-5.60); WHITE BLOOD COUNT 4.8 K/mm3 (4.0-10.0)
[2022-09-29] MEDS ORDERED: BORTEZOMIB 2.5 MG/ML SUB-Q INJECTION SQ ONE (10:00)
[2022-09-29 10:20] LABS: ALBUMIN 3.2 g/dl (3.4-5.0); BLOOD UREA NITROGEN 12.6 mg/dL (7-18); CALCIUM 9.4 mg/dL (8.5-10.1); MAGNESIUM 1.8 mg/dL (1.8-2.4)
[2022-09-29 10:22] LABS: CREATININE 0.9 mg/dL (0.55-1.3)
[2022-09-29 10:24] LABS: URIC ACID 4.2 mg/dL (2.6-7.2)
[2022-09-29 10:25] LABS: BILIRUBIN,TOTAL 0.6 mg/dL (0.2-1)
[2022-09-29 10:33] LABS: BILIRUBIN,DIRECT 0.2 mg/dL (0.0-0.2)
[2022-09-29 14:54] VITALS: BP 121/79; PULSE 72; RESP 20; TEMP 97.8
== END 2022-09-29 11:45 | disposition home or self-care (01) ==
LOC: JONCCHEMO 08:06
PROVIDERS: ATTEND Internal Medicine Hematology & Oncology
DX: Z51.11 Encounter for antineoplastic chemotherapy (principal); C90.00 Multiple myeloma not having achieved remission
CPT/HCPCS: 36415; 71046-TC-FY; 80048; 80076; 83615; 83735; 84550; 85025; 96401; J9044

== ENCOUNTER 2022-10-05 09:41 | Day surgery (SDC) | payer OTHER, MEDICARE ==
[~2022-10-05 09:41] MED LIST changes: +DEXAMETHASONE 4 MG TABLET (FP) PO ONE; +GRANISETRON HCL 1 MG TABLET PO ONE; -INSULIN SLIDING SCALE (NOVOLOG) 1 VIAL SQ SCH
[2022-10-05] MEDS ORDERED: BORTEZOMIB 2.5 MG/ML SUB-Q INJECTION SQ ONE (10:00)
[2022-10-05 14:51] VITALS: BP 162/85; PULSE 71; RESP 20; TEMP 97
== END 2022-10-05 10:50 | disposition home or self-care (01) ==
LOC: JONCCHEMO 09:41
PROVIDERS: ATTEND Internal Medicine Hematology & Oncology
DX: Z51.11 Encounter for antineoplastic chemotherapy (principal); C90.00 Multiple myeloma not having achieved remission
CPT/HCPCS: 96401; J9044

== ENCOUNTER 2022-10-20 08:33 | Day surgery (SDC) | payer OTHER, MEDICARE ==
[2022-10-20 09:01] LABS: URINE APPEARANCE CLOUDY; URINE BILIRUBIN NEGATIVE (NEGATIVE); URINE COLOR YELLOW; URINE GLUCOSE (UA) 3+ (NEGATIVE); URINE KETONE NEGATIVE (NEGATIVE); URINE LEUK ESTERASE NEGATIVE (NEGATIVE); URINE NITRITE NEGATIVE (NEGATIVE); URINE PROTEIN NEGATIVE (NEGATIVE); URINE UROBILINOGEN 0.2 mg/dL (0.2-1.0)
[2022-10-20 09:19] LABS: BASO % 0.7 % (0-2.0); EOS % 7.4 % (0-4.5); HEMATOCRIT 43.4 % (35.4-49); HEMOGLOBIN 14.5 GM/dL (11.7-16.9); MCH 30.5 pg (25.7-33.7); MCHC 33.5 g/dl (32.0-35.9); MEAN PLT VOLUME 8.1 fl (7.5-11.1); MONO % 14.9 % (3.8-10.2); PLATELET COUNT 170 10^3/uL (134-434); RBC 4.76 M/mm3 (4.00-5.60); RDW 14.1 % (11.9-15.9); WHITE BLOOD COUNT 5.4 K/mm3 (4.0-10.0)
[2022-10-20 09:49] LABS: ALBUMIN 3.1 g/dl (3.4-5.0); CALCIUM 8.8 mg/dL (8.5-10.1)
[2022-10-20 09:50] LABS: BLOOD UREA NITROGEN 13.4 mg/dL (7-18); MAGNESIUM 1.9 mg/dL (1.8-2.4)
[2022-10-20 09:52] LABS: BILIRUBIN,DIRECT 0.3 mg/dL (0.0-0.2)
[2022-10-20 09:54] LABS: BILIRUBIN,TOTAL 0.8 mg/dL (0.2-1)
[2022-10-20] MEDS ORDERED: GRANISETRON HCL 1 MG TABLET PO ONE (10:00)
[2022-10-20] MEDS ORDERED: DEXAMETHASONE 4 MG TABLET (FP) PO ONE (10:00)
[2022-10-20 10:01] LABS: URIC ACID 4.2 mg/dL (2.6-7.2)
[2022-10-20] MEDS ORDERED: BORTEZOMIB 2.5 MG/ML SUB-Q INJECTION SQ ONE (10:30)
[2022-10-20 10:47] VITALS: BP 128/83; PULSE 84; RESP 20; TEMP 97.6
[2022-10-22 07:11] LABS: FREE KAP CHN UR 30.18 mg/L (1.17-86.46); KAPPA LAMBDA RATIO URIN 8.98 (1.83-14.26)
== END 2022-10-20 10:52 | disposition home or self-care (01) ==
LOC: JONCCHEMO 08:33
PROVIDERS: ATTEND Internal Medicine Hematology & Oncology
DX: Z51.11 Encounter for antineoplastic chemotherapy (principal); C90.00 Multiple myeloma not having achieved remission
CPT/HCPCS: 36415; 80048; 80076; 81003; 82784; 83615; 83735; 83883; 84155; 84165; 84550; 85025; 86335; 87086; 87186; 96401; J9041

== ENCOUNTER 2022-10-27 09:09 | Day surgery (SDC) | payer OTHER, MEDICARE ==
[2022-10-27 09:48] LABS: BASO % 0.4 % (0-2.0); HEMATOCRIT 42.7 % (35.4-49); HEMOGLOBIN 14.3 GM/dL (11.7-16.9); LYMPH % 12.7 % (8-40); MCH 30.4 pg (25.7-33.7); MCHC 33.5 g/dl (32.0-35.9); MEAN CELL VOLUME 90.5 fl (80-96); MEAN PLT VOLUME 8.8 fl (7.5-11.1); MONO % 15.8 % (3.8-10.2); NEUT % 64.1 % (42.8-82.8); PLATELET COUNT 153 10^3/uL (134-434); RBC 4.71 M/mm3 (4.00-5.60); WHITE BLOOD COUNT 5.8 K/mm3 (4.0-10.0)
[2022-10-27] MEDS ORDERED: DEXAMETHASONE 4 MG TABLET (FP) PO ONE (10:00)
[2022-10-27] MEDS ORDERED: GRANISETRON HCL 1 MG TABLET PO ONE (10:00)
[2022-10-27 10:12] LABS: MAGNESIUM 1.5 mg/dL (1.8-2.4)
[2022-10-27 10:13] LABS: ALBUMIN 3.1 g/dl (3.4-5.0); BLOOD UREA NITROGEN 15.6 mg/dL (7-18)
[2022-10-27 10:15] LABS: CREATININE 0.9 mg/dL (0.55-1.3); URIC ACID 4.2 mg/dL (2.6-7.2)
[2022-10-27 10:16] LABS: BILIRUBIN,DIRECT 0.2 mg/dL (0.0-0.2)
[2022-10-27 10:17] LABS: TOT PROT 5.7 g/dl (6.4-8.2)
[2022-10-27 10:18] LABS: BILIRUBIN,TOTAL 0.7 mg/dL (0.2-1)
[2022-10-27] MEDS ORDERED: BORTEZOMIB 2.5 MG/ML SUB-Q INJECTION SQ ONE (10:30)
[2022-10-27] MEDS ORDERED: INSULIN (NOVOLOG) ASPART 100 UNITS/ML 10ML VIAL SQ ONE (11:01)
[2022-10-27] MEDS ORDERED: MAGNESIUM 2GM/50ML STERILE WATER IVPB IVPB ONE (11:15)
[2022-10-27 16:09] VITALS: PULSE 64; TEMP 97.8
[2022-10-27 16:12] VITALS: BP 137/76; RESP 18
== END 2022-10-27 12:30 | disposition home or self-care (01) ==
LOC: JONCCHEMO 09:09
PROVIDERS: ATTEND Internal Medicine Hematology & Oncology
PROC: 3E01305 Introduction of Other Antineoplastic into Subcutaneous Tissue, Percutaneous Approach (ICD-10-PCS; principal; 2022-10-27)
PROC: 3E033GC Introduction of Other Therapeutic Substance into Peripheral Vein, Percutaneous Approach (ICD-10-PCS; 2022-10-27)
DX: Z51.11 Encounter for antineoplastic chemotherapy (principal); C90.00 Multiple myeloma not having achieved remission
CPT/HCPCS: 36415; 80048; 80076; 83615; 83735; 84550; 85025; 96365; 96401; J9041

== ENCOUNTER 2022-11-03 08:46 | Day surgery (SDC) | payer OTHER, MEDICARE ==
[2022-11-03 09:45] LABS: MAGNESIUM 1.7 mg/dL (1.8-2.4)
[2022-11-03 09:46] LABS: ALBUMIN 3.1 g/dl (3.4-5.0); BLOOD UREA NITROGEN 17.5 mg/dL (7-18); CALCIUM 8.7 mg/dL (8.5-10.1)
[2022-11-03 09:47] LABS: BASO % 0.3 % (0-2.0); EOS % 4.1 % (0-4.5); HEMATOCRIT 44.8 % (35.4-49); LYMPH % 9.7 % (8-40); MCH 30.5 pg (25.7-33.7); MCHC 33.4 g/dl (32.0-35.9); MEAN CELL VOLUME 91.1 fl (80-96); MEAN PLT VOLUME 9.4 fl (7.5-11.1); NEUT % 69.9 % (42.8-82.8); PLATELET COUNT 128 10^3/uL (134-434); RBC 4.92 M/mm3 (4.00-5.60); RDW 13.8 % (11.9-15.9); WHITE BLOOD COUNT 5.5 K/mm3 (4.0-10.0)
[2022-11-03 09:48] LABS: URIC ACID 4.7 mg/dL (2.6-7.2)
[2022-11-03 09:49] LABS: BILIRUBIN,DIRECT 0.2 mg/dL (0.0-0.2); CREATININE 1.1 mg/dL (0.55-1.3)
[2022-11-03 09:50] LABS: TOT PROT 5.7 g/dl (6.4-8.2)
[2022-11-03 09:51] LABS: BILIRUBIN,TOTAL 0.6 mg/dL (0.2-1)
[2022-11-03] MEDS ORDERED: INSULIN (NOVOLOG) ASPART 100 UNITS/ML 10ML VIAL SQ ONE (09:56)
[2022-11-03] MEDS ORDERED: DEXAMETHASONE 4 MG TABLET (FP) PO ONE (10:00)
[2022-11-03] MEDS ORDERED: GRANISETRON HCL 1 MG TABLET PO ONE (10:00)
[2022-11-03] MEDS ORDERED: BORTEZOMIB 2.5 MG/ML SUB-Q INJECTION SQ ONE (10:00)
[2022-11-03 15:40] VITALS: BP 141/81; PULSE 74; RESP 20; TEMP 98.1
== END 2022-11-03 10:45 | disposition home or self-care (01) ==
LOC: JONCCHEMO 08:46
PROVIDERS: ATTEND Internal Medicine Hematology & Oncology
DX: Z51.11 Encounter for antineoplastic chemotherapy (principal); C90.00 Multiple myeloma not having achieved remission
CPT/HCPCS: 36415; 80048; 80076; 83615; 83735; 84550; 85025; 96401; J9041

== ENCOUNTER 2022-11-17 08:45 | Day surgery (SDC) | payer OTHER, MEDICARE ==
[2022-11-17] MEDS ORDERED: GRANISETRON HCL 1 MG TABLET PO ONE (09:30)
[2022-11-17] MEDS ORDERED: DEXAMETHASONE 4 MG TABLET (FP) PO ONE (09:30)
[2022-11-17 09:34] LABS: BASO % 0.6 % (0-2.0); EOS % 5.9 % (0-4.5); HEMATOCRIT 42.4 % (35.4-49); HEMOGLOBIN 14.6 GM/dL (11.7-16.9); LYMPH % 14.6 % (8-40); MCH 30.9 pg (25.7-33.7); MCHC 34.3 g/dl (32.0-35.9); MEAN CELL VOLUME 89.9 fl (80-96); MEAN PLT VOLUME 8.8 fl (7.5-11.1); MONO % 16.1 % (3.8-10.2); NEUT % 62.8 % (42.8-82.8); PLATELET COUNT 137 10^3/uL (134-434); RBC 4.72 M/mm3 (4.00-5.60); RDW 13.9 % (11.9-15.9); WHITE BLOOD COUNT 5.1 K/mm3 (4.0-10.0)
[2022-11-17 09:55] LABS: ALBUMIN 3.2 g/dl (3.4-5.0); BLOOD UREA NITROGEN 15.6 mg/dL (7-18); CALCIUM 8.8 mg/dL (8.5-10.1); MAGNESIUM 1.6 mg/dL (1.8-2.4)
[2022-11-17 09:58] LABS: BILIRUBIN,DIRECT 0.2 mg/dL (0.0-0.2)
[2022-11-17 09:59] LABS: TOT PROT 5.8 g/dl (6.4-8.2)
[2022-11-17 10:00] LABS: BILIRUBIN,TOTAL 0.7 mg/dL (0.2-1)
[2022-11-17] MEDS ORDERED: BORTEZOMIB 2.5 MG/ML SUB-Q INJECTION SQ ONE (10:00)
[2022-11-17] MEDS ORDERED: INSULIN (NOVOLOG) ASPART 100 UNITS/ML 10ML VIAL SQ ONE ×2 (10:10→10:45)
[2022-11-17] MEDS ORDERED: MAGNESIUM SULF 50% (8.12 MEQ/2 ML-1 GM VIAL) IVPB ONE (10:11)
[2022-11-17] MEDS ORDERED: MAGNESIUM 2GM/50ML STERILE WATER IVPB IVPB ONE (10:45)
[2022-11-17 11:45] LABS: PH,URINE 5.5 (5.0-8.0); URINE APPEARANCE CLEAR; URINE BILIRUBIN NEGATIVE (NEGATIVE); URINE COLOR YELLOW; URINE GLUCOSE (UA) 3+ (NEGATIVE); URINE KETONE NEGATIVE (NEGATIVE); URINE LEUK ESTERASE NEGATIVE (NEGATIVE); URINE NITRITE NEGATIVE (NEGATIVE); URINE PROTEIN NEGATIVE (NEGATIVE); URINE UROBILINOGEN 0.2 mg/dL (0.2-1.0)
[2022-11-17 15:58] VITALS: PULSE 74; RESP 20; TEMP 97.9
[2022-11-17 16:03] VITALS: BP 120/70
[2022-11-18 18:07] LABS: FREE KAPPA,SERUM 213.4 mg/L (3.3-19.4)
[2022-11-19 07:07] LABS: FREE KAP CHN UR 15.79 mg/L (1.17-86.46); KAPPA LAMBDA RATIO URIN 8.22 (1.83-14.26)
[2022-11-19 08:05] LABS: BETA-2-MICROGLOBULIN 2.2 mg/L (0.6-2.4)
== END 2022-11-17 12:20 | disposition home or self-care (01) ==
LOC: JONCCHEMO 08:45
PROVIDERS: ATTEND Internal Medicine Hematology & Oncology
PROC: 3E01305 Introduction of Other Antineoplastic into Subcutaneous Tissue, Percutaneous Approach (ICD-10-PCS; principal; 2022-11-17)
PROC: 3E033GC Introduction of Other Therapeutic Substance into Peripheral Vein, Percutaneous Approach (ICD-10-PCS; 2022-11-17)
DX: Z51.11 Encounter for antineoplastic chemotherapy (principal); C90.00 Multiple myeloma not having achieved remission
CPT/HCPCS: 36415; 80048; 80076; 81003; 82232; 82784; 83615; 83735; 83883; 84155; 84165; 85025; 86335; 87086; 96365; 96401; J9041

== ENCOUNTER 2022-11-24 08:46 | Day surgery (SDC) | payer OTHER, MEDICARE ==
[2022-11-24 09:06] LABS: BASO % 0.4 % (0-2.0); EOS % 5.4 % (0-4.5); HEMOGLOBIN 16.1 GM/dL (11.7-16.9); MCH 30.8 pg (25.7-33.7); MCHC 34.3 g/dl (32.0-35.9); MEAN CELL VOLUME 89.8 fl (80-96); MEAN PLT VOLUME 9.8 fl (7.5-11.1); MONO % 16.7 % (3.8-10.2); NEUT % 65.5 % (42.8-82.8); PLATELET COUNT 131 10^3/uL (134-434); RBC 5.24 M/mm3 (4.00-5.60); RDW 14.1 % (11.9-15.9); WHITE BLOOD COUNT 6.4 K/mm3 (4.0-10.0)
[2022-11-24 09:29] LABS: BLOOD UREA NITROGEN 19.3 mg/dL (7-18); MAGNESIUM 2.2 mg/dL (1.8-2.4)
[2022-11-24 09:30] LABS: ALBUMIN 3.6 g/dl (3.4-5.0)
[2022-11-24] MEDS ORDERED: DEXAMETHASONE 4 MG TABLET (FP) PO ONE (09:30)
[2022-11-24] MEDS ORDERED: GRANISETRON HCL 1 MG TABLET PO ONE (09:30)
[2022-11-24] MEDS ORDERED: INSULIN (NOVOLOG) ASPART 100 UNITS/ML 10ML VIAL SQ ONE (09:31)
[2022-11-24 09:32] LABS: BILIRUBIN,DIRECT 0.3 mg/dL (0.0-0.2); CREATININE 1.3 mg/dL (0.55-1.3); URIC ACID 5.2 mg/dL (2.6-7.2)
[2022-11-24 09:33] LABS: TOT PROT 6.3 g/dl (6.4-8.2)
[2022-11-24 09:34] LABS: BILIRUBIN,TOTAL 0.9 mg/dL (0.2-1)
[2022-11-24] MEDS ORDERED: BORTEZOMIB 2.5 MG/ML SUB-Q INJECTION SQ ONE (10:00)
[2022-11-24 16:44] VITALS: BP 106/64; PULSE 87; RESP 20; TEMP 98.1
== END 2022-11-24 11:00 | disposition home or self-care (01) ==
LOC: JONCCHEMO 08:46
PROVIDERS: ATTEND Internal Medicine Hematology & Oncology
DX: Z51.11 Encounter for antineoplastic chemotherapy (principal); C90.00 Multiple myeloma not having achieved remission
CPT/HCPCS: 36415; 80048; 80076; 83615; 83735; 84550; 85025; 96401; J9041

== ENCOUNTER 2022-12-01 09:45 | Day surgery (SDC) | payer OTHER, MEDICARE ==
[2022-12-01 09:25] LABS: HEMATOCRIT 46.1 % (35.4-49); HEMOGLOBIN 15.5 GM/dL (11.7-16.9); MCH 30.2 pg (25.7-33.7); MCHC 33.5 g/dl (32.0-35.9); MEAN CELL VOLUME 90.1 fl (80-96); PLATELET COUNT 113 10^3/uL (134-434); RBC 5.12 M/mm3 (4.00-5.60); WHITE BLOOD COUNT 6.1 K/mm3 (4.0-10.0)
[2022-12-01] MEDS ORDERED: DEXAMETHASONE 4 MG TABLET (FP) PO ONE (10:00)
[2022-12-01] MEDS ORDERED: GRANISETRON HCL 1 MG TABLET PO ONE (10:00)
[2022-12-01 10:27] LABS: ANISOCYTOSIS 1+; MACROCYTOSIS 0
[2022-12-01] MEDS ORDERED: BORTEZOMIB 2.5 MG/ML SUB-Q INJECTION SQ ONE (10:30)
[2022-12-01 11:09] LABS: ALBUMIN 3.2 g/dl (3.4-5.0); BLOOD UREA NITROGEN 19.4 mg/dL (7-18); CALCIUM 8.5 mg/dL (8.5-10.1); MAGNESIUM 1.9 mg/dL (1.8-2.4)
[2022-12-01 11:12] LABS: BILIRUBIN,DIRECT 0.3 mg/dL (0.0-0.2); CREATININE 1.2 mg/dL (0.55-1.3); URIC ACID 5.1 mg/dL (2.6-7.2)
[2022-12-01 11:13] LABS: BILIRUBIN,TOTAL 0.9 mg/dL (0.2-1)
[2022-12-01] MEDS ORDERED: INSULIN (NOVOLOG) ASPART 100 UNITS/ML 10ML VIAL SQ ONE (11:13)
[2022-12-01 11:48] LABS: PH,URINE 5.5 (5.0-8.0); URINE APPEARANCE CLEAR; URINE BILIRUBIN NEGATIVE (NEGATIVE); URINE COLOR YELLOW; URINE GLUCOSE (UA) 3+ (NEGATIVE); URINE KETONE NEGATIVE (NEGATIVE); URINE LEUK ESTERASE NEGATIVE (NEGATIVE); URINE NITRITE NEGATIVE (NEGATIVE); URINE PROTEIN NEGATIVE (NEGATIVE); URINE UROBILINOGEN 0.2 mg/dL (0.2-1.0)
[2022-12-01 14:22] VITALS: BP 122/76; PULSE 83; RESP 18; TEMP 98.3
== END 2022-12-01 11:55 | disposition home or self-care (01) ==
LOC: JONCCHEMO 09:45
PROVIDERS: ATTEND Internal Medicine Hematology & Oncology
DX: Z51.11 Encounter for antineoplastic chemotherapy (principal); C90.00 Multiple myeloma not having achieved remission
CPT/HCPCS: 36415; 80048; 80076; 81003; 83615; 83735; 84550; 85025; 87086; 96401; J9041

== ENCOUNTER 2022-12-15 08:03 | Day surgery (SDC) | payer OTHER, MEDICARE ==
[2022-12-15 08:50] LABS: BASO % 0.8 % (0-2.0); EOS % 3.5 % (0-4.5); HEMATOCRIT 44.1 % (35.4-49); HEMOGLOBIN 15.1 GM/dL (11.7-16.9); LYMPH % 14.7 % (8-40); MCH 30.9 pg (25.7-33.7); MCHC 34.2 g/dl (32.0-35.9); MEAN CELL VOLUME 90.4 fl (80-96); MEAN PLT VOLUME 8.8 fl (7.5-11.1); MONO % 16.4 % (3.8-10.2); NEUT % 64.6 % (42.8-82.8); PLATELET COUNT 150 10^3/uL (134-434); RBC 4.88 M/mm3 (4.00-5.60); RDW 14.4 % (11.9-15.9); WHITE BLOOD COUNT 4.9 K/mm3 (4.0-10.0)
[2022-12-15 09:12] LABS: CALCIUM 8.9 mg/dL (8.5-10.1)
[2022-12-15 09:13] LABS: ALBUMIN 3.2 g/dl (3.4-5.0); BLOOD UREA NITROGEN 21.5 mg/dL (7-18); MAGNESIUM 1.8 mg/dL (1.8-2.4)
[2022-12-15 09:15] LABS: BILIRUBIN,DIRECT 0.2 mg/dL (0.0-0.2); URIC ACID 5.2 mg/dL (2.6-7.2)
[2022-12-15 09:16] LABS: CREATININE 1.1 mg/dL (0.55-1.3)
[2022-12-15 09:17] LABS: BILIRUBIN,TOTAL 0.6 mg/dL (0.2-1)
[2022-12-15] MEDS ORDERED: INSULIN (NOVOLOG) ASPART 100 UNITS/ML 10ML VIAL SQ ONE (09:45)
[2022-12-15] MEDS ORDERED: DEXAMETHASONE 4 MG TABLET (FP) PO ONE (10:00)
[2022-12-15] MEDS ORDERED: GRANISETRON HCL 1 MG TABLET PO ONE (10:00)
[2022-12-15] MEDS ORDERED: BORTEZOMIB 2.5 MG/ML SUB-Q INJECTION SQ ONE (10:30)
[2022-12-15 10:59] LABS: PH,URINE 5.5 (5.0-8.0); URINE APPEARANCE CLEAR; URINE BILIRUBIN NEGATIVE (NEGATIVE); URINE COLOR YELLOW; URINE GLUCOSE (UA) 3+ (NEGATIVE); URINE KETONE NEGATIVE (NEGATIVE); URINE LEUK ESTERASE NEGATIVE (NEGATIVE); URINE NITRITE NEGATIVE (NEGATIVE); URINE PROTEIN NEGATIVE (NEGATIVE); URINE UROBILINOGEN 0.2 mg/dL (0.2-1.0)
[2022-12-15 15:11] VITALS: BP 108/71; PULSE 77; RESP 20; TEMP 97.9
[2022-12-16 17:06] LABS: FREE KAPPA,SERUM 216.2 mg/L (3.3-19.4)
[2022-12-17 06:05] LABS: FREE KAP CHN UR 9.04 mg/L (1.17-86.46); KAPPA LAMBDA RATIO URIN 6.41 (1.83-14.26)
[2022-12-17 16:07] LABS: BETA-2-MICROGLOBULIN 2.5 mg/L (0.6-2.4)
== END 2022-12-15 11:00 | disposition home or self-care (01) ==
LOC: JONCCHEMO 08:03
PROVIDERS: ATTEND Internal Medicine Hematology & Oncology
DX: Z51.11 Encounter for antineoplastic chemotherapy (principal); C90.00 Multiple myeloma not having achieved remission
CPT/HCPCS: 36415; 80048; 80076; 81003; 82232; 82784; 83615; 83735; 83883; 84155; 84165; 84550; 85025; 86335; 87086; 87186; 96401; J9041

== ENCOUNTER 2022-12-22 08:27 | Day surgery (SDC) | payer OTHER, MEDICARE ==
[2022-12-22] MEDS ORDERED: BORTEZOMIB 2.5 MG/ML SUB-Q INJECTION SQ ONE (10:00)
[2022-12-22] MEDS ORDERED: GRANISETRON HCL 1 MG TABLET PO ONE (10:00)
[2022-12-22] MEDS ORDERED: DEXAMETHASONE 4 MG TABLET (FP) PO ONE (10:00)
[2022-12-22 10:02] LABS: HEMATOCRIT 44.9 % (35.4-49); HEMOGLOBIN 15.1 GM/dL (11.7-16.9); MCH 30.5 pg (25.7-33.7); MCHC 33.7 g/dl (32.0-35.9); MEAN CELL VOLUME 90.6 fl (80-96); MEAN PLT VOLUME 9.5 fl (7.5-11.1); PLATELET COUNT 132 10^3/uL (134-434); RBC 4.95 M/mm3 (4.00-5.60); RDW 14.6 % (11.9-15.9); WHITE BLOOD COUNT 4.8 K/mm3 (4.0-10.0)
[2022-12-22 10:19] LABS: BLOOD UREA NITROGEN 18.9 mg/dL (7-18); CALCIUM 8.7 mg/dL (8.5-10.1); MAGNESIUM 1.8 mg/dL (1.8-2.4)
[2022-12-22 10:20] LABS: ALBUMIN 3.2 g/dl (3.4-5.0)
[2022-12-22 10:22] LABS: CREATININE 1.1 mg/dL (0.55-1.3)
[2022-12-22 10:23] LABS: BILIRUBIN,DIRECT 0.2 mg/dL (0.0-0.2)
[2022-12-22 10:24] LABS: TOT PROT 5.6 g/dl (6.4-8.2)
[2022-12-22 10:25] LABS: BILIRUBIN,TOTAL 0.7 mg/dL (0.2-1)
[2022-12-22 10:55] LABS: ANISOCYTOSIS 0; HELMET CELLS 0; HOWELL-JOLLY BODIES 0; MACROCYTOSIS 0; OVALOCYTE 0; ROULEAU 0; SICKELED CELLS 0; TARGET CELLS 0; TEAR DROP CELLS 0; TOXIC GRANULATION 0
[2022-12-22] MEDS ORDERED: INSULIN (NOVOLOG) ASPART 100 UNITS/ML 10ML VIAL SQ ONE (10:59)
[2022-12-22 14:31] VITALS: BP 108/68; PULSE 77; RESP 20; TEMP 98.6
== END 2022-12-22 11:30 | disposition home or self-care (01) ==
LOC: JONCCHEMO 08:27
PROVIDERS: ATTEND Internal Medicine Hematology & Oncology
PROC: 3E013GC Introduction of Other Therapeutic Substance into Subcutaneous Tissue, Percutaneous Approach (ICD-10-PCS; principal; 2022-12-22)
DX: Z51.11 Encounter for antineoplastic chemotherapy (principal); C90.00 Multiple myeloma not having achieved remission
CPT/HCPCS: 36415; 80048; 80076; 83615; 83735; 84550; 85025; 96401; J9041

== ENCOUNTER 2022-12-29 08:56 | Day surgery (SDC) | payer OTHER, MEDICARE ==
[2022-12-29 08:58] LABS: HEMATOCRIT 44.3 % (35.4-49); HEMOGLOBIN 15.5 GM/dL (11.7-16.9); MCH 31.1 pg (25.7-33.7); MEAN PLT VOLUME 9.9 fl (7.5-11.1); PLATELET COUNT 122 10^3/uL (134-434); RBC 4.97 M/mm3 (4.00-5.60); RDW 14.3 % (11.9-15.9); WHITE BLOOD COUNT 6.3 K/mm3 (4.0-10.0)
[2022-12-29 09:25] LABS: ALBUMIN 3.1 g/dl (3.4-5.0); BLOOD UREA NITROGEN 26.2 mg/dL (7-18); CALCIUM 8.2 mg/dL (8.5-10.1); MAGNESIUM 1.6 mg/dL (1.8-2.4)
[2022-12-29 09:28] LABS: BILIRUBIN,DIRECT 0.2 mg/dL (0.0-0.2); CREATININE 1.3 mg/dL (0.55-1.3); URIC ACID 6.4 mg/dL (2.6-7.2)
[2022-12-29 09:30] LABS: BILIRUBIN,TOTAL 0.8 mg/dL (0.2-1); TOT PROT 5.9 g/dl (6.4-8.2)
[2022-12-29] MEDS ORDERED: GRANISETRON HCL 1 MG TABLET PO ONE (09:30)
[2022-12-29] MEDS ORDERED: DEXAMETHASONE 4 MG TABLET (FP) PO ONE (09:30)
[2022-12-29] MEDS ORDERED: BORTEZOMIB 2.5 MG/ML SUB-Q INJECTION SQ ONE (10:00)
[2022-12-29 10:03] LABS: ANISOCYTOSIS 1+; MACROCYTOSIS 0; PLATELET ESTIMATE DECREASED
[2022-12-29] MEDS ORDERED: INSULIN (NOVOLOG) ASPART 100 UNITS/ML 10ML VIAL SQ ONE (10:36)
[2022-12-29] MEDS ORDERED: MAGNESIUM CL 64 MG TABLET.SA PO SCH (10:45)
[2022-12-29 15:19] VITALS: BP 128/55; PULSE 78; RESP 20; TEMP 97.8
== END 2022-12-29 11:30 | disposition home or self-care (01) ==
LOC: JONCCHEMO 08:56
PROVIDERS: ATTEND Internal Medicine Hematology & Oncology
DX: Z51.11 Encounter for antineoplastic chemotherapy (principal); C90.00 Multiple myeloma not having achieved remission
CPT/HCPCS: 36415; 80048; 80076; 83615; 83735; 84550; 85025; 96401; J9041

== ENCOUNTER 2023-01-12 08:28 | Day surgery (SDC) | payer OTHER, MEDICARE ==
[2023-01-12 09:27] LABS: BASO % 0.6 % (0-2.0); EOS % 6.4 % (0-4.5); HEMATOCRIT 41.6 % (35.4-49); HEMOGLOBIN 14.5 GM/dL (11.7-16.9); LYMPH % 10.7 % (8-40); MCH 30.6 pg (25.7-33.7); MCHC 34.9 g/dl (32.0-35.9); MEAN CELL VOLUME 87.7 fl (80-96); MEAN PLT VOLUME 8.4 fl (7.5-11.1); MONO % 19.9 % (3.8-10.2); NEUT % 62.4 % (42.8-82.8); PLATELET COUNT 147 10^3/uL (134-434); RBC 4.75 M/mm3 (4.00-5.60); RDW 14.8 % (11.9-15.9); WHITE BLOOD COUNT 4.7 K/mm3 (4.0-10.0)
[2023-01-12 09:48] LABS: CALCIUM 8.7 mg/dL (8.5-10.1)
[2023-01-12 09:49] LABS: MAGNESIUM 1.6 mg/dL (1.8-2.4)
[2023-01-12 09:51] LABS: ALBUMIN 3.1 g/dl (3.4-5.0); BLOOD UREA NITROGEN 17.5 mg/dL (7-18)
[2023-01-12 09:54] LABS: BILIRUBIN,DIRECT 0.3 mg/dL (0.0-0.2); TOT PROT 5.8 g/dl (6.4-8.2)
[2023-01-12] MEDS ORDERED: MAGNESIUM 2GM/50ML STERILE WATER IVPB IVPB ONE (09:55)
[2023-01-12] MEDS ORDERED: DEXAMETHASONE 4 MG TABLET (FP) PO ONE (10:30)
[2023-01-12] MEDS ORDERED: BORTEZOMIB 2.5 MG/ML SUB-Q INJECTION SQ ONE (10:30)
[2023-01-12] MEDS ORDERED: GRANISETRON HCL 1 MG TABLET PO ONE (10:30)
[2023-01-12 17:23] VITALS: BP 127/80; PULSE 88; RESP 20; TEMP 97.7
[2023-01-13 17:08] LABS: FREE KAPPA,SERUM 218.3 mg/L (3.3-19.4)
[2023-01-14 06:06] LABS: FREE KAP CHN UR 14.25 mg/L (1.17-86.46); KAPPA LAMBDA RATIO URIN 8.64 (1.83-14.26)
== END 2023-01-12 12:40 | disposition home or self-care (01) ==
LOC: JONCCHEMO 08:28
PROVIDERS: ATTEND Internal Medicine Hematology & Oncology
PROC: 3E033GC Introduction of Other Therapeutic Substance into Peripheral Vein, Percutaneous Approach (ICD-10-PCS; principal; 2023-01-12)
DX: Z51.11 Encounter for antineoplastic chemotherapy (principal); C90.00 Multiple myeloma not having achieved remission
CPT/HCPCS: 36415; 80048; 80061; 80076; 82043; 82232; 82570; 82784; 83036; 83615; 83735; 83883; 84155; 84165; 85025; 86335; 96365; 96401; J9041

== ENCOUNTER 2023-01-19 08:25 | Day surgery (SDC) | payer OTHER, MEDICARE ==
[2023-01-19 08:56] LABS: HEMATOCRIT 40.5 % (35.4-49); HEMOGLOBIN 14.3 GM/dL (11.7-16.9); MCH 30.9 pg (25.7-33.7); MCHC 35.2 g/dl (32.0-35.9); MEAN CELL VOLUME 87.7 fl (80-96); MEAN PLT VOLUME 9.7 fl (7.5-11.1); PLATELET COUNT 122 10^3/uL (134-434); RBC 4.62 M/mm3 (4.00-5.60); RDW 14.6 % (11.9-15.9)
[2023-01-19 09:13] LABS: URIC ACID 4.3 mg/dL (2.6-7.2)
[2023-01-19] MEDS ORDERED: DEXAMETHASONE 4 MG TABLET (FP) PO ONE (09:30)
[2023-01-19] MEDS ORDERED: GRANISETRON HCL 1 MG TABLET PO ONE (09:30)
[2023-01-19 09:45] LABS: ANISOCYTOSIS 0; HELMET CELLS 0; HOWELL-JOLLY BODIES 0; MACROCYTOSIS 0; OVALOCYTE 0; ROULEAU 0; SICKELED CELLS 0; TARGET CELLS 0; TEAR DROP CELLS 0; TOXIC GRANULATION 0
[2023-01-19] MEDS ORDERED: BORTEZOMIB 2.5 MG/ML SUB-Q INJECTION SQ ONE (10:00)
[2023-01-19] MEDS ORDERED: MAGNESIUM 2GM/50ML STERILE WATER IVPB IVPB ONE (10:00)
[2023-01-19 10:19] LABS: MAGNESIUM 1.7 mg/dL (1.8-2.4)
[2023-01-19 10:21] LABS: CREATININE 1.1 mg/dL (0.55-1.3)
[2023-01-19 10:23] LABS: TOT PROT 5.7 g/dl (6.4-8.2)
[2023-01-19 11:10] LABS: BILIRUBIN,DIRECT 0.4 mg/dL (0.0-0.2); BILIRUBIN,TOTAL 1.1 mg/dL (0.2-1); BLOOD UREA NITROGEN 19.5 mg/dL (7-18); CALCIUM 8.8 mg/dL (8.5-10.1)
[2023-01-19] MEDS ORDERED: INSULIN (NOVOLOG) ASPART 100 UNITS/ML 10ML VIAL SQ ONE (11:23)
[2023-01-19 12:19] LABS: EPI CELLS 13 /uL (0-25.1); HYALINE CASTS 1 /uL (0-3.1); PH,URINE 6.5 (5.0-8.0); URINE APPEARANCE CLEAR; URINE BACTERIA 35 /uL (0-1359); URINE BILIRUBIN NEGATIVE (NEGATIVE); URINE COLOR YELLOW; URINE GLUCOSE (UA) 2+ (NEGATIVE); URINE KETONE NEGATIVE (NEGATIVE); URINE LEUK ESTERASE TRACE (NEGATIVE); URINE NITRITE NEGATIVE (NEGATIVE); URINE PROTEIN NEGATIVE (NEGATIVE); URINE RBC 4 /uL (0-23.9); URINE WBC 14 /uL (0-25.8)
[2023-01-19 17:01] VITALS: BP 120/52; PULSE 89; RESP 18; TEMP 98
== END 2023-01-19 13:15 | disposition home or self-care (01) ==
LOC: JONCCHEMO 08:25
PROVIDERS: ATTEND Internal Medicine Hematology & Oncology
PROC: 3E01305 Introduction of Other Antineoplastic into Subcutaneous Tissue, Percutaneous Approach (ICD-10-PCS; principal; 2023-01-19)
PROC: 3E033GC Introduction of Other Therapeutic Substance into Peripheral Vein, Percutaneous Approach (ICD-10-PCS; 2023-01-19)
DX: Z51.11 Encounter for antineoplastic chemotherapy (principal); C90.00 Multiple myeloma not having achieved remission
CPT/HCPCS: 36415; 80048; 80076; 81003; 83615; 83735; 84550; 85025; 87086; 96365; 96401; J9041

== ENCOUNTER 2023-01-26 08:24 | Day surgery (SDC) | payer OTHER, MEDICARE ==
[2023-01-26 09:18] LABS: HEMATOCRIT 39.2 % (35.4-49); HEMOGLOBIN 13.6 GM/dL (11.7-16.9); MCH 30.6 pg (25.7-33.7); MCHC 34.7 g/dl (32.0-35.9); MEAN PLT VOLUME 9.3 fl (7.5-11.1); PLATELET COUNT 138 10^3/uL (134-434); RBC 4.46 M/mm3 (4.00-5.60); WHITE BLOOD COUNT 5.8 K/mm3 (4.0-10.0)
[2023-01-26 09:39] LABS: ALBUMIN 2.8 g/dl (3.4-5.0); BLOOD UREA NITROGEN 17.2 mg/dL (7-18); CALCIUM 8.8 mg/dL (8.5-10.1); MAGNESIUM 1.8 mg/dL (1.8-2.4)
[2023-01-26 09:43] LABS: BILIRUBIN,DIRECT 0.4 mg/dL (0.0-0.2); CREATININE 0.9 mg/dL (0.55-1.3); URIC ACID 3.6 mg/dL (2.6-7.2)
[2023-01-26 09:44] LABS: TOT PROT 5.4 g/dl (6.4-8.2)
[2023-01-26] MEDS ORDERED: INSULIN (NOVOLOG) ASPART 100 UNITS/ML 10ML VIAL SQ ONE (09:48)
[2023-01-26 09:49] LABS: ANISOCYTOSIS 0; HELMET CELLS 0; HOWELL-JOLLY BODIES 0; MACROCYTOSIS 0; OVALOCYTE 0; ROULEAU 0; SICKELED CELLS 0; TARGET CELLS 0; TEAR DROP CELLS 0; TOXIC GRANULATION 0
[2023-01-26] MEDS ORDERED: DEXAMETHASONE 4 MG TABLET (FP) PO ONE (10:00)
[2023-01-26] MEDS ORDERED: GRANISETRON HCL 1 MG TABLET PO ONE (10:00)
[2023-01-26] MEDS ORDERED: BORTEZOMIB 2.5 MG/ML SUB-Q INJECTION SQ ONE (10:30)
[2023-01-26 14:01] VITALS: BP 119/66; PULSE 91; RESP 18; TEMP 98.8
== END 2023-01-26 14:05 | disposition home or self-care (01) ==
LOC: JONCCHEMO 08:24
PROVIDERS: ATTEND Internal Medicine Hematology & Oncology
PROC: 3E01305 Introduction of Other Antineoplastic into Subcutaneous Tissue, Percutaneous Approach (ICD-10-PCS; principal; 2023-01-26)
PROC: 3E013VG Introduction of Insulin into Subcutaneous Tissue, Percutaneous Approach (ICD-10-PCS; 2023-01-26)
DX: Z51.11 Encounter for antineoplastic chemotherapy (principal); C90.00 Multiple myeloma not having achieved remission
CPT/HCPCS: 36415; 80048; 80076; 83615; 83735; 84550; 85025; 96372; 96401; J9041

== ENCOUNTER 2023-02-09 08:34 | Day surgery (SDC) | payer OTHER, MEDICARE ==
[2023-02-09 09:49] LABS: HEMATOCRIT 40.5 % (35.4-49); HEMOGLOBIN 14.2 GM/dL (11.7-16.9); MCH 30.7 pg (25.7-33.7); MEAN CELL VOLUME 87.7 fl (80-96); MEAN PLT VOLUME 8.2 fl (7.5-11.1); PLATELET COUNT 224 10^3/uL (134-434); RBC 4.62 M/mm3 (4.00-5.60); RDW 15.2 % (11.9-15.9); WHITE BLOOD COUNT 6.8 K/mm3 (4.0-10.0)
[2023-02-09] MEDS ORDERED: DEXAMETHASONE 4 MG TABLET (FP) PO ONE (10:00)
[2023-02-09] MEDS ORDERED: GRANISETRON HCL 1 MG TABLET PO ONE (10:00)
[2023-02-09] MEDS ORDERED: BORTEZOMIB 2.5 MG/ML SUB-Q INJECTION SQ ONE (10:30)
[2023-02-09 10:33] LABS: ANISOCYTOSIS 0; HELMET CELLS 0; HOWELL-JOLLY BODIES 0; MACROCYTOSIS 0; OVALOCYTE 0; ROULEAU 0; SICKELED CELLS 0; TARGET CELLS 0; TEAR DROP CELLS 0; TOXIC GRANULATION 0
[2023-02-09 10:54] LABS: BLOOD UREA NITROGEN 17.7 mg/dL (7-18); MAGNESIUM 1.4 mg/dL (1.8-2.4)
[2023-02-09 10:56] LABS: BILIRUBIN,DIRECT 0.3 mg/dL (0.0-0.2)
[2023-02-09 10:57] LABS: CREATININE 1.2 mg/dL (0.55-1.3)
[2023-02-09 10:58] LABS: BILIRUBIN,TOTAL 0.9 mg/dL (0.2-1)
[2023-02-09] MEDS ORDERED: MAGNESIUM SULF 50% (8.12 MEQ/2 ML-1 GM VIAL) IVPB ONE ×3 (11:00→11:05)
[2023-02-09 11:52] LABS: URINE APPEARANCE CLEAR; URINE BILIRUBIN NEGATIVE (NEGATIVE); URINE COLOR YELLOW; URINE GLUCOSE (UA) NEGATIVE (NEGATIVE); URINE KETONE NEGATIVE (NEGATIVE); URINE LEUK ESTERASE NEGATIVE (NEGATIVE); URINE NITRITE NEGATIVE (NEGATIVE); URINE PROTEIN NEGATIVE (NEGATIVE)
[2023-02-09] MEDS ORDERED: MAGNESIUM SULFATE IN WATER 2 GM/50 ML IVPB IVPB ONE ×2 (12:00→13:00)
[2023-02-09 14:59] VITALS: TEMP 98
[2023-02-09 15:02] VITALS: BP 101/63; PULSE 91; RESP 18
[2023-02-10 17:09] LABS: FREE KAPPA,SERUM 283.2 mg/L (3.3-19.4)
[2023-02-11 07:21] LABS: FREE KAP CHN UR 2.66 mg/L (1.17-86.46); KAPPA LAMBDA RATIO URIN >3.86 (1.83-14.26)
[2023-02-11 17:06] LABS: BETA-2-MICROGLOBULIN 2.8 mg/L (0.6-2.4)
== END 2023-02-09 14:00 | disposition home or self-care (01) ==
LOC: JONCCHEMO 08:34
PROVIDERS: ATTEND Internal Medicine Hematology & Oncology
PROC: 3E01305 Introduction of Other Antineoplastic into Subcutaneous Tissue, Percutaneous Approach (ICD-10-PCS; principal; 2023-02-09)
PROC: 3E033GC Introduction of Other Therapeutic Substance into Peripheral Vein, Percutaneous Approach (ICD-10-PCS; 2023-02-09)
DX: Z51.11 Encounter for antineoplastic chemotherapy (principal); C90.00 Multiple myeloma not having achieved remission
CPT/HCPCS: 36415; 80053; 80076; 81003; 82232; 82784; 83615; 83735; 83883; 84155; 84165; 85025; 86335; 87086; 96365; 96367; 96401; J9041

== ENCOUNTER 2023-02-16 08:30 | Day surgery (SDC) | payer OTHER, MEDICARE ==
[2023-02-16 08:51] LABS: HEMATOCRIT 42.3 % (35.4-49); MCHC 35.4 g/dl (32.0-35.9); MEAN CELL VOLUME 87.5 fl (80-96); MEAN PLT VOLUME 9.1 fl (7.5-11.1); PLATELET COUNT 151 10^3/uL (134-434); RBC 4.83 M/mm3 (4.00-5.60); RDW 15.3 % (11.9-15.9); WHITE BLOOD COUNT 6.8 K/mm3 (4.0-10.0)
[2023-02-16] MEDS ORDERED: DEXAMETHASONE 4 MG TABLET (FP) PO ONE (09:00)
[2023-02-16] MEDS ORDERED: GRANISETRON HCL 1 MG TABLET PO ONE (09:00)
[2023-02-16 09:13] LABS: POTASSIUM 4.4 mmol/L (3.5-5.1)
[2023-02-16 09:14] LABS: CALCIUM 9.1 mg/dL (8.5-10.1)
[2023-02-16] MEDS ORDERED: BORTEZOMIB 2.5 MG/ML SUB-Q INJECTION SQ ONE (09:15)
[2023-02-16 09:16] LABS: ALBUMIN 3.1 g/dl (3.4-5.0); BLOOD UREA NITROGEN 19.9 mg/dL (7-18); MAGNESIUM 1.9 mg/dL (1.8-2.4)
[2023-02-16 09:18] LABS: BILIRUBIN,DIRECT 0.3 mg/dL (0.0-0.2); CREATININE 1.1 mg/dL (0.55-1.3); URIC ACID 5.9 mg/dL (2.6-7.2)
[2023-02-16] MEDS ORDERED: INSULIN (NOVOLOG) ASPART 100 UNITS/ML 10ML VIAL SQ ONE (09:30)
[2023-02-16 12:44] LABS: ANISOCYTOSIS 2+; MACROCYTOSIS 0; OVALOCYTE 2+; TEAR DROP CELLS 2+
[2023-02-16 16:30] VITALS: BP 115/56; PULSE 64; RESP 20; TEMP 97.8
== END 2023-02-16 11:50 | disposition home or self-care (01) ==
LOC: JONCCHEMO 08:30 → J7W 08:31 → JONCCHEMO 11:50
PROVIDERS: ATTEND Internal Medicine Hematology & Oncology
DX: Z51.11 Encounter for antineoplastic chemotherapy (principal); C90.00 Multiple myeloma not having achieved remission
CPT/HCPCS: 36415; 80048; 80076; 83615; 83735; 84550; 85025; 96401; J9041

== ENCOUNTER 2023-02-23 08:32 | Day surgery (SDC) | payer OTHER, MEDICARE ==
[2023-02-23 09:04] LABS: POTASSIUM 4.2 mmol/L (3.5-5.1)
[2023-02-23 09:06] LABS: BLOOD UREA NITROGEN 22.7 mg/dL (7-18); CALCIUM 8.8 mg/dL (8.5-10.1)
[2023-02-23 09:07] LABS: ALBUMIN 3.2 g/dl (3.4-5.0); MAGNESIUM 1.9 mg/dL (1.8-2.4)
[2023-02-23 09:09] LABS: BILIRUBIN,DIRECT 0.3 mg/dL (0.0-0.2); CREATININE 1.3 mg/dL (0.55-1.3)
[2023-02-23 09:11] LABS: BILIRUBIN,TOTAL 1.1 mg/dL (0.2-1); TOT PROT 5.9 g/dl (6.4-8.2)
[2023-02-23 09:16] LABS: BASO % 0.2 % (0-2.0); EOS % 4.3 % (0-4.5); HEMATOCRIT 40.8 % (35.4-49); HEMOGLOBIN 14.3 GM/dL (11.7-16.9); LYMPH % 9.5 % (8-40); MCHC 35.1 g/dl (32.0-35.9); MEAN CELL VOLUME 88.5 fl (80-96); MEAN PLT VOLUME 9.3 fl (7.5-11.1); PLATELET COUNT 128 10^3/uL (134-434); RBC 4.61 M/mm3 (4.00-5.60); RDW 15.7 % (11.9-15.9); WHITE BLOOD COUNT 7.5 K/mm3 (4.0-10.0)
[2023-02-23] MEDS ORDERED: GRANISETRON HCL 1 MG TABLET PO ONE (10:00)
[2023-02-23] MEDS ORDERED: BORTEZOMIB 2.5 MG/ML SUB-Q INJECTION SQ ONE (10:00)
[2023-02-23] MEDS ORDERED: DEXAMETHASONE 4 MG TABLET (FP) PO ONE (10:00)
[2023-02-23] MEDS ORDERED: INSULIN (NOVOLOG) ASPART 100 UNITS/ML 10ML VIAL SQ ONE (10:01)
[2023-02-23 10:33] LABS: ANISOCYTOSIS 2+; MACROCYTOSIS 0; PLATELET ESTIMATE DECREASED
[2023-02-23 15:42] VITALS: BP 99/68; PULSE 81; RESP 18; TEMP 97.8
== END 2023-02-23 11:30 | disposition home or self-care (01) ==
LOC: JONCCHEMO 08:32 → J7W 08:33 → JONCCHEMO 11:30
PROVIDERS: ATTEND Internal Medicine Hematology & Oncology
DX: Z51.11 Encounter for antineoplastic chemotherapy (principal); C90.00 Multiple myeloma not having achieved remission
CPT/HCPCS: 36415; 80048; 80076; 83615; 83735; 84550; 85025; 96401; J9041

== ENCOUNTER 2023-03-09 08:28 | Day surgery (SDC) | payer OTHER, MEDICARE ==
[2023-03-09 09:17] LABS: BASO % 0.6 % (0-2.0); HEMOGLOBIN 13.9 GM/dL (11.7-16.9); LYMPH % 8.8 % (8-40); MCHC 34.8 g/dl (32.0-35.9); MEAN CELL VOLUME 88.8 fl (80-96); MEAN PLT VOLUME 7.9 fl (7.5-11.1); MONO % 12.4 % (3.8-10.2); NEUT % 73.2 % (42.8-82.8); PLATELET COUNT 193 10^3/uL (134-434); RDW 15.6 % (11.9-15.9); WHITE BLOOD COUNT 6.7 K/mm3 (4.0-10.0)
[2023-03-09 09:24] LABS: INR 2.86 (0.83-1.09); PROTHROMBIN TIME (PATIENT) 32.8 SEC (9.7-13.0)
[2023-03-09 09:46] LABS: CALCIUM 9.1 mg/dL (8.5-10.1); MAGNESIUM 1.8 mg/dL (1.8-2.4)
[2023-03-09 09:47] LABS: ALBUMIN 3.2 g/dl (3.4-5.0); BLOOD UREA NITROGEN 19.1 mg/dL (7-18)
[2023-03-09 09:49] LABS: BILIRUBIN,DIRECT 0.3 mg/dL (0.0-0.2); CREATININE 1.2 mg/dL (0.55-1.3); URIC ACID 6.4 mg/dL (2.6-7.2)
[2023-03-09 09:52] LABS: BILIRUBIN,TOTAL 0.7 mg/dL (0.2-1)
[2023-03-09] MEDS ORDERED: GRANISETRON HCL 1 MG TABLET PO ONE (10:00)
[2023-03-09] MEDS ORDERED: DEXAMETHASONE 4 MG TABLET (FP) PO ONE (10:00)
[2023-03-09] MEDS ORDERED: BORTEZOMIB 2.5 MG/ML SUB-Q INJECTION SQ ONE (10:00)
[2023-03-09 17:38] VITALS: BP 107/59; PULSE 81; RESP 18; TEMP 98.8
[2023-03-10 17:07] LABS: FREE KAPPA,SERUM 178.1 mg/L (3.3-19.4)
[2023-03-11 16:07] LABS: BETA-2-MICROGLOBULIN 2.8 mg/L (0.6-2.4)
== END 2023-03-09 12:30 | disposition home or self-care (01) ==
LOC: JONCCHEMO 08:28
PROVIDERS: ATTEND Internal Medicine Hematology & Oncology
DX: Z51.11 Encounter for antineoplastic chemotherapy (principal); C90.00 Multiple myeloma not having achieved remission
CPT/HCPCS: 36415; 71046-TC-FY; 80048; 80076; 82232; 82784; 83615; 83735; 83883; 84155; 84165; 84550; 85025; 85610; 86335; 96401; J9041

== ENCOUNTER 2023-03-16 08:34 | Day surgery (SDC) | payer OTHER, MEDICARE ==
[2023-03-16 09:03] LABS: BASO % 0.4 % (0-2.0); EOS % 5.5 % (0-4.5); HEMATOCRIT 41.8 % (35.4-49); HEMOGLOBIN 14.3 GM/dL (11.7-16.9); LYMPH % 13.4 % (8-40); MCH 30.9 pg (25.7-33.7); MCHC 34.2 g/dl (32.0-35.9); MEAN CELL VOLUME 90.3 fl (80-96); MEAN PLT VOLUME 8.6 fl (7.5-11.1); MONO % 13.6 % (3.8-10.2); NEUT % 67.1 % (42.8-82.8); PLATELET COUNT 146 10^3/uL (134-434); RBC 4.63 M/mm3 (4.00-5.60); RDW 15.7 % (11.9-15.9); WHITE BLOOD COUNT 5.7 K/mm3 (4.0-10.0)
[2023-03-16 09:10] LABS: INR 2.42 (0.83-1.09); PROTHROMBIN TIME (PATIENT) 27.8 SEC (9.7-13.0)
[2023-03-16 09:18] LABS: POTASSIUM 4.6 mmol/L (3.5-5.1)
[2023-03-16 09:20] LABS: CALCIUM 8.9 mg/dL (8.5-10.1)
[2023-03-16 09:21] LABS: ALBUMIN 3.2 g/dl (3.4-5.0); BLOOD UREA NITROGEN 15.9 mg/dL (7-18)
[2023-03-16 09:23] LABS: BILIRUBIN,DIRECT 0.2 mg/dL (0.0-0.2); URIC ACID 5.3 mg/dL (2.6-7.2)
[2023-03-16 09:25] LABS: BILIRUBIN,TOTAL 0.7 mg/dL (0.2-1); TOT PROT 5.8 g/dl (6.4-8.2)
[2023-03-16] MEDS ORDERED: BORTEZOMIB 2.5 MG/ML SUB-Q INJECTION SQ ONE (10:00)
[2023-03-16] MEDS ORDERED: GRANISETRON HCL 1 MG TABLET PO ONE (10:00)
[2023-03-16] MEDS ORDERED: DEXAMETHASONE 4 MG TABLET (FP) PO ONE (10:00)
[2023-03-16 18:17] VITALS: BP 121/71; PULSE 78; RESP 20; TEMP 97.7
== END 2023-03-16 11:30 | disposition home or self-care (01) ==
LOC: JONCCHEMO 08:34 → J7W 08:35 → JONCCHEMO 11:30
PROVIDERS: ATTEND Internal Medicine Hematology & Oncology
DX: Z51.11 Encounter for antineoplastic chemotherapy (principal); C90.00 Multiple myeloma not having achieved remission
CPT/HCPCS: 36415; 80048; 80076; 83615; 83735; 84550; 85025; 85610; 96401; J9041

== ENCOUNTER 2023-03-23 08:33 | Day surgery (SDC) | payer OTHER, MEDICARE ==
[2023-03-23 09:08] LABS: HEMOGLOBIN 14.7 GM/dL (11.7-16.9); MCHC 33.3 g/dl (32.0-35.9); MEAN CELL VOLUME 90.3 fl (80-96); MEAN PLT VOLUME 8.8 fl (7.5-11.1); PLATELET COUNT 151 10^3/uL (134-434); RBC 4.88 M/mm3 (4.00-5.60); RDW 16.5 % (11.9-15.9); WHITE BLOOD COUNT 6.7 K/mm3 (4.0-10.0)
[2023-03-23 09:29] LABS: POTASSIUM 4.2 mmol/L (3.5-5.1)
[2023-03-23 09:31] LABS: CALCIUM 8.5 mg/dL (8.5-10.1)
[2023-03-23 09:32] LABS: ALBUMIN 3.1 g/dl (3.4-5.0); MAGNESIUM 1.9 mg/dL (1.8-2.4)
[2023-03-23 09:33] LABS: BILIRUBIN,DIRECT 0.2 mg/dL (0.0-0.2); URIC ACID 5.6 mg/dL (2.6-7.2)
[2023-03-23 09:36] LABS: TOT PROT 5.6 g/dl (6.4-8.2)
[2023-03-23 09:41] LABS: BILIRUBIN,TOTAL 0.6 mg/dL (0.2-1)
[2023-03-23] MEDS ORDERED: INSULIN (NOVOLOG) ASPART 100 UNITS/ML 10ML VIAL SQ ONE (09:55)
[2023-03-23] MEDS ORDERED: GRANISETRON HCL 1 MG TABLET PO ONE (10:00)
[2023-03-23] MEDS ORDERED: DEXAMETHASONE 4 MG TABLET (FP) PO ONE (10:00)
[2023-03-23] MEDS ORDERED: BORTEZOMIB 2.5 MG/ML SUB-Q INJECTION SQ ONE (10:00)
[2023-03-23 10:09] LABS: ANISOCYTOSIS 0; HELMET CELLS 0; HOWELL-JOLLY BODIES 0; MACROCYTOSIS 0; OVALOCYTE 0; ROULEAU 0; SICKELED CELLS 0; TARGET CELLS 0; TEAR DROP CELLS 0; TOXIC GRANULATION 0
[2023-03-23 16:46] VITALS: BP 111/71; PULSE 82; RESP 18; TEMP 97.9
== END 2023-03-23 11:30 | disposition home or self-care (01) ==
LOC: JONCCHEMO 08:33 → J7W 08:34 → JONCCHEMO 11:30
PROVIDERS: ATTEND Internal Medicine Hematology & Oncology
DX: Z51.11 Encounter for antineoplastic chemotherapy (principal); C90.00 Multiple myeloma not having achieved remission
CPT/HCPCS: 36415; 80048; 80076; 83615; 83735; 84550; 85025; 96401; J9041

== ENCOUNTER 2023-04-06 08:50 | Day surgery (SDC) | payer OTHER, MEDICARE ==
[2023-04-06 09:15] LABS: BASO % 0.8 % (0-2.0); EOS % 5.1 % (0-4.5); HEMATOCRIT 43.4 % (35.4-49); HEMOGLOBIN 14.6 GM/dL (11.7-16.9); LYMPH % 12.2 % (8-40); MCH 30.4 pg (25.7-33.7); MCHC 33.6 g/dl (32.0-35.9); MEAN CELL VOLUME 90.4 fl (80-96); MEAN PLT VOLUME 7.8 fl (7.5-11.1); MONO % 19.1 % (3.8-10.2); NEUT % 62.8 % (42.8-82.8); PLATELET COUNT 141 10^3/uL (134-434); RBC 4.79 M/mm3 (4.00-5.60); RDW 16.2 % (11.9-15.9); WHITE BLOOD COUNT 5.2 K/mm3 (4.0-10.0)
[2023-04-06 09:35] LABS: POTASSIUM 4.4 mmol/L (3.5-5.1)
[2023-04-06 09:39] LABS: ALBUMIN 3.4 g/dl (3.4-5.0); BLOOD UREA NITROGEN 17.9 mg/dL (7-18); CALCIUM 8.8 mg/dL (8.5-10.1); MAGNESIUM 1.9 mg/dL (1.8-2.4)
[2023-04-06 09:41] LABS: URIC ACID 6.6 mg/dL (2.6-7.2)
[2023-04-06 09:42] LABS: BILIRUBIN,DIRECT 0.2 mg/dL (0.0-0.2)
[2023-04-06 09:44] LABS: BILIRUBIN,TOTAL 0.8 mg/dL (0.2-1)
[2023-04-06] MEDS ORDERED: DEXAMETHASONE 4 MG TABLET (FP) PO ONE (10:00)
[2023-04-06] MEDS ORDERED: GRANISETRON HCL 1 MG TABLET PO ONE (10:00)
[2023-04-06] MEDS ORDERED: BORTEZOMIB 2.5 MG/ML SUB-Q INJECTION SQ ONE (10:30)
[2023-04-06 16:08] VITALS: BP 102/72; PULSE 84; RESP 18; TEMP 98.3
[2023-04-07 17:07] LABS: FREE KAPPA,SERUM 145.6 mg/L (3.3-19.4)
[2023-04-08 06:07] LABS: FREE KAP CHN UR 4.48 mg/L (1.17-86.46); KAPPA LAMBDA RATIO URIN >6.49 (1.83-14.26)
[2023-04-10 00:05] LABS: BETA-2-MICROGLOBULIN 2.6 mg/L (0.6-2.4)
== END 2023-04-06 11:05 | disposition home or self-care (01) ==
LOC: JONCCHEMO 08:50 → J7W 08:55 → JONCCHEMO 11:05
PROVIDERS: ATTEND Internal Medicine Hematology & Oncology
DX: Z51.11 Encounter for antineoplastic chemotherapy (principal); C90.00 Multiple myeloma not having achieved remission
CPT/HCPCS: 36415; 80048; 80076; 82232; 82784; 83615; 83735; 83883; 84155; 84165; 84550; 85025; 86335; 96402; J9041

== ENCOUNTER 2023-04-13 08:22 | Day surgery (SDC) | payer OTHER, MEDICARE ==
[2023-04-13 09:03] LABS: BASO % 0.4 % (0-2.0); EOS % 5.1 % (0-4.5); HEMATOCRIT 44.1 % (35.4-49); HEMOGLOBIN 15.3 GM/dL (11.7-16.9); LYMPH % 12.3 % (8-40); MCH 31.4 pg (25.7-33.7); MCHC 34.7 g/dl (32.0-35.9); MEAN CELL VOLUME 90.3 fl (80-96); MEAN PLT VOLUME 8.6 fl (7.5-11.1); MONO % 16.5 % (3.8-10.2); NEUT % 65.7 % (42.8-82.8); PLATELET COUNT 129 10^3/uL (134-434); RBC 4.88 M/mm3 (4.00-5.60)
[2023-04-13 09:24] LABS: POTASSIUM 4.2 mmol/L (3.5-5.1)
[2023-04-13 09:26] LABS: CALCIUM 9.2 mg/dL (8.5-10.1); MAGNESIUM 1.9 mg/dL (1.8-2.4)
[2023-04-13 09:28] LABS: ALBUMIN 3.2 g/dl (3.4-5.0); BLOOD UREA NITROGEN 21.8 mg/dL (7-18)
[2023-04-13 09:29] LABS: BILIRUBIN,DIRECT 0.2 mg/dL (0.0-0.2); CREATININE 1.2 mg/dL (0.55-1.3)
[2023-04-13 09:32] LABS: TOT PROT 5.7 g/dl (6.4-8.2)
[2023-04-13 09:33] LABS: BILIRUBIN,TOTAL 0.8 mg/dL (0.2-1)
[2023-04-13 09:38] LABS: URIC ACID 6.9 mg/dL (2.6-7.2)
[2023-04-13] MEDS ORDERED: INSULIN (NOVOLOG) ASPART 100 UNITS/ML 10ML VIAL SQ ONE (09:50)
[2023-04-13] MEDS ORDERED: GRANISETRON HCL 1 MG TABLET PO ONE (10:00)
[2023-04-13] MEDS ORDERED: BORTEZOMIB (VELCADE) 2.5 MG/ML SUB-Q INJECTION SQ ONE (10:30)
[2023-04-13] MEDS: DEXAMETHASONE 4 MG TABLET (FP) PO ONE ×2 (10:33→10:46)
[2023-04-13 15:39] VITALS: BP 112/69; PULSE 79; RESP 20; TEMP 97.9
== END 2023-04-13 11:00 | disposition home or self-care (01) ==
LOC: JONCCHEMO 08:22 → J7W 08:23 → JONCCHEMO 11:00
PROVIDERS: ATTEND Internal Medicine Hematology & Oncology
DX: Z51.11 Encounter for antineoplastic chemotherapy (principal); C90.00 Multiple myeloma not having achieved remission
CPT/HCPCS: 36415; 80048; 80076; 83615; 83735; 84550; 85025; 96401; J9041

== ENCOUNTER 2023-04-20 08:24 | Day surgery (SDC) | payer OTHER, MEDICARE ==
[2023-04-20] MEDS ORDERED: GRANISETRON HCL 1 MG TABLET PO ONE (09:30)
[2023-04-20] MEDS ORDERED: DEXAMETHASONE 4 MG TABLET (FP) PO ONE (09:30)
[2023-04-20 09:31] LABS: HEMATOCRIT 47.1 % (35.4-49); HEMOGLOBIN 15.4 GM/dL (11.7-16.9); MCH 30.2 pg (25.7-33.7); MCHC 32.7 g/dl (32.0-35.9); MEAN CELL VOLUME 92.2 fl (80-96); MEAN PLT VOLUME 9.6 fl (7.5-11.1); PLATELET COUNT 143 10^3/uL (134-434); RBC 5.11 M/mm3 (4.00-5.60); RDW 16.1 % (11.9-15.9); WHITE BLOOD COUNT 7.7 K/mm3 (4.0-10.0)
[2023-04-20 09:44] LABS: POTASSIUM 4.2 mmol/L (3.5-5.1)
[2023-04-20 09:48] LABS: ALBUMIN 3.4 g/dl (3.4-5.0); CALCIUM 9.3 mg/dL (8.5-10.1)
[2023-04-20 09:49] LABS: BLOOD UREA NITROGEN 24.6 mg/dL (7-18); MAGNESIUM 1.9 mg/dL (1.8-2.4)
[2023-04-20 09:51] LABS: BILIRUBIN,DIRECT 0.2 mg/dL (0.0-0.2); CREATININE 1.1 mg/dL (0.55-1.3)
[2023-04-20 09:53] LABS: BILIRUBIN,TOTAL 0.6 mg/dL (0.2-1); TOT PROT 5.9 g/dl (6.4-8.2)
[2023-04-20] MEDS ORDERED: BORTEZOMIB (VELCADE) 2.5 MG/ML SUB-Q INJECTION SQ ONE (10:00)
[2023-04-20 10:12] LABS: ANISOCYTOSIS 0; HELMET CELLS 0; HOWELL-JOLLY BODIES 0; MACROCYTOSIS 0; OVALOCYTE 0; ROULEAU 0; SICKELED CELLS 0; TARGET CELLS 0; TEAR DROP CELLS 0; TOXIC GRANULATION 0
[2023-04-20] MEDS ORDERED: INSULIN (NOVOLOG) ASPART 100 UNITS/ML 10ML VIAL SQ ONE (10:30)
[2023-04-20 14:21] VITALS: BP 121/72; PULSE 84; RESP 20; TEMP 98.3
== END 2023-04-20 11:50 | disposition home or self-care (01) ==
LOC: JONCCHEMO 08:24 → J7W 08:26 → JONCCHEMO 11:50
PROVIDERS: ATTEND Internal Medicine Hematology & Oncology
DX: Z51.11 Encounter for antineoplastic chemotherapy (principal); C90.00 Multiple myeloma not having achieved remission
CPT/HCPCS: 36415; 80048; 80076; 83615; 83735; 84550; 85025; 96401; J9041

== ENCOUNTER 2023-05-11 08:42 | Day surgery (SDC) | payer OTHER, MEDICARE ==
[2023-05-11 09:35] LABS: HEMATOCRIT 44.2 % (35.4-49); HEMOGLOBIN 15.1 GM/dL (11.7-16.9); MCH 30.7 pg (25.7-33.7); MCHC 34.2 g/dl (32.0-35.9); MEAN CELL VOLUME 89.6 fl (80-96); MEAN PLT VOLUME 8.3 fl (7.5-11.1); PLATELET COUNT 148 10^3/uL (134-434); RBC 4.94 M/mm3 (4.00-5.60); RDW 15.3 % (11.9-15.9); WHITE BLOOD COUNT 7.4 K/mm3 (4.0-10.0)
[2023-05-11 09:50] LABS: POTASSIUM 4.2 mmol/L (3.5-5.1)
[2023-05-11 09:52] LABS: CALCIUM 8.6 mg/dL (8.5-10.1)
[2023-05-11 09:53] LABS: ALBUMIN 3.2 g/dl (3.4-5.0); BLOOD UREA NITROGEN 24.7 mg/dL (7-18); MAGNESIUM 1.9 mg/dL (1.8-2.4)
[2023-05-11 09:55] LABS: BILIRUBIN,DIRECT 0.2 mg/dL (0.0-0.2); CREATININE 1.2 mg/dL (0.55-1.3)
[2023-05-11 09:56] LABS: TOT PROT 5.8 g/dl (6.4-8.2)
[2023-05-11 09:57] LABS: BILIRUBIN,TOTAL 0.6 mg/dL (0.2-1)
[2023-05-11] MEDS ORDERED: DEXAMETHASONE 4 MG TABLET (FP) PO ONE (10:00)
[2023-05-11] MEDS ORDERED: BORTEZOMIB (VELCADE) 2.5 MG/ML SUB-Q INJECTION SQ ONE (10:00)
[2023-05-11] MEDS ORDERED: GRANISETRON HCL 1 MG TABLET PO ONE (10:00)
[2023-05-11 10:08] LABS: ANISOCYTOSIS 0; MACROCYTOSIS 0
[2023-05-11 15:26] VITALS: BP 103/67; PULSE 88; RESP 20; TEMP 98.4
== END 2023-05-11 10:45 | disposition home or self-care (01) ==
LOC: JONCCHEMO 08:42 → J7W 08:43 → JONCCHEMO 10:45
PROVIDERS: ATTEND Internal Medicine Hematology & Oncology
DX: Z51.11 Encounter for antineoplastic chemotherapy (principal); C90.00 Multiple myeloma not having achieved remission
CPT/HCPCS: 36415; 80048; 80076; 83615; 83735; 84550; 85025; 96401; J9041

== ENCOUNTER 2023-05-18 07:42 | Day surgery (SDC) | payer OTHER, MEDICARE ==
[2023-05-18 08:10] LABS: HEMATOCRIT 45.7 % (35.4-49); HEMOGLOBIN 15.3 GM/dL (11.7-16.9); MCH 30.3 pg (25.7-33.7); MCHC 33.5 g/dl (32.0-35.9); MEAN CELL VOLUME 90.4 fl (80-96); MEAN PLT VOLUME 9.2 fl (7.5-11.1); PLATELET COUNT 144 10^3/uL (134-434); RBC 5.05 M/mm3 (4.00-5.60); RDW 15.8 % (11.9-15.9)
[2023-05-18 08:25] LABS: POTASSIUM 4.5 mmol/L (3.5-5.1)
[2023-05-18 08:27] LABS: CALCIUM 8.6 mg/dL (8.5-10.1)
[2023-05-18 08:28] LABS: ALBUMIN 3.2 g/dl (3.4-5.0); BLOOD UREA NITROGEN 20.9 mg/dL (7-18)
[2023-05-18 08:30] LABS: URIC ACID 6.5 mg/dL (2.6-7.2)
[2023-05-18 08:31] LABS: BILIRUBIN,DIRECT 0.3 mg/dL (0.0-0.2); CREATININE 1.3 mg/dL (0.55-1.3)
[2023-05-18 08:32] LABS: TOT PROT 5.8 g/dl (6.4-8.2)
[2023-05-18 08:33] LABS: BILIRUBIN,TOTAL 0.8 mg/dL (0.2-1)
[2023-05-18 08:51] LABS: ANISOCYTOSIS 0; HELMET CELLS 0; HOWELL-JOLLY BODIES 0; MACROCYTOSIS 0; OVALOCYTE 0; ROULEAU 0; SICKELED CELLS 0; TARGET CELLS 0; TEAR DROP CELLS 0; TOXIC GRANULATION 0
[2023-05-18] MEDS ORDERED: DEXAMETHASONE 4 MG TABLET (FP) PO ONE (10:00)
[2023-05-18] MEDS ORDERED: GRANISETRON HCL 1 MG TABLET PO ONE (10:00)
[2023-05-18 10:01] VITALS: BP 116/71; PULSE 77; RESP 20; TEMP 98.3
[2023-05-18] MEDS ORDERED: BORTEZOMIB 2.5 MG/ML SUB-Q INJECTION SQ ONE (10:30)
== END 2023-05-18 10:10 | disposition home or self-care (01) ==
LOC: JONCCHEMO 07:42 → J7W 07:43 → JONCCHEMO 10:10
PROVIDERS: ATTEND Internal Medicine Hematology & Oncology
DX: Z51.11 Encounter for antineoplastic chemotherapy (principal); C90.00 Multiple myeloma not having achieved remission
CPT/HCPCS: 36415; 80048; 80076; 83615; 83735; 84550; 85025; 96401; J9041

== ENCOUNTER 2023-06-01 08:29 | Day surgery (SDC) | payer OTHER, MEDICARE ==
[2023-06-01 09:11] LABS: BASO % 0.4 % (0-2.0); EOS % 2.6 % (0-4.5); HEMATOCRIT 43.6 % (35.4-49); HEMOGLOBIN 14.4 GM/dL (11.7-16.9); LYMPH % 6.1 % (8-40); MEAN CELL VOLUME 90.8 fl (80-96); MEAN PLT VOLUME 7.9 fl (7.5-11.1); MONO % 11.8 % (3.8-10.2); NEUT % 79.1 % (42.8-82.8); PLATELET COUNT 159 10^3/uL (134-434); RDW 15.4 % (11.9-15.9); WHITE BLOOD COUNT 8.5 K/mm3 (4.0-10.0)
[2023-06-01 09:24] LABS: POTASSIUM 4.6 mmol/L (3.5-5.1)
[2023-06-01 09:26] LABS: MAGNESIUM 1.9 mg/dL (1.8-2.4)
[2023-06-01 09:27] LABS: ALBUMIN 3.1 g/dl (3.4-5.0); CALCIUM 8.9 mg/dL (8.5-10.1)
[2023-06-01 09:29] LABS: CREATININE 1.1 mg/dL (0.55-1.3)
[2023-06-01 09:30] LABS: BILIRUBIN,DIRECT 0.2 mg/dL (0.0-0.2)
[2023-06-01 09:31] LABS: TOT PROT 5.9 g/dl (6.4-8.2)
[2023-06-01 09:32] LABS: BILIRUBIN,TOTAL 0.6 mg/dL (0.2-1)
[2023-06-01 09:35] LABS: URIC ACID 5.8 mg/dL (2.6-7.2)
[2023-06-01] MEDS ORDERED: GRANISETRON HCL 1 MG TABLET PO ONE (10:00)
[2023-06-01] MEDS ORDERED: DEXAMETHASONE 4 MG TABLET (FP) PO ONE (10:00)
[2023-06-01] MEDS ORDERED: BORTEZOMIB 2.5 MG/ML SUB-Q INJECTION SQ ONE (10:30)
[2023-06-01 17:43] VITALS: BP 122/74; PULSE 91; RESP 18; TEMP 97.8
[2023-06-02 18:12] LABS: FREE KAPPA,SERUM 147.9 mg/L (3.3-19.4)
[2023-06-03 07:07] LABS: FREE KAP CHN UR 2.16 mg/L (1.17-86.46); KAPPA LAMBDA RATIO URIN >3.13 (1.83-14.26)
[2023-06-03 15:09] LABS: BETA-2-MICROGLOBULIN 2.7 mg/L (0.6-2.4)
== END 2023-06-01 11:15 | disposition home or self-care (01) ==
LOC: JONCCHEMO 08:29 → J7W 08:30 → JONCCHEMO 11:15
PROVIDERS: ATTEND Internal Medicine Hematology & Oncology
DX: Z51.11 Encounter for antineoplastic chemotherapy (principal); C90.00 Multiple myeloma not having achieved remission
CPT/HCPCS: 36415; 80048; 80076; 82232; 82784; 83615; 83735; 83883; 84155; 84165; 84550; 85025; 86335; 96401; J9041

== ENCOUNTER 2023-06-15 08:22 | Day surgery (SDC) | payer OTHER, MEDICARE ==
[2023-06-15] MEDS ORDERED: GRANISETRON HCL 1 MG TABLET PO ONE (08:30)
[2023-06-15] MEDS ORDERED: DEXAMETHASONE 4 MG TABLET (FP) PO ONE (08:30)
[2023-06-15] MEDS ORDERED: BORTEZOMIB 2.5 MG/ML SUB-Q INJECTION SQ ONE (09:00)
[2023-06-15 09:11] LABS: BASO % 0.6 % (0-2.0); EOS % 4.4 % (0-4.5); HEMATOCRIT 42.5 % (35.4-49); HEMOGLOBIN 14.4 GM/dL (11.7-16.9); LYMPH % 11.3 % (8-40); MCH 30.1 pg (25.7-33.7); MEAN CELL VOLUME 88.7 fl (80-96); MEAN PLT VOLUME 8.1 fl (7.5-11.1); MONO % 13.6 % (3.8-10.2); NEUT % 70.1 % (42.8-82.8); PLATELET COUNT 157 10^3/uL (134-434); RBC 4.79 M/mm3 (4.00-5.60); RDW 15.5 % (11.9-15.9); WHITE BLOOD COUNT 5.8 K/mm3 (4.0-10.0)
[2023-06-15 09:40] LABS: POTASSIUM 4.4 mmol/L (3.5-5.1)
[2023-06-15 09:42] LABS: CALCIUM 8.9 mg/dL (8.5-10.1); MAGNESIUM 1.7 mg/dL (1.8-2.4)
[2023-06-15 09:43] LABS: ALBUMIN 3.3 g/dl (3.4-5.0); BLOOD UREA NITROGEN 21.9 mg/dL (7-18)
[2023-06-15 09:45] LABS: CREATININE 1.3 mg/dL (0.55-1.3); URIC ACID 7.8 mg/dL (2.6-7.2)
[2023-06-15 09:46] LABS: BILIRUBIN,DIRECT 0.2 mg/dL (0.0-0.2)
[2023-06-15 09:48] LABS: BILIRUBIN,TOTAL 0.7 mg/dL (0.2-1)
[2023-06-15] MEDS ORDERED: MAGNESIUM OXIDE 400 MG TABLET (FP) PO ONE (10:15)
[2023-06-15 15:41] VITALS: BP 112/71; PULSE 82; RESP 18; TEMP 98
[2023-06-16 17:06] LABS: FREE KAPPA,SERUM 166.9 mg/L (3.3-19.4)
[2023-06-17 07:07] LABS: FREE KAP CHN UR <0.28 mg/L (1.17-86.46)
[2023-06-20 19:09] LABS: BETA-2-MICROGLOBULIN 2.9 mg/L (0.6-2.4)
== END 2023-06-15 11:10 | disposition home or self-care (01) ==
LOC: JONCCHEMO 08:22 → J7W 08:23 → JONCCHEMO 11:10
PROVIDERS: ATTEND Internal Medicine Hematology & Oncology
DX: Z51.11 Encounter for antineoplastic chemotherapy (principal); C90.00 Multiple myeloma not having achieved remission
CPT/HCPCS: 36415; 80048; 80076; 82232; 82784; 83615; 83735; 83883; 84155; 84165; 84550; 85025; 86335; 96401; J9041

== ENCOUNTER 2023-06-22 07:45 | Day surgery (SDC) | payer OTHER, MEDICARE ==
[2023-06-22 08:34] LABS: HEMATOCRIT 44.1 % (35.4-49); HEMOGLOBIN 14.7 GM/dL (11.7-16.9); MCH 30.2 pg (25.7-33.7); MCHC 33.3 g/dl (32.0-35.9); MEAN CELL VOLUME 90.6 fl (80-96); PLATELET COUNT 127 10^3/uL (134-434); RBC 4.87 M/mm3 (4.00-5.60); RDW 15.4 % (11.9-15.9); WHITE BLOOD COUNT 6.9 K/mm3 (4.0-10.0)
[2023-06-22 08:50] LABS: POTASSIUM 4.3 mmol/L (3.5-5.1)
[2023-06-22 08:52] LABS: CALCIUM 8.9 mg/dL (8.5-10.1); MAGNESIUM 1.7 mg/dL (1.8-2.4)
[2023-06-22 08:53] LABS: ALBUMIN 3.3 g/dl (3.4-5.0); BLOOD UREA NITROGEN 29.8 mg/dL (7-18)
[2023-06-22 08:55] LABS: BILIRUBIN,DIRECT 0.3 mg/dL (0.0-0.2); CREATININE 1.3 mg/dL (0.55-1.3); URIC ACID 4.1 mg/dL (2.6-7.2)
[2023-06-22 08:58] LABS: BILIRUBIN,TOTAL 0.8 mg/dL (0.2-1)
[2023-06-22] MEDS ORDERED: MAGNESIUM OXIDE 400 MG TABLET (FP) PO ONE (09:00)
[2023-06-22] MEDS ORDERED: DEXAMETHASONE 4 MG TABLET (FP) PO ONE (09:30)
[2023-06-22] MEDS ORDERED: GRANISETRON HCL 1 MG TABLET PO ONE (09:30)
[2023-06-22 09:38] LABS: ANISOCYTOSIS 0; HELMET CELLS 0; HOWELL-JOLLY BODIES 0; MACROCYTOSIS 0; OVALOCYTE 0; ROULEAU 0; SICKELED CELLS 0; TARGET CELLS 0; TEAR DROP CELLS 0; TOXIC GRANULATION 0
[2023-06-22] MEDS ORDERED: BORTEZOMIB 2.5 MG/ML SUB-Q INJECTION SQ ONE (10:00)
[2023-06-22 13:40] VITALS: BP 121/74; PULSE 73; RESP 18; TEMP 97.7
== END 2023-06-22 10:00 | disposition home or self-care (01) ==
LOC: JONCCHEMO 07:45 → J7W 07:45 → JONCCHEMO 10:00
PROVIDERS: ATTEND Internal Medicine Hematology & Oncology
DX: Z51.11 Encounter for antineoplastic chemotherapy (principal); C90.00 Multiple myeloma not having achieved remission
CPT/HCPCS: 36415; 80048; 80076; 83615; 83735; 84550; 85025; 96401; J9041

== ENCOUNTER 2023-06-29 07:44 | Day surgery (SDC) | payer OTHER, MEDICARE ==
[2023-06-29 08:53] LABS: HEMATOCRIT 43.3 % (35.4-49); MCH 30.7 pg (25.7-33.7); MCHC 34.6 g/dl (32.0-35.9); MEAN CELL VOLUME 88.9 fl (80-96); PLATELET COUNT 125 10^3/uL (134-434); RBC 4.87 M/mm3 (4.00-5.60); RDW 15.5 % (11.9-15.9); WHITE BLOOD COUNT 7.6 K/mm3 (4.0-10.0)
[2023-06-29 09:18] LABS: POTASSIUM 4.3 mmol/L (3.5-5.1)
[2023-06-29 09:19] LABS: ALBUMIN 3.3 g/dl (3.4-5.0); BLOOD UREA NITROGEN 28.6 mg/dL (7-18); CALCIUM 8.6 mg/dL (8.5-10.1)
[2023-06-29 09:20] LABS: MAGNESIUM 1.8 mg/dL (1.8-2.4)
[2023-06-29 09:22] LABS: BILIRUBIN,DIRECT 0.2 mg/dL (0.0-0.2); URIC ACID 3.7 mg/dL (2.6-7.2)
[2023-06-29 09:23] LABS: CREATININE 1.2 mg/dL (0.55-1.3)
[2023-06-29 09:25] LABS: BILIRUBIN,TOTAL 0.7 mg/dL (0.2-1); TOT PROT 5.8 g/dl (6.4-8.2)
[2023-06-29] MEDS ORDERED: DEXAMETHASONE 4 MG TABLET (FP) PO ONE (09:30)
[2023-06-29] MEDS ORDERED: GRANISETRON HCL 1 MG TABLET PO ONE (09:30)
[2023-06-29] MEDS ORDERED: BORTEZOMIB 2.5 MG/ML SUB-Q INJECTION SQ ONE (10:00)
[2023-06-29 11:46] VITALS: BP 117/78; PULSE 79; RESP 20; TEMP 98.4
== END 2023-06-29 11:05 | disposition home or self-care (01) ==
LOC: JONCCHEMO 07:44 → J7W 07:45 → JONCCHEMO 11:05
PROVIDERS: ATTEND Internal Medicine Hematology & Oncology
DX: Z51.11 Encounter for antineoplastic chemotherapy (principal); C90.00 Multiple myeloma not having achieved remission
CPT/HCPCS: 36415; 80048; 80076; 83615; 83735; 84550; 85025; 96401; J9041

== ENCOUNTER 2023-07-20 08:04 | Day surgery (SDC) | payer OTHER, MEDICARE ==
[2023-07-20 09:13] LABS: HEMATOCRIT 43.5 % (35.4-49); HEMOGLOBIN 14.6 GM/dL (11.7-16.9); MCH 30.5 pg (25.7-33.7); MCHC 33.5 g/dl (32.0-35.9); MEAN CELL VOLUME 90.9 fl (80-96); MEAN PLT VOLUME 8.5 fl (7.5-11.1); PLATELET COUNT 154 10^3/uL (134-434); RBC 4.78 M/mm3 (4.00-5.60); RDW 15.1 % (11.9-15.9); WHITE BLOOD COUNT 6.2 K/mm3 (4.0-10.0)
[2023-07-20 09:31] LABS: POTASSIUM 4.4 mmol/L (3.5-5.1)
[2023-07-20 09:33] LABS: CALCIUM 8.8 mg/dL (8.5-10.1)
[2023-07-20 09:34] LABS: ALBUMIN 3.1 g/dl (3.4-5.0)
[2023-07-20 09:36] LABS: BILIRUBIN,DIRECT 0.3 mg/dL (0.0-0.2); CREATININE 1.2 mg/dL (0.55-1.3)
[2023-07-20 09:37] LABS: URIC ACID 3.6 mg/dL (2.6-7.2)
[2023-07-20 09:39] LABS: BILIRUBIN,TOTAL 0.8 mg/dL (0.2-1)
[2023-07-20 09:43] LABS: ANISOCYTOSIS 0; HELMET CELLS 0; HOWELL-JOLLY BODIES 0; MACROCYTOSIS 0; OVALOCYTE 0; ROULEAU 0; SICKELED CELLS 0; TARGET CELLS 0; TEAR DROP CELLS 0; TOXIC GRANULATION 0
[2023-07-20] MEDS ORDERED: GRANISETRON HCL 1 MG TABLET PO ONE (10:00)
[2023-07-20] MEDS ORDERED: INSULIN (NOVOLOG) ASPART 100 UNITS/ML 10ML VIAL SQ ONE (10:00)
[2023-07-20] MEDS ORDERED: MAGNESIUM OXIDE 400 MG TABLET (FP) PO ONE (10:00)
[2023-07-20] MEDS ORDERED: DEXAMETHASONE 4 MG TABLET (FP) PO ONE (10:00)
[2023-07-20] MEDS ORDERED: BORTEZOMIB 2.5 MG/ML SUB-Q INJECTION SQ ONE (10:30)
[2023-07-20 14:31] VITALS: BP 144/79; PULSE 74; RESP 20; TEMP 97.7
== END 2023-07-20 10:30 | disposition home or self-care (01) ==
LOC: JONCCHEMO 08:04 → J7W 08:21 → JONCCHEMO 10:30
PROVIDERS: ATTEND Internal Medicine Hematology & Oncology
DX: Z51.11 Encounter for antineoplastic chemotherapy (principal); C90.00 Multiple myeloma not having achieved remission
CPT/HCPCS: 36415; 80048; 80076; 83615; 83735; 84550; 85025; 96401; J9041

== ENCOUNTER 2023-07-27 08:03 | Day surgery (SDC) | payer OTHER, MEDICARE ==
[2023-07-27 08:58] LABS: HEMATOCRIT 43.3 % (35.4-49); HEMOGLOBIN 14.8 GM/dL (11.7-16.9); MCHC 34.2 g/dl (32.0-35.9); MEAN CELL VOLUME 90.7 fl (80-96); PLATELET COUNT 161 10^3/uL (134-434); RBC 4.78 M/mm3 (4.00-5.60); RDW 15.3 % (11.9-15.9)
[2023-07-27 09:11] LABS: POTASSIUM 4.5 mmol/L (3.5-5.1)
[2023-07-27 09:12] LABS: MAGNESIUM 1.9 mg/dL (1.8-2.4)
[2023-07-27 09:14] LABS: ALBUMIN 3.3 g/dl (3.4-5.0); BLOOD UREA NITROGEN 19.9 mg/dL (7-18); CALCIUM 9.1 mg/dL (8.5-10.1)
[2023-07-27 09:15] LABS: CREATININE 1.1 mg/dL (0.55-1.3)
[2023-07-27 09:17] LABS: BILIRUBIN,DIRECT 0.2 mg/dL (0.0-0.2)
[2023-07-27 09:18] LABS: TOT PROT 6.2 g/dl (6.4-8.2)
[2023-07-27 09:19] LABS: BILIRUBIN,TOTAL 0.6 mg/dL (0.2-1)
[2023-07-27 09:20] LABS: URIC ACID 3.2 mg/dL (2.6-7.2)
[2023-07-27] MEDS ORDERED: MAGNESIUM OXIDE 400 MG TABLET (FP) PO ONE (09:30)
[2023-07-27 09:40] LABS: ANISOCYTOSIS 0; HELMET CELLS 0; HOWELL-JOLLY BODIES 0; MACROCYTOSIS 0; OVALOCYTE 0; ROULEAU 0; SICKELED CELLS 0; TARGET CELLS 0; TEAR DROP CELLS 0; TOXIC GRANULATION 0
[2023-07-27] MEDS ORDERED: GRANISETRON HCL 1 MG TABLET PO ONE (10:00)
[2023-07-27] MEDS ORDERED: BORTEZOMIB 2.5 MG/ML SUB-Q INJECTION SQ ONE (10:00)
[2023-07-27] MEDS ORDERED: DEXAMETHASONE 4 MG TABLET (FP) PO ONE (10:00)
[2023-07-27] MEDS ORDERED: INSULIN SLIDING SCALE (NOVOLOG) 1 VIAL SQ ONE (10:00)
[2023-07-27] MEDS ORDERED: INSULIN (NOVOLOG) ASPART 100 UNITS/ML 10ML VIAL ONE (10:46)
[2023-07-27 16:22] VITALS: BP 123/78; PULSE 75; RESP 20; TEMP 97.9
== END 2023-07-27 10:45 | disposition home or self-care (01) ==
LOC: JONCCHEMO 08:03 → J7W 08:04 → JONCCHEMO 10:45
PROVIDERS: ATTEND Internal Medicine Hematology & Oncology
DX: Z51.11 Encounter for antineoplastic chemotherapy (principal); C90.00 Multiple myeloma not having achieved remission
CPT/HCPCS: 36415; 80048; 80076; 83615; 83735; 84550; 85025; 96401; J9041

== ENCOUNTER 2023-08-10 08:02 | Day surgery (SDC) | payer OTHER, MEDICARE ==
[2023-08-10 08:55] LABS: BASO % 0.9 % (0-2.0); HEMATOCRIT 43.2 % (35.4-49); HEMOGLOBIN 14.8 GM/dL (11.7-16.9); LYMPH % 9.9 % (8-40); MCH 30.8 pg (25.7-33.7); MCHC 34.3 g/dl (32.0-35.9); MEAN CELL VOLUME 89.8 fl (80-96); MONO % 14.9 % (3.8-10.2); NEUT % 70.3 % (42.8-82.8); PLATELET COUNT 165 10^3/uL (134-434); RBC 4.81 M/mm3 (4.00-5.60); RDW 15.5 % (11.9-15.9); WHITE BLOOD COUNT 6.2 K/mm3 (4.0-10.0)
[2023-08-10] MEDS ORDERED: INSULIN SLIDING SCALE (NOVOLOG) 1 VIAL SQ ONE (09:00)
[2023-08-10 09:18] LABS: POTASSIUM 4.3 mmol/L (3.5-5.1)
[2023-08-10 09:19] LABS: MAGNESIUM 1.8 mg/dL (1.8-2.4)
[2023-08-10 09:20] LABS: CALCIUM 9.1 mg/dL (8.5-10.1)
[2023-08-10 09:21] LABS: ALBUMIN 3.4 g/dl (3.4-5.0); BLOOD UREA NITROGEN 25.9 mg/dL (7-18)
[2023-08-10 09:23] LABS: CREATININE 1.3 mg/dL (0.55-1.3); URIC ACID 4.5 mg/dL (2.6-7.2)
[2023-08-10 09:24] LABS: BILIRUBIN,DIRECT 0.2 mg/dL (0.0-0.2)
[2023-08-10 09:25] LABS: TOT PROT 6.1 g/dl (6.4-8.2)
[2023-08-10 09:26] LABS: BILIRUBIN,TOTAL 0.7 mg/dL (0.2-1)
[2023-08-10] MEDS ORDERED: DEXAMETHASONE 4 MG TABLET (FP) PO ONE (09:30)
[2023-08-10] MEDS ORDERED: MAGNESIUM OXIDE 400 MG TABLET (FP) PO ONE (09:30)
[2023-08-10] MEDS ORDERED: GRANISETRON HCL 1 MG TABLET PO ONE (09:30)
[2023-08-10] MEDS ORDERED: INSULIN (NOVOLOG) ASPART 100 UNITS/ML 10ML VIAL ONE (09:51)
[2023-08-10] MEDS ORDERED: BORTEZOMIB 2.5 MG/ML SUB-Q INJECTION SQ ONE (10:00)
[2023-08-10 12:38] VITALS: BP 98/70; PULSE 79; RESP 18; TEMP 98.1
[2023-08-11 18:07] LABS: FREE KAPPA,SERUM 130.2 mg/L (3.3-19.4)
[2023-08-12 06:05] LABS: FREE KAP CHN UR 2.83 mg/L (1.17-86.46); KAPPA LAMBDA RATIO URIN >4.10 (1.83-14.26)
[2023-08-12 07:07] LABS: BETA-2-MICROGLOBULIN 2.6 mg/L (0.6-2.4)
== END 2023-08-10 10:40 | disposition home or self-care (01) ==
LOC: JONCCHEMO 08:02 → J7W 08:07 → JONCCHEMO 10:30
PROVIDERS: ATTEND Internal Medicine Hematology & Oncology
DX: Z51.11 Encounter for antineoplastic chemotherapy (principal); C90.00 Multiple myeloma not having achieved remission
CPT/HCPCS: 36415; 80048; 80076; 82232; 82784; 83615; 83735; 83883; 84155; 84165; 84550; 85025; 86335; 96401; J9041

== ENCOUNTER 2023-08-17 08:29 | Day surgery (SDC) | payer OTHER, MEDICARE ==
[2023-08-17 08:46] LABS: BASO % 0.2 % (0-2.0); EOS % 3.2 % (0-4.5); HEMATOCRIT 43.8 % (35.4-49); HEMOGLOBIN 15.2 GM/dL (11.7-16.9); LYMPH % 8.4 % (8-40); MCH 31.1 pg (25.7-33.7); MCHC 34.8 g/dl (32.0-35.9); MEAN CELL VOLUME 89.5 fl (80-96); MEAN PLT VOLUME 8.5 fl (7.5-11.1); MONO % 15.8 % (3.8-10.2); NEUT % 72.4 % (42.8-82.8); PLATELET COUNT 142 10^3/uL (134-434); RDW 15.4 % (11.9-15.9); WHITE BLOOD COUNT 8.5 K/mm3 (4.0-10.0)
[2023-08-17 08:54] LABS: CALCIUM 8.7 mg/dL (8.5-10.1)
[2023-08-17 08:55] LABS: ALBUMIN 3.4 g/dl (3.4-5.0); BLOOD UREA NITROGEN 25.4 mg/dL (7-18); MAGNESIUM 2.2 mg/dL (1.8-2.4); POTASSIUM 4.7 mmol/L (3.5-5.1)
[2023-08-17 08:58] LABS: BILIRUBIN,DIRECT 0.2 mg/dL (0.0-0.2); URIC ACID 3.9 mg/dL (2.6-7.2)
[2023-08-17 08:59] LABS: BILIRUBIN,TOTAL 0.7 mg/dL (0.2-1); CREATININE 1.3 mg/dL (0.55-1.3); TOT PROT 6.1 g/dl (6.4-8.2)
[2023-08-17] MEDS ORDERED: INSULIN SLIDING SCALE (NOVOLOG) 1 VIAL SQ ONE (09:30)
[2023-08-17] MEDS ORDERED: DEXAMETHASONE 4 MG TABLET (FP) PO ONE (09:30)
[2023-08-17] MEDS ORDERED: GRANISETRON HCL 1 MG TABLET PO ONE (09:30)
[2023-08-17] MEDS ORDERED: MAGNESIUM OXIDE 400 MG TABLET (FP) PO ONE (09:30)
[2023-08-17] MEDS ORDERED: INSULIN (NOVOLOG) ASPART 100 UNITS/ML 10ML VIAL ONE (09:46)
[2023-08-17] MEDS ORDERED: BORTEZOMIB 2.5 MG/ML SUB-Q INJECTION SQ ONE (10:00)
[2023-08-17 14:11] VITALS: BP 108/67; PULSE 87; RESP 18; TEMP 98.3
== END 2023-08-17 11:00 | disposition home or self-care (01) ==
LOC: JONCCHEMO 08:29 → J7W 08:30 → JONCCHEMO 11:00
PROVIDERS: ATTEND Internal Medicine Hematology & Oncology
PROC: 3E01305 Introduction of Other Antineoplastic into Subcutaneous Tissue, Percutaneous Approach (ICD-10-PCS; principal; 2023-08-17)
PROC: 3E033VG Introduction of Insulin into Peripheral Vein, Percutaneous Approach (ICD-10-PCS; 2023-08-17)
DX: Z51.11 Encounter for antineoplastic chemotherapy (principal); C90.00 Multiple myeloma not having achieved remission
CPT/HCPCS: 36415; 80048; 80076; 83615; 83735; 84550; 85025; 96372; 96401; J9041

== ENCOUNTER 2023-08-24 08:36 | Day surgery (SDC) | payer OTHER, MEDICARE ==
[~2023-08-24 08:36] MED LIST changes: -GRANISETRON HCL 1 MG TABLET PO ONE
[2023-08-24 09:24] LABS: HEMATOCRIT 44.3 % (35.4-49); HEMOGLOBIN 15.2 GM/dL (11.7-16.9); MCH 31.1 pg (25.7-33.7); MCHC 34.3 g/dl (32.0-35.9); MEAN CELL VOLUME 90.7 fl (80-96); MEAN PLT VOLUME 8.9 fl (7.5-11.1); PLATELET COUNT 160 10^3/uL (134-434); RBC 4.89 M/mm3 (4.00-5.60); RDW 15.3 % (11.9-15.9)
[2023-08-24] MEDS ORDERED: DEXAMETHASONE 4 MG TABLET (FP) PO ONE (09:30)
[2023-08-24 09:40] LABS: POTASSIUM 4.3 mmol/L (3.5-5.1)
[2023-08-24 09:44] LABS: CALCIUM 8.6 mg/dL (8.5-10.1)
[2023-08-24 09:45] LABS: ALBUMIN 3.2 g/dl (3.4-5.0); URIC ACID 3.4 mg/dL (2.6-7.2)
[2023-08-24 09:47] LABS: BILIRUBIN,DIRECT 0.2 mg/dL (0.0-0.2); MAGNESIUM 1.9 mg/dL (1.8-2.4); TOT PROT 5.8 g/dl (6.4-8.2)
[2023-08-24 09:49] LABS: BILIRUBIN,TOTAL 0.7 mg/dL (0.2-1)
[2023-08-24 09:50] LABS: CREATININE 1.5 mg/dL (0.55-1.3)
[2023-08-24 09:59] VITALS: BP 109/71; PULSE 87; RESP 20; TEMP 98.1
[2023-08-24] MEDS ORDERED: INSULIN SLIDING SCALE (NOVOLOG) 1 VIAL SQ ONE (10:00)
[2023-08-24] MEDS ORDERED: MAGNESIUM OXIDE 400 MG TABLET (FP) PO ONE (10:00)
[2023-08-24] MEDS ORDERED: BORTEZOMIB 2.5 MG/ML SUB-Q INJECTION SQ ONE (10:00)
[2023-08-24 10:09] LABS: ANISOCYTOSIS 0; MACROCYTOSIS 0
[2023-08-24] MEDS: GRANISETRON HCL 1 MG TABLET PO ONE ×2 (10:17)
[2023-08-24] MEDS ORDERED: INSULIN (NOVOLOG) ASPART 100 UNITS/ML 10ML VIAL ONE (10:18)
== END 2023-08-24 10:45 | disposition home or self-care (01) ==
LOC: JONCCHEMO 08:36 → J7W 08:36 → JONCCHEMO 10:45
PROVIDERS: ATTEND Internal Medicine Hematology & Oncology
DX: Z51.11 Encounter for antineoplastic chemotherapy (principal); C90.00 Multiple myeloma not having achieved remission
CPT/HCPCS: 36415; 80048; 80076; 83615; 83735; 84550; 85025; 96401; J9041

== ENCOUNTER 2023-09-06 08:02 | Day surgery (SDC) | payer OTHER, MEDICARE ==
[2023-09-06 09:11] LABS: HEMOGLOBIN 13.9 GM/dL (11.7-16.9); MCH 30.4 pg (25.7-33.7); MCHC 33.1 g/dl (32.0-35.9); MEAN PLT VOLUME 8.2 fl (7.5-11.1); PLATELET COUNT 147 10^3/uL (134-434); RBC 4.57 M/mm3 (4.00-5.60); RDW 15.3 % (11.9-15.9); WHITE BLOOD COUNT 4.7 K/mm3 (4.0-10.0)
[2023-09-06 09:36] LABS: POTASSIUM 4.1 mmol/L (3.5-5.1)
[2023-09-06 09:39] LABS: CALCIUM 8.8 mg/dL (8.5-10.1)
[2023-09-06 09:40] LABS: ALBUMIN 3.3 g/dl (3.4-5.0); URIC ACID 3.6 mg/dL (2.6-7.2)
[2023-09-06 09:41] LABS: CREATININE 1.5 mg/dL (0.55-1.3)
[2023-09-06 09:42] LABS: BILIRUBIN,DIRECT 0.2 mg/dL (0.0-0.2)
[2023-09-06 09:43] LABS: TOT PROT 5.9 g/dl (6.4-8.2)
[2023-09-06 09:44] LABS: BILIRUBIN,TOTAL 0.8 mg/dL (0.2-1)
[2023-09-06] MEDS ORDERED: GRANISETRON HCL 1 MG TABLET PO ONE (10:00)
[2023-09-06] MEDS ORDERED: DEXAMETHASONE 4 MG TABLET (FP) PO ONE (10:00)
[2023-09-06] MEDS ORDERED: INSULIN (NOVOLOG) ASPART 100 UNITS/ML 10ML VIAL SQ ONE ×3 (10:00)
[2023-09-06] MEDS ORDERED: MAGNESIUM OXIDE 400 MG TABLET (FP) PO ONE (10:00)
[2023-09-06 10:05] LABS: ANISOCYTOSIS 2+; MACROCYTOSIS 0; OVALOCYTE 2+
[2023-09-06] MEDS ORDERED: BORTEZOMIB 2.5 MG/ML SUB-Q INJECTION SQ ONE (10:30)
[2023-09-06 11:25] LABS: URINE APPEARANCE CLEAR; URINE BILIRUBIN NEGATIVE (NEGATIVE); URINE COLOR YELLOW; URINE GLUCOSE (UA) NEGATIVE (NEGATIVE); URINE KETONE TRACE (NEGATIVE); URINE LEUK ESTERASE NEGATIVE (NEGATIVE); URINE NITRITE NEGATIVE (NEGATIVE); URINE PROTEIN NEGATIVE (NEGATIVE); URINE UROBILINOGEN 4.0 E.U/dl mg/dL (0.2-1.0)
[2023-09-06 15:12] VITALS: BP 123/77; PULSE 90; RESP 18; TEMP 97.8
[2023-09-09 15:10] LABS: FREE KAPPA,SERUM 108.9 mg/L (3.3-19.4)
[2023-09-11 14:07] LABS: FREE KAP CHN UR 2.46 mg/L (1.17-86.46)
[2023-09-11 16:06] LABS: BETA-2-MICROGLOBULIN 3.8 mg/L (0.6-2.4)
== END 2023-09-06 11:00 | disposition home or self-care (01) ==
LOC: JONCCHEMO 08:02 → J7W 08:03 → JONCCHEMO 11:00
PROVIDERS: ATTEND Internal Medicine Hematology & Oncology
DX: Z51.11 Encounter for antineoplastic chemotherapy (principal); C90.00 Multiple myeloma not having achieved remission
CPT/HCPCS: 36415; 80048; 80076; 81003; 82232; 82784; 83615; 83735; 83883; 84155; 84165; 84550; 85025; 86335; 87086; 96402; J9041

== ENCOUNTER 2023-09-14 06:39 | Inpatient (IN) | payer OTHER, MEDICARE ==
[2023-09-14 06:56] VITALS: BMI 44.7
[2023-09-14 07:54] LABS: BASO % 0.3 % (0-2.0); EOS % 0.6 % (0-4.5); HEMATOCRIT 42.5 % (35.4-49); HEMOGLOBIN 14.3 GM/dL (11.7-16.9); LYMPH % 6.1 % (8-40); MCH 30.7 pg (25.7-33.7); MCHC 33.6 g/dl (32.0-35.9); MEAN CELL VOLUME 91.3 fl (80-96); MEAN PLT VOLUME 7.9 fl (7.5-11.1); MONO % 13.4 % (3.8-10.2); NEUT % 79.6 % (42.8-82.8); PLATELET COUNT 144 10^3/uL (134-434); RBC 4.66 M/mm3 (4.00-5.60); RDW 14.9 % (11.9-15.9); WHITE BLOOD COUNT 10.9 K/mm3 (4.0-10.0)
[2023-09-14 08:12] LABS: POTASSIUM 4.2 mmol/L (3.5-5.1)
[2023-09-14 08:15] LABS: ALBUMIN 3.1 g/dl (3.4-5.0); BLOOD UREA NITROGEN 24.2 mg/dL (7-18)
[2023-09-14 08:17] LABS: PHOSPHOROUS 2.2 mg/dL (2.5-4.9)
[2023-09-14 08:18] LABS: CREATININE 1.5 mg/dL (0.55-1.3)
[2023-09-14 08:19] LABS: BILIRUBIN,TOTAL 1.2 mg/dL (0.2-1); TOT PROT 5.8 g/dl (6.4-8.2)
[2023-09-14 08:20] LABS: INR 2.08 (0.83-1.09)
[2023-09-14 08:22] LABS: ACTIVATED PTT 36.9 SECONDS (25.2-36.5)
[2023-09-14 12:58] LABS: PH,URINE 6.5 (5.0-8.0); URINE APPEARANCE CLEAR; URINE BILIRUBIN NEGATIVE (NEGATIVE); URINE COLOR YELLOW; URINE GLUCOSE (UA) NEGATIVE (NEGATIVE); URINE KETONE NEGATIVE (NEGATIVE); URINE LEUK ESTERASE NEGATIVE (NEGATIVE); URINE NITRITE NEGATIVE (NEGATIVE); URINE PROTEIN NEGATIVE (NEGATIVE)
[2023-09-14] MEDS ORDERED: INSULIN (NOVOLOG) ASPART 100 UNITS/ML 10ML VIAL ONE (16:50)
[2023-09-14] MEDS: INSULIN SLIDING SCALE (NOVOLOG) 1 VIAL SQ SCH ×2 (16:53→22:06)
[2023-09-14] MEDS: ATORVASTATIN CA 80 MG TABLET (FP) PO SCH (22:01)
[2023-09-14] MEDS: MONTELUKAST NA 10 MG TABLET PO SCH (22:01)
[2023-09-14] MEDS: metoPROLOL SUCCINATE 25 MG TAB.SR.24H (FP) PO SCH (22:01)
[2023-09-15] MEDS: FUROSEMIDE 40 MG TABLET (FP) PO SCH ×2 (06:11→13:26)
[2023-09-15] MEDS: TAMSULOSIN HCL 0.4 MG CAP PO SCH (06:11)
[2023-09-15] MEDS: INSULIN SLIDING SCALE (NOVOLOG) 1 VIAL SQ SCH ×4 (06:28→21:35)
[2023-09-15] MEDS: SPIRONOLACTONE 25 MG TABLET PO SCH (09:11)
[2023-09-15] MEDS: LOSARTAN POTASSIUM 50 MG TABLET PO SCH (09:11)
[2023-09-15] MEDS: SERTRALINE HCL 25 MG TABLET (FP) PO SCH (09:11)
[2023-09-15] MEDS: metoPROLOL SUCCINATE 25 MG TAB.SR.24H (FP) PO SCH ×2 (09:11→21:31)
[2023-09-15] MEDS ORDERED: CEFTRIAXONE 1 GM in DEXTROSE 5%-WATER - 50 ML IVPB SCH (10:00)
[2023-09-15 11:13] LABS: CALCIUM 8.5 mg/dL (8.5-10.1)
[2023-09-15 11:14] LABS: BLOOD UREA NITROGEN 21.1 mg/dL (7-18)
[2023-09-15 11:17] LABS: CREATININE 1.3 mg/dL (0.55-1.3)
[2023-09-15 12:15] LABS: WHITE BLOOD COUNT 5.7 K/mm3 (4.0-10.0)
[2023-09-15 12:16] LABS: HEMATOCRIT 40.7 % (35.4-49); HEMOGLOBIN 13.9 GM/dL (11.7-16.9); MCH 31.2 pg (25.7-33.7); MCHC 34.1 g/dl (32.0-35.9); MEAN CELL VOLUME 91.5 fl (80-96); MEAN PLT VOLUME 8.7 fl (7.5-11.1); PLATELET COUNT 139 10^3/uL (134-434); RBC 4.45 M/mm3 (4.00-5.60); RDW 14.8 % (11.9-15.9)
[2023-09-15] MEDS: PIPERACILLIN/TAZOB 3.375 GM 3.375 GM in DEXTROSE 5%-WATER - 50 ML IVPB SCH (17:32)
[2023-09-15] MEDS ORDERED: WARFARIN NA 5 MG TABLET PO SCH (18:00)
[2023-09-15] MEDS: ATORVASTATIN CA 80 MG TABLET (FP) PO SCH (21:31)
[2023-09-15] MEDS: MONTELUKAST NA 10 MG TABLET PO SCH (21:31)
[2023-09-16] MEDS: PIPERACILLIN/TAZOB 3.375 GM 3.375 GM in DEXTROSE 5%-WATER - 50 ML IVPB SCH ×3 (02:02→17:30)
[2023-09-16] MEDS: FUROSEMIDE 40 MG TABLET (FP) PO SCH ×2 (06:06→13:00)
[2023-09-16] MEDS: TAMSULOSIN HCL 0.4 MG CAP PO SCH (06:06)
[2023-09-16] MEDS: INSULIN SLIDING SCALE (NOVOLOG) 1 VIAL SQ SCH ×4 (06:23→22:25)
[2023-09-16] MEDS: LOSARTAN POTASSIUM 50 MG TABLET PO SCH (09:00)
[2023-09-16] MEDS: metoPROLOL SUCCINATE 25 MG TAB.SR.24H (FP) PO SCH ×2 (09:00→21:54)
[2023-09-16] MEDS: SERTRALINE HCL 25 MG TABLET (FP) PO SCH (09:00)
[2023-09-16] MEDS: SPIRONOLACTONE 25 MG TABLET PO SCH (09:00)
[2023-09-16] MEDS ORDERED: INSULIN (NOVOLOG) ASPART 100 UNITS/ML 10ML VIAL ONE (10:29)
[2023-09-16] MEDS ORDERED: ALBUTEROL SO4 2.5/IPRATROPIUM 0.5 INH SOL 3 ML VIAL.NEB. NEB PRN (16:55)
[2023-09-16] MEDS: ATORVASTATIN CA 80 MG TABLET (FP) PO SCH (21:54)
[2023-09-16] MEDS: MONTELUKAST NA 10 MG TABLET PO SCH (21:54)
[2023-09-17] MEDS: PIPERACILLIN/TAZOB 3.375 GM 3.375 GM in DEXTROSE 5%-WATER - 50 ML IVPB SCH ×3 (01:54→17:26)
[2023-09-17] MEDS: TAMSULOSIN HCL 0.4 MG CAP PO SCH (06:25)
[2023-09-17] MEDS: FUROSEMIDE 40 MG TABLET (FP) PO SCH ×2 (06:25→14:21)
[2023-09-17] MEDS: INSULIN SLIDING SCALE (NOVOLOG) 1 VIAL SQ SCH ×3 (06:30→16:42)
[2023-09-17 08:57] LABS: INR 1.23 (0.83-1.09); PROTHROMBIN TIME (PATIENT) 14.2 SEC (9.7-13.0)
[2023-09-17] MEDS: SERTRALINE HCL 25 MG TABLET (FP) PO SCH (09:27)
[2023-09-17] MEDS: SPIRONOLACTONE 25 MG TABLET PO SCH (09:27)
[2023-09-17] MEDS: metoPROLOL SUCCINATE 25 MG TAB.SR.24H (FP) PO SCH (09:27)
[2023-09-17] MEDS: LOSARTAN POTASSIUM 50 MG TABLET PO SCH (09:27)
[2023-09-17 17:49] VITALS: BP 116/68; PULSE 98; RESP 20; TEMP 97.7
== END 2023-09-17 18:35 | disposition home or self-care (01) | DRG 194 ==
LOC: JER 06:39 → JERBED 13:04 → J6S 14:00
PROVIDERS: ADMIT Family Medicine; ATTEND Family Medicine
DX: J18.9 Pneumonia, unspecified organism (principal); C90.00 Multiple myeloma not having achieved remission; J44.0 Chronic obstructive pulmonary disease with (acute) lower respiratory infection; Z68.41 Body mass index [BMI] 40.0-44.9, adult; J44.1 Chronic obstructive pulmonary disease with (acute) exacerbation; I10 Essential (primary) hypertension; E78.5 Hyperlipidemia, unspecified; N40.0 Benign prostatic hyperplasia without lower urinary tract symptoms; I48.91 Unspecified atrial fibrillation; G47.33 Obstructive sleep apnea (adult) (pediatric); J20.9 Acute bronchitis, unspecified; N28.1 Cyst of kidney, acquired; R91.1 Solitary pulmonary nodule; F32.A Depression, unspecified; R53.1 Weakness; E66.01 Morbid (severe) obesity due to excess calories; I25.10 Atherosclerotic heart disease of native coronary artery without angina pectoris; I12.9 Hypertensive chronic kidney disease with stage 1 through stage 4 chronic kidney disease, or unspecified chronic kidney disease; E11.22 Type 2 diabetes mellitus with diabetic chronic kidney disease; N18.9 Chronic kidney disease, unspecified; K76.0 Fatty (change of) liver, not elsewhere classified; Z85.46 Personal history of malignant neoplasm of prostate; Z96.653 Presence of artificial knee joint, bilateral; Z86.73 Personal history of transient ischemic attack (TIA), and cerebral infarction without residual deficits
CPT/HCPCS: 0241U-QW; 36415; 71045-TC-FY; 71275-TC; 80048; 80053; 81003; 82962; 83735; 83880; 84100; 84484; 85025; 85027; 85610; 85730; 87040; 87086; 93005; 93010; 97116-GP; 97161-GP; 99285-25; Q9967

== ENCOUNTER 2023-09-21 08:10 | Day surgery (SDC) | payer OTHER, MEDICARE ==
[~2023-09-21 08:10] MED LIST changes: +BORTEZOMIB 2.5 MG/ML SUB-Q INJECTION SQ ONE; +GRANISETRON HCL 1 MG TABLET PO ONE; +INSULIN SLIDING SCALE (NOVOLOG) 1 VIAL SQ ONE; +MAGNESIUM OXIDE 400 MG TABLET (FP) PO ONE
[2023-09-21 08:43] LABS: BASO % 0.6 % (0-2.0); EOS % 4.2 % (0-4.5); HEMATOCRIT 40.8 % (35.4-49); HEMOGLOBIN 13.9 GM/dL (11.7-16.9); LYMPH % 14.3 % (8-40); MCH 31.3 pg (25.7-33.7); MEAN CELL VOLUME 92.1 fl (80-96); MEAN PLT VOLUME 7.1 fl (7.5-11.1); MONO % 17.4 % (3.8-10.2); NEUT % 63.5 % (42.8-82.8); PLATELET COUNT 204 10^3/uL (134-434); RBC 4.43 M/mm3 (4.00-5.60); RDW 14.3 % (11.9-15.9); WHITE BLOOD COUNT 5.4 K/mm3 (4.0-10.0)
[2023-09-21 09:07] LABS: POTASSIUM 4.1 mmol/L (3.5-5.1)
[2023-09-21 09:09] LABS: CALCIUM 8.4 mg/dL (8.5-10.1)
[2023-09-21 09:10] LABS: ALBUMIN 3.1 g/dl (3.4-5.0); MAGNESIUM 1.7 mg/dL (1.8-2.4)
[2023-09-21 09:12] LABS: BILIRUBIN,DIRECT 0.2 mg/dL (0.0-0.2); URIC ACID 4.9 mg/dL (2.6-7.2)
[2023-09-21 09:13] LABS: CREATININE 1.2 mg/dL (0.55-1.3)
[2023-09-21 09:14] LABS: BILIRUBIN,TOTAL 0.6 mg/dL (0.2-1)
[2023-09-21] MEDS ORDERED: INSULIN (NOVOLOG) ASPART 100 UNITS/ML 10ML VIAL ONE (09:45)
[2023-09-21] MEDS ORDERED: DEXAMETHASONE 4 MG TABLET (FP) PO ONE (10:00)
[2023-09-21] MEDS ORDERED: INSULIN SLIDING SCALE (NOVOLOG) 1 VIAL SQ ONE (10:00)
[2023-09-21] MEDS ORDERED: MAGNESIUM OXIDE 400 MG TABLET (FP) PO ONE (10:00)
[2023-09-21] MEDS ORDERED: GRANISETRON HCL 1 MG TABLET PO ONE (10:00)
[2023-09-21] MEDS ORDERED: BORTEZOMIB 2.5 MG/ML SUB-Q INJECTION SQ ONE (10:30)
[2023-09-21 13:41] VITALS: BP 108/75; PULSE 81; RESP 18; TEMP 97.5
== END 2023-09-21 10:30 | disposition home or self-care (01) ==
LOC: JONCCHEMO 08:10 → J7W 08:11 → JONCCHEMO 10:30
PROVIDERS: ATTEND Internal Medicine Hematology & Oncology
DX: Z51.11 Encounter for antineoplastic chemotherapy (principal); C90.00 Multiple myeloma not having achieved remission
CPT/HCPCS: 36415; 80048; 80076; 83615; 83735; 84550; 85025; 96401; J9041

== ENCOUNTER 2023-10-05 08:28 | Day surgery (SDC) | payer OTHER, MEDICARE ==
[2023-10-05 09:19] LABS: POTASSIUM 3.8 mmol/L (3.5-5.1)
[2023-10-05 09:20] LABS: BASO % 0.6 % (0-2.0); EOS % 3.4 % (0-4.5); HEMATOCRIT 42.1 % (35.4-49); HEMOGLOBIN 14.3 GM/dL (11.7-16.9); LYMPH % 16.4 % (8-40); MEAN CELL VOLUME 91.2 fl (80-96); MEAN PLT VOLUME 8.4 fl (7.5-11.1); MONO % 18.3 % (3.8-10.2); NEUT % 61.3 % (42.8-82.8); PLATELET COUNT 146 10^3/uL (134-434); RBC 4.62 M/mm3 (4.00-5.60); RDW 14.8 % (11.9-15.9); WHITE BLOOD COUNT 4.3 K/mm3 (4.0-10.0)
[2023-10-05 09:23] LABS: CALCIUM 9.1 mg/dL (8.5-10.1)
[2023-10-05 09:24] LABS: ALBUMIN 3.1 g/dl (3.4-5.0); BLOOD UREA NITROGEN 15.5 mg/dL (7-18); MAGNESIUM 1.8 mg/dL (1.8-2.4)
[2023-10-05 09:26] LABS: BILIRUBIN,DIRECT 0.2 mg/dL (0.0-0.2); URIC ACID 3.8 mg/dL (2.6-7.2)
[2023-10-05 09:27] LABS: CREATININE 1.4 mg/dL (0.55-1.3)
[2023-10-05 09:28] LABS: BILIRUBIN,TOTAL 0.6 mg/dL (0.2-1)
[2023-10-05 09:29] LABS: TOT PROT 5.8 g/dl (6.4-8.2)
[2023-10-05] MEDS ORDERED: INSULIN ASPART SLIDING SCALE (NOVOLOG) 1 VIAL SQ ONE (09:30)
[2023-10-05] MEDS ORDERED: DEXAMETHASONE 4 MG TABLET (FP) PO ONE (09:30)
[2023-10-05] MEDS ORDERED: GRANISETRON HCL 1 MG TABLET PO ONE (09:30)
[2023-10-05] MEDS ORDERED: MAGNESIUM OXIDE 400 MG TABLET (FP) PO ONE (09:30)
[2023-10-05] MEDS ORDERED: BORTEZOMIB 2.5 MG/ML SUB-Q INJECTION SQ ONE (10:00)
[2023-10-05 16:00] VITALS: BP 108/70; PULSE 86; RESP 20; TEMP 98.9
[2023-10-06 16:09] LABS: FREE KAPPA,SERUM 111.3 mg/L (3.3-19.4)
[2023-10-07 05:06] LABS: FREE KAP CHN UR 1.69 mg/L (1.17-86.46)
[2023-10-07 12:07] LABS: BETA-2-MICROGLOBULIN 2.4 mg/L (0.6-2.4)
== END 2023-10-05 11:00 | disposition home or self-care (01) ==
LOC: JONCCHEMO 08:28 → J7W 08:31 → JONCCHEMO 11:00
PROVIDERS: ATTEND Internal Medicine Hematology & Oncology
DX: Z51.11 Encounter for antineoplastic chemotherapy (principal); C90.00 Multiple myeloma not having achieved remission
CPT/HCPCS: 36415; 80048; 80076; 82232; 82607; 82728; 82784; 83540; 83550; 83615; 83735; 83883; 84155; 84165; 84550; 85025; 85651; 86140; 86335; 96401; J9041

== ENCOUNTER 2023-10-12 08:29 | Day surgery (SDC) | payer OTHER, MEDICARE ==
[2023-10-12 08:45] LABS: BASO % 0.5 % (0-2.0); EOS % 3.5 % (0-4.5); HEMOGLOBIN 14.7 GM/dL (11.7-16.9); MCH 30.9 pg (25.7-33.7); MCHC 33.4 g/dl (32.0-35.9); MEAN CELL VOLUME 92.4 fl (80-96); MEAN PLT VOLUME 8.6 fl (7.5-11.1); MONO % 12.7 % (3.8-10.2); NEUT % 68.3 % (42.8-82.8); PLATELET COUNT 122 10^3/uL (134-434); RBC 4.77 M/mm3 (4.00-5.60); RDW 14.5 % (11.9-15.9); WHITE BLOOD COUNT 7.1 K/mm3 (4.0-10.0)
[2023-10-12 09:08] LABS: POTASSIUM 4.3 mmol/L (3.5-5.1)
[2023-10-12 09:09] LABS: CALCIUM 8.8 mg/dL (8.5-10.1); MAGNESIUM 1.9 mg/dL (1.8-2.4)
[2023-10-12 09:10] LABS: ALBUMIN 3.1 g/dl (3.4-5.0); BLOOD UREA NITROGEN 17.7 mg/dL (7-18)
[2023-10-12 09:13] LABS: BILIRUBIN,DIRECT 0.3 mg/dL (0.0-0.2); CREATININE 1.2 mg/dL (0.55-1.3); URIC ACID 2.3 mg/dL (2.6-7.2)
[2023-10-12 09:14] LABS: TOT PROT 5.9 g/dl (6.4-8.2)
[2023-10-12 09:15] LABS: BILIRUBIN,TOTAL 0.8 mg/dL (0.2-1)
[2023-10-12] MEDS ORDERED: INSULIN (NOVOLOG) ASPART 100 UNITS/ML 10ML VIAL ONE (09:19)
[2023-10-12] MEDS ORDERED: GRANISETRON HCL 1 MG TABLET PO ONE (09:30)
[2023-10-12] MEDS ORDERED: INSULIN ASPART SLIDING SCALE (NOVOLOG) 1 VIAL SQ ONE (09:30)
[2023-10-12] MEDS ORDERED: MAGNESIUM OXIDE 400 MG TABLET (FP) PO ONE (09:30)
[2023-10-12] MEDS ORDERED: DEXAMETHASONE 4 MG TABLET (FP) PO ONE (09:30)
[2023-10-12] MEDS ORDERED: BORTEZOMIB 2.5 MG/ML SUB-Q INJECTION SQ ONE (10:00)
[2023-10-12 16:11] VITALS: BP 121/73; PULSE 83; RESP 18; TEMP 97.7
== END 2023-10-12 10:45 | disposition home or self-care (01) ==
LOC: JONCCHEMO 08:29 → J7W 08:30 → JONCCHEMO 10:45
PROVIDERS: ATTEND Internal Medicine Hematology & Oncology
DX: Z51.11 Encounter for antineoplastic chemotherapy (principal); C90.00 Multiple myeloma not having achieved remission
CPT/HCPCS: 36415; 80048; 80076; 83615; 83735; 84550; 85025; 96401; J9041

== ENCOUNTER 2023-10-19 08:17 | Day surgery (SDC) | payer OTHER, MEDICARE ==
[2023-10-19 08:52] LABS: BASO % 0.3 % (0-2.0); EOS % 2.7 % (0-4.5); HEMATOCRIT 46.2 % (35.4-49); HEMOGLOBIN 15.2 GM/dL (11.7-16.9); LYMPH % 7.5 % (8-40); MCH 30.3 pg (25.7-33.7); MCHC 32.8 g/dl (32.0-35.9); MEAN CELL VOLUME 92.4 fl (80-96); MEAN PLT VOLUME 8.9 fl (7.5-11.1); MONO % 11.8 % (3.8-10.2); NEUT % 77.7 % (42.8-82.8); PLATELET COUNT 164 10^3/uL (134-434); RBC 4.99 M/mm3 (4.00-5.60); RDW 14.7 % (11.9-15.9); WHITE BLOOD COUNT 9.6 K/mm3 (4.0-10.0)
[2023-10-19 09:19] LABS: POTASSIUM 3.8 mmol/L (3.5-5.1)
[2023-10-19 09:21] LABS: MAGNESIUM 1.7 mg/dL (1.8-2.4)
[2023-10-19 09:22] LABS: CALCIUM 8.8 mg/dL (8.5-10.1)
[2023-10-19 09:23] LABS: BLOOD UREA NITROGEN 17.5 mg/dL (7-18)
[2023-10-19 09:25] LABS: BILIRUBIN,DIRECT 0.2 mg/dL (0.0-0.2); CREATININE 1.1 mg/dL (0.55-1.3)
[2023-10-19 09:26] LABS: TOT PROT 5.8 g/dl (6.4-8.2)
[2023-10-19 09:28] LABS: BILIRUBIN,TOTAL 0.7 mg/dL (0.2-1)
[2023-10-19] MEDS ORDERED: GRANISETRON HCL 1 MG TABLET PO ONE (09:30)
[2023-10-19] MEDS ORDERED: INSULIN ASPART SLIDING SCALE (NOVOLOG) 1 VIAL SQ ONE (09:30)
[2023-10-19] MEDS ORDERED: DEXAMETHASONE 4 MG TABLET (FP) PO ONE (09:30)
[2023-10-19] MEDS ORDERED: MAGNESIUM OXIDE 400 MG TABLET (FP) PO ONE (09:30)
[2023-10-19] MEDS ORDERED: BORTEZOMIB 2.5 MG/ML SUB-Q INJECTION SQ ONE (10:00)
[2023-10-19] MEDS ORDERED: INSULIN (NOVOLOG) ASPART 100 UNITS/ML 10ML VIAL ONE (10:24)
[2023-10-19 10:44] VITALS: BP 125/76; PULSE 80; RESP 20; TEMP 97.9
== END 2023-10-19 10:51 | disposition home or self-care (01) ==
LOC: JONCCHEMO 08:17 → J7W 08:18 → JONCCHEMO 10:51
PROVIDERS: ATTEND Internal Medicine Hematology & Oncology
DX: Z51.11 Encounter for antineoplastic chemotherapy (principal); C90.00 Multiple myeloma not having achieved remission
CPT/HCPCS: 36415; 80048; 80076; 82962; 83615; 83735; 84550; 85025; 96401; J9041

== ENCOUNTER 2023-11-02 08:13 | Day surgery (SDC) | payer OTHER, MEDICARE ==
[2023-11-02 08:58] LABS: BASO % 0.7 % (0-2.0); EOS % 3.2 % (0-4.5); HEMOGLOBIN 14.5 GM/dL (11.7-16.9); LYMPH % 12.9 % (8-40); MCHC 33.7 g/dl (32.0-35.9); MEAN PLT VOLUME 8.1 fl (7.5-11.1); MONO % 15.7 % (3.8-10.2); NEUT % 67.5 % (42.8-82.8); PLATELET COUNT 170 10^3/uL (134-434); RBC 4.67 M/mm3 (4.00-5.60); RDW 14.2 % (11.9-15.9); WHITE BLOOD COUNT 5.8 K/mm3 (4.0-10.0)
[2023-11-02 09:23] LABS: POTASSIUM 4.2 mmol/L (3.5-5.1)
[2023-11-02 09:25] LABS: MAGNESIUM 1.7 mg/dL (1.8-2.4)
[2023-11-02 09:26] LABS: BLOOD UREA NITROGEN 17.3 mg/dL (7-18); CALCIUM 8.6 mg/dL (8.5-10.1)
[2023-11-02 09:27] LABS: ALBUMIN 3.2 g/dl (3.4-5.0)
[2023-11-02 09:28] LABS: URIC ACID 2.8 mg/dL (2.6-7.2)
[2023-11-02 09:29] LABS: BILIRUBIN,DIRECT 0.3 mg/dL (0.0-0.2); CREATININE 1.3 mg/dL (0.55-1.3)
[2023-11-02] MEDS ORDERED: INSULIN ASPART SLIDING SCALE (NOVOLOG) 1 VIAL SQ ONE (09:30)
[2023-11-02] MEDS ORDERED: DEXAMETHASONE 4 MG TABLET (FP) PO ONE (09:30)
[2023-11-02] MEDS ORDERED: MAGNESIUM OXIDE 400 MG TABLET (FP) PO ONE (09:30)
[2023-11-02] MEDS ORDERED: GRANISETRON HCL 1 MG TABLET PO ONE (09:30)
[2023-11-02 09:31] LABS: BILIRUBIN,TOTAL 0.7 mg/dL (0.2-1)
[2023-11-02] MEDS ORDERED: INSULIN (NOVOLOG) ASPART 100 UNITS/ML 10ML VIAL ONE (09:50)
[2023-11-02] MEDS ORDERED: BORTEZOMIB 2.5 MG/ML SUB-Q INJECTION SQ ONE (10:00)
[2023-11-02 17:37] VITALS: BP 100/66; PULSE 84; RESP 18; TEMP 98.4
[2023-11-03 16:07] LABS: FREE KAPPA,SERUM 138.9 mg/L (3.3-19.4)
[2023-11-06 00:06] LABS: BETA-2-MICROGLOBULIN 3.1 mg/L (0.6-2.4)
[2023-11-06 16:07] LABS: IG A QN SERUM. 234 mg/dL (61-437)
[2023-11-07 07:06] LABS: FREE KAP CHN UR 12.04 mg/L (1.17-86.46); KAPPA LAMBDA RATIO URIN >17.45 (1.83-14.26)
== END 2023-11-02 11:00 | disposition home or self-care (01) ==
LOC: JONCCHEMO 08:13 → J7W 08:18 → JONCCHEMO 11:00
PROVIDERS: ATTEND Internal Medicine Hematology & Oncology
DX: Z51.11 Encounter for antineoplastic chemotherapy (principal); C90.00 Multiple myeloma not having achieved remission
CPT/HCPCS: 36415; 80048; 80076; 82232; 82784; 83615; 83735; 83883; 84155; 84165; 84550; 85025; 86335; 96401; J9041

== ENCOUNTER 2023-11-09 08:09 | Day surgery (SDC) | payer OTHER, MEDICARE ==
[2023-11-09 08:34] LABS: HEMATOCRIT 44.2 % (35.4-49); HEMOGLOBIN 14.7 GM/dL (11.7-16.9); MCH 30.4 pg (25.7-33.7); MCHC 33.4 g/dl (32.0-35.9); MEAN CELL VOLUME 91.1 fl (80-96); MEAN PLT VOLUME 8.8 fl (7.5-11.1); PLATELET COUNT 129 10^3/uL (134-434); RBC 4.85 M/mm3 (4.00-5.60); RDW 14.1 % (11.9-15.9); WHITE BLOOD COUNT 6.3 K/mm3 (4.0-10.0)
[2023-11-09 08:48] LABS: POTASSIUM 3.9 mmol/L (3.5-5.1)
[2023-11-09 08:51] LABS: BLOOD UREA NITROGEN 24.9 mg/dL (7-18); CALCIUM 8.6 mg/dL (8.5-10.1)
[2023-11-09 08:54] LABS: BILIRUBIN,DIRECT 0.2 mg/dL (0.0-0.2); CREATININE 1.2 mg/dL (0.55-1.3); URIC ACID 2.9 mg/dL (2.6-7.2)
[2023-11-09 08:55] LABS: TOT PROT 5.8 g/dl (6.4-8.2)
[2023-11-09 08:56] LABS: BILIRUBIN,TOTAL 0.9 mg/dL (0.2-1)
[2023-11-09] MEDS ORDERED: DEXAMETHASONE 4 MG TABLET (FP) PO ONE (10:00)
[2023-11-09] MEDS ORDERED: GRANISETRON HCL 1 MG TABLET PO ONE (10:00)
[2023-11-09] MEDS ORDERED: MAGNESIUM OXIDE 400 MG TABLET (FP) PO ONE (10:00)
[2023-11-09 10:08] LABS: ANISOCYTOSIS 0; MACROCYTOSIS 0
[2023-11-09] MEDS ORDERED: BORTEZOMIB 2.5 MG/ML SUB-Q INJECTION SQ ONE (10:30)
[2023-11-09] MEDS ORDERED: INSULIN (NOVOLOG) ASPART 100 UNITS/ML 10ML VIAL ONE (10:48)
[2023-11-09] MEDS ORDERED: INSULIN ASPART SLIDING SCALE (NOVOLOG) 1 VIAL SQ ONE (11:15)
[2023-11-09 16:22] VITALS: BP 110/65; PULSE 96; RESP 16; TEMP 98.4
== END 2023-11-09 11:45 | disposition home or self-care (01) ==
LOC: JONCCHEMO 08:09 → J7W 08:10 → JONCCHEMO 11:45
PROVIDERS: ATTEND Internal Medicine Hematology & Oncology
DX: Z51.11 Encounter for antineoplastic chemotherapy (principal); C90.00 Multiple myeloma not having achieved remission
CPT/HCPCS: 36415; 80048; 80076; 83615; 83735; 84550; 85025; 96401; J9041

== ENCOUNTER 2023-11-16 08:45 | Day surgery (SDC) | payer OTHER, MEDICARE ==
[2023-11-16 09:46] LABS: BASO % 0.2 % (0-2.0); EOS % 1.8 % (0-4.5); HEMATOCRIT 44.1 % (35.4-49); LYMPH % 8.9 % (8-40); MCH 31.2 pg (25.7-33.7); MCHC 34.1 g/dl (32.0-35.9); MEAN CELL VOLUME 91.3 fl (80-96); MEAN PLT VOLUME 9.9 fl (7.5-11.1); MONO % 10.8 % (3.8-10.2); NEUT % 78.3 % (42.8-82.8); PLATELET COUNT 129 10^3/uL (134-434); RBC 4.83 M/mm3 (4.00-5.60); RDW 14.5 % (11.9-15.9); WHITE BLOOD COUNT 10.9 K/mm3 (4.0-10.0)
[2023-11-16] MEDS ORDERED: INSULIN ASPART SLIDING SCALE (NOVOLOG) 1 VIAL SQ ONE (10:00)
[2023-11-16] MEDS ORDERED: GRANISETRON HCL 1 MG TABLET PO ONE (10:00)
[2023-11-16] MEDS ORDERED: DEXAMETHASONE 4 MG TABLET (FP) PO ONE (10:00)
[2023-11-16 10:09] LABS: TOT PROT 6.1 g/dl (6.4-8.2)
[2023-11-16 10:12] LABS: MAGNESIUM 1.9 mg/dL (1.8-2.4)
[2023-11-16 10:13] LABS: BLOOD UREA NITROGEN 23.1 mg/dL (7-18); CALCIUM 8.9 mg/dL (8.5-10.1)
[2023-11-16 10:14] LABS: URIC ACID 3.6 mg/dL (2.6-7.2)
[2023-11-16 10:15] LABS: CREATININE 1.4 mg/dL (0.55-1.3)
[2023-11-16 10:16] LABS: BILIRUBIN,DIRECT 0.4 mg/dL (0.0-0.2)
[2023-11-16 10:18] LABS: BILIRUBIN,TOTAL 1.3 mg/dL (0.2-1)
[2023-11-16] MEDS ORDERED: BORTEZOMIB 2.5 MG/ML SUB-Q INJECTION SQ ONE (10:30)
[2023-11-16] MEDS: MAGNESIUM OXIDE 400 MG TABLET (FP) PO ONE (11:10)
[2023-11-16 16:17] VITALS: BP 97/62; PULSE 101; RESP 20; TEMP 98.7
== END 2023-11-16 12:20 | disposition home or self-care (01) ==
LOC: JONCCHEMO 08:45 → J7W 08:45 → JONCCHEMO 12:20
PROVIDERS: ATTEND Internal Medicine Hematology & Oncology
DX: Z51.11 Encounter for antineoplastic chemotherapy (principal); C90.00 Multiple myeloma not having achieved remission
CPT/HCPCS: 36415; 80048; 80076; 83615; 83735; 84550; 85025; 96401; J9041

== ENCOUNTER 2023-11-30 08:06 | Day surgery (SDC) | payer OTHER, MEDICARE ==
[2023-11-30 08:39] LABS: HEMATOCRIT 40.3 % (35.4-49); HEMOGLOBIN 13.8 GM/dL (11.7-16.9); MCH 31.2 pg (25.7-33.7); MCHC 34.3 g/dl (32.0-35.9); MEAN CELL VOLUME 90.9 fl (80-96); MEAN PLT VOLUME 7.8 fl (7.5-11.1); PLATELET COUNT 216 10^3/uL (134-434); RBC 4.43 M/mm3 (4.00-5.60); RDW 14.4 % (11.9-15.9); WHITE BLOOD COUNT 4.4 K/mm3 (4.0-10.0)
[2023-11-30 08:55] LABS: POTASSIUM 3.9 mmol/L (3.5-5.1)
[2023-11-30 08:57] LABS: CALCIUM 8.6 mg/dL (8.5-10.1)
[2023-11-30 08:58] LABS: ALBUMIN 3.2 g/dl (3.4-5.0); BLOOD UREA NITROGEN 25.2 mg/dL (7-18)
[2023-11-30 09:00] LABS: CREATININE 1.3 mg/dL (0.55-1.3); URIC ACID 3.3 mg/dL (2.6-7.2)
[2023-11-30 09:02] LABS: BILIRUBIN,TOTAL 0.8 mg/dL (0.2-1); TOT PROT 5.9 g/dl (6.4-8.2)
[2023-11-30 09:13] LABS: BILIRUBIN,DIRECT 0.2 mg/dL (0.0-0.2)
[2023-11-30 09:39] LABS: ANISOCYTOSIS 0; MACROCYTOSIS 0
[2023-11-30] MEDS ORDERED: INSULIN (NOVOLOG) ASPART 100 UNITS/ML 10ML VIAL ONE (09:59)
[2023-11-30] MEDS: INSULIN ASPART SLIDING SCALE (NOVOLOG) 1 VIAL SQ ONE (10:02)
[2023-11-30] MEDS: MAGNESIUM OXIDE 400 MG TABLET (FP) PO ONE (10:05)
[2023-11-30] MEDS: GRANISETRON HCL 1 MG TABLET PO ONE (10:05)
[2023-11-30] MEDS: DEXAMETHASONE 4 MG TABLET (FP) PO ONE (10:05)
[2023-11-30] MEDS: BORTEZOMIB 2.5 MG/ML SUB-Q INJECTION SQ ONE (10:36)
[2023-11-30 16:18] VITALS: BP 103/65; PULSE 85; RESP 20; TEMP 97.7
[2023-12-01 16:08] LABS: FREE KAPPA,SERUM 168.6 mg/L (3.3-19.4)
[2023-12-02 06:09] LABS: FREE KAP CHN UR 13.49 mg/L (1.17-86.46); KAPPA LAMBDA RATIO URIN 13.77 (1.83-14.26)
[2023-12-02 15:09] LABS: BETA-2-MICROGLOBULIN 3.5 mg/L (0.6-2.4)
== END 2023-11-30 11:00 | disposition home or self-care (01) ==
LOC: JONCCHEMO 08:06 → J7W 08:07 → JONCCHEMO 11:00
PROVIDERS: ATTEND Internal Medicine Hematology & Oncology
DX: Z51.11 Encounter for antineoplastic chemotherapy (principal); C90.00 Multiple myeloma not having achieved remission
CPT/HCPCS: 36415; 80048; 80076; 82232; 82784; 83615; 83735; 83883; 84155; 84165; 84550; 85025; 86335; 96401; J9041

== ENCOUNTER 2023-12-07 08:03 | Day surgery (SDC) | payer OTHER, MEDICARE ==
[2023-12-07 08:47] LABS: HEMATOCRIT 43.4 % (35.4-49); HEMOGLOBIN 14.8 GM/dL (11.7-16.9); MCHC 34.1 g/dl (32.0-35.9); MEAN CELL VOLUME 90.9 fl (80-96); MEAN PLT VOLUME 9.2 fl (7.5-11.1); PLATELET COUNT 147 10^3/uL (134-434); RBC 4.78 M/mm3 (4.00-5.60); WHITE BLOOD COUNT 6.3 K/mm3 (4.0-10.0)
[2023-12-07 08:50] LABS: POTASSIUM 4.3 mmol/L (3.5-5.1)
[2023-12-07 08:54] LABS: ALBUMIN 3.3 g/dl (3.4-5.0); MAGNESIUM 1.9 mg/dL (1.8-2.4)
[2023-12-07 08:56] LABS: CREATININE 1.5 mg/dL (0.55-1.3); URIC ACID 2.9 mg/dL (2.6-7.2)
[2023-12-07 08:57] LABS: BILIRUBIN,DIRECT 0.3 mg/dL (0.0-0.2)
[2023-12-07 08:58] LABS: TOT PROT 6.3 g/dl (6.4-8.2)
[2023-12-07 09:00] LABS: BILIRUBIN,TOTAL 0.9 mg/dL (0.2-1)
[2023-12-07 09:20] LABS: ANISOCYTOSIS 0; MACROCYTOSIS 0
[2023-12-07] MEDS: GRANISETRON HCL 1 MG TABLET PO ONE (09:55)
[2023-12-07] MEDS: MAGNESIUM OXIDE 400 MG TABLET (FP) PO ONE (09:55)
[2023-12-07] MEDS: DEXAMETHASONE 4 MG TABLET (FP) PO ONE (09:55)
[2023-12-07] MEDS ORDERED: INSULIN (NOVOLOG) ASPART 100 UNITS/ML 10ML VIAL ONE (10:12)
[2023-12-07] MEDS: INSULIN ASPART SLIDING SCALE (NOVOLOG) 1 VIAL SQ ONE ×2 (10:16→10:32)
[2023-12-07] MEDS: BORTEZOMIB 2.5 MG/ML SUB-Q INJECTION SQ ONE (10:17)
[2023-12-07 14:35] VITALS: BP 95/59; PULSE 89; RESP 20; TEMP 98.2
== END 2023-12-07 10:30 | disposition home or self-care (01) ==
LOC: JONCCHEMO 08:03 → J7W 08:03 → JONCCHEMO 10:00
PROVIDERS: ATTEND Internal Medicine Hematology & Oncology
DX: Z51.11 Encounter for antineoplastic chemotherapy (principal); C90.00 Multiple myeloma not having achieved remission
CPT/HCPCS: 36415; 80048; 80076; 83615; 83735; 84550; 85025; 96401; J9041

== ENCOUNTER 2023-12-14 08:21 | Day surgery (SDC) | payer OTHER, MEDICARE ==
[2023-12-14 09:05] LABS: HEMATOCRIT 46.3 % (35.4-49); HEMOGLOBIN 15.9 GM/dL (11.7-16.9); MCH 31.2 pg (25.7-33.7); MCHC 34.4 g/dl (32.0-35.9); MEAN CELL VOLUME 90.7 fl (80-96); MEAN PLT VOLUME 9.6 fl (7.5-11.1); PLATELET COUNT 146 10^3/uL (134-434); RDW 14.8 % (11.9-15.9); WHITE BLOOD COUNT 8.8 K/mm3 (4.0-10.0)
[2023-12-14 09:23] VITALS: BP 103/64; PULSE 84; RESP 20; TEMP 98
[2023-12-14 09:27] LABS: POTASSIUM 4.9 mmol/L (3.5-5.1)
[2023-12-14 09:29] LABS: CALCIUM 8.9 mg/dL (8.5-10.1)
[2023-12-14 09:30] LABS: ALBUMIN 3.5 g/dl (3.4-5.0); BLOOD UREA NITROGEN 23.9 mg/dL (7-18)
[2023-12-14 09:32] LABS: BILIRUBIN,DIRECT 0.3 mg/dL (0.0-0.2); CREATININE 1.5 mg/dL (0.55-1.3); URIC ACID 2.8 mg/dL (2.6-7.2)
[2023-12-14 09:34] LABS: TOT PROT 6.6 g/dl (6.4-8.2)
[2023-12-14] MEDS ORDERED: INSULIN (NOVOLOG) ASPART 100 UNITS/ML 10ML VIAL ONE (09:39)
[2023-12-14] MEDS: INSULIN ASPART SLIDING SCALE (NOVOLOG) 1 VIAL SQ ONE (09:42)
[2023-12-14] MEDS: MAGNESIUM OXIDE 400 MG TABLET (FP) PO ONE (09:43)
[2023-12-14] MEDS: GRANISETRON HCL 1 MG TABLET PO ONE (09:43)
[2023-12-14] MEDS: DEXAMETHASONE 4 MG TABLET (FP) PO ONE (09:43)
[2023-12-14] MEDS: BORTEZOMIB 2.5 MG/ML SUB-Q INJECTION SQ ONE (10:10)
[2023-12-14 10:26] LABS: ANISOCYTOSIS 1+; MACROCYTOSIS 0
== END 2023-12-14 10:22 | disposition home or self-care (01) ==
LOC: JONCCHEMO 08:21 → J7W 08:28 → JONCCHEMO 10:22
PROVIDERS: ATTEND Internal Medicine Hematology & Oncology
DX: Z51.11 Encounter for antineoplastic chemotherapy (principal); C90.00 Multiple myeloma not having achieved remission
CPT/HCPCS: 36415; 80048; 80076; 83615; 83735; 84550; 85025; 96401; J9041

== ENCOUNTER 2023-12-28 08:13 | Day surgery (SDC) | payer OTHER, MEDICARE ==
[2023-12-28 09:00] LABS: BASO % 1.2 % (0-2.0); EOS % 5.2 % (0-4.5); HEMATOCRIT 41.1 % (35.4-49); HEMOGLOBIN 14.2 GM/dL (11.7-16.9); LYMPH % 14.5 % (8-40); MCH 31.5 pg (25.7-33.7); MCHC 34.5 g/dl (32.0-35.9); MEAN CELL VOLUME 91.3 fl (80-96); MEAN PLT VOLUME 7.9 fl (7.5-11.1); MONO % 15.7 % (3.8-10.2); NEUT % 63.4 % (42.8-82.8); PLATELET COUNT 156 10^3/uL (134-434); RDW 14.5 % (11.9-15.9); WHITE BLOOD COUNT 5.1 K/mm3 (4.0-10.0)
[2023-12-28 09:50] LABS: POTASSIUM 4.5 mmol/L (3.5-5.1)
[2023-12-28 09:52] LABS: CALCIUM 8.8 mg/dL (8.5-10.1); MAGNESIUM 1.6 mg/dL (1.8-2.4)
[2023-12-28 09:53] LABS: BLOOD UREA NITROGEN 17.2 mg/dL (7-18)
[2023-12-28 09:55] LABS: BILIRUBIN,DIRECT 0.2 mg/dL (0.0-0.2); CREATININE 1.1 mg/dL (0.55-1.3); URIC ACID 2.8 mg/dL (2.6-7.2)
[2023-12-28 09:57] LABS: TOT PROT 5.8 g/dl (6.4-8.2)
[2023-12-28] MEDS ORDERED: INSULIN (NOVOLOG) ASPART 100 UNITS/ML 10ML VIAL ONE (09:57)
[2023-12-28 09:58] LABS: BILIRUBIN,TOTAL 0.8 mg/dL (0.2-1)
[2023-12-28] MEDS: DEXAMETHASONE 4 MG TABLET (FP) PO ONE (10:24)
[2023-12-28] MEDS: GRANISETRON HCL 1 MG TABLET PO ONE (10:24)
[2023-12-28] MEDS: INSULIN ASPART SLIDING SCALE (NOVOLOG) 1 VIAL SQ ONE (10:25)
[2023-12-28] MEDS: MAGNESIUM OXIDE 400 MG TABLET (FP) PO ONE (10:25)
[2023-12-28] MEDS: BORTEZOMIB 2.5 MG/ML SUB-Q INJECTION SQ ONE (10:37)
[2023-12-28 11:14] LABS: EPI CELLS >36 /uL (0-25.1); HYALINE CASTS 1 /uL (0-3.1); PH,URINE 6.5 (5.0-8.0); URINE APPEARANCE CLEAR; URINE BACTERIA 338 /uL (0-1359); URINE BILIRUBIN NEGATIVE (NEGATIVE); URINE COLOR YELLOW; URINE GLUCOSE (UA) NEGATIVE (NEGATIVE); URINE KETONE NEGATIVE (NEGATIVE); URINE LEUK ESTERASE 2+ (NEGATIVE); URINE NITRITE NEGATIVE (NEGATIVE); URINE PROTEIN NEGATIVE (NEGATIVE); URINE RBC 25 /uL (0-23.9); URINE WBC 96 /uL (0-25.8)
[2023-12-28 11:54] LABS: YEAST NONE SEEN (NEGATIVE)
[2023-12-28 15:54] VITALS: BP 95/58; PULSE 78; RESP 18
[2023-12-28 15:55] VITALS: TEMP 98.6
[2023-12-29 17:08] LABS: FREE KAPPA,SERUM 136.4 mg/L (3.3-19.4)
[2023-12-30 06:08] LABS: FREE KAP CHN UR 15.91 mg/L (1.17-86.46); KAPPA LAMBDA RATIO URIN 9.25 (1.83-14.26)
[2024-01-01 17:06] LABS: IG A QN SERUM. 187 mg/dL (61-437)
== END 2023-12-28 10:50 | disposition home or self-care (01) ==
LOC: JONCCHEMO 08:13 → J7W 08:14 → JONCCHEMO 10:50
PROVIDERS: ATTEND Internal Medicine Hematology & Oncology
PROC: 3E01305 Introduction of Other Antineoplastic into Subcutaneous Tissue, Percutaneous Approach (ICD-10-PCS; principal; 2023-12-28)
PROC: 3E013VG Introduction of Insulin into Subcutaneous Tissue, Percutaneous Approach (ICD-10-PCS; 2023-12-28)
DX: Z51.11 Encounter for antineoplastic chemotherapy (principal); C90.00 Multiple myeloma not having achieved remission
CPT/HCPCS: 36415; 80048; 80076; 81003; 82232; 82784; 83615; 83735; 83883; 84155; 84165; 84550; 85025; 86335; 87086; 96372; 96401; J9041

== ENCOUNTER 2024-01-04 09:19 | Day surgery (SDC) | payer OTHER, MEDICARE ==
[~2024-01-04 09:19] MED LIST changes: -BORTEZOMIB 2.5 MG/ML SUB-Q INJECTION SQ ONE; -DEXAMETHASONE 4 MG TABLET (FP) PO ONE; -GRANISETRON HCL 1 MG TABLET PO ONE; +INSULIN ASPART SLIDING SCALE (NOVOLOG) 1 VIAL SQ ONE; -INSULIN SLIDING SCALE (NOVOLOG) 1 VIAL SQ ONE; -MAGNESIUM OXIDE 400 MG TABLET (FP) PO ONE
[2024-01-04] MEDS: DEXAMETHASONE 4 MG TABLET (FP) PO ONE (09:29)
[2024-01-04] MEDS: MAGNESIUM OXIDE 400 MG TABLET (FP) PO ONE (09:29)
[2024-01-04] MEDS: GRANISETRON HCL 1 MG TABLET PO ONE (09:30)
[2024-01-04] MEDS: BORTEZOMIB 2.5 MG/ML SUB-Q INJECTION SQ ONE (09:31)
[2024-01-04] MEDS ORDERED: INSULIN (NOVOLOG) ASPART 100 UNITS/ML 10ML VIAL ONE ×2 (09:39→09:42)
[2024-01-04] MEDS: INSULIN ASPART SLIDING SCALE (NOVOLOG) 1 VIAL SQ ONE (09:56)
[2024-01-04 10:15] LABS: URINE APPEARANCE CLEAR; URINE BILIRUBIN NEGATIVE (NEGATIVE); URINE COLOR YELLOW; URINE GLUCOSE (UA) 3+ (NEGATIVE); URINE KETONE NEGATIVE (NEGATIVE); URINE LEUK ESTERASE NEGATIVE (NEGATIVE); URINE NITRITE NEGATIVE (NEGATIVE); URINE PROTEIN NEGATIVE (NEGATIVE); URINE UROBILINOGEN 0.2 mg/dL (0.2-1.0)
[2024-01-04 14:13] VITALS: BP 115/75; PULSE 77; RESP 20; TEMP 98
== END 2024-01-04 10:40 | disposition home or self-care (01) ==
LOC: J7W 09:19 → JONCCHEMO 09:19
PROVIDERS: ATTEND Internal Medicine Hematology & Oncology
DX: Z51.11 Encounter for antineoplastic chemotherapy (principal); C90.00 Multiple myeloma not having achieved remission
CPT/HCPCS: 81003; 82962; 87086; 87186; 96401; J9041

== ENCOUNTER 2024-01-11 08:02 | Day surgery (SDC) | payer OTHER, MEDICARE ==
[2024-01-11 09:12] LABS: BASO % 0.5 % (0-2.0); EOS % 3.2 % (0-4.5); HEMATOCRIT 44.5 % (35.4-49); HEMOGLOBIN 14.9 GM/dL (11.7-16.9); LYMPH % 10.2 % (8-40); MCH 30.5 pg (25.7-33.7); MCHC 33.5 g/dl (32.0-35.9); MEAN CELL VOLUME 91.1 fl (80-96); MEAN PLT VOLUME 9.3 fl (7.5-11.1); MONO % 18.6 % (3.8-10.2); NEUT % 67.5 % (42.8-82.8); PLATELET COUNT 136 10^3/uL (134-434); RBC 4.88 M/mm3 (4.00-5.60); RDW 14.5 % (11.9-15.9); WHITE BLOOD COUNT 6.7 K/mm3 (4.0-10.0)
[2024-01-11 09:53] LABS: POTASSIUM 4.3 mmol/L (3.5-5.1)
[2024-01-11 09:55] LABS: CALCIUM 8.4 mg/dL (8.5-10.1)
[2024-01-11 09:56] LABS: BLOOD UREA NITROGEN 20.8 mg/dL (7-18); MAGNESIUM 1.9 mg/dL (1.8-2.4)
[2024-01-11 09:58] LABS: BILIRUBIN,DIRECT 0.2 mg/dL (0.0-0.2); CREATININE 1.4 mg/dL (0.55-1.3); URIC ACID 2.9 mg/dL (2.6-7.2)
[2024-01-11 10:00] LABS: BILIRUBIN,TOTAL 0.9 mg/dL (0.2-1); TOT PROT 5.6 g/dl (6.4-8.2)
[2024-01-11] MEDS: GRANISETRON HCL 1 MG TABLET PO ONE (10:22)
[2024-01-11] MEDS: MAGNESIUM OXIDE 400 MG TABLET (FP) PO ONE (10:23)
[2024-01-11] MEDS: DEXAMETHASONE 4 MG TABLET (FP) PO ONE (10:23)
[2024-01-11] MEDS: BORTEZOMIB 2.5 MG/ML SUB-Q INJECTION SQ ONE (10:39)
[2024-01-11] MEDS ORDERED: INSULIN (NOVOLOG) ASPART 100 UNITS/ML 10ML VIAL ONE (10:46)
[2024-01-11] MEDS: INSULIN ASPART SLIDING SCALE (NOVOLOG) 1 VIAL SQ ONE (10:51)
[2024-01-11 13:34] VITALS: BP 111/62; PULSE 77; RESP 20; TEMP 98
== END 2024-01-11 10:50 | disposition home or self-care (01) ==
LOC: JONCCHEMO 08:02 → J7W 08:04 → JONCCHEMO 10:50
PROVIDERS: ATTEND Internal Medicine Hematology & Oncology
DX: Z51.11 Encounter for antineoplastic chemotherapy (principal); C90.00 Multiple myeloma not having achieved remission
CPT/HCPCS: 36415; 80048; 80076; 83615; 83735; 84550; 85025; 96401; J9041

== ENCOUNTER 2024-01-25 07:59 | Day surgery (SDC) | payer OTHER, MEDICARE ==
[2024-01-25 08:37] LABS: BASO % 0.6 % (0-2.0); EOS % 5.6 % (0-4.5); HEMATOCRIT 41.1 % (35.4-49); HEMOGLOBIN 14.2 GM/dL (11.7-16.9); LYMPH % 14.3 % (8-40); MCH 31.4 pg (25.7-33.7); MCHC 34.7 g/dl (32.0-35.9); MEAN CELL VOLUME 90.5 fl (80-96); MEAN PLT VOLUME 7.5 fl (7.5-11.1); MONO % 18.4 % (3.8-10.2); NEUT % 61.1 % (42.8-82.8); PLATELET COUNT 184 10^3/uL (134-434); RBC 4.54 M/mm3 (4.00-5.60); RDW 14.3 % (11.9-15.9); WHITE BLOOD COUNT 5.2 K/mm3 (4.0-10.0)
[2024-01-25 08:53] LABS: POTASSIUM 3.7 mmol/L (3.5-5.1)
[2024-01-25 08:55] LABS: MAGNESIUM 1.7 mg/dL (1.8-2.4)
[2024-01-25 08:56] LABS: ALBUMIN 3.1 g/dl (3.4-5.0); BLOOD UREA NITROGEN 15.4 mg/dL (7-18)
[2024-01-25 08:58] LABS: CREATININE 1.3 mg/dL (0.55-1.3); URIC ACID 5.5 mg/dL (2.6-7.2)
[2024-01-25 08:59] LABS: BILIRUBIN,DIRECT 0.3 mg/dL (0.0-0.2)
[2024-01-25 09:00] LABS: TOT PROT 5.9 g/dl (6.4-8.2)
[2024-01-25 09:01] LABS: BILIRUBIN,TOTAL 1.1 mg/dL (0.2-1)
[2024-01-25] MEDS ORDERED: INSULIN (NOVOLOG) ASPART 100 UNITS/ML 10ML VIAL ONE (09:41)
[2024-01-25] MEDS: DEXAMETHASONE 4 MG TABLET (FP) PO ONE (09:41)
[2024-01-25] MEDS: GRANISETRON HCL 1 MG TABLET PO ONE (09:42)
[2024-01-25] MEDS: INSULIN ASPART SLIDING SCALE (NOVOLOG) 1 VIAL SQ ONE (09:42)
[2024-01-25] MEDS: MAGNESIUM OXIDE 400 MG TABLET (FP) PO ONE (09:42)
[2024-01-25] MEDS: BORTEZOMIB 2.5 MG/ML SUB-Q INJECTION SQ ONE (10:36)
[2024-01-25 14:56] VITALS: RESP 20; TEMP 98.1
[2024-01-25 15:02] VITALS: BP 95/53; PULSE 75
[2024-01-29 00:06] LABS: BETA-2-MICROGLOBULIN 3.7 mg/L (0.6-2.4)
[2024-01-30 08:09] LABS: FREE KAP CHN UR 7.05 mg/L (1.17-86.46); KAPPA LAMBDA RATIO URIN 7.75 (1.83-14.26)
== END 2024-01-25 10:40 | disposition home or self-care (01) ==
LOC: JONCCHEMO 07:59 → J7W 08:00 → JONCCHEMO 10:40
PROVIDERS: ATTEND Internal Medicine Hematology & Oncology
DX: Z51.11 Encounter for antineoplastic chemotherapy (principal); C90.00 Multiple myeloma not having achieved remission
CPT/HCPCS: 36415; 80048; 80076; 82232; 82784; 83615; 83735; 83883; 84155; 84165; 84550; 85025; 86335; 93970-TC; 93971; 96401; J9041

== ENCOUNTER 2024-02-01 08:16 | Day surgery (SDC) | payer OTHER, MEDICARE ==
[2024-02-01 08:41] LABS: URINE APPEARANCE CLEAR; URINE BILIRUBIN NEGATIVE (NEGATIVE); URINE COLOR YELLOW; URINE GLUCOSE (UA) NEGATIVE (NEGATIVE); URINE KETONE NEGATIVE (NEGATIVE); URINE LEUK ESTERASE NEGATIVE (NEGATIVE); URINE NITRITE NEGATIVE (NEGATIVE); URINE PROTEIN NEGATIVE (NEGATIVE)
[2024-02-01 08:44] LABS: BASO % 0.5 % (0-2.0); EOS % 6.2 % (0-4.5); HEMATOCRIT 42.3 % (35.4-49); MCH 30.4 pg (25.7-33.7); MCHC 33.1 g/dl (32.0-35.9); MEAN PLT VOLUME 8.9 fl (7.5-11.1); MONO % 17.5 % (3.8-10.2); NEUT % 64.8 % (42.8-82.8); PLATELET COUNT 146 10^3/uL (134-434); RDW 14.4 % (11.9-15.9); WHITE BLOOD COUNT 6.1 K/mm3 (4.0-10.0)
[2024-02-01 09:21] LABS: POTASSIUM 4.6 mmol/L (3.5-5.1)
[2024-02-01 09:23] LABS: ALBUMIN 3.1 g/dl (3.4-5.0); BLOOD UREA NITROGEN 21.2 mg/dL (7-18); MAGNESIUM 1.9 mg/dL (1.8-2.4)
[2024-02-01 09:26] LABS: CREATININE 1.3 mg/dL (0.55-1.3); URIC ACID 4.5 mg/dL (2.6-7.2)
[2024-02-01 09:27] LABS: BILIRUBIN,TOTAL 0.8 mg/dL (0.2-1)
[2024-02-01 09:28] LABS: TOT PROT 5.7 g/dl (6.4-8.2)
[2024-02-01] MEDS: DEXAMETHASONE 4 MG TABLET (FP) PO ONE (09:30)
[2024-02-01] MEDS: MAGNESIUM OXIDE 400 MG TABLET (FP) PO ONE (09:30)
[2024-02-01] MEDS: GRANISETRON HCL 1 MG TABLET PO ONE (09:30)
[2024-02-01] MEDS ORDERED: INSULIN (NOVOLOG) ASPART 100 UNITS/ML 10ML VIAL ONE (09:33)
[2024-02-01] MEDS: INSULIN ASPART SLIDING SCALE (NOVOLOG) 1 VIAL SQ ONE (09:34)
[2024-02-01] MEDS: BORTEZOMIB 2.5 MG/ML SUB-Q INJECTION SQ ONE (10:36)
[2024-02-01 13:08] VITALS: BP 127/67; PULSE 73; RESP 20; TEMP 97.5
== END 2024-02-01 10:40 | disposition home or self-care (01) ==
LOC: JONCCHEMO 08:16 → J7W 08:17 → JONCCHEMO 10:40
PROVIDERS: ATTEND Internal Medicine Hematology & Oncology
DX: Z51.11 Encounter for antineoplastic chemotherapy (principal)
CPT/HCPCS: 36415; 80053; 81003; 83615; 83735; 84550; 85025; 87086; 96401; J9041

== ENCOUNTER 2024-02-08 07:58 | Day surgery (SDC) | payer OTHER, MEDICARE ==
[2024-02-08 08:44] LABS: HEMATOCRIT 43.6 % (35.4-49); HEMOGLOBIN 14.5 GM/dL (11.7-16.9); MCH 30.6 pg (25.7-33.7); MCHC 33.2 g/dl (32.0-35.9); MEAN CELL VOLUME 92.1 fl (80-96); PLATELET COUNT 160 10^3/uL (134-434); RBC 4.74 M/mm3 (4.00-5.60); RDW 14.6 % (11.9-15.9); WHITE BLOOD COUNT 6.5 K/mm3 (4.0-10.0)
[2024-02-08 09:13] LABS: POTASSIUM 4.2 mmol/L (3.5-5.1)
[2024-02-08 09:15] LABS: MAGNESIUM 2.2 mg/dL (1.8-2.4)
[2024-02-08 09:16] LABS: CALCIUM 9.2 mg/dL (8.5-10.1)
[2024-02-08 09:17] LABS: ALBUMIN 3.2 g/dl (3.4-5.0)
[2024-02-08 09:19] LABS: CREATININE 1.3 mg/dL (0.55-1.3); URIC ACID 2.9 mg/dL (2.6-7.2)
[2024-02-08 09:20] LABS: BILIRUBIN,DIRECT 0.2 mg/dL (0.0-0.2); TOT PROT 5.9 g/dl (6.4-8.2)
[2024-02-08 09:22] LABS: BILIRUBIN,TOTAL 0.7 mg/dL (0.2-1)
[2024-02-08] MEDS: BORTEZOMIB 2.5 MG/ML SUB-Q INJECTION SQ ONE (10:10)
[2024-02-08] MEDS: DEXAMETHASONE 4 MG TABLET (FP) PO ONE (10:10)
[2024-02-08] MEDS: GRANISETRON HCL 1 MG TABLET PO ONE (10:11)
[2024-02-08] MEDS: MAGNESIUM OXIDE 400 MG TABLET (FP) PO ONE (10:11)
[2024-02-08] MEDS ORDERED: INSULIN (NOVOLOG) ASPART 100 UNITS/ML 10ML VIAL ONE (10:45)
[2024-02-08] MEDS: INSULIN ASPART SLIDING SCALE (NOVOLOG) 1 VIAL SQ ONE (10:47)
[2024-02-08 12:00] VITALS: BP 101/61; PULSE 80; RESP 18; TEMP 97.8
== END 2024-02-08 10:55 | disposition home or self-care (01) ==
LOC: JONCCHEMO 07:58 → J7W 07:59 → JONCCHEMO 10:55
PROVIDERS: ATTEND Internal Medicine Hematology & Oncology
DX: Z51.11 Encounter for antineoplastic chemotherapy (principal); C90.00 Multiple myeloma not having achieved remission
CPT/HCPCS: 36415; 80048; 80076; 83615; 83735; 84550; 85025; 96401; J9041

== ENCOUNTER 2024-02-22 08:00 | Day surgery (SDC) | payer OTHER, MEDICARE ==
[2024-02-22 08:32] LABS: BASO % 0.6 % (0-2.0); EOS % 6.1 % (0-4.5); HEMATOCRIT 40.6 % (35.4-49); LYMPH % 13.1 % (8-40); MCH 31.1 pg (25.7-33.7); MCHC 34.5 g/dl (32.0-35.9); MEAN CELL VOLUME 90.2 fl (80-96); MEAN PLT VOLUME 7.6 fl (7.5-11.1); MONO % 17.1 % (3.8-10.2); NEUT % 63.1 % (42.8-82.8); PLATELET COUNT 177 10^3/uL (134-434); RDW 14.6 % (11.9-15.9); WHITE BLOOD COUNT 5.9 K/mm3 (4.0-10.0)
[2024-02-22 08:57] LABS: CHLORIDE 105 mmol/L (98-107); POTASSIUM 4.1 mmol/L (3.5-5.1); SODIUM 139 mmol/L (136-145)
[2024-02-22 08:59] LABS: ANION GAP 8 mmol/L (4-13); CALCIUM 8.9 mg/dL (8.5-10.1); CO2 26 mmol/L (21-32)
[2024-02-22 09:00] LABS: ALBUMIN 3.2 g/dl (3.4-5.0); BLOOD UREA NITROGEN 28.3 mg/dL (7-18); GLUCOSE,RANDOM 151 mg/dL (74-106)
[2024-02-22 09:02] LABS: CREATININE 1.5 mg/dL (0.55-1.3); SGOT/AST 22 U/L (15-37); SGPT/ALT 24 U/L (13-61); URIC ACID 6.7 mg/dL (2.6-7.2)
[2024-02-22 09:03] LABS: BILIRUBIN,DIRECT 0.2 mg/dL (0.0-0.2)
[2024-02-22 09:04] LABS: LDH 259 U/L (87-246)
[2024-02-22 09:05] LABS: BILIRUBIN,TOTAL 0.8 mg/dL (0.2-1)
[2024-02-22 09:06] LABS: ALK PHOS 103 U/L (45-117)
[2024-02-22] MEDS ORDERED: INSULIN (NOVOLOG) ASPART 100 UNITS/ML 10ML VIAL ONE (09:24)
[2024-02-22] MEDS: MAGNESIUM OXIDE 400 MG TABLET (FP) PO ONE (09:26)
[2024-02-22] MEDS: GRANISETRON HCL 1 MG TABLET PO ONE (09:26)
[2024-02-22] MEDS: DEXAMETHASONE 4 MG TABLET (FP) PO ONE (09:29)
[2024-02-22] MEDS: INSULIN ASPART SLIDING SCALE (NOVOLOG) 1 VIAL SQ ONE (09:29)
[2024-02-22] MEDS: BORTEZOMIB 2.5 MG/ML SUB-Q INJECTION SQ ONE (09:47)
[2024-02-22 15:49] VITALS: BP 101/59; PULSE 81; RESP 20; TEMP 98
[2024-02-24 16:09] LABS: FREE KAPPA,SERUM 164.9 mg/L (3.3-19.4)
[2024-02-24 18:09] LABS: BETA-2-MICROGLOBULIN 3.3 mg/L (0.6-2.4)
[2024-02-27 07:10] LABS: FREE KAP CHN UR 8.73 mg/L (1.17-86.46); KAPPA LAMBDA RATIO URIN 9.09 (1.83-14.26)
== END 2024-02-22 10:00 | disposition home or self-care (01) ==
LOC: JONCCHEMO 08:00 → J7W 08:01 → JONCCHEMO 10:00
PROVIDERS: ATTEND Internal Medicine Hematology & Oncology
DX: Z51.11 Encounter for antineoplastic chemotherapy (principal); C90.00 Multiple myeloma not having achieved remission
CPT/HCPCS: 36415; 80048; 80076; 82232; 82784; 83615; 83735; 83883; 84155; 84165; 84550; 85025; 86335; 96401; J9041

== ENCOUNTER 2024-02-29 07:58 | Day surgery (SDC) | payer OTHER, MEDICARE ==
[2024-02-29 10:15] LABS: PH,URINE 5.5 (5.0-8.0); URINE APPEARANCE CLEAR; URINE BILIRUBIN NEGATIVE (NEGATIVE); URINE COLOR YELLOW; URINE GLUCOSE (UA) NEGATIVE (NEGATIVE); URINE KETONE NEGATIVE (NEGATIVE); URINE LEUK ESTERASE NEGATIVE (NEGATIVE); URINE NITRITE NEGATIVE (NEGATIVE); URINE PROTEIN NEGATIVE (NEGATIVE); URINE UROBILINOGEN 0.2 mg/dL (0.2-1.0)
[2024-02-29 10:18] LABS: HEMATOCRIT 41.6 % (35.4-49); HEMOGLOBIN 13.8 GM/dL (11.7-16.9); MCH 30.6 pg (25.7-33.7); MCHC 33.3 g/dl (32.0-35.9); MEAN CELL VOLUME 91.8 fl (80-96); MEAN PLT VOLUME 8.8 fl (7.5-11.1); PLATELET COUNT 150 10^3/uL (134-434); RBC 4.53 M/mm3 (4.00-5.60); RDW 14.7 % (11.9-15.9); WHITE BLOOD COUNT 6.4 K/mm3 (4.0-10.0)
[2024-02-29 10:34] LABS: CHLORIDE 102 mmol/L (98-107); POTASSIUM 3.9 mmol/L (3.5-5.1); SODIUM 137 mmol/L (136-145)
[2024-02-29 10:40] LABS: ALBUMIN 3.3 g/dl (3.4-5.0); ANION GAP 6 mmol/L (4-13); BLOOD UREA NITROGEN 40.2 mg/dL (7-18); CALCIUM 8.5 mg/dL (8.5-10.1); CO2 29 mmol/L (21-32); GLUCOSE,RANDOM 105 mg/dL (74-106)
[2024-02-29 10:43] LABS: CREATININE 1.5 mg/dL (0.55-1.3); SGOT/AST 21 U/L (15-37); SGPT/ALT 26 U/L (13-61)
[2024-02-29 10:44] LABS: BILIRUBIN,TOTAL 0.6 mg/dL (0.2-1); LDH 222 U/L (87-246)
[2024-02-29 10:45] LABS: ALK PHOS 92 U/L (45-117); URIC ACID 7.9 mg/dL (2.6-7.2)
[2024-02-29] MEDS: INSULIN ASPART SLIDING SCALE (NOVOLOG) 1 VIAL SQ ONE (10:52)
[2024-02-29 10:53] LABS: ANISOCYTOSIS 0; MACROCYTOSIS 0
[2024-02-29] MEDS: DEXAMETHASONE 4 MG TABLET (FP) PO ONE (11:20)
[2024-02-29] MEDS: GRANISETRON HCL 1 MG TABLET PO ONE (11:21)
[2024-02-29] MEDS: MAGNESIUM OXIDE 400 MG TABLET (FP) PO ONE (11:21)
[2024-02-29] MEDS: BORTEZOMIB 2.5 MG/ML SUB-Q INJECTION SQ ONE (11:38)
[2024-02-29 15:04] VITALS: BP 98/61; PULSE 75; RESP 20; TEMP 98
== END 2024-02-29 11:55 | disposition home or self-care (01) ==
LOC: JONCCHEMO 07:58 → J7W 07:59 → JONCCHEMO 11:55
PROVIDERS: ATTEND Internal Medicine Hematology & Oncology
DX: Z51.11 Encounter for antineoplastic chemotherapy (principal); C90.00 Multiple myeloma not having achieved remission
CPT/HCPCS: 36415; 80053; 81003; 83615; 83735; 84550; 85025; 87086; 87186; J9041

== ENCOUNTER 2024-03-07 08:07 | Day surgery (SDC) | payer OTHER, MEDICARE ==
[2024-03-07 09:04] LABS: BASO % 0.3 % (0-2.0); EOS % 4.2 % (0-4.5); HEMOGLOBIN 13.7 GM/dL (11.7-16.9); LYMPH % 10.4 % (8-40); MCH 30.8 pg (25.7-33.7); MCHC 33.3 g/dl (32.0-35.9); MEAN CELL VOLUME 92.4 fl (80-96); MEAN PLT VOLUME 8.7 fl (7.5-11.1); MONO % 17.3 % (3.8-10.2); NEUT % 67.8 % (42.8-82.8); PLATELET COUNT 125 10^3/uL (134-434); RBC 4.44 M/mm3 (4.00-5.60); RDW 15.3 % (11.9-15.9); WHITE BLOOD COUNT 6.2 K/mm3 (4.0-10.0)
[2024-03-07 09:33] LABS: BLOOD UREA NITROGEN 22.5 mg/dL (7-18)
[2024-03-07 09:34] LABS: ALBUMIN 3.2 g/dl (3.4-5.0); MAGNESIUM 1.8 mg/dL (1.8-2.4)
[2024-03-07 09:36] LABS: BILIRUBIN,DIRECT 0.2 mg/dL (0.0-0.2); CREATININE 1.4 mg/dL (0.55-1.3); URIC ACID 6.1 mg/dL (2.6-7.2)
[2024-03-07 09:38] LABS: BILIRUBIN,TOTAL 0.8 mg/dL (0.2-1); TOT PROT 5.7 g/dl (6.4-8.2)
[2024-03-07] MEDS: MAGNESIUM OXIDE 400 MG TABLET (FP) PO ONE (09:54)
[2024-03-07] MEDS: GRANISETRON HCL 1 MG TABLET PO ONE (09:54)
[2024-03-07] MEDS: DEXAMETHASONE 4 MG TABLET (FP) PO ONE (09:54)
[2024-03-07] MEDS: INSULIN ASPART SLIDING SCALE (NOVOLOG) 1 VIAL SQ ONE (10:08)
[2024-03-07] MEDS: BORTEZOMIB 2.5 MG/ML SUB-Q INJECTION SQ ONE (10:21)
[2024-03-07 10:55] LABS: PH,URINE 6.5 (5.0-8.0); URINE APPEARANCE CLEAR; URINE BILIRUBIN NEGATIVE (NEGATIVE); URINE COLOR YELLOW; URINE GLUCOSE (UA) NEGATIVE (NEGATIVE); URINE KETONE NEGATIVE (NEGATIVE); URINE LEUK ESTERASE NEGATIVE (NEGATIVE); URINE NITRITE NEGATIVE (NEGATIVE); URINE PROTEIN NEGATIVE (NEGATIVE)
[2024-03-07 12:22] VITALS: BP 98/58; PULSE 79; RESP 20; TEMP 98.6
== END 2024-03-07 11:00 | disposition home or self-care (01) ==
LOC: JONCCHEMO 08:07 → J7W 08:08 → JONCCHEMO 11:00
PROVIDERS: ATTEND Internal Medicine Hematology & Oncology
DX: Z51.11 Encounter for antineoplastic chemotherapy (principal); C90.00 Multiple myeloma not having achieved remission
CPT/HCPCS: 36415; 80048; 80076; 81003; 83615; 83735; 84550; 85025; 87086; 87186; 96401; J9041

== ENCOUNTER 2024-03-21 07:48 | Day surgery (SDC) | payer OTHER, MEDICARE ==
[2024-03-21 08:34] LABS: BASO % 0.5 % (0-2.0); CHLORIDE 107 mmol/L (98-107); EOS % 5.1 % (0-4.5); HEMATOCRIT 42.2 % (35.4-49); HEMOGLOBIN 14.2 GM/dL (11.7-16.9); MCH 30.7 pg (25.7-33.7); MCHC 33.7 g/dl (32.0-35.9); MEAN CELL VOLUME 91.2 fl (80-96); MEAN PLT VOLUME 8.2 fl (7.5-11.1); MONO % 17.6 % (3.8-10.2); NEUT % 62.8 % (42.8-82.8); PLATELET COUNT 166 10^3/uL (134-434); RBC 4.63 M/mm3 (4.00-5.60); SODIUM 141 mmol/L (136-145); WHITE BLOOD COUNT 5.7 K/mm3 (4.0-10.0)
[2024-03-21 08:36] LABS: ANION GAP 8 mmol/L (4-13); CO2 26 mmol/L (21-32)
[2024-03-21 08:37] LABS: ALBUMIN 3.4 g/dl (3.4-5.0); BLOOD UREA NITROGEN 22.9 mg/dL (7-18); GLUCOSE,RANDOM 99 mg/dL (74-106)
[2024-03-21 08:39] LABS: SGPT/ALT 23 U/L (13-61); URIC ACID 6.8 mg/dL (2.6-7.2)
[2024-03-21 08:40] LABS: BILIRUBIN,DIRECT 0.3 mg/dL (0.0-0.2); CREATININE 1.2 mg/dL (0.55-1.3); SGOT/AST 24 U/L (15-37)
[2024-03-21 08:42] LABS: LDH 239 U/L (87-246)
[2024-03-21 08:43] LABS: ALK PHOS 89 U/L (45-117)
[2024-03-21] MEDS: MAGNESIUM OXIDE 400 MG TABLET (FP) PO ONE (09:48)
[2024-03-21] MEDS: DEXAMETHASONE 4 MG TABLET (FP) PO ONE (09:48)
[2024-03-21] MEDS: GRANISETRON HCL 1 MG TABLET PO ONE (09:48)
[2024-03-21] MEDS: BORTEZOMIB 2.5 MG/ML SUB-Q INJECTION SQ ONE (10:15)
[2024-03-21] MEDS: INSULIN ASPART SLIDING SCALE (NOVOLOG) 1 VIAL SQ ONE (10:16)
[2024-03-21 15:27] VITALS: BP 108/64; PULSE 87; RESP 20; TEMP 98
[2024-03-22 17:08] LABS: FREE KAPPA,SERUM 137.1 mg/L (3.3-19.4)
[2024-03-23 16:21] LABS: BETA-2-MICROGLOBULIN 3.2 mg/L (0.6-2.4)
[2024-03-26 07:11] LABS: FREE KAP CHN UR 6.64 mg/L (1.17-86.46); KAPPA LAMBDA RATIO URIN 9.35 (1.83-14.26)
== END 2024-03-21 10:25 | disposition home or self-care (01) ==
LOC: JONCCHEMO 07:48 → J7W 07:49 → JONCCHEMO 10:25
PROVIDERS: ATTEND Internal Medicine Hematology & Oncology
DX: Z51.11 Encounter for antineoplastic chemotherapy (principal); C90.00 Multiple myeloma not having achieved remission
CPT/HCPCS: 36415; 80048; 80076; 82232; 82784; 83615; 83735; 83883; 84155; 84165; 84550; 85025; 86335; 96401; J9041

== ENCOUNTER 2024-03-28 08:25 | Day surgery (SDC) | payer OTHER, MEDICARE ==
[~2024-03-28 08:25] MED LIST changes: +GRANISETRON HCL 1 MG TABLET PO ONE; -INSULIN ASPART SLIDING SCALE (NOVOLOG) 1 VIAL SQ ONE
[2024-03-28 08:42] LABS: BASO % 0.4 % (0-2.0); EOS % 4.1 % (0-4.5); HEMATOCRIT 41.6 % (35.4-49); HEMOGLOBIN 13.8 GM/dL (11.7-16.9); LYMPH % 11.3 % (8-40); MCH 30.5 pg (25.7-33.7); MCHC 33.2 g/dl (32.0-35.9); MEAN CELL VOLUME 91.9 fl (80-96); MEAN PLT VOLUME 9.1 fl (7.5-11.1); MONO % 17.2 % (3.8-10.2); PLATELET COUNT 137 10^3/uL (134-434); RBC 4.53 M/mm3 (4.00-5.60); RDW 14.8 % (11.9-15.9); WHITE BLOOD COUNT 5.8 K/mm3 (4.0-10.0)
[2024-03-28 09:01] LABS: CHLORIDE 108 mmol/L (98-107); POTASSIUM 3.8 mmol/L (3.5-5.1); SODIUM 141 mmol/L (136-145)
[2024-03-28 09:03] LABS: ALBUMIN 3.4 g/dl (3.4-5.0); ANION GAP 7 mmol/L (4-13); CALCIUM 8.6 mg/dL (8.5-10.1); CO2 25 mmol/L (21-32)
[2024-03-28 09:04] LABS: BLOOD UREA NITROGEN 27.3 mg/dL (7-18); GLUCOSE,RANDOM 150 mg/dL (74-106); MAGNESIUM 1.9 mg/dL (1.8-2.4)
[2024-03-28 09:06] LABS: CREATININE 1.5 mg/dL (0.55-1.3); URIC ACID 3.1 mg/dL (2.6-7.2)
[2024-03-28 09:07] LABS: SGOT/AST 21 U/L (15-37); SGPT/ALT 22 U/L (13-61)
[2024-03-28 09:08] LABS: BILIRUBIN,TOTAL 0.6 mg/dL (0.2-1); TOT PROT 5.7 g/dl (6.4-8.2)
[2024-03-28 09:09] LABS: ALK PHOS 90 U/L (45-117)
[2024-03-28 09:15] LABS: LDH 200 U/L (87-246)
[2024-03-28] MEDS: DEXAMETHASONE 4 MG TABLET (FP) PO ONE (09:40)
[2024-03-28] MEDS: INSULIN ASPART SLIDING SCALE (NOVOLOG) 1 VIAL SQ ONE (09:40)
[2024-03-28] MEDS: GRANISETRON HCL 1 MG TABLET PO ONE (09:40)
[2024-03-28] MEDS: MAGNESIUM OXIDE 400 MG TABLET (FP) PO ONE (09:40)
[2024-03-28] MEDS: BORTEZOMIB 2.5 MG/ML SUB-Q INJECTION SQ ONE (09:52)
[2024-03-28 09:56] LABS: PH,URINE 5.5 (5.0-8.0); URINE APPEARANCE CLEAR; URINE BILIRUBIN NEGATIVE (NEGATIVE); URINE COLOR YELLOW; URINE GLUCOSE (UA) NEGATIVE (NEGATIVE); URINE KETONE NEGATIVE (NEGATIVE); URINE LEUK ESTERASE NEGATIVE (NEGATIVE); URINE NITRITE NEGATIVE (NEGATIVE); URINE PROTEIN NEGATIVE (NEGATIVE); URINE UROBILINOGEN 0.2 mg/dL (0.2-1.0)
[2024-03-28 10:15] VITALS: BP 131/71; PULSE 76; RESP 20; TEMP 98.1
== END 2024-03-28 10:00 | disposition home or self-care (01) ==
LOC: J7W 08:25 → JONCCHEMO 08:25
PROVIDERS: ATTEND Internal Medicine Hematology & Oncology
DX: Z51.11 Encounter for antineoplastic chemotherapy (principal); C90.00 Multiple myeloma not having achieved remission
CPT/HCPCS: 36415; 80053; 81003; 83615; 83735; 84550; 85025; 87086; 96401; J9041

== ENCOUNTER 2024-04-04 08:33 | Day surgery (SDC) | payer OTHER, MEDICARE ==
[2024-04-04 08:43] LABS: HEMOGLOBIN 14.6 GM/dL (11.7-16.9)
[2024-04-04 08:51] LABS: HEMATOCRIT 44.2 % (35.4-49); MCH 30.2 pg (25.7-33.7); MCHC 32.9 g/dl (32.0-35.9); MEAN CELL VOLUME 91.9 fl (80-96); MEAN PLT VOLUME 9.1 fl (7.5-11.1); PLATELET COUNT 132 10^3/uL (134-434); RBC 4.81 M/mm3 (4.00-5.60); RDW 14.8 % (11.9-15.9); WHITE BLOOD COUNT 6.6 K/mm3 (4.0-10.0)
[2024-04-04 09:05] LABS: CHLORIDE 105 mmol/L (98-107); POTASSIUM 4.6 mmol/L (3.5-5.1); SODIUM 137 mmol/L (136-145)
[2024-04-04 09:06] LABS: CALCIUM 9.1 mg/dL (8.5-10.1)
[2024-04-04 09:07] LABS: ALBUMIN 3.5 g/dl (3.4-5.0); ANION GAP 4 mmol/L (4-13); BLOOD UREA NITROGEN 23.9 mg/dL (7-18); CO2 28 mmol/L (21-32); GLUCOSE,RANDOM 129 mg/dL (74-106); MAGNESIUM 2.1 mg/dL (1.8-2.4)
[2024-04-04 09:10] LABS: CREATININE 1.4 mg/dL (0.55-1.3); SGOT/AST 24 U/L (15-37); SGPT/ALT 29 U/L (13-61)
[2024-04-04 09:12] LABS: BILIRUBIN,TOTAL 0.5 mg/dL (0.2-1)
[2024-04-04 09:13] LABS: ALK PHOS 104 U/L (45-117)
[2024-04-04 09:15] LABS: LDH 192 U/L (87-246)
[2024-04-04 09:32] LABS: URIC ACID 2.3 mg/dL (2.6-7.2)
[2024-04-04] MEDS: INSULIN ASPART SLIDING SCALE (NOVOLOG) 1 VIAL SQ ONE (09:37)
[2024-04-04] MEDS: MAGNESIUM OXIDE 400 MG TABLET (FP) PO ONE (09:38)
[2024-04-04] MEDS: GRANISETRON HCL 1 MG TABLET PO ONE (09:38)
[2024-04-04] MEDS: DEXAMETHASONE 4 MG TABLET (FP) PO ONE (09:38)
[2024-04-04 09:59] LABS: ANISOCYTOSIS 1+; MACROCYTOSIS 0
[2024-04-04] MEDS: BORTEZOMIB 2.5 MG/ML SUB-Q INJECTION SQ ONE (10:19)
[2024-04-04 13:48] VITALS: BP 105/63; PULSE 72; RESP 20; TEMP 98.1
== END 2024-04-04 10:30 | disposition home or self-care (01) ==
LOC: JONCCHEMO 08:33 → J7W 08:41 → JONCCHEMO 10:30
PROVIDERS: ATTEND Internal Medicine Hematology & Oncology
DX: Z51.11 Encounter for antineoplastic chemotherapy (principal); C90.00 Multiple myeloma not having achieved remission
CPT/HCPCS: 36415; 80053; 82962; 83615; 83735; 84550; 85025; 96401; J9041

== ENCOUNTER 2024-04-17 08:12 | Day surgery (SDC) | payer OTHER, MEDICARE ==
[2024-04-17 08:57] LABS: BASO % 0.5 % (0-2.0); HEMOGLOBIN 14.6 GM/dL (11.7-16.9); MCH 30.8 pg (25.7-33.7); MCHC 33.9 g/dl (32.0-35.9); MEAN CELL VOLUME 91.1 fl (80-96); MEAN PLT VOLUME 8.1 fl (7.5-11.1); MONO % 16.1 % (3.8-10.2); NEUT % 64.4 % (42.8-82.8); PLATELET COUNT 148 10^3/uL (134-434); RBC 4.73 M/mm3 (4.00-5.60); WHITE BLOOD COUNT 5.8 K/mm3 (4.0-10.0)
[2024-04-17 09:29] LABS: POTASSIUM 3.9 mmol/L (3.5-5.1)
[2024-04-17 09:32] LABS: BLOOD UREA NITROGEN 14.3 mg/dL (7-18); CALCIUM 8.9 mg/dL (8.5-10.1); MAGNESIUM 1.8 mg/dL (1.8-2.4)
[2024-04-17 09:33] LABS: ALBUMIN 3.4 g/dl (3.4-5.0)
[2024-04-17 09:35] LABS: BILIRUBIN,DIRECT 0.2 mg/dL (0.0-0.2); CREATININE 1.2 mg/dL (0.55-1.3)
[2024-04-17 09:36] LABS: TOT PROT 6.1 g/dl (6.4-8.2)
[2024-04-17 09:38] LABS: BILIRUBIN,TOTAL 0.7 mg/dL (0.2-1)
[2024-04-17] MEDS: DEXAMETHASONE 4 MG TABLET (FP) PO ONE (09:59)
[2024-04-17] MEDS: INSULIN ASPART SLIDING SCALE (NOVOLOG) 1 VIAL SQ ONE (09:59)
[2024-04-17] MEDS: GRANISETRON HCL 1 MG TABLET PO ONE (09:59)
[2024-04-17] MEDS: MAGNESIUM OXIDE 400 MG TABLET (FP) PO ONE (09:59)
[2024-04-17] MEDS: BORTEZOMIB 2.5 MG/ML SUB-Q INJECTION SQ ONE (10:13)
[2024-04-17] MEDS ORDERED: INSULIN ASPART SLIDING SCALE (NOVOLOG) 1 VIAL SQ ONE (11:15)
[2024-04-17 14:24] VITALS: BP 111/68; PULSE 79; RESP 20; TEMP 97.8
[2024-04-20 14:11] LABS: BETA-2-MICROGLOBULIN 2.8 mg/L (0.6-2.4)
[2024-04-20 18:06] LABS: FREE KAPPA,SERUM 125.2 mg/L (3.3-19.4)
[2024-04-22 16:08] LABS: FREE KAP CHN UR 1.18 mg/L (1.17-86.46); KAPPA LAMBDA RATIO URIN >1.71 (1.83-14.26)
== END 2024-04-17 10:30 | disposition home or self-care (01) ==
LOC: J7W 08:12 → JONCCHEMO 08:12
PROVIDERS: ATTEND Internal Medicine Hematology & Oncology
DX: Z51.11 Encounter for antineoplastic chemotherapy (principal); C90.00 Multiple myeloma not having achieved remission
CPT/HCPCS: 36415; 80048; 80076; 82232; 82784; 83615; 83735; 83883; 84155; 84165; 84550; 85025; 86335; 96401; J9041

== ENCOUNTER 2024-04-25 08:53 | Day surgery (SDC) | payer OTHER, MEDICARE ==
[2024-04-25 09:42] LABS: BASO % 0.4 % (0-2.0); HEMATOCRIT 45.5 % (35.4-49); HEMOGLOBIN 15.1 GM/dL (11.7-16.9); LYMPH % 13.2 % (8-40); MCH 30.4 pg (25.7-33.7); MCHC 33.3 g/dl (32.0-35.9); MEAN CELL VOLUME 91.4 fl (80-96); MONO % 15.8 % (3.8-10.2); NEUT % 67.6 % (42.8-82.8); PLATELET COUNT 141 10^3/uL (134-434); RBC 4.98 M/mm3 (4.00-5.60); RDW 14.9 % (11.9-15.9); WHITE BLOOD COUNT 7.6 K/mm3 (4.0-10.0)
[2024-04-25 10:06] LABS: CHLORIDE 103 mmol/L (98-107); POTASSIUM 4.2 mmol/L (3.5-5.1); SODIUM 138 mmol/L (136-145)
[2024-04-25 10:09] LABS: ALBUMIN 3.3 g/dl (3.4-5.0); ANION GAP 7 mmol/L (4-13); BLOOD UREA NITROGEN 25.9 mg/dL (7-18); CALCIUM 8.5 mg/dL (8.5-10.1); CO2 28 mmol/L (21-32); GLUCOSE,RANDOM 150 mg/dL (74-106); MAGNESIUM 2.2 mg/dL (1.8-2.4)
[2024-04-25 10:12] LABS: CREATININE 1.6 mg/dL (0.55-1.3); SGOT/AST 37 U/L (15-37); SGPT/ALT 50 U/L (13-61); URIC ACID 3.3 mg/dL (2.6-7.2)
[2024-04-25 10:13] LABS: BILIRUBIN,TOTAL 0.7 mg/dL (0.2-1); LDH 201 U/L (87-246); TOT PROT 6.2 g/dl (6.4-8.2)
[2024-04-25 10:15] LABS: ALK PHOS 118 U/L (45-117)
[2024-04-25] MEDS: MAGNESIUM OXIDE 400 MG TABLET (FP) PO ONE (10:54)
[2024-04-25] MEDS: INSULIN ASPART SLIDING SCALE (NOVOLOG) 1 VIAL SQ ONE (10:54)
[2024-04-25] MEDS: DEXAMETHASONE 4 MG TABLET (FP) PO ONE (10:54)
[2024-04-25] MEDS: GRANISETRON HCL 1 MG TABLET PO ONE (10:54)
[2024-04-25] MEDS: BORTEZOMIB 2.5 MG/ML SUB-Q INJECTION SQ ONE (11:15)
[2024-04-25 16:57] VITALS: BP 100/65; PULSE 65; RESP 20; TEMP 98.9
== END 2024-04-25 11:40 | disposition home or self-care (01) ==
LOC: JONCCHEMO 08:53 → J7W 08:54 → JONCCHEMO 11:40
PROVIDERS: ATTEND Internal Medicine Hematology & Oncology
DX: Z51.11 Encounter for antineoplastic chemotherapy (principal); C90.00 Multiple myeloma not having achieved remission
CPT/HCPCS: 36415; 80053; 83615; 83735; 84550; 85025; 96401; J9041

== ENCOUNTER 2024-04-26 04:15 | Day surgery (SDC) | payer OTHER, MEDICARE ==
[2024-04-24 13:45] VITALS: BMI 44.4
[2024-04-26] MEDS ORDERED: ACETAMINOPHEN 500 MG TABLET (FP) PO PRN (09:01)
[2024-04-26] MEDS: BUPIVACAINE HCL/PF 0.75% 10 ML VIAL PNB ONE ×2 (10:26)
[2024-04-26] MEDS: LIDOCAINE HCL 1% PRESERVATIVE FREE - 30ML VIAL PNB ONE ×2 (10:26)
[2024-04-26 11:00] VITALS: BP 126/73; PULSE 63; RESP 18; TEMP 97.1
== END 2024-04-26 11:09 | disposition home or self-care (01) ==
LOC: JASU-SURG 04:15
PROVIDERS: ATTEND Pain Medicine Pain Medicine
PROC: 3E0T33Z Introduction of Anti-inflammatory into Peripheral Nerves and Plexi, Percutaneous Approach (ICD-10-PCS; 2024-04-26)
PROC: 3E0T3BZ Introduction of Anesthetic Agent into Peripheral Nerves and Plexi, Percutaneous Approach (ICD-10-PCS; principal; 2024-04-26 09:15)
DX: M47.816 Spondylosis without myelopathy or radiculopathy, lumbar region (principal)
CPT/HCPCS: 76000-TC-FY

== ENCOUNTER 2024-05-02 08:00 | Day surgery (SDC) | payer OTHER, MEDICARE ==
[2024-05-02 09:21] LABS: POTASSIUM 3.6 mmol/L (3.5-5.1)
[2024-05-02 09:37] LABS: BASO % 0.1 % (0-2.0); EOS % 2.3 % (0-4.5); HEMATOCRIT 43.2 % (35.4-49); HEMOGLOBIN 14.8 GM/dL (11.7-16.9); LYMPH % 8.2 % (8-40); MCH 30.9 pg (25.7-33.7); MCHC 34.4 g/dl (32.0-35.9); MONO % 13.5 % (3.8-10.2); NEUT % 75.9 % (42.8-82.8); PLATELET COUNT 135 10^3/uL (134-434); RDW 15.4 % (11.9-15.9); WHITE BLOOD COUNT 8.9 K/mm3 (4.0-10.0)
[2024-05-02 09:42] LABS: ALBUMIN 3.3 g/dl (3.4-5.0); BLOOD UREA NITROGEN 27.6 mg/dL (7-18)
[2024-05-02 09:43] LABS: CALCIUM 8.8 mg/dL (8.5-10.1); MAGNESIUM 2.1 mg/dL (1.8-2.4)
[2024-05-02 09:45] LABS: URIC ACID 3.7 mg/dL (2.6-7.2)
[2024-05-02 09:47] LABS: CREATININE 1.3 mg/dL (0.55-1.3)
[2024-05-02 09:48] LABS: BILIRUBIN,TOTAL 0.6 mg/dL (0.2-1); TOT PROT 5.9 g/dl (6.4-8.2)
[2024-05-02] MEDS: DEXAMETHASONE 4 MG TABLET (FP) PO ONE (10:09)
[2024-05-02] MEDS: GRANISETRON HCL 1 MG TABLET PO ONE (10:09)
[2024-05-02] MEDS: MAGNESIUM OXIDE 400 MG TABLET (FP) PO ONE (10:09)
[2024-05-02] MEDS: INSULIN ASPART SLIDING SCALE (NOVOLOG) 1 VIAL SQ ONE (10:14)
[2024-05-02] MEDS: BORTEZOMIB 2.5 MG/ML SUB-Q INJECTION SQ ONE (10:25)
[2024-05-02 15:01] VITALS: BP 115/79; PULSE 96; RESP 20
[2024-05-02 17:23] VITALS: TEMP 98.4
== END 2024-05-02 10:30 | disposition home or self-care (01) ==
LOC: J7W 08:00 → JONCCHEMO 08:00
PROVIDERS: ATTEND Internal Medicine Hematology & Oncology
DX: Z51.11 Encounter for antineoplastic chemotherapy (principal); C90.00 Multiple myeloma not having achieved remission
CPT/HCPCS: 36415; 80053; 82962; 83615; 83735; 84550; 85025; 96401; J9041

== ENCOUNTER 2024-05-16 07:55 | Day surgery (SDC) | payer OTHER, MEDICARE ==
[2024-05-16 08:31] LABS: BASO % 0.5 % (0-2.0); HEMATOCRIT 41.1 % (35.4-49); HEMOGLOBIN 13.8 GM/dL (11.7-16.9); LYMPH % 11.2 % (8-40); MCH 30.4 pg (25.7-33.7); MCHC 33.6 g/dl (32.0-35.9); MEAN CELL VOLUME 90.5 fl (80-96); MEAN PLT VOLUME 7.5 fl (7.5-11.1); MONO % 14.5 % (3.8-10.2); NEUT % 69.8 % (42.8-82.8); PLATELET COUNT 162 10^3/uL (134-434); RBC 4.54 M/mm3 (4.00-5.60); RDW 15.4 % (11.9-15.9); WHITE BLOOD COUNT 5.6 K/mm3 (4.0-10.0)
[2024-05-16 08:57] LABS: CHLORIDE 106 mmol/L (98-107); POTASSIUM 4.1 mmol/L (3.5-5.1); SODIUM 141 mmol/L (136-145)
[2024-05-16 09:00] LABS: ALBUMIN 3.2 g/dl (3.4-5.0); ANION GAP 6 mmol/L (4-13); CALCIUM 8.8 mg/dL (8.5-10.1); CO2 28 mmol/L (21-32); GLUCOSE,RANDOM 115 mg/dL (74-106)
[2024-05-16 09:02] LABS: BILIRUBIN,DIRECT 0.3 mg/dL (0.0-0.2)
[2024-05-16 09:03] LABS: CREATININE 1.3 mg/dL (0.55-1.3); SGOT/AST 25 U/L (15-37); SGPT/ALT 29 U/L (13-61)
[2024-05-16 09:05] LABS: BILIRUBIN,TOTAL 0.8 mg/dL (0.2-1); TOT PROT 5.7 g/dl (6.4-8.2)
[2024-05-16 09:06] LABS: ALK PHOS 109 U/L (45-117)
[2024-05-16 09:07] LABS: LDH 205 U/L (87-246)
[2024-05-16] MEDS: MAGNESIUM OXIDE 400 MG TABLET (FP) PO ONE (09:41)
[2024-05-16] MEDS: GRANISETRON HCL 1 MG TABLET PO ONE (09:41)
[2024-05-16] MEDS: DEXAMETHASONE 4 MG TABLET (FP) PO ONE (09:41)
[2024-05-16] MEDS: INSULIN ASPART SLIDING SCALE (NOVOLOG) 1 VIAL SQ ONE (09:42)
[2024-05-16] MEDS: BORTEZOMIB 2.5 MG/ML SUB-Q INJECTION SQ ONE (09:59)
[2024-05-16 17:17] VITALS: BP 114/72; PULSE 92; RESP 20; TEMP 98.4
[2024-05-17 14:10] LABS: FREE KAPPA,SERUM 108.4 mg/L (3.3-19.4)
[2024-05-17 18:07] LABS: IG A QN SERUM. 141 mg/dL (61-437)
[2024-05-19 16:08] LABS: BETA-2-MICROGLOBULIN 2.6 mg/L (0.6-2.4)
[2024-05-21 07:09] LABS: FREE KAP CHN UR 6.35 mg/L (1.17-86.46); KAPPA LAMBDA RATIO URIN >9.20 (1.83-14.26)
== END 2024-05-16 10:20 | disposition home or self-care (01) ==
LOC: JONCCHEMO 07:55 → J7W 07:57 → JONCCHEMO 10:20
PROVIDERS: ATTEND Internal Medicine Hematology & Oncology
DX: Z51.11 Encounter for antineoplastic chemotherapy (principal); C90.00 Multiple myeloma not having achieved remission
CPT/HCPCS: 36415; 80048; 80076; 82232; 82784; 83615; 83735; 83883; 84155; 84165; 84550; 85025; 86335; 96401; J9041

== ENCOUNTER 2024-05-23 07:45 | Day surgery (SDC) | payer OTHER, MEDICARE ==
[2024-05-23 09:33] LABS: BASO % 0.2 % (0-2.0); EOS % 3.9 % (0-4.5); HEMATOCRIT 42.5 % (35.4-49); HEMOGLOBIN 14.4 GM/dL (11.7-16.9); LYMPH % 9.3 % (8-40); MCH 30.7 pg (25.7-33.7); MCHC 33.8 g/dl (32.0-35.9); MEAN CELL VOLUME 90.8 fl (80-96); MEAN PLT VOLUME 8.8 fl (7.5-11.1); MONO % 16.9 % (3.8-10.2); NEUT % 69.7 % (42.8-82.8); PLATELET COUNT 114 10^3/uL (134-434); RBC 4.68 M/mm3 (4.00-5.60); RDW 15.4 % (11.9-15.9); WHITE BLOOD COUNT 6.4 K/mm3 (4.0-10.0)
[2024-05-23 09:54] LABS: CHLORIDE 101 mmol/L (98-107)
[2024-05-23 09:55] LABS: POTASSIUM 3.8 mmol/L (3.5-5.1); SODIUM 138 mmol/L (136-145)
[2024-05-23 09:59] LABS: ALBUMIN 3.3 g/dl (3.4-5.0); ANION GAP 8 mmol/L (4-13); BLOOD UREA NITROGEN 22.3 mg/dL (7-18); CALCIUM 8.6 mg/dL (8.5-10.1); CO2 30 mmol/L (21-32); GLUCOSE,RANDOM 151 mg/dL (74-106); MAGNESIUM 2.1 mg/dL (1.8-2.4)
[2024-05-23 10:01] LABS: SGOT/AST 22 U/L (15-37); URIC ACID 6.7 mg/dL (2.6-7.2)
[2024-05-23 10:02] LABS: SGPT/ALT 25 U/L (13-61)
[2024-05-23 10:03] LABS: BILIRUBIN,TOTAL 1.2 mg/dL (0.2-1); CREATININE 1.3 mg/dL (0.55-1.3)
[2024-05-23 10:05] LABS: ALK PHOS 102 U/L (45-117)
[2024-05-23] MEDS: INSULIN ASPART SLIDING SCALE (NOVOLOG) 1 VIAL SQ ONE (10:21)
[2024-05-23] MEDS: DEXAMETHASONE 4 MG TABLET (FP) PO ONE (10:29)
[2024-05-23] MEDS: GRANISETRON HCL 1 MG TABLET PO ONE (10:29)
[2024-05-23] MEDS: MAGNESIUM OXIDE 400 MG TABLET (FP) PO ONE (10:30)
[2024-05-23] MEDS: BORTEZOMIB 2.5 MG/ML SUB-Q INJECTION SQ ONE (10:51)
[2024-05-23 11:31] LABS: LDH 208 U/L (87-246)
[2024-05-23 15:01] VITALS: BP 109/68; PULSE 89; RESP 20; TEMP 98.3
== END 2024-05-23 10:55 | disposition home or self-care (01) ==
LOC: JONCCHEMO 07:45 → J7W 08:50 → JONCCHEMO 10:55
PROVIDERS: ATTEND Internal Medicine Hematology & Oncology
DX: Z51.11 Encounter for antineoplastic chemotherapy (principal); C90.00 Multiple myeloma not having achieved remission
CPT/HCPCS: 36415; 80053; 82962; 83615; 83735; 84550; 85025; 96401; J9041

== ENCOUNTER 2024-05-30 08:40 | Day surgery (SDC) | payer OTHER, MEDICARE ==
[2024-05-30 09:21] LABS: HEMATOCRIT 45.9 % (35.4-49); HEMOGLOBIN 15.6 GM/dL (11.7-16.9); MCH 30.8 pg (25.7-33.7); MCHC 34.1 g/dl (32.0-35.9); MEAN CELL VOLUME 90.4 fl (80-96); MEAN PLT VOLUME 9.5 fl (7.5-11.1); PLATELET COUNT 131 10^3/uL (134-434); RBC 5.07 M/mm3 (4.00-5.60); RDW 15.6 % (11.9-15.9); WHITE BLOOD COUNT 8.3 K/mm3 (4.0-10.0)
[2024-05-30 09:45] LABS: ANISOCYTOSIS 0; HELMET CELLS 0; HOWELL-JOLLY BODIES 0; MACROCYTOSIS 0; OVALOCYTE 0; ROULEAU 0; SICKELED CELLS 0; TARGET CELLS 0; TEAR DROP CELLS 0; TOXIC GRANULATION 0
[2024-05-30 09:49] LABS: URIC ACID 4.3 mg/dL (2.6-7.2)
[2024-05-30 09:54] LABS: CHLORIDE 102 mmol/L (98-107); POTASSIUM 3.8 mmol/L (3.5-5.1); SODIUM 139 mmol/L (136-145)
[2024-05-30 09:56] LABS: CALCIUM 9.3 mg/dL (8.5-10.1)
[2024-05-30 09:57] LABS: ALBUMIN 3.6 g/dl (3.4-5.0); ANION GAP 9 mmol/L (4-13); BLOOD UREA NITROGEN 32.2 mg/dL (7-18); CO2 28 mmol/L (21-32); GLUCOSE,RANDOM 128 mg/dL (74-106); MAGNESIUM 2.1 mg/dL (1.8-2.4)
[2024-05-30 09:59] LABS: CREATININE 1.5 mg/dL (0.55-1.3)
[2024-05-30 10:00] LABS: SGOT/AST 28 U/L (15-37); SGPT/ALT 42 U/L (13-61)
[2024-05-30] MEDS: MAGNESIUM OXIDE 400 MG TABLET (FP) PO ONE (10:00)
[2024-05-30] MEDS: GRANISETRON HCL 1 MG TABLET PO ONE (10:00)
[2024-05-30] MEDS: DEXAMETHASONE 4 MG TABLET (FP) PO ONE (10:00)
[2024-05-30 10:01] LABS: BILIRUBIN,TOTAL 0.6 mg/dL (0.2-1); TOT PROT 6.4 g/dl (6.4-8.2)
[2024-05-30 10:02] LABS: ALK PHOS 113 U/L (45-117)
[2024-05-30] MEDS: INSULIN ASPART SLIDING SCALE (NOVOLOG) 1 VIAL SQ ONE (10:06)
[2024-05-30] MEDS: BORTEZOMIB 2.5 MG/ML SUB-Q INJECTION SQ ONE (10:18)
[2024-05-30 12:51] VITALS: BP 117/79; PULSE 100; RESP 20; TEMP 98.6
== END 2024-05-30 10:38 | disposition home or self-care (01) ==
LOC: JONCCHEMO 08:40 → J7W 08:41 → JONCCHEMO 10:38
PROVIDERS: ATTEND Internal Medicine Hematology & Oncology
DX: Z51.11 Encounter for antineoplastic chemotherapy (principal); C90.00 Multiple myeloma not having achieved remission
CPT/HCPCS: 36415; 80053; 83615; 83735; 84550; 85025; 96401; J9041

== ENCOUNTER 2024-06-06 04:27 | Day surgery (SDC) | payer OTHER, MEDICARE ==
[2024-06-04 15:26] VITALS: BMI 45.1
[2024-06-06] MEDS ORDERED: LIDOCAINE HCL/PF 1% SDV 5ML VIAL ONE (07:59)
[2024-06-06] MEDS ORDERED: BUPIVACAINE HCL/PF 0.75% 10 ML VIAL ONE (07:59)
[2024-06-06] MEDS: LIDOCAINE HCL 1% PRESERVATIVE FREE - 30ML VIAL IJ ONE ×2 (11:43)
[2024-06-06] MEDS: BUPIVACAINE HCL/PF 0.75% 10 ML VIAL NR ONE ×2 (11:49)
[2024-06-06 12:09] VITALS: BP 110/62; PULSE 68; RESP 16; TEMP 97.6
[2024-06-06] MEDS ORDERED: ACETAMINOPHEN 500 MG TABLET (FP) PO PRN (19:52)
== END 2024-06-06 12:27 | disposition home or self-care (01) ==
LOC: JASU-SURG 04:27
PROVIDERS: ATTEND Pain Medicine Pain Medicine
PROC: 3E0T3BZ Introduction of Anesthetic Agent into Peripheral Nerves and Plexi, Percutaneous Approach (ICD-10-PCS; principal; 2024-06-06 11:45)
DX: M47.816 Spondylosis without myelopathy or radiculopathy, lumbar region (principal)
CPT/HCPCS: 76000-TC-FY

== ENCOUNTER 2024-06-11 17:25 | Emergency (ER) | payer OTHER, MEDICARE ==
[2024-06-11 18:04] VITALS: RESP 20; BMI 34.8
[2024-06-11 18:14] LABS: BASO % 0.3 % (0-2.0); EOS % 1.7 % (0-4.5); HEMATOCRIT 39.4 % (35.4-49); HEMOGLOBIN 13.2 GM/dL (11.7-16.9); LYMPH % 10.2 % (8-40); MCH 30.7 pg (25.7-33.7); MCHC 33.4 g/dl (32.0-35.9); MEAN CELL VOLUME 91.7 fl (80-96); MEAN PLT VOLUME 7.8 fl (7.5-11.1); MONO % 28.5 % (3.8-10.2); NEUT % 59.3 % (42.8-82.8); PLATELET COUNT 133 10^3/uL (134-434); WHITE BLOOD COUNT 3.3 K/mm3 (4.0-10.0)
[2024-06-11 18:25] LABS: INR 1.79 (0.83-1.09); PROTHROMBIN TIME (PATIENT) 20.2 SEC (9.7-13.0)
[2024-06-11 18:28] LABS: ACTIVATED PTT 32.7 SECONDS (25.2-36.5)
[2024-06-11 18:37] LABS: POTASSIUM 4.2 mmol/L (3.5-5.1)
[2024-06-11 18:39] LABS: CALCIUM 8.4 mg/dL (8.5-10.1)
[2024-06-11 18:40] LABS: ALBUMIN 3.1 g/dl (3.4-5.0); BLOOD UREA NITROGEN 19.6 mg/dL (7-18); MAGNESIUM 1.9 mg/dL (1.8-2.4)
[2024-06-11 18:41] LABS: PH,URINE 5.5 (5.0-8.0); URINE APPEARANCE CLEAR; URINE BILIRUBIN NEGATIVE (NEGATIVE); URINE COLOR YELLOW; URINE GLUCOSE (UA) NEGATIVE (NEGATIVE); URINE KETONE NEGATIVE (NEGATIVE); URINE LEUK ESTERASE NEGATIVE (NEGATIVE); URINE NITRITE NEGATIVE (NEGATIVE); URINE PROTEIN NEGATIVE (NEGATIVE); URINE UROBILINOGEN 0.2 mg/dL (0.2-1.0)
[2024-06-11 18:43] LABS: CREATININE 1.1 mg/dL (0.55-1.3); PHOSPHOROUS 2.5 mg/dL (2.5-4.9)
[2024-06-11 18:44] LABS: BILIRUBIN,TOTAL 0.7 mg/dL (0.2-1)
[2024-06-11 18:45] LABS: TOT PROT 5.6 g/dl (6.4-8.2)
[2024-06-11 19:55] LABS: ANISOCYTOSIS 1+; MACROCYTOSIS 0
[2024-06-11 20:01] LABS: ERYTHROCYTE SEDIMENTATION RATE 33 mm/hr (0-20)
[2024-06-12 03:32] VITALS: BP 130/95; PULSE 82; TEMP 97.8
== END 2024-06-12 03:36 | disposition short-term general hospital (02) ==
LOC: JER 17:25
DX: R53.1 Weakness (principal); R32 Unspecified urinary incontinence; U07.1 COVID-19
CPT/HCPCS: 0241U-QW; 36415; 70450-TC; 72131-TC; 80053; 81003; 83735; 84100; 85025; 85610; 85651; 85730; 86140; 86850; 86900; 86901; 87086; 87186; 93005; 93010; 99285-25

== ENCOUNTER 2024-06-20 08:09 | Day surgery (SDC) | payer OTHER, MEDICARE ==
[~2024-06-20 08:09] MED LIST changes: -GRANISETRON HCL 1 MG TABLET PO ONE; +INSULIN ASPART SLIDING SCALE (NOVOLOG) 1 VIAL SQ ONE
[2024-06-20 08:23] LABS: HEMATOCRIT 40.7 % (35.4-49); HEMOGLOBIN 13.7 GM/dL (11.7-16.9); MCH 30.5 pg (25.7-33.7); MCHC 33.6 g/dl (32.0-35.9); MEAN CELL VOLUME 90.8 fl (80-96); MEAN PLT VOLUME 7.8 fl (7.5-11.1); PLATELET COUNT 184 10^3/uL (134-434); RBC 4.49 M/mm3 (4.00-5.60); RDW 15.7 % (11.9-15.9); WHITE BLOOD COUNT 5.6 K/mm3 (4.0-10.0)
[2024-06-20 08:37] LABS: CHLORIDE 106 mmol/L (98-107); POTASSIUM 3.8 mmol/L (3.5-5.1); SODIUM 138 mmol/L (136-145)
[2024-06-20 08:39] LABS: ALBUMIN 2.8 g/dl (3.4-5.0); CALCIUM 8.6 mg/dL (8.5-10.1)
[2024-06-20 08:40] LABS: ANION GAP 8 mmol/L (4-13); CO2 23 mmol/L (21-32); GLUCOSE,RANDOM 204 mg/dL (74-106)
[2024-06-20 08:42] LABS: SGOT/AST 19 U/L (15-37); SGPT/ALT 33 U/L (13-61); URIC ACID 3.6 mg/dL (2.6-7.2)
[2024-06-20 08:43] LABS: CREATININE 0.9 mg/dL (0.55-1.3)
[2024-06-20 08:44] LABS: TOT PROT 5.2 g/dl (6.4-8.2)
[2024-06-20 08:45] LABS: ALK PHOS 82 U/L (45-117); LDH 240 U/L (87-246)
[2024-06-20 09:03] LABS: ANISOCYTOSIS 0; MACROCYTOSIS 0
[2024-06-20] MEDS: INSULIN ASPART SLIDING SCALE (NOVOLOG) 1 VIAL SQ ONE (09:59)
[2024-06-20] MEDS: MAGNESIUM OXIDE 400 MG TABLET (FP) PO ONE (09:59)
[2024-06-20] MEDS: GRANISETRON HCL 1 MG TABLET PO ONE (09:59)
[2024-06-20] MEDS: DEXAMETHASONE 4 MG TABLET (FP) PO ONE (09:59)
[2024-06-20] MEDS: BORTEZOMIB 2.5 MG/ML SUB-Q INJECTION SQ ONE (10:26)
[2024-06-20 14:55] VITALS: BP 107/65; PULSE 79; RESP 18; TEMP 98.7
[2024-06-21 18:10] LABS: FREE KAPPA,SERUM 46.9 mg/L (3.3-19.4)
[2024-06-24 17:07] LABS: IG A QN SERUM. 110 mg/dL (61-437)
[2024-06-25 07:07] LABS: FREE KAP CHN UR 36.11 mg/L (1.17-86.46); KAPPA LAMBDA RATIO URIN 8.38 (1.83-14.26)
== END 2024-06-20 10:45 | disposition home or self-care (01) ==
LOC: JONCCHEMO 08:09 → J7W 08:10 → JONCCHEMO 10:45
PROVIDERS: ATTEND Internal Medicine Hematology & Oncology
PROC: 3E01305 Introduction of Other Antineoplastic into Subcutaneous Tissue, Percutaneous Approach (ICD-10-PCS; principal; 2024-06-20)
PROC: 3E033VG Introduction of Insulin into Peripheral Vein, Percutaneous Approach (ICD-10-PCS; 2024-06-20)
DX: Z51.11 Encounter for antineoplastic chemotherapy (principal); C90.00 Multiple myeloma not having achieved remission
CPT/HCPCS: 36415; 80053; 82784; 83615; 83735; 83883; 84155; 84165; 84550; 85025; 86335; 96372; 96401; J9041

== ENCOUNTER 2024-06-27 08:03 | Day surgery (SDC) | payer OTHER, MEDICARE ==
[2024-06-27 08:31] LABS: BASO % 0.3 % (0-2.0); EOS % 1.2 % (0-4.5); HEMATOCRIT 39.2 % (35.4-49); HEMOGLOBIN 13.3 GM/dL (11.7-16.9); LYMPH % 10.1 % (8-40); MCH 30.9 pg (25.7-33.7); MCHC 33.9 g/dl (32.0-35.9); MEAN CELL VOLUME 91.3 fl (80-96); MEAN PLT VOLUME 8.3 fl (7.5-11.1); MONO % 15.4 % (3.8-10.2); PLATELET COUNT 155 10^3/uL (134-434); RDW 15.9 % (11.9-15.9); WHITE BLOOD COUNT 6.5 K/mm3 (4.0-10.0)
[2024-06-27 09:27] LABS: POTASSIUM 4.4 mmol/L (3.5-5.1)
[2024-06-27 09:30] LABS: ALBUMIN 2.9 g/dl (3.4-5.0); CALCIUM 8.9 mg/dL (8.5-10.1)
[2024-06-27 09:31] LABS: BLOOD UREA NITROGEN 10.9 mg/dL (7-18); MAGNESIUM 1.8 mg/dL (1.8-2.4)
[2024-06-27 09:35] LABS: TOT PROT 5.5 g/dl (6.4-8.2)
[2024-06-27] MEDS: DEXAMETHASONE 4 MG TABLET (FP) PO ONE (09:50)
[2024-06-27] MEDS: MAGNESIUM OXIDE 400 MG TABLET (FP) PO ONE (09:50)
[2024-06-27] MEDS: GRANISETRON HCL 1 MG TABLET PO ONE (09:51)
[2024-06-27] MEDS: INSULIN ASPART SLIDING SCALE (NOVOLOG) 1 VIAL SQ ONE (09:51)
[2024-06-27] MEDS: BORTEZOMIB 2.5 MG/ML SUB-Q INJECTION SQ ONE (10:37)
[2024-06-27 10:50] VITALS: BP 112/67; PULSE 76; RESP 20; TEMP 97.9
== END 2024-06-27 10:50 | disposition home or self-care (01) ==
LOC: JONCCHEMO 08:03 → J7W 08:06 → JONCCHEMO 10:50
PROVIDERS: ATTEND Internal Medicine Hematology & Oncology
DX: Z51.11 Encounter for antineoplastic chemotherapy (principal); C90.00 Multiple myeloma not having achieved remission
CPT/HCPCS: 36415; 80053; 82962; 83615; 83735; 84550; 85025; 96401; J9041

== ENCOUNTER 2024-07-11 08:12 | Day surgery (SDC) | payer OTHER, MEDICARE ==
[2024-07-11 08:48] LABS: BASO % 0.9 % (0-2.0); EOS % 4.5 % (0-4.5); HEMATOCRIT 37.1 % (35.4-49); HEMOGLOBIN 12.8 GM/dL (11.7-16.9); LYMPH % 13.2 % (8-40); MCH 30.7 pg (25.7-33.7); MCHC 34.4 g/dl (32.0-35.9); MEAN CELL VOLUME 89.2 fl (80-96); MEAN PLT VOLUME 7.2 fl (7.5-11.1); MONO % 15.9 % (3.8-10.2); NEUT % 65.5 % (42.8-82.8); PLATELET COUNT 176 10^3/uL (134-434); RBC 4.16 M/mm3 (4.00-5.60); RDW 15.9 % (11.9-15.9); WHITE BLOOD COUNT 4.7 K/mm3 (4.0-10.0)
[2024-07-11 08:58] LABS: CHLORIDE 106 mmol/L (98-107); POTASSIUM 4.1 mmol/L (3.5-5.1); SODIUM 138 mmol/L (136-145)
[2024-07-11 09:01] LABS: ALBUMIN 2.8 g/dl (3.4-5.0); ANION GAP 6 mmol/L (4-13); CALCIUM 8.9 mg/dL (8.5-10.1); CO2 26 mmol/L (21-32); GLUCOSE,RANDOM 137 mg/dL (74-106)
[2024-07-11 09:02] LABS: BLOOD UREA NITROGEN 18.4 mg/dL (7-18); MAGNESIUM 1.5 mg/dL (1.8-2.4)
[2024-07-11 09:04] LABS: BILIRUBIN,DIRECT 0.2 mg/dL (0.0-0.2); CREATININE 1.1 mg/dL (0.55-1.3); SGPT/ALT 23 U/L (13-61)
[2024-07-11 09:05] LABS: SGOT/AST 23 U/L (15-37); URIC ACID 2.3 mg/dL (2.6-7.2)
[2024-07-11 09:06] LABS: BILIRUBIN,TOTAL 0.6 mg/dL (0.2-1); TOT PROT 5.7 g/dl (6.4-8.2)
[2024-07-11 09:07] LABS: ALK PHOS 93 U/L (45-117)
[2024-07-11] MEDS: GRANISETRON HCL 1 MG TABLET PO ONE (09:24)
[2024-07-11] MEDS: MAGNESIUM OXIDE 400 MG TABLET (FP) PO ONE (09:25)
[2024-07-11] MEDS: DEXAMETHASONE 4 MG TABLET (FP) PO ONE (09:25)
[2024-07-11] MEDS: INSULIN ASPART SLIDING SCALE (NOVOLOG) 1 VIAL SQ ONE (09:25)
[2024-07-11] MEDS: BORTEZOMIB 2.5 MG/ML SUB-Q INJECTION SQ ONE (10:03)
[2024-07-11 15:45] VITALS: BP 114/62; PULSE 82; RESP 18; TEMP 98.5
[2024-07-12 17:06] LABS: FREE KAPPA,SERUM 98.8 mg/L (3.3-19.4)
[2024-07-12 18:08] LABS: IG A QN SERUM. 155 mg/dL (61-437)
[2024-07-13 07:11] LABS: FREE KAP CHN UR 6.03 mg/L (1.17-86.46); KAPPA LAMBDA RATIO URIN >8.74 (1.83-14.26)
== END 2024-07-11 10:30 | disposition home or self-care (01) ==
LOC: JONCCHEMO 08:12 → J7W 08:12 → JONCCHEMO 10:30
PROVIDERS: ATTEND Internal Medicine Hematology & Oncology
DX: Z51.11 Encounter for antineoplastic chemotherapy (principal); C90.00 Multiple myeloma not having achieved remission
CPT/HCPCS: 36415; 80048; 80076; 82232; 82784; 83615; 83735; 83883; 84155; 84165; 84550; 85025; 86335; 96401; J9041

== ENCOUNTER 2024-07-12 03:48 | Day surgery (SDC) | payer OTHER, MEDICARE ==
[2024-07-08 16:04] VITALS: BMI 43.9
[2024-07-12 06:38] VITALS: TEMP 97.7
[2024-07-12] MEDS ORDERED: LIDOCAINE HCL/PF 1% SDV 5ML VIAL ONE (07:09)
[2024-07-12 08:44] VITALS: BP 109/53; PULSE 54; RESP 20
[2024-07-12] MEDS ORDERED: ACETAMINOPHEN 500 MG TABLET (FP) PO PRN (12:27)
== END 2024-07-12 09:15 | disposition home or self-care (01) ==
LOC: JASU-SURG 03:48
PROVIDERS: ATTEND Pain Medicine Pain Medicine
PROC: 01HY3MZ Insertion of Neurostimulator Lead into Peripheral Nerve, Percutaneous Approach (ICD-10-PCS; principal; 2024-07-12 08:20)
DX: G89.4 Chronic pain syndrome (principal); M54.50 Low back pain, unspecified
CPT/HCPCS: 64555; C1778; 76000-TC-FY

== ENCOUNTER 2024-07-17 07:54 | Day surgery (SDC) | payer OTHER, MEDICARE ==
[2024-07-17 08:45] LABS: BASO % 0.3 % (0-2.0); EOS % 3.7 % (0-4.5); HEMATOCRIT 40.1 % (35.4-49); HEMOGLOBIN 13.3 GM/dL (11.7-16.9); LYMPH % 12.1 % (8-40); MCH 30.5 pg (25.7-33.7); MCHC 33.2 g/dl (32.0-35.9); MEAN CELL VOLUME 92.1 fl (80-96); MEAN PLT VOLUME 8.3 fl (7.5-11.1); MONO % 15.7 % (3.8-10.2); NEUT % 68.2 % (42.8-82.8); PLATELET COUNT 156 10^3/uL (134-434); RBC 4.36 M/mm3 (4.00-5.60); RDW 16.1 % (11.9-15.9)
[2024-07-17 08:54] LABS: CHLORIDE 108 mmol/L (98-107); POTASSIUM 4.3 mmol/L (3.5-5.1); SODIUM 141 mmol/L (136-145)
[2024-07-17 08:56] LABS: ALBUMIN 2.9 g/dl (3.4-5.0); CALCIUM 8.7 mg/dL (8.5-10.1)
[2024-07-17 08:57] LABS: ANION GAP 5 mmol/L (4-13); BLOOD UREA NITROGEN 15.4 mg/dL (7-18); CO2 29 mmol/L (21-32); GLUCOSE,RANDOM 177 mg/dL (74-106); MAGNESIUM 1.9 mg/dL (1.8-2.4)
[2024-07-17 08:59] LABS: CREATININE 1.1 mg/dL (0.55-1.3); SGPT/ALT 20 U/L (13-61); URIC ACID 3.8 mg/dL (2.6-7.2)
[2024-07-17 09:00] LABS: SGOT/AST 14 U/L (15-37)
[2024-07-17 09:01] LABS: BILIRUBIN,TOTAL 0.6 mg/dL (0.2-1); LDH 215 U/L (87-246); TOT PROT 5.7 g/dl (6.4-8.2)
[2024-07-17 09:02] LABS: ALK PHOS 86 U/L (45-117)
[2024-07-17] MEDS: MAGNESIUM OXIDE 400 MG TABLET (FP) PO ONE (10:03)
[2024-07-17] MEDS: DEXAMETHASONE 4 MG TABLET (FP) PO ONE (10:03)
[2024-07-17] MEDS: GRANISETRON HCL 1 MG TABLET PO ONE (10:04)
[2024-07-17] MEDS: INSULIN ASPART SLIDING SCALE (NOVOLOG) 1 VIAL SQ ONE (10:05)
[2024-07-17] MEDS: BORTEZOMIB 2.5 MG/ML SUB-Q INJECTION SQ ONE (10:20)
[2024-07-17 15:40] VITALS: BP 124/75; PULSE 86; RESP 20; TEMP 97.8
== END 2024-07-17 10:35 | disposition home or self-care (01) ==
LOC: JONCCHEMO 07:54 → J7W 08:00 → JONCCHEMO 10:35
PROVIDERS: ATTEND Internal Medicine Hematology & Oncology
PROC: 3E01305 Introduction of Other Antineoplastic into Subcutaneous Tissue, Percutaneous Approach (ICD-10-PCS; principal; 2024-07-17)
PROC: 3E013VG Introduction of Insulin into Subcutaneous Tissue, Percutaneous Approach (ICD-10-PCS; 2024-07-17)
DX: Z51.11 Encounter for antineoplastic chemotherapy (principal); C90.00 Multiple myeloma not having achieved remission
CPT/HCPCS: 36415; 80053; 83615; 83735; 84550; 85025; 96372; 96401; J9041

== ENCOUNTER 2024-07-25 08:01 | Day surgery (SDC) | payer OTHER, MEDICARE ==
[2024-07-25 08:28] LABS: BASO % 0.3 % (0-2.0); EOS % 2.1 % (0-4.5); HEMATOCRIT 38.8 % (35.4-49); HEMOGLOBIN 13.2 GM/dL (11.7-16.9); LYMPH % 11.5 % (8-40); MCH 31.2 pg (25.7-33.7); MEAN CELL VOLUME 91.5 fl (80-96); MEAN PLT VOLUME 8.8 fl (7.5-11.1); NEUT % 69.1 % (42.8-82.8); PLATELET COUNT 136 10^3/uL (134-434); RBC 4.24 M/mm3 (4.00-5.60); RDW 16.2 % (11.9-15.9); WHITE BLOOD COUNT 6.3 K/mm3 (4.0-10.0)
[2024-07-25 09:11] LABS: CHLORIDE 106 mmol/L (98-107); POTASSIUM 4.3 mmol/L (3.5-5.1); SODIUM 139 mmol/L (136-145)
[2024-07-25 09:13] LABS: CALCIUM 8.5 mg/dL (8.5-10.1)
[2024-07-25 09:14] LABS: ANION GAP 4 mmol/L (4-13); BLOOD UREA NITROGEN 17.6 mg/dL (7-18); CO2 29 mmol/L (21-32); GLUCOSE,RANDOM 129 mg/dL (74-106); MAGNESIUM 1.8 mg/dL (1.8-2.4)
[2024-07-25 09:17] LABS: SGOT/AST 12 U/L (15-37); SGPT/ALT 19 U/L (13-61)
[2024-07-25 09:18] LABS: BILIRUBIN,TOTAL 0.8 mg/dL (0.2-1); URIC ACID 3.6 mg/dL (2.6-7.2)
[2024-07-25 09:19] LABS: LDH 220 U/L (87-246); TOT PROT 5.5 g/dl (6.4-8.2)
[2024-07-25 09:20] LABS: ALK PHOS 81 U/L (45-117)
[2024-07-25] MEDS: MAGNESIUM OXIDE 400 MG TABLET (FP) PO ONE (10:27)
[2024-07-25] MEDS: DEXAMETHASONE 4 MG TABLET (FP) PO ONE (10:27)
[2024-07-25] MEDS: GRANISETRON HCL 1 MG TABLET PO ONE (10:27)
[2024-07-25] MEDS: INSULIN ASPART SLIDING SCALE (NOVOLOG) 1 VIAL SQ ONE (10:28)
[2024-07-25] MEDS: BORTEZOMIB 2.5 MG/ML SUB-Q INJECTION SQ ONE (10:31)
[2024-07-25 15:27] VITALS: BP 112/65; PULSE 65; RESP 18; TEMP 97.4
== END 2024-07-25 11:00 | disposition home or self-care (01) ==
LOC: JONCCHEMO 08:01 → J7W 08:02 → JONCCHEMO 11:00
PROVIDERS: ATTEND Internal Medicine Hematology & Oncology
DX: Z51.11 Encounter for antineoplastic chemotherapy (principal); C90.00 Multiple myeloma not having achieved remission
CPT/HCPCS: 36415; 80053; 83615; 83735; 84550; 85025; 96401; J9041

== ENCOUNTER 2024-08-03 06:29 | Inpatient (IN) | payer OTHER, MEDICARE ==
[2024-08-03 08:29] LABS: VENOUS BASE EXCESS -2.6 mmol/L (-2-2); VENOUS O2 SATURATION 47.1 % (70-80); VENOUS PCO2 38.9 mmHg (38-52); VENOUS PH 7.376 (7.310-7.410)
[2024-08-03] MEDS: SODIUM CHLORIDE 0.9% 500 ML INFUS.BAG IV ONE (08:32)
[2024-08-03 08:35] LABS: HEMATOCRIT 40.2 % (35.4-49); HEMOGLOBIN 13.1 GM/dL (11.7-16.9); MCH 30.3 pg (25.7-33.7); MCHC 32.6 g/dl (32.0-35.9); MEAN PLT VOLUME 8.8 fl (7.5-11.1); PLATELET COUNT 125 10^3/uL (134-434); RBC 4.33 M/mm3 (4.00-5.60); RDW 16.3 % (11.9-15.9); WHITE BLOOD COUNT 16.4 K/mm3 (4.0-10.0)
[2024-08-03 08:40] LABS: INR 1.28 (0.83-1.09); PROTHROMBIN TIME (PATIENT) 14.6 SEC (9.7-13.0)
[2024-08-03 08:42] LABS: ACTIVATED PTT 29.1 SECONDS (25.2-36.5)
[2024-08-03] MEDS ORDERED: CLINDAMYCIN 600MG PREMIX IVPB 600 MG/50 ML BAG IVPB ONE (08:51)
[2024-08-03] MEDS ORDERED: AMPICILLIN NA/SULBACTAM NA 1.5 GM VIAL ONE (08:51)
[2024-08-03] MEDS: CLINDAMYCIN 600MG PREMIX IVPB 600 MG/50 ML BAG IVPB ONE (08:59)
[2024-08-03 09:17] LABS: POTASSIUM 5.8 mmol/L (3.5-5.1)
[2024-08-03 09:19] LABS: ALBUMIN 3.1 g/dl (3.4-5.0); CALCIUM 8.7 mg/dL (8.5-10.1)
[2024-08-03 09:20] LABS: BLOOD UREA NITROGEN 19.7 mg/dL (7-18)
[2024-08-03 09:21] LABS: ANISOCYTOSIS 0; MACROCYTOSIS 0
[2024-08-03 09:23] LABS: CREATININE 1.2 mg/dL (0.55-1.3)
[2024-08-03 09:24] LABS: BILIRUBIN,TOTAL 1.5 mg/dL (0.2-1)
[2024-08-03] MEDS: AMPICILLIN NA/SULBACTAM NA 1.5 GM in SODIUM CHLORIDE 100 ML IVPB ONE (09:53)
[2024-08-03] MEDS ORDERED: ACETAMINOPHEN 325 MG TABLET (FP) PO PRN (14:50)
[2024-08-03 14:58] LABS: URINE APPEARANCE CLEAR; URINE BILIRUBIN NEGATIVE (NEGATIVE); URINE COLOR YELLOW; URINE GLUCOSE (UA) 1+ (NEGATIVE); URINE KETONE NEGATIVE (NEGATIVE); URINE LEUK ESTERASE NEGATIVE (NEGATIVE); URINE NITRITE NEGATIVE (NEGATIVE); URINE PROTEIN NEGATIVE (NEGATIVE)
[2024-08-03 15:17] LABS: POTASSIUM 4.3 mmol/L (3.5-5.1)
[2024-08-03 15:18] LABS: CALCIUM 8.3 mg/dL (8.5-10.1)
[2024-08-03 15:19] LABS: ALBUMIN 2.9 g/dl (3.4-5.0); BLOOD UREA NITROGEN 16.2 mg/dL (7-18)
[2024-08-03 15:24] LABS: BILIRUBIN,TOTAL 1.2 mg/dL (0.2-1)
[2024-08-03 15:25] LABS: TOT PROT 5.2 g/dl (6.4-8.2)
[2024-08-03] MEDS ORDERED: WARFARIN NA 5 MG TABLET ONE (17:57)
[2024-08-03] MEDS: WARFARIN NA 5 MG TABLET PO SCH (18:02)
[2024-08-03] MEDS: metoPROLOL SUCCINATE 25 MG TAB.SR.24H (FP) PO SCH (22:36)
[2024-08-03] MEDS: GABAPENTIN 100 MG CAPSULE PO SCH (22:36)
[2024-08-03] MEDS: ATORVASTATIN CA 80 MG TABLET (FP) PO SCH (22:36)
[2024-08-03] MEDS: MONTELUKAST NA 10 MG TABLET PO SCH (22:36)
[2024-08-03] MEDS: HEPARIN NA (PORCINE) 5,000 UNITS/ML 1ML VIAL SQ SCH (22:36)
[2024-08-04 03:46] VITALS: BMI 43.2
[2024-08-04] MEDS: FUROSEMIDE 40 MG TABLET (FP) PO SCH (07:02)
[2024-08-04 07:35] LABS: BASO % 0.5 % (0-2.0); HEMATOCRIT 36.8 % (35.4-49); HEMOGLOBIN 12.1 GM/dL (11.7-16.9); LYMPH % 6.7 % (8-40); MCH 30.9 pg (25.7-33.7); MCHC 32.9 g/dl (32.0-35.9); MEAN CELL VOLUME 93.7 fl (80-96); MEAN PLT VOLUME 8.9 fl (7.5-11.1); MONO % 16.5 % (3.8-10.2); NEUT % 74.3 % (42.8-82.8); PLATELET COUNT 115 10^3/uL (134-434); RBC 3.92 M/mm3 (4.00-5.60); RDW 16.1 % (11.9-15.9); WHITE BLOOD COUNT 5.8 K/mm3 (4.0-10.0)
[2024-08-04 08:06] LABS: POTASSIUM 3.9 mmol/L (3.5-5.1)
[2024-08-04 08:13] LABS: CALCIUM 8.1 mg/dL (8.5-10.1)
[2024-08-04 08:14] LABS: ALBUMIN 2.6 g/dl (3.4-5.0); BLOOD UREA NITROGEN 17.4 mg/dL (7-18); MAGNESIUM 1.8 mg/dL (1.8-2.4)
[2024-08-04 08:17] LABS: CREATININE 0.8 mg/dL (0.55-1.3)
[2024-08-04 08:18] LABS: BILIRUBIN,TOTAL 1.3 mg/dL (0.2-1)
[2024-08-04] MEDS: LOSARTAN POTASSIUM 50 MG TABLET PO SCH (09:17)
[2024-08-04] MEDS: SERTRALINE HCL 25 MG TABLET (FP) PO SCH (09:17)
[2024-08-04] MEDS: SPIRONOLACTONE 25 MG TABLET PO SCH (09:17)
[2024-08-04] MEDS: TAMSULOSIN HCL 0.4 MG CAP PO SCH (09:17)
[2024-08-04] MEDS: AMPICILLIN NA/SULBACTAM NA 1.5 GM in SODIUM CHLORIDE 100 ML IVPB SCH (15:21)
[2024-08-04] MEDS: INSULIN ASPART SLIDING SCALE (NOVOLOG) 1 VIAL SQ SCH (16:41)
[2024-08-04 18:00] LABS: INR 1.43 (0.83-1.09)
[2024-08-04] MEDS: WARFARIN NA 5 MG TABLET PO SCH (19:01)
[2024-08-05 07:43] LABS: INR 5.97 (0.83-1.09)
[2024-08-05 09:19] LABS: INR 1.5 (0.83-1.09); PROTHROMBIN TIME (PATIENT) 17.1 SEC (9.7-13.0)
[2024-08-05 18:06] LABS: INR 1.51 (0.83-1.09); PROTHROMBIN TIME (PATIENT) 17.2 SEC (9.7-13.0)
[2024-08-06] MEDS: APIXABAN 5 MG TABLET PO SCH (09:04)
[2024-08-06 09:10] LABS: INR 1.71 (0.83-1.09)
[2024-08-06 09:21] LABS: BASO % 0.7 % (0-2.0); EOS % 3.9 % (0-4.5); HEMATOCRIT 38.4 % (35.4-49); HEMOGLOBIN 13.1 GM/dL (11.7-16.9); LYMPH % 11.6 % (8-40); MCHC 34.2 g/dl (32.0-35.9); MEAN CELL VOLUME 90.5 fl (80-96); MEAN PLT VOLUME 8.3 fl (7.5-11.1); MONO % 17.2 % (3.8-10.2); NEUT % 66.6 % (42.8-82.8); PLATELET COUNT 164 10^3/uL (134-434); RBC 4.24 M/mm3 (4.00-5.60); RDW 15.8 % (11.9-15.9); WHITE BLOOD COUNT 4.8 K/mm3 (4.0-10.0)
[2024-08-06] MEDS ORDERED: WARFARIN NA 7.5 MG TABLET PO ONE (18:00)
[2024-08-09 05:54] VITALS: TEMP 98.2
[2024-08-09 10:42] VITALS: BP 119/66; PULSE 86; RESP 19
[2024-08-09] MEDS ORDERED: AMOX TR/POT CLAV 875MG/125MG TABLETS (FP) PO SCH (17:30)
== END 2024-08-09 14:45 | disposition home or self-care (01) | DRG 603 ==
LOC: JER 06:29 → JERBED 13:04 → J4W 22:13
PROVIDERS: ADMIT Family Medicine; ATTEND Family Medicine
DX: L03.115 Cellulitis of right lower limb (principal); C90.00 Multiple myeloma not having achieved remission; Z68.41 Body mass index [BMI] 40.0-44.9, adult; E66.01 Morbid (severe) obesity due to excess calories; E11.9 Type 2 diabetes mellitus without complications; I10 Essential (primary) hypertension; E78.5 Hyperlipidemia, unspecified; N40.0 Benign prostatic hyperplasia without lower urinary tract symptoms; I48.0 Paroxysmal atrial fibrillation
CPT/HCPCS: 0241U-QW; 36415; 70450-TC; 71045-TC-FY; 72125-TC; 73610-TC-LT-FY; 73630-TC-LT; 80053; 81003; 82803; 82962; 83036; 83605; 83735; 84443; 84484; 85025; 85610; 85730; 86850; 86900; 86901; 87040; 87086; 93005; 93010; 93970-TC; 99285-25; J1644

== ENCOUNTER 2024-08-13 07:33 | Day surgery (SDC) | payer OTHER, MEDICARE ==
[2024-08-13 08:26] LABS: BASO % 0.7 % (0-2.0); EOS % 5.2 % (0-4.5); HEMATOCRIT 39.3 % (35.4-49); HEMOGLOBIN 13.3 GM/dL (11.7-16.9); MCH 30.8 pg (25.7-33.7); MCHC 33.8 g/dl (32.0-35.9); MEAN PLT VOLUME 7.8 fl (7.5-11.1); MONO % 14.3 % (3.8-10.2); NEUT % 65.8 % (42.8-82.8); PLATELET COUNT 183 10^3/uL (134-434); RBC 4.32 M/mm3 (4.00-5.60); RDW 15.4 % (11.9-15.9); WHITE BLOOD COUNT 5.3 K/mm3 (4.0-10.0)
[2024-08-13 08:44] LABS: POTASSIUM 4.2 mmol/L (3.5-5.1)
[2024-08-13 08:46] LABS: CALCIUM 8.6 mg/dL (8.5-10.1)
[2024-08-13 08:47] LABS: BLOOD UREA NITROGEN 12.5 mg/dL (7-18); MAGNESIUM 1.6 mg/dL (1.8-2.4)
[2024-08-13 08:48] LABS: URIC ACID 3.4 mg/dL (2.6-7.2)
[2024-08-13 08:50] LABS: CREATININE 1.2 mg/dL (0.55-1.3)
[2024-08-13 08:52] LABS: BILIRUBIN,TOTAL 0.6 mg/dL (0.2-1); TOT PROT 5.8 g/dl (6.4-8.2)
[2024-08-13 09:05] LABS: ALBUMIN 3.2 g/dl (3.4-5.0)
[2024-08-13 09:28] VITALS: BP 119/68; PULSE 77; RESP 18; TEMP 98.1
[2024-08-13] MEDS: INSULIN ASPART SLIDING SCALE (NOVOLOG) 1 VIAL SQ ONE (09:32)
[2024-08-13] MEDS: DEXAMETHASONE 4 MG TABLET (FP) PO ONE (09:33)
[2024-08-13] MEDS: MAGNESIUM OXIDE 400 MG TABLET (FP) PO ONE (09:40)
[2024-08-13] MEDS: GRANISETRON HCL 1 MG TABLET PO ONE (10:19)
[2024-08-13] MEDS: BORTEZOMIB 2.5 MG/ML SUB-Q INJECTION SQ ONE (10:19)
== END 2024-08-13 10:30 | disposition home or self-care (01) ==
LOC: JONCCHEMO 07:33 → J7W 07:34 → JONCCHEMO 10:30
PROVIDERS: ATTEND Internal Medicine Hematology & Oncology
PROC: 3E013GC Introduction of Other Therapeutic Substance into Subcutaneous Tissue, Percutaneous Approach (ICD-10-PCS; principal; 2024-08-13)
DX: Z51.11 Encounter for antineoplastic chemotherapy (principal); C90.00 Multiple myeloma not having achieved remission
CPT/HCPCS: 36415; 80053; 83615; 83735; 84550; 85025; 96401; J9041

== ENCOUNTER 2024-08-22 08:32 | Day surgery (SDC) | payer OTHER, MEDICARE ==
[2024-08-22 08:51] LABS: HEMATOCRIT 41.3 % (35.4-49); HEMOGLOBIN 13.7 GM/dL (11.7-16.9); MCH 30.5 pg (25.7-33.7); MCHC 33.2 g/dl (32.0-35.9); MEAN PLT VOLUME 8.5 fl (7.5-11.1); PLATELET COUNT 158 10^3/uL (134-434); RBC 4.49 M/mm3 (4.00-5.60); RDW 14.9 % (11.9-15.9); WHITE BLOOD COUNT 6.2 K/mm3 (4.0-10.0)
[2024-08-22 09:10] LABS: CHLORIDE 106 mmol/L (98-107); POTASSIUM 3.9 mmol/L (3.5-5.1); SODIUM 139 mmol/L (136-145)
[2024-08-22 09:15] LABS: ALBUMIN 3.3 g/dl (3.4-5.0); CALCIUM 9.2 mg/dL (8.5-10.1)
[2024-08-22 09:17] LABS: ANION GAP 6 mmol/L (4-13); BLOOD UREA NITROGEN 18.1 mg/dL (7-18); CO2 27 mmol/L (21-32); GLUCOSE,RANDOM 140 mg/dL (74-106); MAGNESIUM 1.9 mg/dL (1.8-2.4); SGPT/ALT 23 U/L (13-61)
[2024-08-22 09:18] LABS: SGOT/AST 18 U/L (15-37); URIC ACID 3.8 mg/dL (2.6-7.2)
[2024-08-22 09:19] LABS: BILIRUBIN,TOTAL 0.7 mg/dL (0.2-1); CREATININE 1.3 mg/dL (0.55-1.3)
[2024-08-22 09:20] LABS: ALK PHOS 102 U/L (45-117)
[2024-08-22] MEDS: INSULIN ASPART SLIDING SCALE (NOVOLOG) 1 VIAL SQ ONE (09:25)
[2024-08-22 09:28] VITALS: BP 102/59; PULSE 77; RESP 20; TEMP 97.7
[2024-08-22 09:30] LABS: ANISOCYTOSIS 0; MACROCYTOSIS 0
[2024-08-22] MEDS: MAGNESIUM OXIDE 400 MG TABLET (FP) PO ONE (09:33)
[2024-08-22] MEDS: GRANISETRON HCL 1 MG TABLET PO ONE (09:33)
[2024-08-22] MEDS: DEXAMETHASONE 4 MG TABLET (FP) PO ONE (09:33)
[2024-08-22] MEDS: BORTEZOMIB 2.5 MG/ML SUB-Q INJECTION SQ ONE (10:05)
== END 2024-08-22 10:15 | disposition home or self-care (01) ==
LOC: JONCCHEMO 08:32 → J7W 08:37 → JONCCHEMO 10:15
PROVIDERS: ATTEND Internal Medicine Hematology & Oncology
DX: Z51.11 Encounter for antineoplastic chemotherapy (principal); C90.00 Multiple myeloma not having achieved remission
CPT/HCPCS: 36415; 80053; 83615; 83735; 84550; 85025; 96401; J9041

== ENCOUNTER 2024-09-11 07:51 | Day surgery (SDC) | payer OTHER, MEDICARE ==
[2024-09-11 09:13] LABS: BASO % 0.4 % (0-2.0); EOS % 4.6 % (0-4.5); HEMATOCRIT 42.6 % (35.4-49); HEMOGLOBIN 14.1 GM/dL (11.7-16.9); LYMPH % 16.4 % (8-40); MCH 30.1 pg (25.7-33.7); MCHC 33.2 g/dl (32.0-35.9); MEAN CELL VOLUME 90.9 fl (80-96); MONO % 18.3 % (3.8-10.2); NEUT % 60.3 % (42.8-82.8); PLATELET COUNT 124 10^3/uL (134-434); RBC 4.68 M/mm3 (4.00-5.60); RDW 14.7 % (11.9-15.9); WHITE BLOOD COUNT 5.3 K/mm3 (4.0-10.0)
[2024-09-11 09:20] LABS: CHLORIDE 105 mmol/L (98-107); POTASSIUM 4.4 mmol/L (3.5-5.1); SODIUM 140 mmol/L (136-145)
[2024-09-11] MEDS: DEXAMETHASONE 4 MG TABLET (FP) PO ONE (09:32)
[2024-09-11] MEDS: GRANISETRON HCL 1 MG TABLET PO ONE (09:33)
[2024-09-11 09:34] LABS: BLOOD UREA NITROGEN 22.7 mg/dL (7-18); CALCIUM 9.2 mg/dL (8.5-10.1)
[2024-09-11 09:35] LABS: ALBUMIN 3.2 g/dl (3.4-5.0); ANION GAP 7 mmol/L (4-13); CO2 27 mmol/L (21-32); GLUCOSE,RANDOM 131 mg/dL (74-106)
[2024-09-11 09:37] LABS: URIC ACID 2.3 mg/dL (2.6-7.2)
[2024-09-11 09:38] LABS: CREATININE 1.1 mg/dL (0.55-1.3); LDH 167 U/L (87-246)
[2024-09-11 09:39] LABS: BILIRUBIN,TOTAL 0.6 mg/dL (0.2-1); TOT PROT 5.8 g/dl (6.4-8.2)
[2024-09-11 09:40] LABS: ALK PHOS 100 U/L (45-117); SGOT/AST 11 U/L (15-37); SGPT/ALT 23 U/L (13-61)
[2024-09-11] MEDS: MAGNESIUM OXIDE 400 MG TABLET (FP) PO ONE (09:57)
[2024-09-11] MEDS: BORTEZOMIB 2.5 MG/ML SUB-Q INJECTION SQ ONE (09:58)
[2024-09-11] MEDS: INSULIN ASPART SLIDING SCALE (NOVOLOG) 1 VIAL SQ ONE (10:02)
[2024-09-11 10:16] VITALS: BP 142/73; PULSE 68; RESP 20; TEMP 97.5
== END 2024-09-11 10:40 | disposition home or self-care (01) ==
LOC: JONCCHEMO 07:51 → J7W 07:54 → JONCCHEMO 10:40
PROVIDERS: ATTEND Internal Medicine Hematology & Oncology
DX: Z51.11 Encounter for antineoplastic chemotherapy (principal); C90.00 Multiple myeloma not having achieved remission
CPT/HCPCS: 36415; 80053; 83615; 83735; 84550; 85025; 96401; J9041

== ENCOUNTER 2024-09-19 08:09 | Day surgery (SDC) | payer OTHER, MEDICARE ==
[2024-09-19 09:09] LABS: BASO % 0.3 % (0-2.0); EOS % 2.6 % (0-4.5); HEMATOCRIT 42.1 % (35.4-49); HEMOGLOBIN 13.8 GM/dL (11.7-16.9); LYMPH % 13.2 % (8-40); MCH 29.9 pg (25.7-33.7); MCHC 32.8 g/dl (32.0-35.9); MEAN CELL VOLUME 91.4 fl (80-96); MONO % 15.7 % (3.8-10.2); NEUT % 68.2 % (42.8-82.8); PLATELET COUNT 149 10^3/uL (134-434); RBC 4.61 M/mm3 (4.00-5.60); RDW 14.4 % (11.9-15.9); WHITE BLOOD COUNT 7.1 K/mm3 (4.0-10.0)
[2024-09-19 09:20] LABS: CHLORIDE 100 mmol/L (98-107); POTASSIUM 4.2 mmol/L (3.5-5.1); SODIUM 134 mmol/L (136-145)
[2024-09-19 09:22] LABS: CALCIUM 8.8 mg/dL (8.5-10.1)
[2024-09-19 09:23] LABS: ANION GAP 7 mmol/L (4-13); BLOOD UREA NITROGEN 20.4 mg/dL (7-18); CO2 27 mmol/L (21-32); GLUCOSE,RANDOM 142 mg/dL (74-106)
[2024-09-19 09:25] LABS: SGPT/ALT 20 U/L (13-61)
[2024-09-19 09:26] LABS: CREATININE 1.3 mg/dL (0.55-1.3); SGOT/AST 10 U/L (15-37)
[2024-09-19 09:27] LABS: BILIRUBIN,TOTAL 0.7 mg/dL (0.2-1); TOT PROT 5.8 g/dl (6.4-8.2)
[2024-09-19 09:28] LABS: ALK PHOS 102 U/L (45-117)
[2024-09-19] MEDS: DEXAMETHASONE 4 MG TABLET (FP) PO ONE (09:37)
[2024-09-19] MEDS: GRANISETRON HCL 1 MG TABLET PO ONE (09:37)
[2024-09-19] MEDS: INSULIN ASPART SLIDING SCALE (NOVOLOG) 1 VIAL SQ ONE (09:38)
[2024-09-19] MEDS: MAGNESIUM OXIDE 400 MG TABLET (FP) PO ONE (09:38)
[2024-09-19 09:40] LABS: URIC ACID 4.6 mg/dL (2.6-7.2)
[2024-09-19] MEDS: BORTEZOMIB 2.5 MG/ML SUB-Q INJECTION SQ ONE (10:18)
[2024-09-19 15:58] VITALS: BP 108/70; PULSE 101; RESP 16; TEMP 97.6
== END 2024-09-19 10:30 | disposition home or self-care (01) ==
LOC: JONCCHEMO 08:09 → J7W 08:15 → JONCCHEMO 10:30
PROVIDERS: ATTEND Internal Medicine Hematology & Oncology
DX: Z51.11 Encounter for antineoplastic chemotherapy (principal); C90.00 Multiple myeloma not having achieved remission
CPT/HCPCS: 36415; 80053; 83615; 83735; 84550; 85025; 96401; J9041

== ENCOUNTER 2024-10-03 08:08 | Day surgery (SDC) | payer OTHER, MEDICARE ==
[2024-10-03 09:09] LABS: BASO % 0.7 % (0-2.0); EOS % 4.6 % (0-4.5); HEMATOCRIT 42.2 % (35.4-49); HEMOGLOBIN 13.8 GM/dL (11.7-16.9); LYMPH % 15.9 % (8-40); MCH 29.7 pg (25.7-33.7); MCHC 32.7 g/dl (32.0-35.9); MEAN CELL VOLUME 90.7 fl (80-96); MONO % 17.7 % (3.8-10.2); NEUT % 61.1 % (42.8-82.8); PLATELET COUNT 181 10^3/uL (134-434); RBC 4.65 M/mm3 (4.00-5.60); RDW 14.2 % (11.9-15.9); WHITE BLOOD COUNT 5.7 K/mm3 (4.0-10.0)
[2024-10-03 09:20] LABS: CALCIUM 9.3 mg/dL (8.5-10.1)
[2024-10-03 09:21] LABS: ALBUMIN 3.3 g/dl (3.4-5.0); BLOOD UREA NITROGEN 23.2 mg/dL (7-18); MAGNESIUM 1.9 mg/dL (1.8-2.4)
[2024-10-03 09:23] LABS: BILIRUBIN,DIRECT 0.2 mg/dL (0.0-0.2); CREATININE 1.5 mg/dL (0.55-1.3); URIC ACID 4.4 mg/dL (2.6-7.2)
[2024-10-03 09:25] LABS: BILIRUBIN,TOTAL 0.7 mg/dL (0.2-1); TOT PROT 6.1 g/dl (6.4-8.2)
[2024-10-03] MEDS: DEXAMETHASONE 4 MG TABLET (FP) PO ONE (09:37)
[2024-10-03] MEDS: MAGNESIUM OXIDE 400 MG TABLET (FP) PO ONE (09:46)
[2024-10-03] MEDS: GRANISETRON HCL 1 MG TABLET PO ONE (09:46)
[2024-10-03] MEDS: INSULIN ASPART SLIDING SCALE (NOVOLOG) 1 VIAL SQ ONE (09:47)
[2024-10-03] MEDS: BORTEZOMIB 2.5 MG/ML SUB-Q INJECTION SQ ONE (10:01)
[2024-10-03 14:52] VITALS: BP 106/65; PULSE 74; RESP 18; TEMP 97.8
[2024-10-04 19:06] LABS: FREE KAPPA,SERUM 107.9 mg/L (3.3-19.4)
[2024-10-06 10:08] LABS: BETA-2-MICROGLOBULIN 3.3 mg/L (0.6-2.4)
[2024-10-07 17:06] LABS: IG A QN SERUM. 165 mg/dL (61-437)
[2024-10-08 05:10] LABS: FREE KAP CHN UR 2.54 mg/L (1.17-86.46); KAPPA LAMBDA RATIO URIN >3.68 (1.83-14.26)
== END 2024-10-03 10:20 | disposition home or self-care (01) ==
LOC: JONCCHEMO 08:08 → J7W 08:10 → JONCCHEMO 10:20
PROVIDERS: ATTEND Internal Medicine Hematology & Oncology
DX: Z51.11 Encounter for antineoplastic chemotherapy (principal); C90.00 Multiple myeloma not having achieved remission
CPT/HCPCS: 36415; 80048; 80076; 82232; 82784; 83615; 83735; 83883; 84155; 84165; 84550; 85025; 86335; 96401; J9041

== ENCOUNTER 2024-10-14 08:00 | Day surgery (SDC) | payer OTHER, MEDICARE ==
[2024-10-14 08:58] LABS: BASO % 0.3 % (0-2.0); EOS % 3.9 % (0-4.5); HEMATOCRIT 42.8 % (35.4-49); HEMOGLOBIN 14.1 GM/dL (11.7-16.9); LYMPH % 21.2 % (8-40); MCH 29.5 pg (25.7-33.7); MCHC 32.9 g/dl (32.0-35.9); MEAN CELL VOLUME 89.7 fl (80-96); MEAN PLT VOLUME 7.9 fl (7.5-11.1); MONO % 14.6 % (3.8-10.2); PLATELET COUNT 165 10^3/uL (134-434); RBC 4.77 M/mm3 (4.00-5.60); RDW 14.3 % (11.9-15.9)
[2024-10-14 09:35] LABS: POTASSIUM 3.9 mmol/L (3.5-5.1)
[2024-10-14 09:38] LABS: CALCIUM 9.2 mg/dL (8.5-10.1)
[2024-10-14 09:39] LABS: ALBUMIN 3.2 g/dl (3.4-5.0); BLOOD UREA NITROGEN 17.8 mg/dL (7-18); MAGNESIUM 1.8 mg/dL (1.8-2.4)
[2024-10-14 09:42] LABS: CREATININE 1.2 mg/dL (0.55-1.3)
[2024-10-14 09:43] LABS: TOT PROT 6.2 g/dl (6.4-8.2)
[2024-10-14 09:49] LABS: URIC ACID 6.1 mg/dL (2.6-7.2)
[2024-10-14] MEDS: INSULIN ASPART SLIDING SCALE (NOVOLOG) 1 VIAL SQ ONE (09:53)
[2024-10-14] MEDS: GRANISETRON HCL 1 MG TABLET PO ONE (09:57)
[2024-10-14] MEDS: MAGNESIUM OXIDE 400 MG TABLET (FP) PO ONE (09:57)
[2024-10-14] MEDS: DEXAMETHASONE 4 MG TABLET (FP) PO ONE (10:14)
[2024-10-14] MEDS: BORTEZOMIB 2.5 MG/ML SUB-Q INJECTION SQ ONE (10:35)
[2024-10-14 15:50] VITALS: BP 144/83; PULSE 77; RESP 20; TEMP 98.2
== END 2024-10-14 10:50 | disposition home or self-care (01) ==
LOC: JONCCHEMO 08:00 → J7W 08:03 → JONCCHEMO 10:50
PROVIDERS: ATTEND Internal Medicine Hematology & Oncology
DX: Z51.11 Encounter for antineoplastic chemotherapy (principal); C90.00 Multiple myeloma not having achieved remission
CPT/HCPCS: 36415; 80053; 83615; 83735; 84550; 85025; 96401; J9041

== ENCOUNTER 2024-10-24 08:06 | Day surgery (SDC) | payer OTHER, MEDICARE ==
[2024-10-24 08:24] LABS: BASO % 0.4 % (0-2.0); EOS % 2.9 % (0-4.5); HEMOGLOBIN 14.4 GM/dL (11.7-16.9); LYMPH % 16.9 % (8-40); MCH 29.5 pg (25.7-33.7); MCHC 32.7 g/dl (32.0-35.9); MEAN CELL VOLUME 90.1 fl (80-96); MEAN PLT VOLUME 8.7 fl (7.5-11.1); MONO % 15.3 % (3.8-10.2); NEUT % 64.5 % (42.8-82.8); PLATELET COUNT 185 10^3/uL (134-434); RBC 4.88 M/mm3 (4.00-5.60); RDW 14.5 % (11.9-15.9); WHITE BLOOD COUNT 6.7 K/mm3 (4.0-10.0)
[2024-10-24 08:44] LABS: CHLORIDE 102 mmol/L (98-107); POTASSIUM 4.1 mmol/L (3.5-5.1); SODIUM 136 mmol/L (136-145)
[2024-10-24 08:46] LABS: ANION GAP 8 mmol/L (4-13); BLOOD UREA NITROGEN 21.3 mg/dL (7-18); CALCIUM 9.2 mg/dL (8.5-10.1); CO2 26 mmol/L (21-32); GLUCOSE,RANDOM 163 mg/dL (74-106); MAGNESIUM 1.7 mg/dL (1.8-2.4)
[2024-10-24 08:47] LABS: ALBUMIN 3.4 g/dl (3.4-5.0)
[2024-10-24 08:49] LABS: CREATININE 1.3 mg/dL (0.55-1.3); SGOT/AST 11 U/L (15-37); SGPT/ALT 19 U/L (13-61); URIC ACID 5.6 mg/dL (2.6-7.2)
[2024-10-24 08:51] LABS: BILIRUBIN,TOTAL 0.6 mg/dL (0.2-1); TOT PROT 6.2 g/dl (6.4-8.2)
[2024-10-24 08:52] LABS: ALK PHOS 114 U/L (45-117)
[2024-10-24 08:54] LABS: LDH 191 U/L (87-246)
[2024-10-24] MEDS: GRANISETRON HCL 1 MG TABLET PO ONE (08:59)
[2024-10-24] MEDS: INSULIN ASPART SLIDING SCALE (NOVOLOG) 1 VIAL SQ ONE (08:59)
[2024-10-24] MEDS: DEXAMETHASONE 4 MG TABLET (FP) PO ONE (08:59)
[2024-10-24] MEDS: MAGNESIUM OXIDE 400 MG TABLET (FP) PO ONE (09:02)
[2024-10-24] MEDS: BORTEZOMIB 2.5 MG/ML SUB-Q INJECTION SQ ONE (10:00)
[2024-10-24 14:25] VITALS: BP 143/80; PULSE 92; RESP 20; TEMP 98.4
== END 2024-10-24 10:30 | disposition home or self-care (01) ==
LOC: JONCCHEMO 08:06 → J7W 08:06 → JONCCHEMO 10:30
PROVIDERS: ATTEND Internal Medicine Hematology & Oncology
DX: Z51.11 Encounter for antineoplastic chemotherapy (principal); C90.00 Multiple myeloma not having achieved remission
CPT/HCPCS: 36415; 80053; 83615; 83735; 84550; 85025; 96401; J9041

== ENCOUNTER 2024-10-31 08:10 | Day surgery (SDC) | payer OTHER, MEDICARE ==
[2024-10-31 08:36] LABS: BASO % 0.4 % (0-2.0); EOS % 3.4 % (0-4.5); HEMOGLOBIN 14.8 GM/dL (11.7-16.9); LYMPH % 17.3 % (8-40); MCH 29.8 pg (25.7-33.7); MCHC 32.9 g/dl (32.0-35.9); MEAN CELL VOLUME 90.4 fl (80-96); MEAN PLT VOLUME 8.6 fl (7.5-11.1); MONO % 18.7 % (3.8-10.2); NEUT % 60.2 % (42.8-82.8); PLATELET COUNT 150 10^3/uL (134-434); RBC 4.98 M/mm3 (4.00-5.60); RDW 14.3 % (11.9-15.9); WHITE BLOOD COUNT 6.5 K/mm3 (4.0-10.0)
[2024-10-31 09:03] LABS: CHLORIDE 103 mmol/L (98-107); POTASSIUM 4.6 mmol/L (3.5-5.1); SODIUM 138 mmol/L (136-145)
[2024-10-31 09:05] LABS: CALCIUM 9.3 mg/dL (8.5-10.1)
[2024-10-31 09:06] LABS: ALBUMIN 3.4 g/dl (3.4-5.0); ANION GAP 6 mmol/L (4-13); BLOOD UREA NITROGEN 27.4 mg/dL (7-18); CO2 30 mmol/L (21-32); GLUCOSE,RANDOM 107 mg/dL (74-106); MAGNESIUM 2.3 mg/dL (1.8-2.4)
[2024-10-31 09:08] LABS: CREATININE 1.4 mg/dL (0.55-1.3); URIC ACID 6.3 mg/dL (2.6-7.2)
[2024-10-31 09:09] LABS: SGOT/AST 11 U/L (15-37); SGPT/ALT 17 U/L (13-61)
[2024-10-31 09:10] LABS: BILIRUBIN,TOTAL 0.7 mg/dL (0.2-1); LDH 180 U/L (87-246); TOT PROT 6.4 g/dl (6.4-8.2)
[2024-10-31 09:11] LABS: ALK PHOS 98 U/L (45-117)
[2024-10-31] MEDS: MAGNESIUM OXIDE 400 MG TABLET (FP) PO ONE (09:34)
[2024-10-31] MEDS: INSULIN ASPART SLIDING SCALE (NOVOLOG) 1 VIAL SQ ONE (09:34)
[2024-10-31] MEDS: GRANISETRON HCL 1 MG TABLET PO ONE (09:34)
[2024-10-31] MEDS: DEXAMETHASONE 4 MG TABLET (FP) PO ONE (09:34)
[2024-10-31] MEDS: BORTEZOMIB 2.5 MG/ML SUB-Q INJECTION SQ ONE (09:58)
[2024-10-31 12:42] VITALS: BP 129/79; PULSE 94; RESP 20; TEMP 98.3
== END 2024-10-31 10:15 | disposition home or self-care (01) ==
LOC: JONCCHEMO 08:10 → J7W 08:11 → JONCCHEMO 10:15
PROVIDERS: ATTEND Internal Medicine Hematology & Oncology
DX: Z51.11 Encounter for antineoplastic chemotherapy (principal); C90.00 Multiple myeloma not having achieved remission
CPT/HCPCS: 36415; 80053; 83615; 83735; 84550; 85025; 96401; J9041

== ENCOUNTER 2024-11-27 07:46 | Day surgery (SDC) | payer OTHER, MEDICARE ==
[2024-11-27 08:10] LABS: BASO % 0.3 % (0-2.0); EOS % 3.6 % (0-4.5); HEMATOCRIT 44.6 % (35.4-49); HEMOGLOBIN 14.6 GM/dL (11.7-16.9); LYMPH % 11.1 % (8-40); MCH 29.4 pg (25.7-33.7); MCHC 32.8 g/dl (32.0-35.9); MEAN CELL VOLUME 89.8 fl (80-96); MEAN PLT VOLUME 9.3 fl (7.5-11.1); PLATELET COUNT 143 10^3/uL (134-434); RBC 4.97 M/mm3 (4.00-5.60); RDW 14.4 % (11.9-15.9); WHITE BLOOD COUNT 7.8 K/mm3 (4.0-10.0)
[2024-11-27 08:29] LABS: CHLORIDE 105 mmol/L (98-107); POTASSIUM 4.5 mmol/L (3.5-5.1); SODIUM 138 mmol/L (136-145)
[2024-11-27 08:31] LABS: ANION GAP 6 mmol/L (4-13); BLOOD UREA NITROGEN 25.9 mg/dL (7-18); CO2 27 mmol/L (21-32); GLUCOSE,RANDOM 132 mg/dL (74-106); MAGNESIUM 2.1 mg/dL (1.8-2.4)
[2024-11-27 08:32] LABS: ALBUMIN 3.3 g/dl (3.4-5.0)
[2024-11-27 08:34] LABS: CREATININE 1.2 mg/dL (0.55-1.3); SGOT/AST 12 U/L (15-37); SGPT/ALT 18 U/L (13-61); URIC ACID 6.3 mg/dL (2.6-7.2)
[2024-11-27 08:36] LABS: BILIRUBIN,TOTAL 0.6 mg/dL (0.2-1); TOT PROT 6.1 g/dl (6.4-8.2)
[2024-11-27 08:37] LABS: ALK PHOS 103 U/L (45-117)
[2024-11-27 08:38] LABS: LDH 184 U/L (87-246)
[2024-11-27] MEDS: MAGNESIUM OXIDE 400 MG TABLET (FP) PO ONE (09:35)
[2024-11-27] MEDS: GRANISETRON HCL 1 MG TABLET PO ONE (09:35)
[2024-11-27] MEDS: DEXAMETHASONE 4 MG TABLET (FP) PO ONE (09:35)
[2024-11-27] MEDS: BORTEZOMIB 2.5 MG/ML SUB-Q INJECTION SQ ONE (09:46)
[2024-11-27] MEDS: INSULIN ASPART SLIDING SCALE (NOVOLOG) 1 VIAL SQ ONE (10:11)
[2024-11-27 15:08] VITALS: BP 135/81; PULSE 88; RESP 20; TEMP 97.6
== END 2024-11-27 10:00 | disposition home or self-care (01) ==
LOC: JONCCHEMO 07:46
PROVIDERS: ATTEND Internal Medicine Hematology & Oncology
DX: Z51.11 Encounter for antineoplastic chemotherapy (principal); C90.00 Multiple myeloma not having achieved remission
CPT/HCPCS: 36415; 80053; 83615; 83735; 84550; 85025; 96401; J9041

== ENCOUNTER 2024-12-05 07:04 | Day surgery (SDC) | payer OTHER, MEDICARE ==
[2024-12-04 14:22] VITALS: BMI 43.9
[2024-12-05 16:29] VITALS: BP 119/62; PULSE 73; RESP 16; TEMP 97.6
[2024-12-05] MEDS ORDERED: ACETAMINOPHEN 500 MG TABLET (FP) PO PRN (17:06)
== END 2024-12-05 16:53 | disposition home or self-care (01) ==
LOC: JASU-SURG 07:04
PROVIDERS: ATTEND Pain Medicine Pain Medicine
PROC: X05133A Destruction of Renal Sympathetic Nerve(s) using Radiofrequency Ablation, Percutaneous Approach, New Technology Group 10 (ICD-10-PCS; principal; 2024-12-05 15:52)
DX: M47.816 Spondylosis without myelopathy or radiculopathy, lumbar region (principal)
CPT/HCPCS: 76000-TC-FY

== ENCOUNTER 2024-12-19 09:08 | Day surgery (SDC) | payer OTHER, MEDICARE ==
[2024-12-19 10:08] LABS: BASO % 0.5 % (0-2.0); EOS % 4.8 % (0-4.5); HEMATOCRIT 40.3 % (35.4-49); HEMOGLOBIN 13.4 GM/dL (11.7-16.9); LYMPH % 16.7 % (8-40); MCH 29.5 pg (25.7-33.7); MCHC 33.3 g/dl (32.0-35.9); MEAN CELL VOLUME 88.4 fl (80-96); MEAN PLT VOLUME 8.1 fl (7.5-11.1); MONO % 17.7 % (3.8-10.2); NEUT % 60.3 % (42.8-82.8); PLATELET COUNT 153 10^3/uL (134-434); RBC 4.56 M/mm3 (4.00-5.60); RDW 14.7 % (11.9-15.9); WHITE BLOOD COUNT 5.4 K/mm3 (4.0-10.0)
[2024-12-19 10:28] LABS: CHLORIDE 109 mmol/L (98-107); POTASSIUM 3.6 mmol/L (3.5-5.1); SODIUM 141 mmol/L (136-145)
[2024-12-19 10:29] LABS: CALCIUM 8.5 mg/dL (8.5-10.1)
[2024-12-19 10:33] LABS: ALBUMIN 3.2 g/dl (3.4-5.0); ANION GAP 10 mmol/L (4-13); BLOOD UREA NITROGEN 15.7 mg/dL (7-18); CO2 22 mmol/L (21-32); GLUCOSE,RANDOM 100 mg/dL (74-106); MAGNESIUM 1.8 mg/dL (1.8-2.4); SGOT/AST 17 U/L (15-37); SGPT/ALT 18 U/L (13-61)
[2024-12-19] MEDS: MAGNESIUM OXIDE 400 MG TABLET (FP) PO ONE (10:41)
[2024-12-19] MEDS: DEXAMETHASONE 4 MG TABLET (FP) PO ONE (10:41)
[2024-12-19] MEDS: GRANISETRON HCL 1 MG TABLET PO ONE (10:41)
[2024-12-19 10:43] LABS: ALK PHOS 92 U/L (45-117); BILIRUBIN,TOTAL 0.7 mg/dL (0.2-1); LDH 189 U/L (87-246); TOT PROT 5.9 g/dl (6.4-8.2); URIC ACID 5.3 mg/dL (2.6-7.2)
[2024-12-19] MEDS: BORTEZOMIB 2.5 MG/ML SUB-Q INJECTION SQ ONE (10:57)
[2024-12-19] MEDS: INSULIN ASPART SLIDING SCALE (NOVOLOG) 1 VIAL SQ ONE (11:24)
[2024-12-19 15:38] VITALS: BP 101/67; PULSE 111; RESP 20; TEMP 97.7
== END 2024-12-19 11:30 | disposition home or self-care (01) ==
LOC: JONCCHEMO 09:08 → J7W 09:26 → JONCCHEMO 11:30
PROVIDERS: ATTEND Internal Medicine Hematology & Oncology
DX: Z51.11 Encounter for antineoplastic chemotherapy (principal); C90.00 Multiple myeloma not having achieved remission
CPT/HCPCS: 36415; 80053; 83036; 83615; 83735; 84550; 85025; 96401; J9041

== ENCOUNTER 2024-12-26 08:00 | Day surgery (SDC) | payer OTHER, MEDICARE ==
[2024-12-26 08:52] LABS: BASO % 0.4 % (0-2.0); EOS % 6.2 % (0-4.5); HEMATOCRIT 42.7 % (35.4-49); LYMPH % 13.7 % (8-40); MCH 29.8 pg (25.7-33.7); MCHC 32.9 g/dl (32.0-35.9); MEAN CELL VOLUME 90.5 fl (80-96); MEAN PLT VOLUME 8.6 fl (7.5-11.1); MONO % 15.7 % (3.8-10.2); PLATELET COUNT 127 10^3/uL (134-434); RBC 4.72 M/mm3 (4.00-5.60); RDW 15.1 % (11.9-15.9); WHITE BLOOD COUNT 6.2 K/mm3 (4.0-10.0)
[2024-12-26 09:03] LABS: CHLORIDE 107 mmol/L (98-107); POTASSIUM 4.4 mmol/L (3.5-5.1); SODIUM 139 mmol/L (136-145)
[2024-12-26 09:05] LABS: ALBUMIN 3.3 g/dl (3.4-5.0); ANION GAP 8 mmol/L (4-13); BLOOD UREA NITROGEN 29.9 mg/dL (7-18); CALCIUM 8.4 mg/dL (8.5-10.1); CO2 25 mmol/L (21-32); GLUCOSE,RANDOM 108 mg/dL (74-106); MAGNESIUM 1.8 mg/dL (1.8-2.4)
[2024-12-26 09:09] LABS: BILIRUBIN,TOTAL 0.7 mg/dL (0.2-1); CREATININE 1.4 mg/dL (0.55-1.3); LDH 209 U/L (87-246); SGOT/AST 20 U/L (15-37); SGPT/ALT 24 U/L (13-61); TOT PROT 5.9 g/dl (6.4-8.2); URIC ACID 6.9 mg/dL (2.6-7.2)
[2024-12-26 09:22] LABS: ALK PHOS 91 U/L (45-117)
[2024-12-26] MEDS: GRANISETRON HCL 1 MG TABLET PO ONE (09:52)
[2024-12-26] MEDS: INSULIN ASPART SLIDING SCALE (NOVOLOG) 1 VIAL SQ ONE (09:52)
[2024-12-26] MEDS: DEXAMETHASONE 4 MG TABLET (FP) PO ONE (09:52)
[2024-12-26] MEDS: MAGNESIUM OXIDE 400 MG TABLET (FP) PO ONE (09:52)
[2024-12-26 10:10] VITALS: BP 106/66; PULSE 96; RESP 20; TEMP 98.1
[2024-12-26] MEDS: BORTEZOMIB 2.5 MG/ML SUB-Q INJECTION SQ ONE (10:18)
== END 2024-12-26 10:45 | disposition home or self-care (01) ==
LOC: JONCCHEMO 08:00 → J7W 08:12 → JONCCHEMO 10:45
PROVIDERS: ATTEND Internal Medicine Hematology & Oncology
DX: Z51.11 Encounter for antineoplastic chemotherapy (principal); C90.00 Multiple myeloma not having achieved remission
CPT/HCPCS: 36415; 80053; 83615; 83735; 84550; 85025; 96401; J9041

== ENCOUNTER 2025-01-02 06:06 | Day surgery (SDC) | payer OTHER, MEDICARE ==
[2024-12-30 16:17] VITALS: BMI 43.9
[2025-01-02] MEDS: DEXAMETHASONE SOD PHOSPHATE 10 MG/1 ML VIAL IM ONE (18:08)
[2025-01-02] MEDS: LIDOCAINE 1% P/F 10 MG/ML VIAL INF ONE (18:08)
[2025-01-02] MEDS: BUPIVACAINE HCL/PF 0.75% 10 ML VIAL PNB ONE (18:09)
[2025-01-02 18:31] VITALS: BP 123/68; PULSE 69
[2025-01-02 18:43] VITALS: RESP 19; TEMP 97.3
== END 2025-01-02 18:34 | disposition home or self-care (01) ==
LOC: JASU-SURG 06:06
PROVIDERS: ATTEND Pain Medicine Pain Medicine
PROC: 015B3ZZ Destruction of Lumbar Nerve, Percutaneous Approach (ICD-10-PCS; principal; 2025-01-02 15:45)
DX: M47.816 Spondylosis without myelopathy or radiculopathy, lumbar region (principal)
CPT/HCPCS: 76000-TC-FY; J1100

== ENCOUNTER 2025-01-02 08:47 | Day surgery (SDC) | payer OTHER, MEDICARE ==
[2025-01-02 08:34] LABS: ABSOLUTE IMMATURE GRANULOCYTES 0.17 x10^3/uL (0.0-0.031); BASOPHILS # 0.04 x10^3/uL (0.01-0.08); EOSINOPHIL % 4.2 % (0.8-7.0); EOSINOPHILS # 0.34 x10^3/uL (0.04-0.54); HEMOGLOBIN 13.4 g/dL (13.7-17.5); MCHC 31.9 g/dl (32.3-36.5); MEAN CELL VOLUME 90.5 fl (79.0-92.2); PLATELET COUNT # 133 x10^3/uL (163-337); RDW 14.2 % (12.2-16.6)
[2025-01-02 08:54] LABS: CHLORIDE 107 mmol/L (98-107); POTASSIUM 4.8 mmol/L (3.5-5.1); SODIUM 138 mmol/L (136-145)
[2025-01-02 08:57] LABS: CALCIUM 8.7 mg/dL (8.5-10.1)
[2025-01-02 08:58] LABS: ALBUMIN 3.1 g/dl (3.4-5.0); ANION GAP 7 mmol/L (4-13); BLOOD UREA NITROGEN 22.8 mg/dL (7-18); CO2 24 mmol/L (21-32); GLUCOSE,RANDOM 140 mg/dL (74-106)
[2025-01-02 09:00] LABS: URIC ACID 6.1 mg/dL (2.6-7.2)
[2025-01-02 09:01] LABS: CREATININE 1.2 mg/dL (0.55-1.3); SGOT/AST 14 U/L (15-37); SGPT/ALT 15 U/L (13-61)
[2025-01-02 09:03] LABS: BILIRUBIN,TOTAL 0.6 mg/dL (0.2-1); TOT PROT 5.7 g/dl (6.4-8.2)
[2025-01-02 09:04] LABS: ALK PHOS 93 U/L (45-117)
[2025-01-02 09:06] LABS: LDH 179 U/L (87-246)
[2025-01-02] MEDS: INSULIN ASPART SLIDING SCALE (NOVOLOG) 1 VIAL SQ ONE (09:48)
[2025-01-02] MEDS: MAGNESIUM OXIDE 400 MG TABLET (FP) PO ONE (09:51)
[2025-01-02] MEDS: DEXAMETHASONE 4 MG TABLET (FP) PO ONE (09:52)
[2025-01-02] MEDS: GRANISETRON HCL 1 MG TABLET PO ONE (09:52)
[2025-01-02] MEDS: BORTEZOMIB 2.5 MG/ML SUB-Q INJECTION SQ ONE (10:50)
[2025-01-02 10:53] LABS: MAGNESIUM 2.1 mg/dL (1.8-2.4)
[2025-01-02 14:27] VITALS: BP 109/67; PULSE 83; RESP 20; TEMP 97.5
== END 2025-01-02 11:05 | disposition home or self-care (01) ==
LOC: JONCCHEMO 08:47 → J7W 08:48 → JONCCHEMO 11:05
PROVIDERS: ATTEND Internal Medicine Hematology & Oncology
DX: Z51.11 Encounter for antineoplastic chemotherapy (principal); C90.00 Multiple myeloma not having achieved remission
CPT/HCPCS: 36415; 80053; 83036; 83615; 83735; 84550; 85025; 96401; J9041

== ENCOUNTER 2025-01-14 02:01 | Inpatient (IN) | payer OTHER, MEDICARE ==
[2025-01-14 02:28] VITALS: BMI 43.4
[2025-01-14] MEDS: SODIUM CHLORIDE 0.9% 500 ML INFUS.BAG IV ONE (03:29)
[2025-01-14 03:44] LABS: ABSOLUTE IMMATURE GRANULOCYTES 0.06 x10^3/uL (0.0-0.031); BASOPHILS # 0.03 x10^3/uL (0.01-0.08); EOSINOPHIL % 1.5 % (0.8-7.0); EOSINOPHILS # 0.11 x10^3/uL (0.04-0.54); HEMATOCRIT 40.1 % (40.1-51.0); HEMOGLOBIN 12.7 g/dL (13.7-17.5); MCHC 31.7 g/dl (32.3-36.5); MEAN CELL VOLUME 92.6 fl (79.0-92.2); MEAN PLT VOLUME 9.9 fl (9.4-12.4); MONOCYTE # 1.09 x10^3/uL (0.30-0.82); MONOCYTE % 14.9 % (5.3-12.2); PLATELET COUNT 145 x10^3/uL (163-337); RDW 14.8 % (12.2-16.6)
[2025-01-14 03:45] LABS: URINE APPEARANCE CLEAR; URINE BILIRUBIN NEGATIVE (NEGATIVE); URINE COLOR YELLOW; URINE GLUCOSE (UA) 2+ (NEGATIVE); URINE KETONE TRACE (NEGATIVE); URINE LEUK ESTERASE NEGATIVE (NEGATIVE); URINE NITRITE NEGATIVE (NEGATIVE); URINE PROTEIN NEGATIVE (NEGATIVE); URINE UROBILINOGEN 0.2 mg/dL (0.2-1.0)
[2025-01-14 03:59] LABS: POTASSIUM 4.6 mmol/L (3.5-5.1)
[2025-01-14 04:02] LABS: ALBUMIN 3.1 g/dl (3.4-5.0); BLOOD UREA NITROGEN 23.8 mg/dL (7-18); CALCIUM 8.7 mg/dL (8.5-10.1)
[2025-01-14 04:06] LABS: CREATININE 1.2 mg/dL (0.55-1.3)
[2025-01-14 04:07] LABS: BILIRUBIN,TOTAL 0.9 mg/dL (0.2-1)
[2025-01-14 04:08] LABS: TOT PROT 5.5 g/dl (6.4-8.2)
[2025-01-14] MEDS ORDERED: DOCUSATE SODIUM 100 MG CAPSULE (FP) PO PRN (06:14)
[2025-01-14] MEDS ORDERED: ACETAMINOPHEN 500 MG TABLET (FP) PO PRN (06:14)
[2025-01-14] MEDS: INSULIN ASPART SLIDING SCALE (NOVOLOG) 1 VIAL SQ SCH (08:33)
[2025-01-14] MEDS: APIXABAN 5 MG TABLET PO SCH (10:42)
[2025-01-14] MEDS: POLYETHYLENE GLYCOL (HEALTHYLAX) 3350 17 GM PACKET PO SCH (10:42)
[2025-01-14] MEDS: FUROSEMIDE 40 MG TABLET (FP) PO SCH (15:06)
[2025-01-14] MEDS: GABAPENTIN 100 MG CAPSULE PO SCH (21:29)
[2025-01-14] MEDS: metoPROLOL SUCCINATE 25 MG TAB.SR.24H (FP) PO SCH (21:29)
[2025-01-14] MEDS: ATORVASTATIN CA 80 MG TABLET (FP) PO SCH (21:29)
[2025-01-15 07:55] LABS: HEMOGLOBIN 13.5 g/dL (13.7-17.5); MCHC 32.1 g/dl (32.3-36.5); MEAN CELL VOLUME 91.1 fl (79.0-92.2); PLATELET COUNT 164 x10^3/uL (163-337); RDW 14.4 % (12.2-16.6)
[2025-01-15 08:18] LABS: POTASSIUM 3.8 mmol/L (3.5-5.1)
[2025-01-15 08:52] LABS: CALCIUM 8.7 mg/dL (8.5-10.1)
[2025-01-15 08:56] LABS: BLOOD UREA NITROGEN 17.8 mg/dL (7-18); CREATININE 1.1 mg/dL (0.55-1.3)
[2025-01-15 08:57] LABS: PHOSPHOROUS 3.8 mg/dL (2.5-4.9)
[2025-01-15] MEDS: TAMSULOSIN HCL 0.4 MG CAP PO SCH (09:43)
[2025-01-15] MEDS: SERTRALINE HCL 25 MG TABLET (FP) PO SCH (09:43)
[2025-01-15] MEDS: FUROSEMIDE 40 MG/4 ML INJECTABLE VIAL IVPUSH ONE (09:51)
[2025-01-15] MEDS: INSULIN GLARGINE (LANTUS) 100 UNITS/ML UNITS SQ SCH (09:52)
[2025-01-15 19:31] VITALS: RESP 18
[2025-01-16 08:54] VITALS: BP 106/60; PULSE 79; TEMP 97.9
== END 2025-01-16 13:15 | disposition home or self-care (01) | DRG 641 ==
LOC: JER 02:01 → JERBED 04:49 → J4S 06:39 → OBSVTOIN 01-15 10:54
PROVIDERS: ADMIT Internal Medicine; ATTEND Family Medicine
DX: E86.1 Hypovolemia (principal); C90.00 Multiple myeloma not having achieved remission; Z68.41 Body mass index [BMI] 40.0-44.9, adult; I50.32 Chronic diastolic (congestive) heart failure; I48.0 Paroxysmal atrial fibrillation; J45.909 Unspecified asthma, uncomplicated; K76.0 Fatty (change of) liver, not elsewhere classified; E66.01 Morbid (severe) obesity due to excess calories; I11.0 Hypertensive heart disease with heart failure; I25.10 Atherosclerotic heart disease of native coronary artery without angina pectoris; M51.369 Other intervertebral disc degeneration, lumbar region without mention of lumbar back pain or lower extremity pain; N40.0 Benign prostatic hyperplasia without lower urinary tract symptoms; R26.2 Difficulty in walking, not elsewhere classified; F32.A Depression, unspecified; N28.1 Cyst of kidney, acquired; G47.33 Obstructive sleep apnea (adult) (pediatric); M48.00 Spinal stenosis, site unspecified; E11.40 Type 2 diabetes mellitus with diabetic neuropathy, unspecified; I99.8 Other disorder of circulatory system; K21.9 Gastro-esophageal reflux disease without esophagitis; W18.30XA Fall on same level, unspecified, initial encounter; Y93.9 Activity, unspecified; Y92.098 Other place in other non-institutional residence as the place of occurrence of the external cause; Y99.9 Unspecified external cause status; Z85.46 Personal history of malignant neoplasm of prostate; Z96.653 Presence of artificial knee joint, bilateral; Z85.828 Personal history of other malignant neoplasm of skin
CPT/HCPCS: 0241U-QW; 36415; 70450-TC; 70551-TC; 71045-TC-FY; 72125-TC; 72131-TC; 80048; 80053; 81003; 82607; 82746; 82962; 83735; 84100; 84439; 84443; 84484; 85025; 87086; 93005; 93010; 97116-GP; 97162-GP; 99285-25; G0378

== ENCOUNTER 2025-01-23 08:10 | Day surgery (SDC) | payer OTHER, MEDICARE ==
[2025-01-23 09:18] LABS: ABSOLUTE IMMATURE GRANULOCYTES 0.05 x10^3/uL (0.0-0.031); BASOPHILS # 0.03 x10^3/uL (0.01-0.08); EOSINOPHIL % 7.3 % (0.8-7.0); EOSINOPHILS # 0.36 x10^3/uL (0.04-0.54); HEMATOCRIT 41.1 % (40.1-51.0); HEMOGLOBIN 13.3 g/dL (13.7-17.5); MCHC 32.4 g/dl (32.3-36.5); MEAN CELL VOLUME 90.9 fl (79.0-92.2); MEAN PLT VOLUME 9.8 fl (9.4-12.4); MONOCYTE # 0.85 x10^3/uL (0.30-0.82); MONOCYTE % 17.2 % (5.3-12.2); PLATELET COUNT 173 x10^3/uL (163-337); RDW 14.4 % (12.2-16.6)
[2025-01-23 09:48] LABS: CHLORIDE 106 mmol/L (98-107); POTASSIUM 4.1 mmol/L (3.5-5.1); SODIUM 139 mmol/L (136-145)
[2025-01-23 09:51] LABS: ALBUMIN 3.2 g/dl (3.4-5.0); CALCIUM 8.8 mg/dL (8.5-10.1); GLUCOSE,RANDOM 118 mg/dL (74-106)
[2025-01-23 09:52] LABS: ANION GAP 7 mmol/L (4-13); BLOOD UREA NITROGEN 19.5 mg/dL (7-18); CO2 27 mmol/L (21-32); MAGNESIUM 1.9 mg/dL (1.8-2.4)
[2025-01-23 09:54] LABS: BILIRUBIN,DIRECT 0.1 mg/dL (0.0-0.2); CREATININE 1.2 mg/dL (0.55-1.3); SGOT/AST 14 U/L (15-37); SGPT/ALT 16 U/L (13-61)
[2025-01-23 09:56] LABS: BILIRUBIN,TOTAL 0.5 mg/dL (0.2-1); TOT PROT 5.9 g/dl (6.4-8.2)
[2025-01-23 09:57] LABS: ALK PHOS 105 U/L (45-117)
[2025-01-23 09:58] LABS: LDH 187 U/L (87-246)
[2025-01-23] MEDS: DEXAMETHASONE 4 MG TABLET (FP) PO ONE (09:59)
[2025-01-23] MEDS: GRANISETRON HCL 1 MG TABLET PO ONE (09:59)
[2025-01-23] MEDS: MAGNESIUM OXIDE 400 MG TABLET (FP) PO ONE (09:59)
[2025-01-23] MEDS: BORTEZOMIB 2.5 MG/ML SUB-Q INJECTION SQ ONE (10:21)
[2025-01-23] MEDS: INSULIN ASPART SLIDING SCALE (NOVOLOG) 1 VIAL SQ ONE (10:22)
[2025-01-23 16:19] VITALS: BP 127/72; PULSE 70; RESP 20; TEMP 98.5
[2025-01-24 18:08] LABS: FREE KAPPA,SERUM 108.5 mg/L (3.3-19.4)
[2025-01-24 20:07] LABS: IG A QN SERUM. 151 mg/dL (61-437)
[2025-01-25 07:07] LABS: FREE KAP CHN UR 2.99 mg/L (1.17-86.46); KAPPA LAMBDA RATIO URIN >4.33 (1.83-14.26)
== END 2025-01-23 10:30 | disposition home or self-care (01) ==
LOC: JONCCHEMO 08:10
PROVIDERS: ATTEND Internal Medicine Hematology & Oncology
DX: Z51.11 Encounter for antineoplastic chemotherapy (principal); C90.00 Multiple myeloma not having achieved remission
CPT/HCPCS: 36415; 80048; 80076; 82232; 82784; 83615; 83735; 83883; 84155; 84165; 84550; 85025; 86335; 96401; J9041

== ENCOUNTER 2025-02-13 08:18 | Day surgery (SDC) | payer OTHER, MEDICARE ==
[2025-02-13 08:22] LABS: ABSOLUTE IMMATURE GRANULOCYTES 0.04 x10^3/uL (0.0-0.031); BASOPHILS # 0.03 x10^3/uL (0.01-0.08); MCHC 32.2 g/dl (32.3-36.5); MEAN CELL VOLUME 92.9 fl (79.0-92.2)
[2025-02-13 08:23] LABS: EOSINOPHIL % 2.9 % (0.8-7.0); EOSINOPHILS # 0.17 x10^3/uL (0.04-0.54); HEMATOCRIT 41.6 % (40.1-51.0); HEMOGLOBIN 13.4 g/dL (13.7-17.5); MONOCYTE # 0.87 x10^3/uL (0.30-0.82); MONOCYTE % 15.1 % (5.3-12.2); PLATELET COUNT 133 x10^3/uL (163-337); RDW 15.1 % (12.2-16.6)
[2025-02-13 08:43] LABS: POTASSIUM 4.2 mmol/L (3.5-5.1)
[2025-02-13 08:45] LABS: ALBUMIN 3.3 g/dl (3.4-5.0); MAGNESIUM 1.9 mg/dL (1.8-2.4)
[2025-02-13 08:47] LABS: URIC ACID 5.3 mg/dL (2.6-7.2)
[2025-02-13 08:49] LABS: BILIRUBIN,DIRECT 0.3 mg/dL (0.0-0.2)
[2025-02-13 08:50] LABS: TOT PROT 5.8 g/dl (6.4-8.2)
[2025-02-13 08:51] LABS: BILIRUBIN,TOTAL 0.8 mg/dL (0.2-1)
[2025-02-13] MEDS: DEXAMETHASONE 4 MG TABLET (FP) PO ONE (09:22)
[2025-02-13] MEDS: GRANISETRON HCL 1 MG TABLET PO ONE (09:23)
[2025-02-13] MEDS: MAGNESIUM OXIDE 400 MG TABLET (FP) PO ONE (09:23)
[2025-02-13] MEDS: BORTEZOMIB 2.5 MG/ML SUB-Q INJECTION SQ ONE (09:54)
[2025-02-13] MEDS: INSULIN ASPART SLIDING SCALE (NOVOLOG) 1 VIAL SQ ONE (09:55)
[2025-02-13 10:13] VITALS: BP 100/60; PULSE 74; RESP 18; TEMP 97.7
[2025-02-14 18:12] LABS: FREE KAPPA,SERUM 87.3 mg/L (3.3-19.4)
[2025-02-14 19:06] LABS: IG A QN SERUM. 140 mg/dL (61-437)
[2025-02-15 07:07] LABS: FREE KAP CHN UR 3.69 mg/L (1.17-86.46); KAPPA LAMBDA RATIO URIN 4.73 (1.83-14.26)
[2025-02-16 15:07] LABS: BETA-2-MICROGLOBULIN 2.5 mg/L (0.6-2.4)
== END 2025-02-13 10:10 | disposition home or self-care (01) ==
LOC: JONCCHEMO 08:18
PROVIDERS: ATTEND Internal Medicine Hematology & Oncology
DX: Z51.11 Encounter for antineoplastic chemotherapy (principal); C90.00 Multiple myeloma not having achieved remission
CPT/HCPCS: 36415; 80048; 80076; 82232; 82784; 83615; 83735; 83883; 84155; 84165; 84550; 85025; 86335; 96401; J9041

== ENCOUNTER 2025-02-20 08:25 | Day surgery (SDC) | payer OTHER, MEDICARE ==
[2025-02-20 09:05] LABS: MEAN CELL VOLUME 92.3 fl (79.0-92.2); PLATELET COUNT 115 x10^3/uL (163-337); RDW 14.6 % (12.2-16.6)
[2025-02-20 09:07] LABS: ABSOLUTE IMMATURE GRANULOCYTES 0.05 x10^3/uL (0.0-0.031); BASOPHILS # 0.03 x10^3/uL (0.01-0.08); EOSINOPHIL % 4.6 % (0.8-7.0); EOSINOPHILS # 0.28 x10^3/uL (0.04-0.54); HEMATOCRIT 44.4 % (40.1-51.0); HEMOGLOBIN 14.2 g/dL (13.7-17.5); MEAN PLT VOLUME 11.2 fl (9.4-12.4); MONOCYTE % 14.7 % (5.3-12.2)
[2025-02-20 09:25] LABS: CHLORIDE 104 mmol/L (98-107); POTASSIUM 4.5 mmol/L (3.5-5.1); SODIUM 135 mmol/L (136-145)
[2025-02-20 09:28] LABS: ALBUMIN 3.3 g/dl (3.4-5.0); ANION GAP 4 mmol/L (4-13); CO2 27 mmol/L (21-32); GLUCOSE,RANDOM 160 mg/dL (74-106)
[2025-02-20 09:30] LABS: URIC ACID 5.3 mg/dL (2.6-7.2)
[2025-02-20 09:31] LABS: BILIRUBIN,TOTAL 1.1 mg/dL (0.2-1); CREATININE 1.2 mg/dL (0.55-1.3); SGOT/AST 12 U/L (15-37); SGPT/ALT 19 U/L (13-61); TOT PROT 5.9 g/dl (6.4-8.2)
[2025-02-20 09:33] LABS: ALK PHOS 92 U/L (45-117)
[2025-02-20 09:35] LABS: LDH 203 U/L (87-246)
[2025-02-20] MEDS: GRANISETRON HCL 1 MG TABLET PO ONE (10:09)
[2025-02-20] MEDS: MAGNESIUM OXIDE 400 MG TABLET (FP) PO ONE (10:09)
[2025-02-20] MEDS: DEXAMETHASONE 4 MG TABLET (FP) PO ONE (10:09)
[2025-02-20] MEDS: BORTEZOMIB 2.5 MG/ML SUB-Q INJECTION SQ ONE (10:10)
[2025-02-20] MEDS: INSULIN ASPART SLIDING SCALE (NOVOLOG) 1 VIAL SQ ONE (10:10)
[2025-02-20 15:40] VITALS: BP 120/68; PULSE 63; RESP 22; TEMP 97.8
== END 2025-02-20 10:30 | disposition home or self-care (01) ==
LOC: JONCCHEMO 08:25 → J7W 08:27 → JONCCHEMO 10:30
PROVIDERS: ATTEND Internal Medicine Hematology & Oncology
PROC: 3E01305 Introduction of Other Antineoplastic into Subcutaneous Tissue, Percutaneous Approach (ICD-10-PCS; principal; 2025-02-20)
PROC: 3E013GC Introduction of Other Therapeutic Substance into Subcutaneous Tissue, Percutaneous Approach (ICD-10-PCS; 2025-02-20)
PROC: 3E013GC Introduction of Other Therapeutic Substance into Subcutaneous Tissue, Percutaneous Approach (ICD-10-PCS; 2025-02-20)
DX: Z51.11 Encounter for antineoplastic chemotherapy (principal); C90.00 Multiple myeloma not having achieved remission; E11.9 Type 2 diabetes mellitus without complications
CPT/HCPCS: 36415; 80053; 83036; 83615; 83735; 84550; 85025; 96372; 96401; J9041

== ENCOUNTER 2025-03-20 08:13 | Day surgery (SDC) | payer OTHER, MEDICARE ==
[2025-03-20 09:11] LABS: EOSINOPHIL % 3.7 % (0.8-7.0); RDW 14.6 % (12.2-16.6)
[2025-03-20 09:13] LABS: ABSOLUTE IMMATURE GRANULOCYTES 0.14 x10^3/uL (0.0-0.031); BASOPHILS # 0.03 x10^3/uL (0.01-0.08); EOSINOPHILS # 0.31 x10^3/uL (0.04-0.54); HEMATOCRIT 44.5 % (40.1-51.0); HEMOGLOBIN 14.6 g/dL (13.7-17.5); MCHC 32.8 g/dl (32.3-36.5); MEAN CELL VOLUME 93.1 fl (79.0-92.2); MEAN PLT VOLUME 11.1 fl (9.4-12.4); MONOCYTE # 1.43 x10^3/uL (0.30-0.82); MONOCYTE % 17.1 % (5.3-12.2); PLATELET COUNT 116 x10^3/uL (163-337)
[2025-03-20 09:46] LABS: POTASSIUM 4.8 mmol/L (3.5-5.1)
[2025-03-20 09:48] LABS: ALBUMIN 3.4 g/dl (3.4-5.0); BLOOD UREA NITROGEN 28.7 mg/dL (7-18); CALCIUM 9.2 mg/dL (8.5-10.1)
[2025-03-20 09:49] LABS: MAGNESIUM 2.5 mg/dL (1.8-2.4)
[2025-03-20 09:51] LABS: URIC ACID 6.3 mg/dL (2.6-7.2)
[2025-03-20 09:52] LABS: BILIRUBIN,TOTAL 0.8 mg/dL (0.2-1); CREATININE 1.4 mg/dL (0.55-1.3)
[2025-03-20] MEDS: MAGNESIUM OXIDE 400 MG TABLET (FP) PO ONE (10:21)
[2025-03-20] MEDS: DEXAMETHASONE 4 MG TABLET (FP) PO ONE (10:21)
[2025-03-20] MEDS: GRANISETRON HCL 1 MG TABLET PO ONE (10:21)
[2025-03-20] MEDS ORDERED: INSULIN ASPART SLIDING SCALE (NOVOLOG) 1 VIAL SQ ONE (10:37)
[2025-03-20] MEDS: INSULIN ASPART SLIDING SCALE (NOVOLOG) 1 VIAL SQ ONE (10:41)
[2025-03-20] MEDS: BORTEZOMIB 2.5 MG/ML SUB-Q INJECTION SQ ONE (10:42)
[2025-03-20 16:27] VITALS: BP 89/50; PULSE 78; RESP 20; TEMP 98.2
== END 2025-03-20 10:55 | disposition home or self-care (01) ==
LOC: JONCCHEMO 08:13 → J7W 08:20 → JONCCHEMO 10:55
PROVIDERS: ATTEND Internal Medicine Hematology & Oncology
PROC: 3E01305 Introduction of Other Antineoplastic into Subcutaneous Tissue, Percutaneous Approach (ICD-10-PCS; principal; 2025-03-20)
PROC: 3E013VG Introduction of Insulin into Subcutaneous Tissue, Percutaneous Approach (ICD-10-PCS; 2025-03-20)
DX: Z51.11 Encounter for antineoplastic chemotherapy (principal); C90.00 Multiple myeloma not having achieved remission; E11.9 Type 2 diabetes mellitus without complications; Z79.4 Long term (current) use of insulin
CPT/HCPCS: 36415; 80053; 83036; 83615; 83735; 84550; 85025; 96372; 96401; J9041

== ENCOUNTER 2025-03-27 08:39 | Day surgery (SDC) | payer OTHER, MEDICARE ==
[2025-03-27 09:16] LABS: BASOPHILS # 0.03 x10^3/uL (0.01-0.08)
[2025-03-27 09:18] LABS: ABSOLUTE IMMATURE GRANULOCYTES 0.17 x10^3/uL (0.0-0.031); EOSINOPHIL % 2.1 % (0.8-7.0); EOSINOPHILS # 0.17 x10^3/uL (0.04-0.54); HEMATOCRIT 42.9 % (40.1-51.0); HEMOGLOBIN 14.5 g/dL (13.7-17.5); MCHC 33.8 g/dl (32.3-36.5); MEAN CELL VOLUME 92.5 fl (79.0-92.2); MEAN PLT VOLUME 10.7 fl (9.4-12.4); MONOCYTE # 0.98 x10^3/uL (0.30-0.82); MONOCYTE % 12.1 % (5.3-12.2); PLATELET COUNT 122 x10^3/uL (163-337); RDW 14.4 % (12.2-16.6)
[2025-03-27 09:40] LABS: CHLORIDE 106 mmol/L (98-107); POTASSIUM 4.5 mmol/L (3.5-5.1); SODIUM 137 mmol/L (136-145)
[2025-03-27 09:43] LABS: ANION GAP 9 mmol/L (4-13); CALCIUM 9.3 mg/dL (8.5-10.1); CO2 22 mmol/L (21-32); GLUCOSE,RANDOM 161 mg/dL (74-106)
[2025-03-27 09:44] LABS: ALBUMIN 3.2 g/dl (3.4-5.0); BLOOD UREA NITROGEN 25.9 mg/dL (7-18); MAGNESIUM 2.1 mg/dL (1.8-2.4)
[2025-03-27 09:46] LABS: CREATININE 1.1 mg/dL (0.55-1.3); SGOT/AST 15 U/L (15-37); SGPT/ALT 27 U/L (13-61); URIC ACID 5.6 mg/dL (2.6-7.2)
[2025-03-27 09:48] LABS: ALK PHOS 91 U/L (45-117); BILIRUBIN,TOTAL 1.1 mg/dL (0.2-1); TOT PROT 5.8 g/dl (6.4-8.2)
[2025-03-27] MEDS: DEXAMETHASONE 4 MG TABLET (FP) PO ONE (09:48)
[2025-03-27] MEDS: GRANISETRON HCL 1 MG TABLET PO ONE (09:48)
[2025-03-27] MEDS: INSULIN ASPART SLIDING SCALE (NOVOLOG) 1 VIAL SQ ONE (09:49)
[2025-03-27] MEDS: MAGNESIUM OXIDE 400 MG TABLET (FP) PO ONE (09:49)
[2025-03-27] MEDS: BORTEZOMIB 2.5 MG/ML SUB-Q INJECTION SQ ONE (10:23)
[2025-03-27 14:43] VITALS: BP 103/60; PULSE 74; RESP 20; TEMP 98.2
[2025-03-27 17:51] LABS: LDH 211 U/L (87-246)
== END 2025-03-27 10:30 | disposition home or self-care (01) ==
LOC: JONCCHEMO 08:39
PROVIDERS: ATTEND Internal Medicine Hematology & Oncology
DX: Z51.11 Encounter for antineoplastic chemotherapy (principal); C90.00 Multiple myeloma not having achieved remission
CPT/HCPCS: 36415; 80053; 83615; 83735; 84550; 85025; 96401; J9041

== ENCOUNTER 2025-04-03 19:41 | Inpatient (IN) | payer OTHER, MEDICARE ==
[2025-04-03 21:31] LABS: BASOPHILS # 0.02 x10^3/uL (0.01-0.08); HEMATOCRIT 42.8 % (40.1-51.0)
[2025-04-03 21:33] LABS: EOSINOPHIL % 0.6 % (0.8-7.0); EOSINOPHILS # 0.07 x10^3/uL (0.04-0.54); HEMOGLOBIN 14.2 g/dL (13.7-17.5); MCHC 33.2 g/dl (32.3-36.5); MEAN CELL VOLUME 95.3 fl (79.0-92.2); MEAN PLT VOLUME 10.4 fl (9.4-12.4); MONOCYTE # 1.35 x10^3/uL (0.30-0.82); MONOCYTE % 11.8 % (5.3-12.2); PLATELET COUNT 120 x10^3/uL (163-337); RDW 14.6 % (12.2-16.6)
[2025-04-03 21:54] LABS: ALBUMIN 3.2 g/dl (3.4-5.0); POTASSIUM 5.3 mmol/L (3.5-5.1)
[2025-04-03 21:55] LABS: MAGNESIUM 2.2 mg/dL (1.8-2.4)
[2025-04-03 21:58] LABS: CALCIUM 9.2 mg/dL (8.5-10.1); CREATININE 1.3 mg/dL (0.55-1.3); PHOSPHOROUS 2.6 mg/dL (2.5-4.9)
[2025-04-03 21:59] LABS: BILIRUBIN,TOTAL 1.5 mg/dL (0.2-1); TOT PROT 5.9 g/dl (6.4-8.2)
[2025-04-03 22:04] LABS: LACTIC ACID 2.4 mmol/L (0.4-2.0)
[2025-04-03] MEDS: morphine CARPU-JECT 4 MG/1 ML DISP.SYRIN IVPUSH ONE (23:25)
[2025-04-03] MEDS: SODIUM CHLORIDE 0.9% 500 ML INFUS.BAG IV ONE (23:25)
[2025-04-03] MEDS: ACETAMINOPHEN 1000 MG/100 ML BAG IVPB ONE (23:26)
[2025-04-03] MEDS ORDERED: ACETAMINOPHEN INJECTION 100 ML ONE (23:27)
[2025-04-03] MEDS ORDERED: morphine SULFATE 4 MG/ML VIAL ONE (23:27)
[2025-04-04] MEDS: FUROSEMIDE 40 MG/4 ML INJECTABLE VIAL IVPUSH ONE (02:37)
[2025-04-04 04:14] LABS: POTASSIUM 4.3 mmol/L (3.5-5.1)
[2025-04-04 04:16] LABS: CALCIUM 8.8 mg/dL (8.5-10.1)
[2025-04-04 04:17] LABS: BLOOD UREA NITROGEN 24.5 mg/dL (7-18)
[2025-04-04 04:20] LABS: CREATININE 1.1 mg/dL (0.55-1.3)
[2025-04-04 04:22] LABS: BILIRUBIN,TOTAL 1.6 mg/dL (0.2-1); TOT PROT 5.4 g/dl (6.4-8.2)
[2025-04-04] MEDS: INSULIN ASPART SLIDING SCALE (NOVOLOG) 1 VIAL SQ SCH (06:35)
[2025-04-04 06:56] LABS: BASOPHILS # 0.02 x10^3/uL (0.01-0.08); HEMOGLOBIN 12.6 g/dL (13.7-17.5); RDW 14.8 % (12.2-16.6)
[2025-04-04 06:58] LABS: ABSOLUTE IMMATURE GRANULOCYTES 0.09 x10^3/uL (0.0-0.031); EOSINOPHIL % 2.3 % (0.8-7.0); EOSINOPHILS # 0.16 x10^3/uL (0.04-0.54); HEMATOCRIT 38.6 % (40.1-51.0); MCHC 32.6 g/dl (32.3-36.5); MEAN CELL VOLUME 95.3 fl (79.0-92.2); MEAN PLT VOLUME 10.8 fl (9.4-12.4); PLATELET COUNT 110 x10^3/uL (163-337)
[2025-04-04 07:24] LABS: POTASSIUM 3.9 mmol/L (3.5-5.1)
[2025-04-04 07:25] LABS: BLOOD UREA NITROGEN 24.4 mg/dL (7-18); CALCIUM 8.7 mg/dL (8.5-10.1)
[2025-04-04 07:26] LABS: MAGNESIUM 2.1 mg/dL (1.8-2.4)
[2025-04-04 07:29] LABS: CREATININE 1.2 mg/dL (0.55-1.3); PHOSPHOROUS 3.8 mg/dL (2.5-4.9)
[2025-04-04 08:58] LABS: PH,URINE 6.5 (5.0-8.0); URINE APPEARANCE CLEAR; URINE BILIRUBIN NEGATIVE (NEGATIVE); URINE COLOR YELLOW; URINE GLUCOSE (UA) NEGATIVE (NEGATIVE); URINE KETONE NEGATIVE (NEGATIVE); URINE LEUK ESTERASE NEGATIVE (NEGATIVE); URINE NITRITE NEGATIVE (NEGATIVE); URINE PROTEIN NEGATIVE (NEGATIVE); URINE UROBILINOGEN 0.2 mg/dL (0.2-1.0)
[2025-04-04] MEDS: TAMSULOSIN HCL 0.4 MG CAP PO SCH (09:24)
[2025-04-04] MEDS: APIXABAN 5 MG TABLET PO SCH (09:24)
[2025-04-04] MEDS: SERTRALINE HCL 25 MG TABLET (FP) PO SCH (09:24)
[2025-04-04] MEDS: ATORVASTATIN CA 80 MG TABLET (FP) PO SCH (21:17)
[2025-04-04] MEDS: INSULIN GLARGINE (LANTUS) 100 UNITS/ML UNITS SQ SCH (21:17)
[2025-04-04] MEDS: GABAPENTIN 100 MG CAPSULE PO SCH (21:17)
[2025-04-05] MEDS: TORSEMIDE 20 MG TABLET (FP) PO SCH (09:33)
[2025-04-05 12:34] VITALS: BMI 43.9
[2025-04-05 12:54] LABS: BASOPHILS # 0.02 x10^3/uL (0.01-0.08); EOSINOPHIL % 3.2 % (0.8-7.0); RDW 14.1 % (12.2-16.6)
[2025-04-05 12:56] LABS: ABSOLUTE IMMATURE GRANULOCYTES 0.06 x10^3/uL (0.0-0.031); EOSINOPHILS # 0.17 x10^3/uL (0.04-0.54); HEMATOCRIT 41.4 % (40.1-51.0); HEMOGLOBIN 13.8 g/dL (13.7-17.5); MCHC 33.3 g/dl (32.3-36.5); MEAN CELL VOLUME 93.2 fl (79.0-92.2); MONOCYTE # 0.73 x10^3/uL (0.30-0.82); MONOCYTE % 13.5 % (5.3-12.2); PLATELET COUNT 133 x10^3/uL (163-337)
[2025-04-05] MEDS: metoPROLOL SUCCINATE 25 MG TAB.SR.24H (FP) PO SCH (13:00)
[2025-04-05 13:12] VITALS: TEMP 98.1
[2025-04-05 13:14] LABS: CALCIUM 8.9 mg/dL (8.5-10.1)
[2025-04-05 13:15] LABS: ALBUMIN 3.2 g/dl (3.4-5.0); BLOOD UREA NITROGEN 16.6 mg/dL (7-18)
[2025-04-05 13:20] LABS: TOT PROT 5.9 g/dl (6.4-8.2)
[2025-04-05 14:51] VITALS: BP 138/89; PULSE 81; RESP 20
== END 2025-04-05 16:44 | disposition home health service (06) | DRG 292 ==
LOC: JER 19:41 → JERBED 23:27 → J4W 04-04 01:47
PROVIDERS: ADMIT Internal Medicine; ATTEND Family Medicine
DX: I11.0 Hypertensive heart disease with heart failure (principal); C90.00 Multiple myeloma not having achieved remission; Z68.41 Body mass index [BMI] 40.0-44.9, adult; E86.0 Dehydration; G47.33 Obstructive sleep apnea (adult) (pediatric); I25.10 Atherosclerotic heart disease of native coronary artery without angina pectoris; Z79.01 Long term (current) use of anticoagulants; E11.9 Type 2 diabetes mellitus without complications; J45.909 Unspecified asthma, uncomplicated; N40.0 Benign prostatic hyperplasia without lower urinary tract symptoms; E78.5 Hyperlipidemia, unspecified; N28.1 Cyst of kidney, acquired; I87.2 Venous insufficiency (chronic) (peripheral); E66.01 Morbid (severe) obesity due to excess calories; I48.0 Paroxysmal atrial fibrillation; E88.09 Other disorders of plasma-protein metabolism, not elsewhere classified
CPT/HCPCS: 0241U-QW; 36415; 70450-TC; 71045-TC-FY; 71275-TC; 72125-TC; 72131-TC; 73521-TC-FY; 80048; 80053; 81003; 82550; 82728; 82962; 83540; 83550; 83605; 83735; 83880; 84100; 84443; 84484; 85025; 85730; 86850; 86900; 86901; 87086; 93005; 93010; 93306-TC; 94660; 97116-GP; 97162-GP; 99285-25; Q9967

== ENCOUNTER 2025-04-17 08:13 | Day surgery (SDC) | payer OTHER, MEDICARE ==
[2025-04-17 08:53] LABS: BASOPHILS # 0.02 x10^3/uL (0.01-0.08); MCHC 32.7 g/dl (32.3-36.5)
[2025-04-17 08:55] LABS: ABSOLUTE IMMATURE GRANULOCYTES 0.13 x10^3/uL (0.0-0.031); EOSINOPHIL % 3.9 % (0.8-7.0); EOSINOPHILS # 0.19 x10^3/uL (0.04-0.54); IMMATURE PLATELET FRACTION # 5.90 x10^3/uL; MEAN CELL VOLUME 94.6 fl (79.0-92.2); MEAN PLT VOLUME 10.8 fl (9.4-12.4); MONOCYTE # 0.83 x10^3/uL (0.30-0.82); MONOCYTE % 17.2 % (5.3-12.2); RDW 13.9 % (12.2-16.6)
[2025-04-17 09:25] LABS: CO2 25 mmol/L (21-32); GLUCOSE,RANDOM 163 mg/dL (74-106)
[2025-04-17 09:29] LABS: SGPT/ALT 20 U/L (13-61)
[2025-04-17 09:30] LABS: CREATININE 1.3 mg/dL (0.55-1.3); IRON SERUM 65 ug/dL (50-175); SGOT/AST 14 U/L (15-37); TOT PROT 5.6 g/dl (6.4-8.2)
[2025-04-17 09:31] LABS: ALK PHOS 101 U/L (45-117)
[2025-04-17] MEDS: MAGNESIUM OXIDE 400 MG TABLET (FP) PO ONE (09:52)
[2025-04-17] MEDS: GRANISETRON HCL 1 MG TABLET PO ONE (09:52)
[2025-04-17] MEDS: DEXAMETHASONE 4 MG TABLET (FP) PO ONE (09:52)
[2025-04-17] MEDS: INSULIN ASPART SLIDING SCALE (NOVOLOG) 1 VIAL SQ ONE (09:55)
[2025-04-17] MEDS: BORTEZOMIB 2.5 MG/ML SUB-Q INJECTION SQ ONE (10:19)
[2025-04-17 11:14] LABS: LDH 178 U/L (87-246)
[2025-04-17 16:14] VITALS: BP 102/62; PULSE 90; RESP 20; TEMP 97.7
== END 2025-04-17 10:30 | disposition home or self-care (01) ==
LOC: JONCCHEMO 08:13
PROVIDERS: ATTEND Internal Medicine Hematology & Oncology
DX: Z51.11 Encounter for antineoplastic chemotherapy (principal); C90.00 Multiple myeloma not having achieved remission
CPT/HCPCS: 36415; 80053; 82607; 82728; 83036; 83540; 83550; 83615; 83735; 84439; 84443; 84550; 85025; 96401; J9041

== ENCOUNTER 2025-04-24 08:45 | Day surgery (SDC) | payer OTHER, MEDICARE ==
[2025-04-24 08:40] LABS: BASOPHILS # 0.02 x10^3/uL (0.01-0.08); MEAN PLT VOLUME 11.2 fl (9.4-12.4)
[2025-04-24 08:42] LABS: ABSOLUTE IMMATURE GRANULOCYTES 0.13 x10^3/uL (0.0-0.031); EOSINOPHIL % 2.4 % (0.8-7.0); EOSINOPHILS # 0.16 x10^3/uL (0.04-0.54); IMMATURE PLATELET FRACTION # 6.80 x10^3/uL; MCHC 32.4 g/dl (32.3-36.5); MEAN CELL VOLUME 96.0 fl (79.0-92.2); MONOCYTE # 0.89 x10^3/uL (0.30-0.82); MONOCYTE % 13.4 % (5.3-12.2); RDW 13.9 % (12.2-16.6)
[2025-04-24 09:10] LABS: CO2 30 mmol/L (21-32); GLUCOSE,RANDOM 135 mg/dL (74-106)
[2025-04-24 09:13] LABS: CREATININE 1.2 mg/dL (0.55-1.3); SGPT/ALT 24 U/L (13-61)
[2025-04-24 09:14] LABS: SGOT/AST 15 U/L (15-37)
[2025-04-24 09:15] LABS: TOT PROT 5.9 g/dl (6.4-8.2)
[2025-04-24 09:16] LABS: ALK PHOS 106 U/L (45-117)
[2025-04-24] MEDS: DEXAMETHASONE 4 MG TABLET (FP) PO ONE (09:21)
[2025-04-24] MEDS: GRANISETRON HCL 1 MG TABLET PO ONE (09:22)
[2025-04-24] MEDS: INSULIN ASPART SLIDING SCALE (NOVOLOG) 1 VIAL SQ ONE (09:22)
[2025-04-24] MEDS: MAGNESIUM OXIDE 400 MG TABLET (FP) PO ONE (09:22)
[2025-04-24] MEDS: BORTEZOMIB 2.5 MG/ML SUB-Q INJECTION SQ ONE (10:00)
[2025-04-24 10:53] LABS: LDH 195 U/L (87-246)
[2025-04-24 14:59] VITALS: BP 113/68; PULSE 75; RESP 22; TEMP 97.7
== END 2025-04-24 10:15 | disposition home or self-care (01) ==
LOC: JONCCHEMO 08:45 → J7W 09:20 → JONCCHEMO 10:15
PROVIDERS: ATTEND Internal Medicine Hematology & Oncology
DX: Z51.11 Encounter for antineoplastic chemotherapy (principal); C90.00 Multiple myeloma not having achieved remission
CPT/HCPCS: 36415; 80053; 83615; 83735; 84550; 85025; J9041

== ENCOUNTER 2025-05-02 06:05 | Day surgery (SDC) | payer OTHER, MEDICARE ==
[2025-04-30 13:38] VITALS: BMI 44.6
[2025-05-02] MEDS ORDERED: ACETAMINOPHEN 500 MG TABLET (FP) PO PRN (08:45)
[2025-05-02] MEDS: LIDOCAINE HCL 1% PRESERVATIVE FREE - 30ML VIAL IJ ONE (13:05)
[2025-05-02] MEDS: IOHEXOL 180 MG/1 ML ML IJ ONE (13:06)
[2025-05-02] MEDS: DEXAMETHASONE SOD PHOSPHATE 10 MG/1 ML VIAL IM ONE (13:08)
[2025-05-02 13:28] VITALS: BP 99/59; PULSE 66; RESP 20; TEMP 97.2
== END 2025-05-02 13:43 | disposition home or self-care (01) ==
LOC: JASU-SURG 06:05
PROVIDERS: ATTEND Pain Medicine Pain Medicine
PROC: 3E0R3BZ Introduction of Anesthetic Agent into Spinal Canal, Percutaneous Approach (ICD-10-PCS; 2025-05-02)
PROC: 3E0R33Z Introduction of Anti-inflammatory into Spinal Canal, Percutaneous Approach (ICD-10-PCS; principal; 2025-05-02 13:45)
DX: M48.061 Spinal stenosis, lumbar region without neurogenic claudication (principal); M54.16 Radiculopathy, lumbar region
CPT/HCPCS: 76000-TC-FY; J1100

== ENCOUNTER 2025-05-15 08:19 | Day surgery (SDC) | payer OTHER, MEDICARE ==
[2025-05-15 08:34] LABS: MEAN CELL VOLUME 96.1 fl (79.0-92.2); MONOCYTE # 0.95 x10^3/uL (0.30-0.82); MONOCYTE % 13.0 % (5.3-12.2); RDW 14.5 % (12.2-16.6)
[2025-05-15 08:36] LABS: ABSOLUTE IMMATURE GRANULOCYTES 0.19 x10^3/uL (0.0-0.031); BASOPHILS # 0.03 x10^3/uL (0.01-0.08); EOSINOPHIL % 2.1 % (0.8-7.0); EOSINOPHILS # 0.15 x10^3/uL (0.04-0.54); IMMATURE PLATELET FRACTION # 3.70 x10^3/uL; MCHC 32.9 g/dl (32.3-36.5); MEAN PLT VOLUME 10.7 fl (9.4-12.4)
[2025-05-15 08:54] LABS: CO2 25.0 mmol/L (21-32); GLUCOSE,RANDOM 144.0 mg/dL (74-106)
[2025-05-15 08:58] LABS: CREATININE 1.1 mg/dL (0.55-1.3); SGOT/AST 14.0 U/L (15-37); SGPT/ALT 24.0 U/L (13-61)
[2025-05-15 08:59] LABS: TOT PROT 5.7 g/dl (6.4-8.2)
[2025-05-15 09:01] LABS: ALK PHOS 90.0 U/L (45-117)
[2025-05-15] MEDS: MAGNESIUM OXIDE 400 MG TABLET (FP) PO ONE (09:58)
[2025-05-15] MEDS: GRANISETRON HCL 1 MG TABLET PO ONE (09:58)
[2025-05-15] MEDS: DEXAMETHASONE 4 MG TABLET (FP) PO ONE (09:58)
[2025-05-15] MEDS: BORTEZOMIB 2.5 MG/ML SUB-Q INJECTION SQ ONE (09:59)
[2025-05-15] MEDS: INSULIN ASPART SLIDING SCALE (NOVOLOG) 1 VIAL SQ ONE (10:17)
[2025-05-15 15:10] VITALS: BP 106/63; PULSE 77; RESP 20; TEMP 98.2
== END 2025-05-15 10:15 | disposition home or self-care (01) ==
LOC: JONCCHEMO 08:19 → J7W 08:20 → JONCCHEMO 10:15
PROVIDERS: ATTEND Internal Medicine Hematology & Oncology
DX: Z51.11 Encounter for antineoplastic chemotherapy (principal); C90.00 Multiple myeloma not having achieved remission
CPT/HCPCS: 36415; 80053; 83036; 83615; 83735; 84550; 85025; 96401; J9041

== ENCOUNTER 2025-06-05 08:03 | Day surgery (SDC) | payer OTHER, MEDICARE ==
[2025-06-05 08:46] LABS: ABSOLUTE IMMATURE GRANULOCYTES 0.05 x10^3/uL (0.0-0.031); BASOPHILS # 0.02 x10^3/uL (0.01-0.08); EOSINOPHIL % 2.8 % (0.8-7.0); EOSINOPHILS # 0.10 x10^3/uL (0.04-0.54); MCHC 32.5 g/dl (32.3-36.5); MEAN CELL VOLUME 95.8 fl (79.0-92.2); MEAN PLT VOLUME 9.5 fl (9.4-12.4); MONOCYTE # 0.55 x10^3/uL (0.30-0.82); MONOCYTE % 15.6 % (5.3-12.2); RDW 14.0 % (12.2-16.6)
[2025-06-05 09:15] LABS: GLUCOSE,RANDOM 164 mg/dL (74-106); TOT PROT 5.6 g/dl (6.4-8.2)
[2025-06-05 09:16] LABS: CO2 26 mmol/L (21-32)
[2025-06-05 09:18] LABS: ALK PHOS 78 U/L (40-150)
[2025-06-05 09:20] LABS: LDH 219 U/L (87-246); SGOT/AST 21 U/L (5-34); SGPT/ALT 19 U/L (0-55)
[2025-06-05 09:21] LABS: CREATININE 1.14 mg/dL (0.55-1.3)
[2025-06-05] MEDS: GRANISETRON HCL 1 MG TABLET PO ONE (09:26)
[2025-06-05] MEDS: DEXAMETHASONE 4 MG TABLET (FP) PO ONE (09:26)
[2025-06-05] MEDS: MAGNESIUM OXIDE 400 MG TABLET (FP) PO ONE (09:27)
[2025-06-05] MEDS: INSULIN ASPART SLIDING SCALE (NOVOLOG) 1 VIAL SQ ONE (09:31)
[2025-06-05] MEDS: BORTEZOMIB 2.5 MG/ML SUB-Q INJECTION SQ ONE (10:10)
[2025-06-05 13:45] VITALS: BP 115/65; PULSE 73; RESP 20; TEMP 98.1
[2025-06-06 19:06] LABS: FREE KAPPA,SERUM 76.3 mg/L (3.3-19.4)
[2025-06-07 20:06] LABS: BETA-2-MICROGLOBULIN 2.4 mg/L (0.6-2.4)
[2025-06-09 15:06] LABS: FREE KAP CHN UR 1.90 mg/L (1.17-86.46); KAPPA LAMBDA RATIO URIN >2.75 (1.83-14.26)
[2025-06-09 17:07] LABS: IG A QN SERUM. 124 mg/dL (61-437)
== END 2025-06-05 10:20 | disposition home or self-care (01) ==
LOC: JONCCHEMO 08:03 → J7W 08:04 → JONCCHEMO 10:20
PROVIDERS: ATTEND Internal Medicine Hematology & Oncology
PROC: 3E01305 Introduction of Other Antineoplastic into Subcutaneous Tissue, Percutaneous Approach (ICD-10-PCS; principal; 2025-06-05)
PROC: 3E013VG Introduction of Insulin into Subcutaneous Tissue, Percutaneous Approach (ICD-10-PCS; 2025-06-05)
DX: Z51.11 Encounter for antineoplastic chemotherapy (principal); C90.00 Multiple myeloma not having achieved remission; E11.9 Type 2 diabetes mellitus without complications; Z79.4 Long term (current) use of insulin
CPT/HCPCS: 36415; 80048; 80076; 82232; 82784; 83615; 83735; 83883; 84155; 84165; 84550; 85025; 86335; 96372; 96401; J9041

== ENCOUNTER 2025-06-12 08:23 | Day surgery (SDC) | payer OTHER, MEDICARE ==
[2025-06-12 08:45] LABS: ABSOLUTE IMMATURE GRANULOCYTES 0.20 x10^3/uL (0.0-0.031); BASOPHILS # 0.04 x10^3/uL (0.01-0.08); EOSINOPHIL % 2.3 % (0.8-7.0); EOSINOPHILS # 0.15 x10^3/uL (0.04-0.54); MCHC 32.3 g/dl (32.3-36.5); MEAN CELL VOLUME 95.9 fl (79.0-92.2); MEAN PLT VOLUME 10.8 fl (9.4-12.4); MONOCYTE # 1.04 x10^3/uL (0.30-0.82); MONOCYTE % 16.0 % (5.3-12.2); RDW 13.8 % (12.2-16.6)
[2025-06-12 09:11] LABS: GLUCOSE,RANDOM 171 mg/dL (74-106); TOT PROT 6.0 g/dl (6.4-8.2)
[2025-06-12 09:12] LABS: CO2 27 mmol/L (21-32)
[2025-06-12 09:14] LABS: ALK PHOS 95 U/L (40-150)
[2025-06-12 09:16] LABS: LDH 226 U/L (87-246)
[2025-06-12 09:17] LABS: CREATININE 1.18 mg/dL (0.55-1.3); SGOT/AST 26 U/L (5-34); SGPT/ALT 30 U/L (0-55)
[2025-06-12 09:19] VITALS: BP 110/64; PULSE 84; RESP 20; TEMP 97.7
[2025-06-12] MEDS: INSULIN ASPART SLIDING SCALE (NOVOLOG) 1 VIAL SQ ONE (09:28)
[2025-06-12] MEDS: DEXAMETHASONE 4 MG TABLET (FP) PO ONE (09:28)
[2025-06-12] MEDS: MAGNESIUM OXIDE 400 MG TABLET (FP) PO ONE (09:28)
[2025-06-12] MEDS: GRANISETRON HCL 1 MG TABLET PO ONE (09:28)
[2025-06-12] MEDS: BORTEZOMIB 2.5 MG/ML SUB-Q INJECTION SQ ONE (10:20)
[2025-06-12] MEDS ORDERED: INSULIN ASPART SLIDING SCALE (NOVOLOG) 1 VIAL SQ ONE (14:21)
== END 2025-06-12 10:40 | disposition home or self-care (01) ==
LOC: JONCCHEMO 08:23 → J7W 08:24 → JONCCHEMO 10:40
PROVIDERS: ATTEND Internal Medicine Hematology & Oncology
PROC: 3E01305 Introduction of Other Antineoplastic into Subcutaneous Tissue, Percutaneous Approach (ICD-10-PCS; principal; 2025-06-12)
PROC: 3E013VG Introduction of Insulin into Subcutaneous Tissue, Percutaneous Approach (ICD-10-PCS; 2025-06-12)
DX: Z51.11 Encounter for antineoplastic chemotherapy (principal); C90.00 Multiple myeloma not having achieved remission; E11.9 Type 2 diabetes mellitus without complications; Z79.4 Long term (current) use of insulin
CPT/HCPCS: 36415; 80053; 83615; 83735; 84550; 85025; J9041

== ENCOUNTER 2025-07-03 08:11 | Day surgery (SDC) | payer OTHER, MEDICARE ==
[2025-07-03 08:37] LABS: EOSINOPHIL % 1.2 % (0.8-7.0); EOSINOPHILS # 0.13 x10^3/uL (0.04-0.54)
[2025-07-03 08:38] LABS: ABSOLUTE IMMATURE GRANULOCYTES 0.17 x10^3/uL (0.0-0.031); BASOPHILS # 0.04 x10^3/uL (0.01-0.08); IMMATURE PLATELET FRACTION # 2.90 x10^3/uL; MCHC 33.1 g/dl (32.3-36.5); MEAN CELL VOLUME 95.4 fl (79.0-92.2); MEAN PLT VOLUME 10.2 fl (9.4-12.4); MONOCYTE # 1.21 x10^3/uL (0.30-0.82); MONOCYTE % 10.9 % (5.3-12.2); RDW 14.4 % (12.2-16.6)
[2025-07-03 09:23] LABS: GLUCOSE,RANDOM 171 mg/dL (74-106); TOT PROT 5.9 g/dl (6.4-8.2)
[2025-07-03 09:24] LABS: CO2 23 mmol/L (21-32)
[2025-07-03 09:26] LABS: ALK PHOS 79 U/L (40-150)
[2025-07-03 09:28] LABS: LDH 195 U/L (87-246); SGOT/AST 15 U/L (5-34); SGPT/ALT 15 U/L (0-55)
[2025-07-03 09:29] LABS: CREATININE 1.08 mg/dL (0.55-1.3)
[2025-07-03] MEDS: GRANISETRON HCL 1 MG TABLET PO ONE (09:35)
[2025-07-03] MEDS: MAGNESIUM OXIDE 400 MG TABLET (FP) PO ONE (09:35)
[2025-07-03] MEDS: DEXAMETHASONE 4 MG TABLET (FP) PO ONE (09:36)
[2025-07-03] MEDS: BORTEZOMIB 2.5 MG/ML SUB-Q INJECTION SQ ONE (09:36)
[2025-07-03] MEDS: INSULIN ASPART SLIDING SCALE (NOVOLOG) 1 VIAL SQ ONE (09:38)
[2025-07-03 11:33] VITALS: BP 116/70; PULSE 80; RESP 20; TEMP 98.4
[2025-07-04 19:09] LABS: FREE KAPPA,SERUM 63.1 mg/L (3.3-19.4)
[2025-07-07 14:06] LABS: FREE KAP CHN UR 7.18 mg/L (1.17-86.46); KAPPA LAMBDA RATIO URIN 7.04 (1.83-14.26)
[2025-07-07 16:06] LABS: BETA-2-MICROGLOBULIN 2.8 mg/L (0.6-2.4)
[2025-07-07 20:07] LABS: IG A QN SERUM. 119 mg/dL (61-437)
== END 2025-07-03 10:00 | disposition home or self-care (01) ==
LOC: JONCCHEMO 08:11 → J7W 08:14 → JONCCHEMO 10:00
PROVIDERS: ATTEND Internal Medicine Hematology & Oncology
DX: Z51.11 Encounter for antineoplastic chemotherapy (principal); C90.00 Multiple myeloma not having achieved remission
CPT/HCPCS: 36415; 80048; 80076; 82232; 82784; 83615; 83735; 83883; 84155; 84165; 84550; 85025; 86335; 96401; J9041

== ENCOUNTER 2025-07-30 08:24 | Day surgery (SDC) | payer OTHER, MEDICARE ==
[2025-07-30 08:56] LABS: RDW 14.6 % (12.2-16.6)
[2025-07-30 08:58] LABS: ABSOLUTE IMMATURE GRANULOCYTES 0.08 x10^3/uL (0.0-0.031); BASOPHILS # 0.03 x10^3/uL (0.01-0.08); EOSINOPHIL % 1.1 % (0.8-7.0); EOSINOPHILS # 0.06 x10^3/uL (0.04-0.54); IMMATURE PLATELET FRACTION # 3.70 x10^3/uL; MCHC 33.1 g/dl (32.3-36.5); MEAN CELL VOLUME 97.3 fl (79.0-92.2); MEAN PLT VOLUME 10.7 fl (9.4-12.4); MONOCYTE # 0.69 x10^3/uL (0.30-0.82); MONOCYTE % 12.6 % (5.3-12.2)
[2025-07-30 09:14] LABS: GLUCOSE,RANDOM 149.0 mg/dL (74-106)
[2025-07-30 09:15] LABS: TOT PROT 5.4 g/dl (6.4-8.2)
[2025-07-30 09:16] LABS: CO2 27.0 mmol/L (21-32)
[2025-07-30 09:18] LABS: ALK PHOS 75.0 U/L (40-150)
[2025-07-30 09:19] LABS: LDH 217.0 U/L (87-246)
[2025-07-30 09:20] LABS: CREATININE 1.07 mg/dL (0.55-1.3); SGOT/AST 21.0 U/L (5-34); SGPT/ALT 22.0 U/L (0-55)
[2025-07-30] MEDS: INSULIN ASPART SLIDING SCALE (NOVOLOG) 1 VIAL SQ ONE (09:24)
[2025-07-30] MEDS: DEXAMETHASONE 4 MG TABLET (FP) PO ONE (09:37)
[2025-07-30] MEDS: MAGNESIUM OXIDE 400 MG TABLET (FP) PO ONE (09:37)
[2025-07-30] MEDS: GRANISETRON HCL 1 MG TABLET PO ONE (09:37)
[2025-07-30] MEDS: BORTEZOMIB 2.5 MG/ML SUB-Q INJECTION SQ ONE (10:14)
[2025-07-30 13:51] VITALS: BP 100/58; PULSE 84; RESP 20; TEMP 98.6
[2025-07-31 19:11] LABS: FREE KAPPA,SERUM 58.5 mg/L (3.3-19.4)
[2025-08-01 07:07] LABS: BETA-2-MICROGLOBULIN 2.5 mg/L (0.6-2.4); FREE KAP CHN UR 4.17 mg/L (1.17-86.46); KAPPA LAMBDA RATIO URIN >6.04 (1.83-14.26)
[2025-08-05 20:06] LABS: IG A QN SERUM. 116 mg/dL (61-437)
== END 2025-07-30 10:45 | disposition home or self-care (01) ==
LOC: JONCCHEMO 08:24 → J7W 10:18 → JONCCHEMO 10:45
PROVIDERS: ATTEND Internal Medicine Hematology & Oncology
DX: Z51.11 Encounter for antineoplastic chemotherapy (principal); C90.00 Multiple myeloma not having achieved remission
CPT/HCPCS: 36415; 80048; 80076; 82232; 82784; 83615; 83735; 83883; 84155; 84165; 84550; 85025; 86335; 96401; J9041